=== PATIENT | male | born 1965 | race Caucasian/White ===

== ENCOUNTER → 2016-06-17 | Outpatient (CLI) | payer MEDICARE ==
--- NOTE | 2016-06-17 13:18 | MR ---
EXAMINATION TYPE: MR shoulder RT wo con DATE OF EXAM: 06/17/2016 1:02 PM COMPARISON: NONE HISTORY: Right Shoulder Pain TECHNIQUE: Multiplanar multispin echo imaging of the right shoulder was performed. 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 Small undersurface partial tear is noted just distal to the critical zone. No evide nce for full-thickness tear. The remaining rotator cuff tendons appear to be within normal limits. Bu rsa: No bursal effusion or thickening is seen. Musculature: There is no muscular tear, contusion, or atrophy. Acromioclavicular joint : Moderate AC joint arthropathy. Downsloping of the acromion with subacromial spurring resulting in impingement. Osseous structures : There are no fractures or regions of abnorma l bone marrow signal intensity. Long biceps tendon : The biceps tendon is normally situated within the bicipital groove. Tendinosis o f the intra-articular biceps tendon identified. Glenohumeral Joint fluid : There is no glenohumeral joint effusion. Cartilage and Bone : No focal hyaline cartilage defects are noted. No Hill-Sachs, reverse Hill-Sachs, or bony Bankart lesions are seen. Subchondral cystic change greater humeral tuberosity. Labrum : There is tear noted to involve the anterior-inferior glenoid labrum associated thickening. OTHER FINDINGS : none IMPRESSION: 1. Chronic tendinopathy supraspinatus tendon secondary to impingement with partial undersurface tear. 2. Intra-articular tendinosis of the biceps tendon. 3. Suspect anterior inferior glenoid labral tear.
== END | disposition home or self-care (01) ==
LOC: RADMRIMAIN 12:21
PROVIDERS: ATTEND Orthopaedic Surgery
DX: M75.111 Incomplete rotator cuff tear or rupture of right shoulder, not specified as traumatic (principal); M67.813 Other specified disorders of tendon, right shoulder; M75.81 Other shoulder lesions, right shoulder

== ENCOUNTER 2016-09-27 11:49 | Inpatient (IN) | payer MEDICARE ==
[2016-09-27] MEDS: SODIUM CHLORIDE 0.9% 1,000 ML IV SCH ×2 (14:29→23:16)
--- NOTE | 2016-09-27 14:29 | ED ---
General Adult HPI - General Chief complaint: Skin/Abscess/Foreign Body Stated complaint: abcess Time Seen by Provider: 09/27/16 12:13 Source: patient, family, RN notes reviewed Mode of arrival: ambulatory Limitations: no limitations - Related Data Home Medications Medication Instructions Recorded Confirmed HYDROcodone/APAP 10-325MG [[place] 1 tab PO QID PRN 01/13/15 09/27/16 10] Lisinopril 40 mg PO DAILY 01/13/15 09/27/16 Triamterene-Hctz 37.5-25Mg 1 cap PO DAILY 01/13/15 09/27/16 [Dyazide] amLODIPine [Norvasc] 2.5 mg PO DAILY 01/13/15 09/27/16 fentaNYL 50MCG/HR PATCH [Duragesic 50 mcg TRANSDERM Q72H 01/13/15 09/27/16 50Mcg/Hr Patch] Allergies Allergy/AdvReac Type Severity Reaction Status Date / Time No Known Allergies Allergy Verified 09/27/16 12:25 Review of Systems ROS Statement: Those systems with pertinent positive or pertinent negative responses have been documented in the HPI. ROS Other: All systems not noted in ROS Statement are negative. Past Medical History Past Medical History: Asthma, Hypertension, Musculoskeletal Disorder, Osteoarthritis (OA) Additional Past Medical History / Comment(s): chronic back pain History of Any Multi-Drug Resistant Organisms: None Reported Past Surgical History: Bariatric Surgery, Cholecystectomy, Hernia Repair, Orthopedic Surgery Additional Past Surgical History / Comment(s): UMBILICAL HERNIA, RT KNEE MENISCUS, GASTRIC SLEEVE 2012, rotator cuff Past Anesthesia/Blood Transfusion Reactions: No Reported Reaction Additional Past Anesthesia/Blood Transfusion Reaction / Comment(s): WOKE UP DURING KNEE SURGERY. Past Psychological History: No Psychological Hx Reported Smoking Status: Former smoker Past Alcohol Use History: None Reported Additional Past Alcohol Use History / Comment(s): STATES OCCASIONAL SMOKER APPROX 2 PACKS PER YEAR. Past Drug Use History: Marijuana Additional Drug Use History / Comment(s): SMOKES MARIJUANA FOR BACK PAIN DAILY - Past Family History Brother(s) Family Medical History: Cancer Additional Family Medical History / Comment(s): KIDNEY [place] General Exam Limitations: no limitations Course Vital Signs 09/27/16 09/27/16 09/27/16 11:52 12:35 15:36 Temperature 97.4 F L 99.3 F 98.4 F Pulse Rate 72 62 Respiratory 18 18 Rate Blood Pressure 159/77 178/84 O2 Sat by Pulse 99 Oximetry Medical Decision Making - Medical Decision Making Patient had lab work and IV started. He was seen by general surgeon Dr. Megan mei. Patient be admitted to her service. The ultrasound was done which showing a complex abscess measuring 4.8 cm with irregular shape. Approximate 1 cm deep to the surface. Possibly some peripheral vascularity appears to be part solid. This is the area where the patient had previous incision and drainage does have a fair amount of thickened skin. Dr. Callejas - Lab Data Result diagrams: 09/27/16 14:32 09/27/16 14:32 Lab Results 09/27/16 09/27/16 Range/Units 14:32 14:32 WBC 8.0 (3.8-10.6) k/uL RBC 4.81 (4.30-5.90) m/uL Hgb 13.8 (13.0-17.5) gm/dL Hct 40.4 (39.0-53.0) % MCV 84.0 (80.0-100.0) fL MCH 28.8 (25.0-35.0) pg MCHC 34.3 (31.0-37.0) g/dL RDW 12.7 (11.5-15.5) % Plt Count 227 (150-450) k/uL Neutrophils % 74 % Lymphocytes % 16 % Monocytes % 7 % Eosinophils % 1 % Basophils % 0 % Neutrophils # 5.9 (1.3-7.7) k/uL Lymphocytes # 1.3 (1.0-4.8) k/uL Monocytes # 0.6 (0-1.0) k/uL Eosinophils # 0.1 (0-0.7) k/uL Basophils # 0.0 (0-0.2) k/uL Sodium 140 (137-145) mmol/L Potassium 4.1 (3.5-5.1) mmol/L Chloride 103 (98-107) mmol/L Carbon Dioxide 33 H (22-30) mmol/L Anion Gap 4 mmol/L BUN 12 (9-20) mg/dL Creatinine 0.61 L (0.66-1.25) mg/dL Est GFR (MDRD) Af Amer >60 (>60 ml/min/1.73 sqM) Est GFR (MDRD) Non-Af >60 (>60 ml/min/1.73 sqM) Glucose 87 (74-99) mg/dL Calcium 8.9 (8.4-10.2) mg/dL Total Bilirubin 1.2 (0.2-1.3) mg/dL AST 25 (17-59) U/L ALT 26 (21-72) U/L Alkaline Phosphatase 66 (38-126) U/L Total Protein 6.6 (6.3-8.2) g/dL Albumin 3.6 (3.5-5.0) g/dL Disposition Clinical Impression: Perianal abscess Disposition: ADMITTED IP TO THIS HOSP Condition: Fair Referrals: Ethan Rea DO [Primary Care Provider] - 1-2 days
[2016-09-27 14:45] LABS: Basophils % (A) 0 %; CH 29.5; CHCM 35.3; Eosinophils # (A) 0.1 k/uL (0-0.7); Eosinophils % (A) 1 %; HCT 40.4 % (39.0-53.0); HDW 3.01; HGB 13.8 gm/dL (13.0-17.5); Luc # (Auto) 0.15; Luc % (Auto) 2; Lymphocytes # (A) 1.3 k/uL (1.0-4.8); Lymphocytes % (A) 16 %; MCH 28.8 pg (25.0-35.0); MCHC 34.3 g/dL (31.0-37.0); Mean Platelet Volume 6.4; Monocytes # (A) 0.6 k/uL (0-1.0); Monocytes % (A) 7 %; Neutrophils # (A) 5.9 k/uL (1.3-7.7); Neutrophils % (A) 74 %; RBC 4.81 m/uL (4.30-5.90); RDW 12.7 % (11.5-15.5); WBC (Perox) 7.72
[2016-09-27 14:54] LABS: ALT 26 U/L (21-72); AST 25 U/L (17-59); Alkaline Phosphatase 66 U/L (38-126); Anion Gap 4 mmol/L; Blood Urea Nitrogen 12 mg/dL (9-20); Calcium 8.9 mg/dL (8.4-10.2); Carbon Dioxide 33 mmol/L (22-30); Chloride 103 mmol/L (98-107); Glucose 87 mg/dL (74-99); Non-African American GFR(MDRD) >60 (>60 ml/min/1.73 sqM); Potassium 4.1 mmol/L (3.5-5.1); Sodium 140 mmol/L (137-145); Total Bilirubin 1.2 mg/dL (0.2-1.3); Total Protein 6.6 g/dL (6.3-8.2)
--- NOTE | 2016-09-27 15:24 | US ---
EXAMINATION TYPE: US pelvic limited DATE OF EXAM: 09/27/2016 COMPARISON: NONE CLINICAL HISTORY: painful perianal abscess Painful perianal area. Area does not appear red or swollen on the outside. Small dimpled area seen weems perficially. Irregular complex mass with peripheral vascularity measuring 4.8 x 2.8 cm. IMPRESSION: PROBABLE 4.8 CM PERINEAL ABSCESS.
--- NOTE | 2016-09-27 15:58 | P.GSHP ---
History of Present Illness H&P Date: 09/27/16 Chief Complaint: Perianal abscess Patient is a 50-year-old gentleman who presents to the emergency room with a complaint of pain in the periareolar area. Hemostasis the pain is present for approximately 3. The patient has had multiple perianal abscesses drained in the past. He denies any fever or chills. He did have a bowel movement this morning. Hemostasis was difficult secondary to pressure. Past surgical history: 1. Perianal abscess drainage 2. Rotator cuff 3. Gastric sleeve; patient has lost approximately 300 pounds 4. Umbilical hernia 5. Laparoscopic surgery 6. Cholecystectomy Past medical history: 1. Degenerative disease of his back 2. Shoulder pain Medications: Fentanyl Lisinopril Norvasc For Dyazide ALLERGIES: Negative Social history: Smokes marijuana Alcohol: Negative Cigarettes: Negative Systems: HEENT: Negative Lungs: Asthma in the past Heart: Negative GI: Constipation Multiple perianal abscesses in the past : Negative - Constitutional Constitutional: Reports as per HPI - Cardiovascular Cardiovascular: Reports as per HPI - Respiratory Respiratory: Reports as per HPI - Gastrointestinal Comment: Multiple perianal abscesses drained in the past Gastrointestinal: Reports as per HPI - Genitourinary (Female) Genitourinary: Reports as per HPI - Musculoskeletal Musculoskeletal: Reports as per HPI - Hematologic/Lymphatic Hematologic/Lymphatic: Reports as per HPI Past Medical History Past Medical History: Asthma, Hypertension, Musculoskeletal Disorder, Osteoarthritis (OA) Additional Past Medical History / Comment(s): chronic back pain History of Any Multi-Drug Resistant Organisms: None Reported Past Surgical History: Bariatric Surgery, Cholecystectomy, Hernia Repair, Orthopedic Surgery Additional Past Surgical History / Comment(s): UMBILICAL HERNIA, RT KNEE MENISCUS, GASTRIC SLEEVE 2012, rotator cuff Past Anesthesia/Blood Transfusion Reactions: No Reported Reaction Additional Past Anesthesia/Blood Transfusion Reaction / Comment(s): WOKE UP DURING KNEE SURGERY. Past Psychological History: No Psychological Hx Reported Smoking Status: Former smoker Past Alcohol Use History: None Reported Additional Past Alcohol Use History / Comment(s): STATES OCCASIONAL SMOKER APPROX 2 PACKS PER YEAR. Past Drug Use History: Marijuana Additional Drug Use History / Comment(s): SMOKES MARIJUANA FOR BACK PAIN DAILY - Past Family History Brother(s) Family Medical History: Cancer Additional Family Medical History / Comment(s): KIDNEY [place] Medications and Allergies Home Medications Medication Instructions Recorded Confirmed Type HYDROcodone/APAP 10-325MG [[place] 1 tab PO QID PRN 01/13/15 09/27/16 History 10] Lisinopril 40 mg PO DAILY 01/13/15 09/27/16 History Triamterene-Hctz 37.5-25Mg 1 cap PO DAILY 01/13/15 09/27/16 History [Dyazide] amLODIPine [Norvasc] 2.5 mg PO DAILY 01/13/15 09/27/16 History fentaNYL 50MCG/HR PATCH [Duragesic 50 mcg TRANSDERM Q72H 01/13/15 09/27/16 History 50Mcg/Hr Patch] Allergies Allergy/AdvReac Type Severity Reaction Status Date / Time No Known Allergies Allergy Verified 09/27/16 12:25 Surgical - Exam Vital Signs Temp Pulse Resp BP Pulse Ox 97.4 F L 72 18 159/77 99 09/27/16 11:52 09/27/16 11:52 09/27/16 11:52 09/27/16 11:52 09/27/16 11:52 - General well developed, no distress, obese - Eyes normal ocular movement - ENT normal pinna, normal nares, normal mucosa - Neck no masses, trachea midline, no lymphadectomy - Respiratory normal expansion, normal respiratory effort, clear to percussion, clear to auscultation - Cardiovascular Rhythm: regular Heart Sounds: normal: S1, S2 - Abdomen Abdomen: soft, tender - Rectum fullness and induration left perianal area Rectum: normal sphincter tone - Integumentary no rash, no growths - Psychiatric oriented to time, oriented to person, oriented to place, speech is normal Results - Labs 09/27/16 14:32 09/27/16 14:32 Abnormal Lab Results - Last 24 Hours (Table) 09/27/16 Range/Units 14:32 Carbon Dioxide 33 H (22-30) mmol/L Creatinine 0.61 L (0.66-1.25) mg/dL Diabetes panel 09/27/16 Range/Units 14:32 Sodium 140 (137-145) mmol/L Potassium 4.1 (3.5-5.1) mmol/L Chloride 103 (98-107) mmol/L Carbon Dioxide 33 H (22-30) mmol/L BUN 12 (9-20) mg/dL Creatinine 0.61 L (0.66-1.25) mg/dL Glucose 87 (74-99) mg/dL Calcium 8.9 (8.4-10.2) mg/dL AST 25 (17-59) U/L ALT 26 (21-72) U/L Alkaline Phosphatase 66 (38-126) U/L Total Protein 6.6 (6.3-8.2) g/dL Albumin 3.6 (3.5-5.0) g/dL Calcium panel 09/27/16 Range/Units 14:32 Calcium 8.9 (8.4-10.2) mg/dL Albumin 3.6 (3.5-5.0) g/dL Pituitary panel 09/27/16 Range/Units 14:32 Sodium 140 (137-145) mmol/L Potassium 4.1 (3.5-5.1) mmol/L Chloride 103 (98-107) mmol/L Carbon Dioxide 33 H (22-30) mmol/L BUN 12 (9-20) mg/dL Creatinine 0.61 L (0.66-1.25) mg/dL Glucose 87 (74-99) mg/dL Calcium 8.9 (8.4-10.2) mg/dL Adrenal panel 09/27/16 Range/Units 14:32 Sodium 140 (137-145) mmol/L Potassium 4.1 (3.5-5.1) mmol/L Chloride 103 (98-107) mmol/L Carbon Dioxide 33 H (22-30) mmol/L BUN 12 (9-20) mg/dL Creatinine 0.61 L (0.66-1.25) mg/dL Glucose 87 (74-99) mg/dL Calcium 8.9 (8.4-10.2) mg/dL Total Bilirubin 1.2 (0.2-1.3) mg/dL AST 25 (17-59) U/L ALT 26 (21-72) U/L Alkaline Phosphatase 66 (38-126) U/L Total Protein 6.6 (6.3-8.2) g/dL Albumin 3.6 (3.5-5.0) g/dL - Imaging Comments: Ultrasound of perianal area consistent with an abscess Assessment and Plan Plan: Impression/plan: 1. Multiple prior perianal abscesses for drainage of perianal abscess at this time 2. Asthma 3. History of constipation Plan: 1. I&D of abscess in operating room patient understands this and benefits and wishes to proceed
[2016-09-27] MEDS ORDERED: PIPERACILLIN-TAZOBACTAM 3.375 GM in DEXTROSE/WATER 1 50ML.BAG IVPB STA (16:01)
[2016-09-27 17:03] VITALS: BMI 35.9
[2016-09-27] MEDS ORDERED: HYDROcodone/APAP 10-325MG 1 EACH TAB PO PRN (20:27)
[2016-09-27] MEDS ORDERED: CYCLOBENZAPRINE 10 MG TAB PO PRN (21:42)
[2016-09-27] MEDS: LISINOPRIL 20 MG TAB PO SCH (22:39)
[2016-09-27] MEDS: amLODIPine 2.5 MG TAB PO SCH (22:39)
[2016-09-27] MEDS: busPIRone HCl 5 MG TAB PO PRN (22:40)
[2016-09-27] MEDS: ESCITALOPRAM 10 MG TAB PO SCH (22:40)
[2016-09-27] MEDS: clonazePAM 1 MG TAB PO SCH (22:40)
[2016-09-27] MEDS: TRIAMTERENE-HCTZ 37.5-25MG 1 EACH CAP PO SCH (22:42)
[2016-09-27] MEDS: PIPERACILLIN-TAZOBACTAM 3.375 GM in DEXTROSE/WATER 1 50ML.BAG IVPB SCH (23:12)
[2016-09-28] MEDS: ONDANSETRON 4 MG/2 ML VIAL IVP PRN ×2 (07:15→15:49)
[2016-09-28] MEDS: PIPERACILLIN-TAZOBACTAM 3.375 GM in DEXTROSE/WATER 1 50ML.BAG IVPB SCH ×2 (07:18→18:03)
[2016-09-28] MEDS ORDERED: hydrALAZINE HCL 20 MG/ML 1 ML VIAL IVP PRN (09:42)
[2016-09-28] MEDS ORDERED: ACETAMINOPHEN IV (For NPO) 1,000 MG in EMPTY BAG 1 BAG IVPB STA (10:07)
[2016-09-28] MEDS: amLODIPine 2.5 MG TAB PO SCH (10:48)
[2016-09-28] MEDS: LISINOPRIL 20 MG TAB PO SCH (10:48)
[2016-09-28] MEDS: clonazePAM 1 MG TAB PO SCH ×2 (10:48→20:39)
[2016-09-28] MEDS: ESCITALOPRAM 10 MG TAB PO SCH (10:48)
[2016-09-28] MEDS: TRIAMTERENE-HCTZ 37.5-25MG 1 EACH CAP PO SCH (10:48)
[2016-09-28] MEDS ORDERED: IV FLUID CONTINUATION 1,000 ML IV ONE (13:47)
[2016-09-28] MEDS ORDERED: HEPARIN SODIUM,PORCINE 5,000 UNIT/ML 1 ML VIAL SQ ONE ×2 (14:29→15:25)
[2016-09-28] MEDS ORDERED: MIDAZOLAM 2 MG/2 ML VIAL ONE (14:41)
[2016-09-28] MEDS ORDERED: HYDROmorphone (PF) 1 MG/ML ONE (14:41)
[2016-09-28] MEDS ORDERED: ROCURONIUM BROMIDE 10 MG/ML 10 ML VIAL IV ONE (14:41)
[2016-09-28] MEDS ORDERED: fentaNYL (PF) 50 MCG/ML 2 ML AMP ONE (14:41)
[2016-09-28] MEDS ORDERED: NEOSTIGMINE 1 MG/ML 10 ML VIAL ONE (14:41)
[2016-09-28] MEDS ORDERED: GLYCOPYRROLATE 0.2 MG/ML 2 ML VIAL ONE (14:41)
[2016-09-28] MEDS ORDERED: SUCCINYLCHOLINE CHLORIDE 100 MG/5 ML SYR IV ONE (14:41)
[2016-09-28] MEDS ORDERED: LIDOCAINE 1% INJ 10MG/ML (20 ML MDV) ONE (14:41)
[2016-09-28] MEDS ORDERED: KETAMINE 10 MG/ML 20 ML VIAL ONE (14:41)
[2016-09-28] MEDS ORDERED: PROPOFOL 10 MG/ML 20 ML VIAL IV ONE (14:41)
[2016-09-28] MEDS ORDERED: METOPROLOL TARTRATE 5 MG/5 ML VIAL IVP ONE (14:41)
[2016-09-28] MEDS ORDERED: LIDOCAINE 1% (PF) 10 MG/ML (30 ML SDV) SQ ONE (15:20)
--- NOTE | 2016-09-28 15:31 | P.OP ---
Date of Procedure: 09/28/16 Preoperative Diagnosis: Left buttock perianal abscess Postoperative Diagnosis: Same Procedure(s) Performed: Incision and drainage perianal abscess Implants: Anesthesia: FRANA Surgeon: Katerina Anton Estimated Blood Loss (ml): 10 IV fluids (ml): 700 Pathology: other (No tissue but cultures obtained aerobic and anerobic) Condition: stable Disposition: PACU Indications for Procedure: Left buttock perianal abscess Operative Findings: Perianal abscess Description of Procedure: Patient was taken to the operating room and placed in the right lateral decubitus position following induction of general anesthesia. The perianal area was prepped and draped in the sterile fashion. In the left buttock there was an area of induration and an 18-gauge needle was used to identify the location of the area of purulence; as it was somewhat deep. A cruciate incision was then made over this area and approximately 15 cc of purulent drainage was removed. Cultures were obtained. The area was well irrigated. Following this after hemostatis was attained the wound was packed with iodoform gauze. Patient tolerated procedure in stable condition. All instrument and sponge counts were correct at the end of the case. The size of the cavity was approximately 8 cm x 4cm
[2016-09-28] MEDS: hydrALAZINE HCL 20 MG/ML 1 ML VIAL IVP ONE ×2 (16:29→17:05)
[2016-09-28] MEDS ORDERED: LACTATED RINGERS 1,000 ML IV ONE (16:36)
--- NOTE | 2016-09-28 20:03 | CONS ---
DATE OF CONSULTATION: 09/28/2016. REASON FOR CONSULTATION: Medical management requested by Dr. Megan Anton. CONSULTATION: This is a pleasant 50-year-old patient of Dr. Rea. Chronic stable medical conditions include hypertension, osteoarthritis in multiple joints, including the back, knee, depression, anxiety. The patient has had recurrent rectal abscess since the age of 17. This time above came week ago, patient is having increasing pain in the rectal area, rectal abscess again identified. Rather painful. Denies any obvious fevers. Patient takes rather hefty pain medication because it causes constipation. The patient decided to stop Fentanyl patch 3 days ago. The patient is having some slight nausea. REVIEW OF SYSTEMS: CONSTITUTIONAL: Weak and tired. HEENT: None. RESPIRATORY: None. CARDIOVASCULAR: None. GASTROINTESTINAL: Constipation. GENITOURINARY: As above. MUSCULOSKELETAL: Arthritic pain in the lower back pain, knees. Dermatological: Pain, redness in the perirectal area. HEMATOLOGICAL: None. LYMPHATICS: None. PSYCHIATRY: None. NEUROLOGICAL: As above. MUSCULOSKELETAL: As above. Past history of remote history of asthma, hypertension, osteoarthritis, back and knees, depression and anxiety, perirectal abscess. PAST SURGICAL HISTORY: Bariatric surgery, cholecystectomy, hernia repair, umbilical hernia repair, right knee meniscus, gastric sleeve 2012, rotator cuff surgery. SOCIAL HISTORY: Patient smokes cigarettes rarely. Does marijuana for back pain. Patient is on disability. FAMILY HISTORY: Kidney cancer. HOME MEDICATIONS: 1. Fentanyl patch 75 mcg every 72 hours, stopped 3 days ago. 2. Buspirone 50 mg p.o. t.i.d. p.r.n. 3. Lexapro 10 mg a day. 4. Klonopin 1 mg p.o. b.i.d. 5. Dyazide 37.5/25, 1 tablet p.o. daily. 6. Norvasc 2.5 p.o. daily. 7. Lisinopril 40 mg a day. 8. [place] 10 1 tablets q.i.d. p.r.n. ALLERGIES: None. PHYSICAL EXAMINATION: Vital signs on presentation: Temperature 97.4, pulse 72, respirations 18, blood pressure 149/77, pulse ox 99% on room air. GENERAL APPEARANCE: Well-built lying in bed, tired -appearing. EYES: Pupils equal. Conjunctivae normal. HEENT: Oral cavity normal. NECK: JVD not raised. Mass not palpable. RESPIRATORY: Effort normal. Lungs are clear. CARDIOVASCULAR: First and second sounds normal. No edema. ABDOMEN: Soft, nontender. Liver and spleen not palpable. LYMPHATIC: No lymph nodes palpable in neck or axillae. PSYCHIATRY: Alert, oriented x3 Mood and affect normal. NEUROLOGICAL: Pupils are equal, cranial nerves grossly intact. Power and sensation grossly intact. MUSCULOSKELETAL: Evidence of osteoarthritis especially in the knees and hands. Rectal area noted to be very tender in the perirectal area with some fluctuation. INVESTIGATIONS: White count 8, hemoglobin 13.8, potassium 4.1, BUN 12.0, creatinine 0.61. ASSESSMENT: 1. Recurrent perirectal abscess. 2. Essential hypertension. 3. Primary osteoarthritis in the lumbar spine and the knees. 4. Depression/anxiety, not otherwise specified. PLAN: Patient is put on IV Zosyn. Home medications are resumed. Patient did not want to take his Fentanyl patch. I did explain to him that dropping 75 mcg of fentanyl with no pain medications at least he should take a part of that. At this point, we will give the patient 25 of fentanyl patch and other pain before surgery we will leave to primary team. Care was discussed with the patient. Thank you, Dr. Megan Anton.
[2016-09-28] MEDS ORDERED: ACETAMINOPHEN TAB 325 MG TAB PO PRN ×2 (20:27→20:33)
[2016-09-28] MEDS: busPIRone HCl 5 MG TAB PO PRN (21:46)
[2016-09-28] MEDS: SODIUM CHLORIDE 0.9% 1,000 ML IV SCH (22:27)
[2016-09-29] MEDS: PIPERACILLIN-TAZOBACTAM 3.375 GM in DEXTROSE/WATER 1 50ML.BAG IVPB SCH ×2 (06:27→08:31)
[2016-09-29] MEDS: SODIUM CHLORIDE 0.9% 1,000 ML IV SCH (07:15)
[2016-09-29 07:30] LABS: Basophils % (A) 0 %; CH 29.4; CHCM 34.7; Eosinophils # (A) 0.1 k/uL (0-0.7); Eosinophils % (A) 1 %; HCT 39.8 % (39.0-53.0); HDW 3.08; HGB 13.8 gm/dL (13.0-17.5); Luc # (Auto) 0.12; Luc % (Auto) 2; Lymphocytes % (A) 16 %; MCH 29.5 pg (25.0-35.0); MCHC 34.8 g/dL (31.0-37.0); MCV 84.9 fL (80.0-100.0); Mean Platelet Volume 6.7; Monocytes # (A) 0.4 k/uL (0-1.0); Monocytes % (A) 7 %; Neutrophils # (A) 4.4 k/uL (1.3-7.7); Neutrophils % (A) 74 %; RBC 4.69 m/uL (4.30-5.90); RDW 12.7 % (11.5-15.5); WBC (Perox) 6.09
[2016-09-29 07:42] LABS: Anion Gap 9 mmol/L; Blood Urea Nitrogen 9 mg/dL (9-20); Calcium 8.7 mg/dL (8.4-10.2); Carbon Dioxide 27 mmol/L (22-30); Chloride 106 mmol/L (98-107); Glucose 101 mg/dL (74-99); Non-African American GFR(MDRD) >60 (>60 ml/min/1.73 sqM); Potassium 3.5 mmol/L (3.5-5.1); Sodium 142 mmol/L (137-145)
[2016-09-29 08:02] VITALS: BP 150/81; PULSE 62; RESP 17; TEMP 97.3
[2016-09-29] MEDS ORDERED: POTASSIUM CHLORIDE ER 20 MEQ TAB.ER PO STA (08:03)
[2016-09-29] MEDS: LISINOPRIL 20 MG TAB PO SCH (08:55)
[2016-09-29] MEDS: clonazePAM 1 MG TAB PO SCH (08:56)
[2016-09-29] MEDS: amLODIPine 2.5 MG TAB PO SCH (08:56)
[2016-09-29] MEDS: ESCITALOPRAM 10 MG TAB PO SCH (08:56)
[2016-09-29] MEDS: TRIAMTERENE-HCTZ 37.5-25MG 1 EACH CAP PO SCH (08:56)
--- NOTE | 2016-09-29 11:36 | P.DS ---
Providers Date of admission: 09/27/16 15:45 Expected date of discharge: 09/29/16 Attending physician: Katerina Anton Consults: 09/27/16 20:25 Consult Physician Urgent Consulting Provider: Fawad Latham Consult Reason/Comments: medical Do you want consulting provider notified?: Yes 09/28/16 15:34 Consult Physician Routine Consulting Provider: Joaquín Mas Consult Reason/Comments: recurrent perianal abscess Do you want consulting provider notified?: Yes Primary care physician: [facility] Course: 50-year-old male who presented on the day of admission to the emergency room for chief complaint of developing pain in the perirectal area. Patient gives a history of having prior multiple perianal abscess drained in the past. Patient denied any fever chills. Patient does give a history of morbid obesity did undergo gastric sleeve and lost approximately 300 pounds patient did have an ultrasound of the perianal area which was consistent with an abscess. Patient agreed to undergo an elective incision and drainage of the perianal abscess which was done on September 28. Postop there were no new events. The wound care was packing with iodoform gauze. Infectious disease consultation was obtained Dr. Mas did see patient on consultation recommended the patient could be discharged on Cipro 500 mg every 12 hours for 1 week and Flagyl 500 mg 3 times a day for 1 week. And that the wound cultures could be followed up in the outpatient setting and that the 2 antibiotics should be adequate coverage. Patient has no history of MRSA. The time of discharge the wound cultures were pending at Dr. Mas did indicate these antibiotics would cover the anaerobic Gram stain cultures if they were positive for MRSA Patient lives with his spouse and was requesting home care be set up to participate in wound care Impression discharge diagnosis Present on admission Left buttock perianal pain likely due to a perianal abscess Incision and drainage of a perianal abscess done on the september with iodoform packing Essential Hypertension Primary Osteoarthritis lumbar spine and knees Anxiety depressive disorder nonspecified History a recurrent perirectal abscess History of morbid obesity loss 300 pounds with the surgical intervention gastric sleeve The above dictated assessment and findings were discussed with [dr Naina hyatt Impression and the plan of care have been dictated as directed. Gris Harden nurse practitioner acting as a scribe for Dr. Muhammad. Patient Condition at Discharge: Fair Plan - Discharge Summary New Discharge Prescriptions: New fentaNYL 25MCG/HR PATCH [Duragesic 25MCG/HR] 1 patch TRANSDERM Q72H #7 patch Ciprofloxacin HCl [Cipro] 500 mg PO Q12HR #14 tablet metroNIDAZOLE [Flagyl] 500 mg PO TID #21 tab Continue HYDROcodone/APAP 10-325MG [[place] 10-325] 1 tab PO QID PRN PRN Reason: Pain amLODIPine [Norvasc] 2.5 mg PO DAILY Triamterene-Hctz 37.5-25Mg [Dyazide 37.5-25 Capsule] 1 cap PO DAILY Lisinopril 40 mg PO DAILY clonazePAM [KlonoPIN] 1 mg PO BID busPIRone HCL 15 mg PO TID PRN PRN Reason: Anxiety Escitalopram [Lexapro] 10 mg PO DAILY Discontinued fentaNYL 75MCG/HR PATCH [Durages[place] 75MCG/HR] 75 mcg TRANSDERM Q72H Discharge Medication List HYDROcodone/APAP 10-325MG [[place] 10-325] 1 tab PO QID PRN 01/13/15 [History] Lisinopril 40 mg PO DAILY 01/13/15 [History] Triamterene-Hctz 37.5-25Mg [Dyazide 37.5-25 Capsule] 1 cap PO DAILY 01/13/15 [ History] amLODIPine [Norvasc] 2.5 mg PO DAILY 01/13/15 [History] Escitalopram [Lexapro] 10 mg PO DAILY 09/27/16 [History] busPIRone HCL 15 mg PO TID PRN 09/27/16 [History] clonazePAM [KlonoPIN] 1 mg PO BID 09/27/16 [History] Ciprofloxacin HCl [Cipro] 500 mg PO Q12HR #14 tablet 09/29/16 [Rx] fentaNYL 25MCG/HR PATCH [Durages[place] 25MCG/HR] 1 patch TRANSDERM Q72H #7 patch 12/08 [Rx] metroNIDAZOLE [Flagyl] 500 mg PO TID #21 tab 09/29/16 [Rx] Follow up Appointment(s)/Referral(s): Ethan Rea DO [Primary Care Provider] - 1-2 days Katerina Anton MD [STAFF PHYSICIAN] - 1 Week Activity/Diet/Wound Care/Special Instructions: wound care per surgeon Iodoform packing to the perirectal area twice a day Discharge Disposition: HOME WITH HOME HEALTH SERVICES
--- NOTE | 2016-09-29 14:09 | P.CONS ---
History of Present Illness - Reason for Consult Consult date: 09/29/16 perianal abscess - History of Present Illness This is a 50-year-old male who gives history of having a perianal abscess when he was 19 years old and had several recurrences during the past 20- 30 years. His most recent one was 10 years ago he ended up applying heat and standing in the shower with warm water and it eventually popped on its own and he did not seek medical treatment. Patient now states he has had an area for at least the last 4 days and he has been trying to use a heating pad and a warm shower to get it to express itself but this has not happened and he continued to have worsening pain and tenderness to the area. He came into [facility] emergency center and underwent ultrasound that showed a 4.8 cm abscess. Patient was admitted to the hospital and started on Zosyn. He went to the OR for a left perineal abscess I&D with Dr. Anton yesterday and currently wound is being packed. He has been afebrile with white count of 8. Albumin is 3.6. Patient is anticipating discharge home later today. Review of Systems All systems: negative Constitutional: Denies chills, Denies fever Eyes: denies blurred vision, denies pain Ears, nose, mouth and throat: Denies headache, Denies sore throat Cardiovascular: Denies chest pain, Denies shortness of breath Respiratory: Denies cough Gastrointestinal: Denies abdominal pain, Denies diarrhea, Denies nausea, Denies vomiting Musculoskeletal: Denies myalgias Integumentary: Denies pruritus, Denies rash Neurological: Denies numbness, Denies weakness Psychiatric: Denies anxiety, Denies depression Endocrine: Denies fatigue, Denies weight change Past Medical History Past Medical History: Asthma, Hypertension, Musculoskeletal Disorder, Osteoarthritis (OA) Additional Past Medical History / Comment(s): chronic back pain History of Any Multi-Drug Resistant Organisms: None Reported Past Surgical History: Bariatric Surgery, Cholecystectomy, Hernia Repair, Orthopedic Surgery Additional Past Surgical History / Comment(s): UMBILICAL HERNIA, RT KNEE MENISCUS, GASTRIC SLEEVE 2012, rotator cuff Past Anesthesia/Blood Transfusion Reactions: No Reported Reaction Additional Past Anesthesia/Blood Transfusion Reaction / Comm: WOKE UP DURING KNEE SURGERY. Past Psychological History: No Psychological Hx Reported Smoking Status: Former smoker Past Alcohol Use History: None Reported Additional Past Alcohol Use History / Comment(s): Patient is a smoker one to 2 packs per day of cigarettes. He does smoke marijuana for his back pain. He does not have a medical marijuana card but his does. He denies any street drug use and uses alcohol on a rare basis. He lives at home with his and his mother. There is a bird in the home. He denies any service. His hobbies are drumming and singing. Past Drug Use History: Marijuana Additional Drug Use History / Comment(s): SMOKES MARIJUANA FOR BACK PAIN DAILY - Past Family History Father Family Medical History: No Reported History Brother(s) Family Medical History: Cancer Additional Family Medical History / Comment(s): KIDNEY [place] Medications and Allergies Home Medications Medication Instructions Recorded Confirmed Type HYDROcodone/APAP 10-325MG [[place] 1 tab PO QID PRN 01/13/15 09/27/16 History 10-325] Lisinopril 40 mg PO DAILY 01/13/15 09/27/16 History Triamterene-Hctz 37.5-25Mg 1 cap PO DAILY 01/13/15 09/27/16 History [Dyazide 37.5-25 Capsule] amLODIPine [Norvasc] 2.5 mg PO DAILY 01/13/15 09/27/16 History Escitalopram [Lexapro] 10 mg PO DAILY 09/27/16 09/27/16 History busPIRone HCL 15 mg PO TID PRN 09/27/16 09/27/16 History clonazePAM [KlonoPIN] 1 mg PO BID 09/27/16 09/27/16 History Allergies Allergy/AdvReac Type Severity Reaction Status Date / Time No Known Allergies Allergy Verified 09/27/16 12:25 Physical Exam Vitals: Vital Signs Temp Pulse Pulse Resp BP Pulse Ox 09/29/16 07:00 97.3 F L 62 17 150/81 98 09/29/16 02:09 98.6 F 73 16 158/84 98 09/28/16 19:30 71 16 141/82 97 09/28/16 19:15 98.4 F 78 16 152/83 97 09/28/16 19:00 79 16 157/78 97 09/28/16 18:45 75 16 152/83 97 09/28/16 18:30 81 16 154/89 97 09/28/16 18:15 74 16 151/86 97 09/28/16 18:00 73 16 173/102 97 09/28/16 17:45 98.7 F 71 16 178/101 99 09/28/16 17:15 73 16 170/92 98 09/28/16 16:58 64 16 170/88 98 09/28/16 16:46 63 16 174/85 98 09/28/16 16:38 62 16 174/93 98 09/28/16 16:30 57 L 18 185/100 98 09/28/16 16:15 59 L 18 189/96 97 09/28/16 16:00 51 L 20 164/99 100 09/28/16 15:49 97.9 F 58 L 21 172/97 100 09/28/16 13:53 97.7 F 77 17 144/89 97 09/28/16 10:05 60 159/83 Intake and Output 09/28/16 09/29/16 09/29/16 22:59 06:59 14:59 Intake Total 520 900 Output Total 10 Balance 510 900 Intake: IV 400 900 Sodium Chloride 0.9% 1, 900 000 ml @ 75 mls/hr IV . [id number] BERNY Rx#:[id number] Oral 120 Output: Estimated Blood Loss 10 Other: # Voids 1 Gen: This is a morbidly obese 50-year-old male. He is laying in bed and appears to be in no acute distress. HEENT: Head is atraumatic, normocephalic. Pupils equal, round. Sclerae is anicteric. Conjunctiva pink. Mucous membranes of the mouth are moist. Dentition is in poor order. No thrush noted. NECK: Supple. No JVD. No lymphadenopathy. No thyromegaly. LUNGS: Clear to auscultation. No wheezes or rhonchi. No intercostal retractions. HEART: Regular rate and rhythm. No murmur. ABDOMEN: Soft. Bowel sounds are present. No masses. No tenderness. EXTREMITIES: No pedal edema. No calf tenderness. Dorsalis pedis +2 bilaterally. NEUROLOGICAL: Patient is awake, alert and oriented x3. Cranial nerves 2 through 12 are grossly intact. Results Results: Laboratory Results WBC 6.0 k/uL (3.8-10.6) 09/29/16 07:13 RBC 4.69 m/uL (4.30-5.90) 09/29/16 07:13 Hgb 13.8 gm/dL (13.0-17.5) 09/29/16 07:13 Hct 39.8 % (39.0-53.0) 09/29/16 07:13 MCV 84.9 fL (80.0-100.0) 09/29/16 07:13 MCH 29.5 pg (25.0-35.0) 09/29/16 07:13 MCHC 34.8 g/dL (31.0-37.0) 09/29/16 07:13 RDW 12.7 % (11.5-15.5) 09/29/16 07:13 Plt Count 248 k/uL (150-450) 09/29/16 07:13 Neutrophils % 74 % 09/29/16 07:13 Lymphocytes % 16 % 09/29/16 07:13 Monocytes % 7 % 09/29/16 07:13 Eosinophils % 1 % 09/29/16 07:13 Basophils % 0 % 09/29/16 07:13 Neutrophils # 4.4 k/uL (1.3-7.7) 09/29/16 07:13 Lymphocytes # 1.0 k/uL (1.0-4.8) 09/29/16 07:13 Monocytes # 0.4 k/uL (0-1.0) 09/29/16 07:13 Eosinophils # 0.1 k/uL (0-0.7) 09/29/16 07:13 Basophils # 0.0 k/uL (0-0.2) 09/29/16 07:13 Sodium 142 mmol/L (137-145) 09/29/16 07:13 Potassium 3.5 mmol/L (3.5-5.1) 09/29/16 07:13 Chloride 106 mmol/L (98-107) 09/29/16 07:13 Carbon Dioxide 27 mmol/L (22-30) 09/29/16 07:13 Anion Gap 9 mmol/L 09/29/16 07:13 BUN 9 mg/dL (9-20) 09/29/16 07:13 Creatinine 0.54 mg/dL (0.66-1.25) L 09/29/16 07:13 Est GFR (MDRD) Af Amer >60 (>60 ml/min/1.73 sqM) 09/29/16 07:13 Est GFR (MDRD) Non-Af >60 (>60 ml/min/1.73 sqM) 09/29/16 07:13 Glucose 101 mg/dL (74-99) H 09/29/16 07:13 Calcium 8.7 mg/dL (8.4-10.2) 09/29/16 07:13 Total Bilirubin 1.2 mg/dL (0.2-1.3) 09/27/16 14:32 AST 25 U/L (17-59) 09/27/16 14:32 ALT 26 U/L (21-72) 09/27/16 14:32 Alkaline Phosphatase 66 U/L (38-126) 09/27/16 14:32 Total Protein 6.6 g/dL (6.3-8.2) 09/27/16 14:32 Albumin 3.6 g/dL (3.5-5.0) 09/27/16 14:32 Laboratory Results WBC 6.0 k/uL (3.8-10.6) 09/29/16 07:13 RBC 4.69 m/uL (4.30-5.90) 09/29/16 07:13 Hgb 13.8 gm/dL (13.0-17.5) 09/29/16 07:13 Hct 39.8 % (39.0-53.0) 09/29/16 07:13 MCV 84.9 fL (80.0-100.0) 09/29/16 07:13 MCH 29.5 pg (25.0-35.0) 09/29/16 07:13 MCHC 34.8 g/dL (31.0-37.0) 09/29/16 07:13 RDW 12.7 % (11.5-15.5) 09/29/16 07:13 Plt Count 248 k/uL (150-450) 09/29/16 07:13 Neutrophils % 74 % 09/29/16 07:13 Lymphocytes % 16 % 09/29/16 07:13 Monocytes % 7 % 09/29/16 07:13 Eosinophils % 1 % 09/29/16 07:13 Basophils % 0 % 09/29/16 07:13 Neutrophils # 4.4 k/uL (1.3-7.7) 09/29/16 07:13 Lymphocytes # 1.0 k/uL (1.0-4.8) 09/29/16 07:13 Monocytes # 0.4 k/uL (0-1.0) 09/29/16 07:13 Eosinophils # 0.1 k/uL (0-0.7) 09/29/16 07:13 Basophils # 0.0 k/uL (0-0.2) 09/29/16 07:13 Sodium 142 mmol/L (137-145) 09/29/16 07:13 Potassium 3.5 mmol/L (3.5-5.1) 09/29/16 07:13 Chloride 106 mmol/L (98-107) 09/29/16 07:13 Carbon Dioxide 27 mmol/L (22-30) 09/29/16 07:13 Anion Gap 9 mmol/L 09/29/16 07:13 BUN 9 mg/dL (9-20) 09/29/16 07:13 Creatinine 0.54 mg/dL (0.66-1.25) L 09/29/16 07:13 Est GFR (MDRD) Af Amer >60 (>60 ml/min/1.73 sqM) 09/29/16 07:13 Est GFR (MDRD) Non-Af >60 (>60 ml/min/1.73 sqM) 09/29/16 07:13 Glucose 101 mg/dL (74-99) H 09/29/16 07:13 Calcium 8.7 mg/dL (8.4-10.2) 09/29/16 07:13 Total Bilirubin 1.2 mg/dL (0.2-1.3) 09/27/16 14:32 AST 25 U/L (17-59) 09/27/16 14:32 ALT 26 U/L (21-72) 09/27/16 14:32 Alkaline Phosphatase 66 U/L (38-126) 09/27/16 14:32 Total Protein 6.6 g/dL (6.3-8.2) 09/27/16 14:32 Albumin 3.6 g/dL (3.5-5.0) 09/27/16 14:32 CBC & Chem 7: 09/29/16 07:13 09/29/16 07:13 Labs: Abnormal Lab Results - Last 24 Hours (Table) 09/29/16 Range/Units 07:13 Creatinine 0.54 L (0.66-1.25) mg/dL Glucose 101 H (74-99) mg/dL Microbiology - Last 24 Hours (Table) 09/28/16 15:30 Gram Stain - Preliminary Anal Wound Culture - Preliminary 09/28/16 15:30 Anaerobic Culture - Preliminary Anal Assessment and Plan Plan: This is a 50-year-old male who presented to hospital with a left perianal abscess status post I&D. He has been on IV antibiotics the form of Zosyn and is being prepared for discharge home today. Wound culture showing many gram-negative bacilli. We will plan for Cipro and Flagyl and prescriptions have been entered and sent to his pharmacy. Continue supportive care. The above dictated assessment and findings were discussed with Dr. Mas. The impression and plan of care have been directed as dictated. Candace Fermin nurse practitioner acting as scribe for Dr. Mas.
--- NOTE | 2016-09-29 21:29 | P.CON ---
Consult Note - . Consult date: 09/29/16 Assessment/Plan:: This is a 50-year-old male who gives history of having a perianal abscess when he was 19 years old and had several recurrences during the past 20- 30 years. His most recent one was 10 years ago he ended up applying heat and standing in the shower with warm water and it eventually popped on its own and he did not seek medical treatment. Patient now states he has had an area for at least the last 4 days and he has been trying to use a heating pad and a warm shower to get it to express itself but this has not happened and he continued to have worsening pain and tenderness to the area. He came into [facility] emergency center and underwent ultrasound that showed a 4.8 cm abscess. Patient was admitted to the hospital and started on Zosyn. He went to the OR for a left perineal abscess I&D with Dr. Anton yesterday and currently wound is being packed. He has been afebrile with white count of 8. Albumin is 3.6. Patient is anticipating discharge home later today. Please see the consult note as dictated by nurse practitioner Mrs. Candace Fermin. The patient is evaluated. The packing is removed from the perianal abscess site. It is repacked with Aquacel Silver. Orders are given to home care for this process. Found to be quite soothing. Will do sitz baths and the dressing is changed. Antibiotic therapy is with ciprofloxacin and Flagyl while cultures are pending. As expected many gram-negative bacilli are being seen. He is doing well enough to be discharged home. Can follow-up in the office on an as-needed basis. I agree with evaluation, assessment and plan as dictated by nurse practitioner Mrs. Candace Fermin.
--- NOTE | 2016-09-30 21:48 | PN ---
DATE OF SERVICE: 09/29/2016 PRESENTING COMPLAINT: Rectal abscess surgery. INTERVAL HISTORY: This is a patient with multiple medical problems, status post rectal abscess surgery, doing better. Lying in bed. Pain is ( ) controlled. Review of systems done for constitutional, cardiovascular, GI, pulmonary; relevant findings as above. Current medications are reviewed. On examination, temperature 97.3, pulse 82, respiration 17 blood pressure 150/81, pulse ox 98% on room air. GENERAL APPEARANCE: Lying in bed, not in distress. EYES: Pupils equal. Conjunctivae normal. NECK: JVD not raised. Mass not palpable. RESPIRATORY: Effort normal. LUNGS: Fair air entry. CARDIOVASCULAR: First and second sounds normal. No edema. ABDOMEN: Soft, nontender. Liver and spleen not palpable. PSYCHIATRY: Awake. Answering questions. INVESTIGATIONS: White count 6.6, hemoglobin 13.8, potassium 3.5. ASSESSMENT: 1. Recurrent perirectal abscess, status post incision and drainage. 2. Essential hypertension. 3. Primary osteoarthritis in the lumbar spine and knees. 4. Depression, anxiety not otherwise specified. 5. Obesity; body mass index 35.9. PLAN: Continue current medication and treatment plan. Antibiotics are to continue. Patient's dose of Duragesic patch continues. Antibiotics as per Surgery and ID.
== END 2016-09-29 14:45 | disposition home health service (06) | DRG 395 ==
LOC: EC 11:49 → 3SUR 15:45
PROVIDERS: ADMIT Surgery; ATTEND Surgery
PROC: 0D9Q0ZX Drainage of Anus, Open Approach, Diagnostic (ICD-10-PCS; principal; 2016-09-28 10:55)
DX: K61.2 Anorectal abscess (principal); E66.01 Morbid (severe) obesity due to excess calories; I10 Essential (primary) hypertension; F32.9 Major depressive disorder, single episode, unspecified; M19.91 Primary osteoarthritis, unspecified site; M47.816 Spondylosis without myelopathy or radiculopathy, lumbar region; F41.9 Anxiety disorder, unspecified; J45.909 Unspecified asthma, uncomplicated; Z68.35 Body mass index [BMI] 35.0-35.9, adult; F12.90 Cannabis use, unspecified, uncomplicated; G89.29 Other chronic pain; Z98.84 Bariatric surgery status; Z90.49 Acquired absence of other specified parts of digestive tract; Z87.891 Personal history of nicotine dependence; Z79.899 Other long term (current) drug therapy
CPT/HCPCS: 36415; 76857; 80048; 80053; 85025; 87070; 87075; 87077; 87186; 87205; 96360; 96361; 99284

== ENCOUNTER 2017-05-31 11:35 | Emergency (ER) | payer MEDICARE ==
[2017-05-31] MEDS ORDERED: RX INFO: IV CONTRAST WAS GIVEN 1 EACH MISC MISCELLANE PRN (12:25)
[2017-05-31] MEDS ORDERED: KETOROLAC 30 MG/ML 1 ML VIAL IVP STA (12:25)
[2017-05-31 12:59] LABS: ALT 28 U/L (21-72); AST 29 U/L (17-59); Albumin 4.1 g/dL (3.5-5.0); Alkaline Phosphatase 70 U/L (38-126); Amylase 63 U/L (30-110); Anion Gap 9 mmol/L; Basophils % (A) 0 %; Blood Urea Nitrogen 19 mg/dL (9-20); Calcium 9.5 mg/dL (8.4-10.2); Carbon Dioxide 31 mmol/L (22-30); Chloride 103 mmol/L (98-107); Eosinophils # (A) 0.2 k/uL (0-0.7); Eosinophils % (A) 2 %; Glucose 86 mg/dL (74-99); HCT 44.9 % (39.0-53.0); HGB 15.2 gm/dL (13.0-17.5); Lipase 62 U/L (23-300); Lymphocytes # (A) 1.2 k/uL (1.0-4.8); Lymphocytes % (A) 19 %; MCH 29.2 pg (25.0-35.0); MCHC 33.9 g/dL (31.0-37.0); MCV 86.3 fL (80.0-100.0); Mean Platelet Volume 6.3; Monocytes # (A) 0.4 k/uL (0-1.0); Monocytes % (A) 6 %; Neutrophils # (A) 4.3 k/uL (1.3-7.7); Neutrophils % (A) 70 %; Platelet Count 253 k/uL (150-450); Potassium 4.4 mmol/L (3.5-5.1); RDW 13.3 % (11.5-15.5); Sodium 143 mmol/L (137-145); Total Protein 7.1 g/dL (6.3-8.2); WBC 6.1 k/uL (3.8-10.6)
[2017-05-31 13:03] LABS: Partial Thromboplastin Time 23.8 sec (22.0-30.0); Prothrombin Time 10.1 sec (9.0-12.0)
--- NOTE | 2017-05-31 13:03 | ED ---
General Adult HPI - General Chief complaint: Recheck/Abnormal Lab/Rx Stated complaint: Fall-rib pain Time Seen by Provider: 05/31/17 12:16 Source: patient Mode of arrival: ambulatory Limitations: no limitations - History of Present Illness Initial comments: This 51-year-old white male presents with a complaint of some pain to his left back and left abdomen. He states that he fell approximately 2 weeks ago and injured these areas. He's had pain since that time. He also complains of some pain to his inferior most left lower ribs. He states that he had an x-ray done through his primary care physician which did not show any abnormalities. He is currently been taking some fentanyl 75 g patches as well as [place] 10/325 mg pills for the pain but states that he is still having significant pain. States that he has chronic pain issues normally. He denies any fevers, chills, diarrhea, nausea, vomiting, or chest pain. He states that he is worried about internal injury to his back or to his abdomen. No other complaints or modifying factors. - Related Data Home Medications Medication Instructions Recorded Confirmed HYDROcodone/APAP 10-325MG [[place] 1 tab PO QID PRN 01/13/15 05/31/17 10-325] Lisinopril 40 mg PO DAILY 01/13/15 05/31/17 Triamterene-Hctz 37.5-25Mg 1 cap PO DAILY 01/13/15 05/31/17 [Dyazide 37.5-25 Capsule] amLODIPine [Norvasc] 2.5 mg PO DAILY 01/13/15 05/31/17 Escitalopram [Lexapro] 10 mg PO DAILY 09/27/16 05/31/17 busPIRone HCL 15 mg PO BID 09/27/16 05/31/17 clonazePAM [KlonoPIN] 1 mg PO BID PRN 09/27/16 05/31/17 fentaNYL 75MCG/HR PATCH [[place] 1 patch TRANSDERM Q72H 05/31/17 05/31/17 75MCG/HR] Allergies Allergy/AdvReac Type Severity Reaction Status Date / Time No Known Allergies Allergy Verified 05/31/17 11:58 Review of Systems ROS Statement: Those systems with pertinent positive or pertinent negative responses have been documented in the HPI. ROS Other: All systems not noted in ROS Statement are negative. Past Medical History Past Medical History: Asthma, Hypertension, Musculoskeletal Disorder, Osteoarthritis (OA) Additional Past Medical History / Comment(s): chronic back pain History of Any Multi-Drug Resistant Organisms: None Reported Past Surgical History: Bariatric Surgery, Cholecystectomy, Hernia Repair, Orthopedic Surgery Additional Past Surgical History / Comment(s): UMBILICAL HERNIA, RT KNEE MENISCUS, GASTRIC SLEEVE 2012, rotator cuff Past Anesthesia/Blood Transfusion Reactions: No Reported Reaction Additional Past Anesthesia/Blood Transfusion Reaction / Comment(s): WOKE UP DURING KNEE SURGERY. Past Psychological History: No Psychological Hx Reported Smoking Status: Former smoker Past Alcohol Use History: None Reported Past Drug Use History: Marijuana - Past Family History Father Family Medical History: No Reported History Brother(s) Family Medical History: Cancer Additional Family Medical History / Comment(s): KIDNEY [place] General Exam - General Exam Comments Initial Comments: GENERAL: The patient is well nourished and well hydrated. VITAL SIGNS: Heart rate, blood pressure, respiratory rate reviewed as recorded in nurse's notes. EYES: Pupils are round and reactive. Extraocular movements are intact. No conjunctival / lid redness or swelling. ENT: No external evidence of injury, swelling, or ecchymosis. Airway is patent. Throat is clear. NECK: Nontender. No swelling or evidence of injury. No subcutaneous emphysema. Trachea is midline. No thyroid mass. HEART: Regular rate and rhythm. Good peripheral pulses. LUNGS/CHEST: Breath sounds clear and equal bilaterally. No rales, rhonchi, or wheezes. There is some minimal tenderness present to the inferior left lower ribs. ABDOMEN: There is mild tenderness noted into the left abdomen primarily in the left upper quadrant more so than the left lower quadrant. There is some tenderness into the left flank. No palpable masses or organomegaly. No peritoneal signs. No abdominal wall swelling or ecchymosis. EXTREMITIES: No extremity tenderness. Normal muscle tone and function. There is some minimal tenderness into the perilumbar region superiorly. NEUROLOGIC: Sensation is grossly intact. Cranial nerve exam reveals face is symmetrical, tongue is midline, speech is clear. SKIN: No abrasions or ecchymosis is noted. No induration or masses noted. PSYCHIATRIC: Alert and oriented. Appropriate behavior and judgment. Limitations: no limitations Course Vital Signs 05/31/17 11:44 Temperature 98.0 F Pulse Rate 57 L Respiratory 20 Rate Blood Pressure 159/82 O2 Sat by Pulse 99 Oximetry Medical Decision Making - Medical Decision Making The patient is seen and examined. All diagnostics are reviewed. An IV is established and he does receive some Toradol intravenously. The laboratories reviewed and is unremarkable. The computed tomography scan of the abdomen and pelvis does show evidence of some splenomegaly, bilateral nonobstructing nephrolithiasis, and significant degenerative changes of the lumbar spine. There is no acute fracture or other traumatic pathology noted. Overall, it is felt as though he is stable for discharge. It does appear that he has chronic pain issues. He is to follow-up with his primary doctor for further evaluation in this regard. - Lab Data Result diagrams: 05/31/17 12:40 05/31/17 12:40 Lab Results 05/31/17 05/31/17 05/31/17 Range/Units 12:40 12:40 12:40 WBC 6.1 (3.8-10.6) k/uL RBC 5.20 (4.30-5.90) m/uL Hgb 15.2 (13.0-17.5) gm/dL Hct 44.9 (39.0-53.0) % MCV 86.3 (80.0-100.0) fL MCH 29.2 (25.0-35.0) pg MCHC 33.9 (31.0-37.0) g/dL RDW 13.3 (11.5-15.5) % Plt Count 253 (150-450) k/uL Neutrophils % 70 % Lymphocytes % 19 % Monocytes % 6 % Eosinophils % 2 % Basophils % 0 % Neutrophils # 4.3 (1.3-7.7) k/uL Lymphocytes # 1.2 (1.0-4.8) k/uL Monocytes # 0.4 (0-1.0) k/uL Eosinophils # 0.2 (0-0.7) k/uL Basophils # 0.0 (0-0.2) k/uL PT 10.1 (9.0-12.0) sec INR 1.0 (<1.2) APTT 23.8 (22.0-30.0) sec Sodium 143 (137-145) mmol/L Potassium 4.4 (3.5-5.1) mmol/L Chloride 103 (98-107) mmol/L Carbon Dioxide 31 H (22-30) mmol/L Anion Gap 9 mmol/L BUN 19 (9-20) mg/dL Creatinine 0.70 (0.66-1.25) mg/dL Est GFR (MDRD) Af Amer >60 (>60 ml/min/1.73 sqM) Est GFR (MDRD) Non-Af >60 (>60 ml/min/1.73 sqM) Glucose 86 (74-99) mg/dL Calcium 9.5 (8.4-10.2) mg/dL Total Bilirubin 1.0 (0.2-1.3) mg/dL AST 29 (17-59) U/L ALT 28 (21-72) U/L Alkaline Phosphatase 70 (38-126) U/L Total Protein 7.1 (6.3-8.2) g/dL Albumin 4.1 (3.5-5.0) g/dL Amylase 63 (30-110) U/L Lipase 62 (23-300) U/L Urine Color Urine Appearance (Clear) Urine pH (5.0-8.0) Ur Specific [place] (1.001-1.035) Urine Protein (Negative) Urine Glucose (UA) (Negative) Urine Ketones (Negative) Urine Blood (Negative) Urine Nitrite (Negative) Urine Bilirubin (Negative) Urine Urobilinogen (<2.0) mg/dL Ur Leukocyte Esterase (Negative) 05/31/17 Range/Units 13:15 WBC (3.8-10.6) k/uL RBC (4.30-5.90) m/uL Hgb (13.0-17.5) gm/dL Hct (39.0-53.0) % MCV (80.0-100.0) fL MCH (25.0-35.0) pg MCHC (31.0-37.0) g/dL RDW (11.5-15.5) % Plt Count (150-450) k/uL Neutrophils % % Lymphocytes % % Monocytes % % Eosinophils % % Basophils % % Neutrophils # (1.3-7.7) k/uL Lymphocytes # (1.0-4.8) k/uL Monocytes # (0-1.0) k/uL Eosinophils # (0-0.7) k/uL Basophils # (0-0.2) k/uL PT (9.0-12.0) sec INR (<1.2) APTT (22.0-30.0) sec Sodium (137-145) mmol/L Potassium (3.5-5.1) mmol/L Chloride (98-107) mmol/L Carbon Dioxide (22-30) mmol/L Anion Gap mmol/L BUN (9-20) mg/dL Creatinine (0.66-1.25) mg/dL Est GFR (MDRD) Af Amer (>60 ml/min/1.73 sqM) Est GFR (MDRD) Non-Af (>60 ml/min/1.73 sqM) Glucose (74-99) mg/dL Calcium (8.4-10.2) mg/dL Total Bilirubin (0.2-1.3) mg/dL AST (17-59) U/L ALT (21-72) U/L Alkaline Phosphatase (38-126) U/L Total Protein (6.3-8.2) g/dL Albumin (3.5-5.0) g/dL Amylase (30-110) U/L Lipase (23-300) U/L Urine Color Yellow Urine Appearance Clear (Clear) Urine pH 8.0 (5.0-8.0) Ur Specific [place] 1.015 (1.001-1.035) Urine Protein Negative (Negative) Urine Glucose (UA) Negative (Negative) Urine Ketones Negative (Negative) Urine Blood Negative (Negative) Urine Nitrite Negative (Negative) Urine Bilirubin Negative (Negative) Urine Urobilinogen <2.0 (<2.0) mg/dL Ur Leukocyte Esterase Negative (Negative) Disposition Clinical Impression: Blunt abdominal trauma, Chronic pain, Back pain due to injury, Hypertension, Arthritis, lumbar spine, Splenomegaly, Nephrolithiasis Disposition: HOME SELF-CARE Condition: Good Instructions: Blunt Abdominal Injury (ED), Low Back Strain (ED), Chronic Back Pain (ED), Hypertension (ED), Kidney Stones (ED), Arthritis (ED) Referrals: Ethan Rea DO [Primary Care Provider] - 1-2 days Time of Disposition: 14:07
--- NOTE | 2017-05-31 13:26 | CT ---
EXAMINATION TYPE: CT abdomen pelvis w con DATE OF EXAM: 05/31/2017 COMPARISON: NONE HISTORY: Lt flank pain, fall [address] DLP: 1720 mGycm, Automated Exposure Control for Dose Reduction was Utilized. CONTRAST: CT scan of the abdomen and pelvis is performed without oral but with IV Contrast, patient injected wi th 100 mL of Omnipaque 300. FINDINGS: Evaluation suboptimal secondary to patient's large body habitus, entire abdomen cannot be i ncluded in [id number] LUNG BASES: There is tiny left pleural thickening and/or curvilinear fluid collection or effusion. LIVER/GB: Cholecystectomy clips are present. PANCREAS: No significant abnormality is seen. SPLEEN: Spleen is enlarged in size measuring 14.7 cm long axis coronal image 73. ADRENALS: No significant abnormality is seen. KIDNEYS: There are bilateral renal calculi. There is single dominant 1.6 cm calculus in the calyx low er pole level right kidney axial image 41. There are 3 calculi scattered throughout left kidney measu ring up to 7 mm long axis axial image 42. There is symmetric cortical medullary uptake and excretion from both kidneys without hydronephrosis seen bilaterally. BOWEL: Sutures from gastric sleeve surgery are seen epigastric region. There is no suspicious small o r large bowel dilatation. PROSTATE/SEMINAL VESICLES: Some central zone calcifications are seen in normal size prostate gland. LYMPH NODES: No greater than 1cm abdominal or pelvic lymph nodes are appreciated. OSSEOUS STRUCTURES: There is moderate to severe multilevel spurring in the thoracolumbar spine up to L2 level. There is mild to moderate disc space narrowing with vacuum disc phenomenon L2-L3 level. Th ere is moderate to severe disc space narrowing with vacuum disc phenomenon as well as endplate sclero sis and moderate to severe spurring right L5-S1 level. There is multilevel spinous process hypertroph y. There is prominent left lateral spurring L3-L4 level coronal image 82. OTHER: No significant additional abnormality is seen. IMPRESSION: Suboptimal study, no significant acute finding is seen to account for patient's clinical symptoms. Splenomegaly and bilateral renal calculi noted.
[2017-05-31 13:28] LABS: Appearance,Urine Clear (Clear); Bilirubin,Urine Negative (Negative); Blood,Urine Negative (Negative); Color,Urine Yellow; Glucose,Urine (UA) Negative (Negative); Ketones,Urine Negative (Negative); Leukocyte Esterase,Urine Negative (Negative); Nitrite,Urine Negative (Negative); Protein,Urine Negative (Negative); Specific Gravity,Urine 1.015 (1.001-1.035); Urobilinogen,Urine <2.0 mg/dL (<2.0)
[2017-05-31 14:23] VITALS: BP 161/88; PULSE 48; RESP 18; TEMP 97.8
== END 2017-05-31 14:26 | disposition home or self-care (01) ==
LOC: EC 11:35
DX: S39.91XA Unspecified injury of abdomen, initial encounter (principal); S39.92XA Unspecified injury of lower back, initial encounter; M47.816 Spondylosis without myelopathy or radiculopathy, lumbar region; R16.1 Splenomegaly, not elsewhere classified; G89.29 Other chronic pain; N20.0 Calculus of kidney; I10 Essential (primary) hypertension; Z90.49 Acquired absence of other specified parts of digestive tract; Z98.890 Other specified postprocedural states; Z87.891 Personal history of nicotine dependence; Z79.899 Other long term (current) drug therapy; W19.XXXA Unspecified fall, initial encounter
CPT/HCPCS: 36415; 80053; 82150; 83690; 85025; 85610; 85730; 81003; 74177; 99284; 96374; J1885; Q9967

== ENCOUNTER 2017-07-18 08:05 | Day surgery (SDC) | payer MEDICARE ==
[2017-07-14 12:56] VITALS: BMI 37.8
[2017-07-18 07:39] VITALS: TEMP 98.3
[~2017-07-18 08:05] MED LIST: LACTATED RINGERS 1,000 ML IV SCH; LIDOCAINE 1% 20 ML VIAL (10MG/ML) FOR IV START INTRADERMA PRN
[2017-07-18] MEDS ORDERED: LIDOCAINE 1% INJ 10MG/ML (20 ML MDV) ONE (08:53)
[2017-07-18] MEDS ORDERED: PROPOFOL 10 MG/ML 20 ML VIAL IV ONE (08:53)
[2017-07-18] MEDS ORDERED: GLUCAGON 1 MG/ML VIAL ONE (08:53)
--- NOTE | 2017-07-18 09:21 | P.OP ---
Date of Procedure: 07/18/17 Preoperative Diagnosis: Abdominal pain Postoperative Diagnosis: Few scattered diverticuli, internal hemorrhoids Procedure(s) Performed: Colonoscopy Anesthesia: MAC Surgeon: Katerina Anton Estimated Blood Loss (ml): 0 IV fluids (ml): 400 Pathology: none sent Condition: stable Disposition: PACU Indications for Procedure: Abdominal pain Operative Findings: Scattered diverticuli, internal hemorrhoids Description of Procedure: Patient was taken to the endoscopy suite and following sedation rectal exam was performed. Patient was noted to have good sphincter tone no masses. The prostate was noted to be somewhat firm and would recommend follow-up with primary care doctor related to this. Colonoscope was passed through the anus into the rectum. It was passed through the sigmoid colon up to splenic flexure. Was passed through the transverse colon hepatic flexure right colon down to the area of the cecum. Circumferential observation of the mucosa did not reveal any lesions of concern in the cecum or right colon. No lesions of concern in the transverse colon. No lesions of concern in the left colon. Few scattered diverticuli in the sigmoid colon. Scope was brought down to the rectum where it was retroflexed internal hemorrhoids identified. Impression/plan: 1. Internal hemorrhoids 2. Beginning of diverticuli 3. Prostate somewhat firm Plan: 1. Conservative management 2. Repeat scope 7-10 years 3. Follow-up primary care related to prostate
--- NOTE | 2017-07-18 09:22 | P.DS ---
Providers Attending physician: Katerina Anton Primary care physician: Ethan Rea Plan - Discharge Summary New Discharge Prescriptions: No Action HYDROcodone/APAP 10-325MG [[place] 10-325] 1 tab PO TID amLODIPine [Norvasc] 2.5 mg PO DAILY Triamterene-Hctz 37.5-25Mg [Dyazide 37.5-25 Capsule] 1 cap PO DAILY Lisinopril 40 mg PO DAILY clonazePAM [KlonoPIN] 1 mg PO BID busPIRone HCL 7.5 mg PO HS Escitalopram [Lexapro] 10 mg PO DAILY fentaNYL 75MCG/HR PATCH [Duragesic 75MCG/HR] 1 patch TRANSDERM Q72H Vitamin C/Biotin [Hair, Skin and Nails] 1 tab PO DAILY Aspirin 325 mg PO DAILY PRN PRN Reason: Pain Mylanta Chewable 1 - 2 tab PO DIRECTED PRN PRN Reason: GAS Discharge Medication List HYDROcodone/APAP 10-325MG [[place] 10-325] 1 tab PO TID 01/13/15 [History] Lisinopril 40 mg PO DAILY 01/13/15 [History] Triamterene-Hctz 37.5-25Mg [Dyazide 37.5-25 Capsule] 1 cap PO DAILY 01/13/15 [ History] amLODIPine [Norvasc] 2.5 mg PO DAILY 01/13/15 [History] Escitalopram [Lexapro] 10 mg PO DAILY 09/27/16 [History] busPIRone HCL 7.5 mg PO HS 09/27/16 [History] clonazePAM [KlonoPIN] 1 mg PO BID 09/27/16 [History] fentaNYL 75MCG/HR PATCH [Duragesic 75MCG/HR] 1 patch TRANSDERM Q72H 05/31/17 [ History] Aspirin 325 mg PO DAILY PRN 07/14/17 [History] Mylanta Chewable 1 - 2 tab PO DIRECTED PRN 07/14/17 [History] Vitamin C/Biotin [Hair, Skin and Nails] 1 tab PO DAILY 07/14/17 [History] Activity/Diet/Wound Care/Special Instructions: Follow-up primary care doctor related to firm prostate Repeat scope 7-10 years unless symptomatic Diverticular diet Discharge Disposition: HOME SELF-CARE
[2017-07-18 09:55] VITALS: RESP 18
[2017-07-18 10:06] VITALS: BP 128/81; PULSE 51
== END 2017-07-18 09:55 | disposition home or self-care (01) ==
LOC: ORWHC2ENDO 08:05
PROVIDERS: ATTEND Surgery
DX: K57.30 Diverticulosis of large intestine without perforation or abscess without bleeding (principal); K64.8 Other hemorrhoids; I10 Essential (primary) hypertension; E78.5 Hyperlipidemia, unspecified; F41.9 Anxiety disorder, unspecified; M19.90 Unspecified osteoarthritis, unspecified site; E66.9 Obesity, unspecified; K21.9 Gastro-esophageal reflux disease without esophagitis; Z79.899 Other long term (current) drug therapy; Z68.37 Body mass index [BMI] 37.0-37.9, adult; Z87.891 Personal history of nicotine dependence; Z86.010 Personal history of colon polyps; Z79.891 Long term (current) use of opiate analgesic; Z90.3 Acquired absence of stomach [part of]
CPT/HCPCS: 45378; J1610; J2001; J2704

== ENCOUNTER → 2017-10-03 | Outpatient (CLI) | payer MEDICARE ==
--- NOTE | 2017-10-03 14:07 | XR ---
EXAMINATION TYPE: XR abdomen 1V DATE OF EXAM: 10/03/2017 COMPARISON: 05/31/2017 HISTORY: Follow-up stones TECHNIQUE: One view abdominal series FINDINGS: The osseous structures are intact. The bowel gas pattern is nonspecific. There are few prominent sma ll bowel loops. Hypertrophic and degenerative change of the spine. Arthropathy of the hips. Right kidney: There is a 1.6 cm stable right renal lower pole calcification. Left kidney: There are approximately 6 or 7 calcifications involving the left kidney the largest guillermo uring 7 mm. Surgical clips are seen in the right upper quadrant. No suspicious calcifications in the pelvis. IMPRESSION: 1. Bilateral nephrolithiasis as measured above. 2. Multiple prominent small bowel loops in the right abdomen correlate for ileus or enteritis.
== END | disposition home or self-care (01) ==
LOC: RADXRMAIN 13:44
PROVIDERS: ATTEND Urology
DX: N20.0 Calculus of kidney (principal)
CPT/HCPCS: 74018

== ENCOUNTER → 2017-10-06 | Outpatient (CLI) | payer MEDICARE ==
[2017-10-06 14:16] LABS: Basophils % (A) 0 %; Eosinophils # (A) 0.1 k/uL (0-0.7); Eosinophils % (A) 2 %; HCT 41.8 % (39.0-53.0); HGB 14.2 gm/dL (13.0-17.5); Lymphocytes # (A) 1.3 k/uL (1.0-4.8); Lymphocytes % (A) 23 %; MCH 29.2 pg (25.0-35.0); Mean Platelet Volume 6.5; Monocytes # (A) 0.5 k/uL (0-1.0); Monocytes % (A) 9 %; Neutrophils # (A) 3.5 k/uL (1.3-7.7); Neutrophils % (A) 64 %; Platelet Count 224 k/uL (150-450); RBC 4.86 m/uL (4.30-5.90); RDW 13.2 % (11.5-15.5); WBC 5.5 k/uL (3.8-10.6)
[2017-10-06 14:17] LABS: Appearance,Urine Clear (Clear); Bilirubin,Urine Negative (Negative); Blood,Urine Trace (Negative); Color,Urine Yellow; Glucose,Urine (UA) Negative (Negative); Ketones,Urine Negative (Negative); Leukocyte Esterase,Urine Small (Negative); Mucus,Urine Rare /hpf; Nitrite,Urine Negative (Negative); Protein,Urine Trace (Negative); RBC,Urine 9 /hpf (0-5); Specific Gravity,Urine 1.011 (1.001-1.035); Urobilinogen,Urine <2.0 mg/dL (<2.0); WBC,Urine 2 /hpf (0-5)
[2017-10-06 14:36] LABS: Anion Gap 7 mmol/L; Blood Urea Nitrogen 17 mg/dL (9-20); Carbon Dioxide 31 mmol/L (22-30); Chloride 105 mmol/L (98-107); Sodium 143 mmol/L (137-145)
== END | disposition home or self-care (01) ==
LOC: LABWHC1 13:48
PROVIDERS: ATTEND Urology
DX: N20.0 Calculus of kidney (principal)
CPT/HCPCS: 36415; 80051; 81001; 82565; 84520; 85025

== ENCOUNTER 2017-10-09 08:29 | Day surgery (SDC) | payer MEDICARE ==
[2017-10-06 12:47] VITALS: BMI 38.5
[~2017-10-09 08:29] MED LIST changes: -LACTATED RINGERS 1,000 ML IV SCH; -LIDOCAINE 1% 20 ML VIAL (10MG/ML) FOR IV START INTRADERMA PRN; +Pre Op ABX Message 1 EACH MISC MISCELLANE ONE
--- NOTE | 2017-10-09 08:52 | XR ---
EXAMINATION TYPE: XR KUB DATE OF EXAM: 10/09/2017 CLINICAL DATA: 51-year-old male left-sided renal stones, scheduled for lithotripsy today, [facility] COMPARISON: 10/03/2017 FINDINGS: Lung bases are clear. Cholecystectomy clips. No evidence for free intraperitoneal air. Nonobstructive bowel gas pattern. No significant stool burden. Approximately 4 calcifications at the left mid abdomen measuring up to 9 mm. A larger solitary 1.8 cm calcification on the right. Findings are relatively unchanged. IMPRESSION: Similar bilateral nephrolithiasis, largest on the right measuring 1.8 cm and approximately 4 smaller calculi measuring up to 9 mm on the left.
[2017-10-09 08:54] VITALS: RESP 16; TEMP 98.8
[2017-10-09] MEDS ORDERED: ONDANSETRON 4 MG/2 ML VIAL IVP ONE ×2 (09:01→12:35)
[2017-10-09] MEDS ORDERED: LACTATED RINGERS 1,000 ML IV ONE ×2 (09:01)
[2017-10-09] MEDS ORDERED: KETAMINE 10 MG/ML 20 ML VIAL ONE (10:34)
[2017-10-09] MEDS ORDERED: PROPOFOL 10 MG/ML 20 ML VIAL IV ONE (10:34)
[2017-10-09] MEDS ORDERED: fentaNYL (PF) 50 MCG/ML 2 ML AMP ONE (10:34)
[2017-10-09] MEDS ORDERED: MIDAZOLAM 2 MG/2 ML VIAL ONE (10:34)
[2017-10-09] MEDS ORDERED: diphenhydrAMINE 50 MG/ML 1 ML VIAL ONE (10:34)
--- NOTE | 2017-10-09 11:21 | P.OP ---
Date of Procedure: 10/09/17 Preoperative Diagnosis: Left renal calculi Postoperative Diagnosis: Left renal calculi Procedure(s) Performed: Extracorporal shockwave lithotripsy Anesthesia: MAC Surgeon: Asad Cronin Estimated Blood Loss (ml): 0 Pathology: none sent Condition: stable Disposition: PACU Indications for Procedure: The patient is a 51-year-old male who was discovered to have 3 nonobstructive left renal calculi measuring up to 8 mm in diameter. Treatment options were reviewed with Dr. Patel and the patient has elected to proceed with ESWL Description of Procedure: The patient was taken to the operating suite and placed supine on the fluoroscopy table. Intravenous sedation was given. The mid pole calculus measuring 4 x 8 mm was localized using biplanar floroscopy. Lithotripsy was performed using the Dornier compact delta unit. The patient received 2500 shocks at level 5 at a rate of 80 shocks per minute. A 2 minute upon occurred after 200 shocks. There appeared to be fragmentation of the calculus. Only the largest calculus was treated. The patient tolerated the procedure well and left the operating room in satisfactory condition.
[2017-10-09] MEDS ORDERED: fentaNYL (PF) 50 MCG/ML 2 ML AMP IVP ONE ×3 (11:40→12:35)
[2017-10-09] MEDS ORDERED: PROMETHAZINE INJ 25 MG/ML 1 ML VIAL IVPB ONE (12:00)
[2017-10-09] MEDS ORDERED: KETOROLAC 30 MG/ML 1 ML VIAL IVP ONE (12:25)
[2017-10-09] MEDS ORDERED: TAMSULOSIN 0.4 MG CAP.ER.24H PO STA (13:15)
[2017-10-09 14:01] VITALS: BP 136/82; PULSE 62
== END 2017-10-09 14:02 | disposition home or self-care (01) ==
LOC: ORWHC2ENDO 08:29
PROVIDERS: ATTEND Urology
DX: N20.0 Calculus of kidney (principal); I10 Essential (primary) hypertension; E78.5 Hyperlipidemia, unspecified; E66.9 Obesity, unspecified; M19.90 Unspecified osteoarthritis, unspecified site; M51.36 Other intervertebral disc degeneration, lumbar region; F41.9 Anxiety disorder, unspecified; F32.9 Major depressive disorder, single episode, unspecified; G47.33 Obstructive sleep apnea (adult) (pediatric); G47.00 Insomnia, unspecified; G89.4 Chronic pain syndrome; F39 Unspecified mood [affective] disorder; Z79.899 Other long term (current) drug therapy; Z79.891 Long term (current) use of opiate analgesic; Z87.891 Personal history of nicotine dependence; Z68.38 Body mass index [BMI] 38.0-38.9, adult
CPT/HCPCS: 74018; 50590; J2250; J1200; J2550; J2405; J3010; J1885; J2704

== ENCOUNTER 2017-10-09 15:12 | Observation (INO) | payer MEDICARE ==
[2017-10-09 15:24] LABS: Glucose,Whole Blood 170 mg/dL (75-99)
[2017-10-09] MEDS ORDERED: SODIUM CHLORIDE 0.9% 500 ML IV STA (15:40)
[2017-10-09 15:54] LABS: Basophils % (A) 0 %; Eosinophils % (A) 0 %; HCT 36.8 % (39.0-53.0); HGB 12.6 gm/dL (13.0-17.5); Lymphocytes % (A) 6 %; MCH 29.6 pg (25.0-35.0); MCHC 34.3 g/dL (31.0-37.0); MCV 86.3 fL (80.0-100.0); Mean Platelet Volume 6.5; Monocytes # (A) 0.7 k/uL (0-1.0); Monocytes % (A) 4 %; Neutrophils # (A) 15.1 k/uL (1.3-7.7); Neutrophils % (A) 89 %; Platelet Count 282 k/uL (150-450); RBC 4.26 m/uL (4.30-5.90); RDW 13.4 % (11.5-15.5); WBC 16.9 k/uL (3.8-10.6)
--- NOTE | 2017-10-09 16:01 | ED ---
General Adult HPI - General Source: patient, EMS, RN notes reviewed, old records reviewed Mode of arrival: EMS Limitations: no limitations <Bruce Jean - Last Filed: 10/09/17 16:49> <Manny Hernandez - Last Filed: 10/09/17 17:55> - General Chief complaint: Abdominal Pain Stated complaint: Syncope Time Seen by Provider: 10/09/17 15:40 - History of Present Illness Initial comments: 52-year-old male presents for evaluation of near syncopal episode. Patient had undergone lithotripsy today. During the procedure he did receive IV fentanyl. He states that when he went home he felt somewhat lightheaded. Called EMS. EMS found him he was diaphoretic. No complaints of chest pain or shortness of breath. Patient states he has not eaten since yesterday evening. He blames not eating and IV fentanyl on his near syncopal episode. Patient has no other complaints. No abdominal pain. No nausea or vomiting. No chest pain or dyspnea. (Bruce Jean) - Related Data Home Medications Medication Instructions Recorded Confirmed HYDROcodone/APAP 10-325MG [[place] 1 tab PO TID 01/13/15 10/09/17 10-325] Lisinopril 40 mg PO DAILY 01/13/15 10/09/17 Triamterene-Hctz 37.5-25Mg 1 cap PO DAILY 01/13/15 10/09/17 [Dyazide 37.5-25 Capsule] amLODIPine [Norvasc] 2.5 mg PO DAILY 01/13/15 10/09/17 Escitalopram [Lexapro] 10 mg PO DAILY 09/27/16 10/09/17 busPIRone HCL 7.5 mg PO HS 09/27/16 10/09/17 fentaNYL 75MCG/HR PATCH [Duragesic 1 patch TRANSDERM Q72H 05/31/17 10/09/17 75MCG/HR] Vitamin C/Biotin [Hair, Skin and 1 tab PO DAILY 07/14/17 10/09/17 Nails] Melatonin 20 mg PO HS PRN 10/09/17 10/09/17 Allergies Allergy/AdvReac Type Severity Reaction Status Date / Time No Known Allergies Allergy Verified 10/09/17 15:38 Review of Systems ROS Other: All systems not noted in ROS Statement are negative. <EwelinadanaBruce Hoda - Last Filed: 10/09/17 16:49> ROS Other: All systems not noted in ROS Statement are negative. <Manny Hernandez - Last Filed: 10/09/17 17:55> ROS Statement: Those systems with pertinent positive or pertinent negative responses have been documented in the HPI. Past Medical History Past Medical History: Asthma, Hypertension, Musculoskeletal Disorder, Osteoarthritis (OA), Sleep Apnea/CPAP/BIPAP Additional Past Medical History / Comment(s): Chronic LOWER back & KNEE Pain. NO TX FOR SLEEP APNEA NOW, hx. enlarged spleen after fall 2016-no problems now that he knows of, KIDNEY STONES History of Any Multi-Drug Resistant Organisms: None Reported Past Surgical History: Bariatric Surgery, Cholecystectomy, Hernia Repair, Orthopedic Surgery Additional Past Surgical History / Comment(s): UMBILICAL HERNIA, RT KNEE MENISCUS, GASTRIC SLEEVE 2011, LT Rotator cuff. ABSCESS CYST ON TAILBONE, LITHOTRIPSY Past Anesthesia/Blood Transfusion Reactions: Previous Problems w/ Anesthesia Additional Past Anesthesia/Blood Transfusion Reaction / Comment(s): WOKE UP DURING KNEE SURGERY. Past Psychological History: Anxiety, Depression Smoking Status: Former smoker Past Alcohol Use History: None Reported Past Drug Use History: Marijuana - Past Family History Father Family Medical History: Renal Disease Brother(s) Family Medical History: Cancer Additional Family Medical History / Comment(s): KIDNEY CA <EwelinadanaBruce Hoda - Last Filed: 10/09/17 16:49> General Exam Limitations: no limitations General appearance: alert, in no apparent distress Head exam: Present: atraumatic, normocephalic Eye exam: Present: normal appearance, PERRL, EOMI ENT exam: Present: mucous membranes dry Neck exam: Present: normal inspection. Absent: tenderness, meningismus Respiratory exam: Present: normal lung sounds bilaterally. Absent: respiratory distress, wheezes Cardiovascular Exam: Present: regular rate, normal rhythm GI/Abdominal exam: Present: soft. Absent: distended, tenderness, guarding Extremities exam: Present: normal inspection, full ROM Neurological exam: Present: alert, oriented X3, CN II-XII intact. Absent: motor sensory deficit Psychiatric exam: Present: normal affect, normal mood Skin exam: Present: warm, dry, intact. Absent: cyanosis, diaphoretic <Bruce Jean - Last Filed: 10/09/17 16:49> Vital Signs 10/09/17 10/09/17 15:13 15:52 Temperature 98.1 F Pulse Rate 59 L 67 Respiratory 16 18 Rate Blood Pressure 100/57 113/59 O2 Sat by Pulse 95 95 Oximetry EKG Findings - EKG Comments: EKG Findings:: EKG: Normal sinus rhythm, prolonged QT at 486, rate of 66, MO interval 146, QRS duration 94. No signs of acute ischemia <EmigdioBruce orosco - Last Filed: 10/09/17 16:49> Medical Decision Making - Lab Data Result diagrams: 10/09/17 15:23 10/09/17 15:23 <Bruce Jean - Last Filed: 10/09/17 16:49> - Lab Data Result diagrams: 10/09/17 15:23 10/09/17 15:23 <Manny Hernandez - Last Filed: 10/09/17 17:55> - Medical Decision Making 51-year-old male presenting with near syncopal episode likely secondary to dehydration from no oral intake and medication effect. EKG is obtained, this is normal sinus rhythm. Patient receives IV hydration, he is fed in the emergency department. Laboratory studies reveal leukocytosis may be reactive. No concern for infection at this time. Patient's electrolytes reveal potassium 3.3 which is replaced. Given dehydration secondary to no oral intake over the past 18 hours and likely medication effect, patient is observed, given IV hydration and turkey sandwich. (Bruce Jean) Patient was reevaluated after second liter of fluid and still complaining of feeling very lightheaded and not feeling right. He states he feels generally fatigued. Patient does not feel safe going home and states he feels like he is given a pass out and that he may end up back in the emergency department. Decision was made to place him in observation overnight for IV fluids reevaluation the morning. Dr. Lang accepted the admission. (Manny Hernandez) - Lab Data Lab Results 10/09/17 10/09/17 10/09/17 Range/Units 15:22 15:23 15:23 WBC 16.9 H (3.8-10.6) k/uL RBC 4.26 L (4.30-5.90) m/uL Hgb 12.6 L (13.0-17.5) gm/dL Hct 36.8 L (39.0-53.0) % MCV 86.3 (80.0-100.0) fL MCH 29.6 (25.0-35.0) pg MCHC 34.3 (31.0-37.0) g/dL RDW 13.4 (11.5-15.5) % Plt Count 282 (150-450) k/uL Neutrophils % 89 % Lymphocytes % 6 % Monocytes % 4 % Eosinophils % 0 % Basophils % 0 % Neutrophils # 15.1 H (1.3-7.7) k/uL Lymphocytes # 1.0 (1.0-4.8) k/uL Monocytes # 0.7 (0-1.0) k/uL Eosinophils # 0.0 (0-0.7) k/uL Basophils # 0.0 (0-0.2) k/uL Sodium 140 (137-145) mmol/L Potassium 3.3 L (3.5-5.1) mmol/L Chloride 105 (98-107) mmol/L Carbon Dioxide 22 (22-30) mmol/L Anion Gap 13 mmol/L BUN 15 (9-20) mg/dL Creatinine 0.90 (0.66-1.25) mg/dL Est GFR (CKD-EPI)AfAm >90 (>60 ml/min/1.73 sqM) Est GFR (CKD-EPI)NonAf >90 (>60 ml/min/1.73 sqM) Glucose 160 H (74-99) mg/dL POC Glucose (mg/dL) 170 H (75-99) mg/dL POC Glu Helper [employer]isher ID Aileen Kang Calcium 8.7 (8.4-10.2) mg/dL Total Bilirubin 1.4 H (0.2-1.3) mg/dL AST 23 (17-59) U/L ALT 29 (21-72) U/L Alkaline Phosphatase 46 (38-126) U/L Total Protein 5.8 L (6.3-8.2) g/dL Albumin 3.5 (3.5-5.0) g/dL Disposition Is patient prescribed a controlled substance at d/c from ED?: No <Bruce Jean - Last Filed: 10/09/17 16:49> <Manny Hernandez - Last Filed: 10/09/17 17:55> Clinical Impression: Near syncope, Dehydration Disposition: ADMITTED IP TO THIS HOSP Condition: Stable
[2017-10-09 16:05] LABS: ALT 29 U/L (21-72); AST 23 U/L (17-59); Albumin 3.5 g/dL (3.5-5.0); Alkaline Phosphatase 46 U/L (38-126); Anion Gap 13 mmol/L; Blood Urea Nitrogen 15 mg/dL (9-20); Calcium 8.7 mg/dL (8.4-10.2); Carbon Dioxide 22 mmol/L (22-30); Chloride 105 mmol/L (98-107); Glucose 160 mg/dL (74-99); Potassium 3.3 mmol/L (3.5-5.1); Sodium 140 mmol/L (137-145); Total Bilirubin 1.4 mg/dL (0.2-1.3); Total Protein 5.8 g/dL (6.3-8.2)
[2017-10-09] MEDS ORDERED: POTASSIUM CHLORIDE ER 20 MEQ TAB.ER PO STA (16:18)
[2017-10-09] MEDS ORDERED: SODIUM CHLORIDE 0.9% 500 ML IV ONE (16:52)
[2017-10-09] MEDS ORDERED: NALOXONE 0.4 MG/ML 1 ML VIAL IV PRN (17:51)
[2017-10-09] MEDS ORDERED: ONDANSETRON 4 MG/2 ML VIAL IVP PRN (17:51)
[2017-10-09] MEDS ORDERED: Magnesium Replacement Protocol 1 EACH MISC MISCELLANE PRN (18:30)
[2017-10-09] MEDS ORDERED: Potassium Replacement Protocol 1 EACH MISC MISCELLANE PRN (18:30)
[2017-10-09] MEDS ORDERED: HYDROcodone/APAP 10-325MG 1 EACH TAB PO PRN (19:41)
[2017-10-09] MEDS ORDERED: ONDANSETRON 4 MG TAB PO PRN (20:39)
[2017-10-10] MEDS: SODIUM CHLORIDE 0.9% 1,000 ML IV SCH ×3 (02:00→17:12)
[2017-10-10 07:08] LABS: Magnesium 1.9 mg/dL (1.6-2.3); Potassium 4.1 mmol/L (3.5-5.1)
[2017-10-10 07:52] VITALS: BP 139/62; RESP 16; TEMP 99
[2017-10-10 13:47] VITALS: PULSE 70
--- NOTE | 2017-10-10 14:03 | P.HPIM ---
History of Present Illness 51-year-old gentleman admitted for near syncopal episode. Patient had a sock shockwave lithotripsy yesterday because of his uncontrolled pain postprocedure when he was coming out of anesthesia patient received around 100 g of IV fentanyl. Patient was dizzy after that patient went home and felt quite a bit dizzy about to fall and came to ER. Patient EKG did not show any significant abnormality. Patient had a recent stress test that was negative. Patient now is having runny nose and diarrhea secondary to opiate withdrawal. Patient stopped his fentanyl patch fire was before the procedure never put it back after the IV fentanyl he received. Patient will put a fentanyl patch back on. His dizziness near syncopal" is a combination of opiate his deceived during the procedure and postprocedure along with excessive antihypertension therapy. Patient blood pressure is stable and within normal limits in spite of not using his amlodipine and diuretic therapy. Amlodipine will be discontinued upon discharge. Patient is wishing to taper down his opiate. He is using opiates for pain issues. Review of Systems REVIEW OF SYSTEMS: CONSTITUTIONAL: No fever, no malaise, no fatigue. HEENT: No recent visual problems or hearing problems. Denied any sore throat. CARDIOVASCULAR: No chest pain, orthopnea, PND, no palpitations, no syncope. PULMONARY: No shortness of breath, no cough, no hemoptysis. GASTROINTESTINAL: No diarrhea, no nausea, no vomiting, no abdominal pain. Normoactive bowel sounds. NEUROLOGICAL: No headaches, no weakness, no numbness. HEMATOLOGICAL: Denies any bleeding or petechiae. GENITOURINARY: Denies any burning micturition, frequency, or urgency. MUSCULOSKELETAL/RHEUMATOLOGICAL: Denies any joint pain, swelling, or any muscle pain. ENDOCRINE: Denies any polyuria or polydipsia. The rest of the 14-point review of systems is negative. Past Medical History Past Medical History: Asthma, Hypertension, Musculoskeletal Disorder, Osteoarthritis (OA), Sleep Apnea/CPAP/BIPAP Additional Past Medical History / Comment(s): Chronic LOWER back & KNEE Pain. NO TX FOR SLEEP APNEA NOW, hx. enlarged spleen after fall 2017-no problems now that he knows of, KIDNEY STONES , vericose veins History of Any Multi-Drug Resistant Organisms: None Reported Past Surgical History: Bariatric Surgery, Cholecystectomy, Hernia Repair, Orthopedic Surgery Additional Past Surgical History / Comment(s): UMBILICAL HERNIA, RT KNEE MENISCUS, GASTRIC SLEEVE 2011, LT Rotator cuff. ABSCESS CYST ON TAILBONE, LITHOTRIPSY 10/09/2017 Past Anesthesia/Blood Transfusion Reactions: Previous Problems w/ Anesthesia Additional Past Anesthesia/Blood Transfusion Reaction / Comment(s): WOKE UP DURING KNEE SURGERY. Past Psychological History: Anxiety, Depression Smoking Status: Former smoker Past Alcohol Use History: None Reported Past Drug Use History: Marijuana Additional Drug Use History / Comment(s): SMOKES MARIJUANA FOR BACK PAIN DAILY, TOTAL 1 JOINT DAILY. - Past Family History Father Family Medical History: Renal Disease Brother(s) Family Medical History: Cancer Additional Family Medical History / Comment(s): KIDNEY CA Medications and Allergies Home Medications Medication Instructions Recorded Confirmed Type HYDROcodone/APAP 10-325MG [[place] 1 tab PO TID 01/13/15 10/09/17 History 10-325] Lisinopril 40 mg PO DAILY 01/13/15 10/09/17 History Triamterene-Hctz 37.5-25Mg 1 cap PO DAILY 01/13/15 10/09/17 History [Dyazide 37.5-25 Capsule] Escitalopram [Lexapro] 10 mg PO DAILY 09/27/16 10/09/17 History busPIRone HCL 7.5 mg PO HS 09/27/16 10/09/17 History fentaNYL 75MCG/HR PATCH [Duragesic 1 patch TRANSDERM Q72H 05/31/17 10/09/17 History 75MCG/HR] Vitamin C/Biotin [Hair, Skin and 1 tab PO DAILY 07/14/17 10/09/17 History Nails] Melatonin 20 mg PO HS PRN 10/09/17 10/09/17 History Allergies Allergy/AdvReac Type Severity Reaction Status Date / Time No Known Allergies Allergy Verified 10/09/17 20:37 Physical Exam Vitals: Vital Signs Temp Pulse Pulse Pulse Pulse Pulse Resp 10/10/17 08:05 74 70 10/10/17 07:51 99 F 71 16 10/10/17 04:37 98.1 F 10/10/17 03:33 18 10/10/17 00:00 18 10/09/17 23:47 99.6 F 74 84 70 18 10/09/17 20:00 18 10/09/17 18:55 98.4 F 64 18 10/09/17 18:29 98 F 78 18 10/09/17 15:52 67 18 10/09/17 15:13 98.1 F 59 L 16 BP BP BP BP BP Pulse Ox 10/10/17 08:05 10/10/17 07:51 139/62 98 10/10/17 04:37 10/10/17 03:33 10/10/17 00:00 10/09/17 23:47 171/94 165/80 153/61 10/09/17 20:00 10/09/17 18:55 168/89 99 10/09/17 18:29 109/69 97 10/09/17 15:52 113/59 95 10/09/17 15:13 100/57 95 Intake and Output 10/09/17 10/10/17 10/10/17 22:59 06:59 14:59 Intake Total 118 Balance 118 Intake: Oral 118 Other: Voiding Method Toilet Toilet Toilet # Voids 1 2 # Bowel Movements 1 Weight 136.078 kg PHYSICAL EXAMINATION: GENERAL: The patient is alert and oriented x3, not in any acute distress. Obese HEENT: Pupils are round and equally reacting to light. EOMI. No scleral icterus. No conjunctival pallor. Normocephalic, atraumatic. No pharyngeal erythema. No thyromegaly. CARDIOVASCULAR: S1 and S2 present. No murmurs, rubs, or gallops. PULMONARY: Chest is clear to auscultation, no wheezing or crackles. ABDOMEN: Soft, nontender, nondistended, normoactive bowel sounds. No palpable organomegaly. MUSCULOSKELETAL: No joint swelling or deformity. EXTREMITIES: No cyanosis, clubbing, or pedal edema. NEUROLOGICAL: Gross neurological examination did not reveal any focal deficits. SKIN: No rashes. Results CBC & Chem 7: 10/09/17 15:23 10/10/17 06:38 Labs: Abnormal Lab Results - Last 24 Hours (Table) 10/09/17 10/09/17 10/09/17 Range/Units 15:22 15:23 15:23 WBC 16.9 H (3.8-10.6) k/uL RBC 4.26 L (4.30-5.90) m/uL Hgb 12.6 L (13.0-17.5) gm/dL Hct 36.8 L (39.0-53.0) % Neutrophils # 15.1 H (1.3-7.7) k/uL Potassium 3.3 L (3.5-5.1) mmol/L Glucose 160 H (74-99) mg/dL POC Glucose (mg/dL) 170 H (75-99) mg/dL Total Bilirubin 1.4 H (0.2-1.3) mg/dL Total Protein 5.8 L (6.3-8.2) g/dL Thrombosis Risk Factor Assmnt - Choose All That Apply Any of the Below Risk Factors Present?: Yes Each Factor Represents 1 point: Age 41-60 years, Obesity (BMI >25), Varicose veins Other Risk Factors: No Other congenital or acquired thrombophilia - If yes, enter type in comment: No Thrombosis Risk Factor Assessment Total Risk Factor Score: 3 Thrombosis Risk Factor Assessment Level: Moderate Risk Assessment and Plan Plan: -Dizziness, near syncopal episode: Secondary to opiates and antihypertensive medications. Amlodipine will be discontinued. As patient started having opiate withdrawals will put the fentanyl patch back on and patient will be discharged today. Patient had a recent stress test that was negative. -Asthma without any acute exacerbation and stent-hypertension continue with diuretic therapy dyspnea amlodipine -Chronic low back pain - obesity sleep apnea.
--- NOTE | 2017-10-10 14:04 | P.DS ---
Providers Date of admission: 10/09/17 17:51 Attending physician: Andrew Lang Primary care physician: [facility] Course: Please refer to my HPI Patient Condition at Discharge: Stable Plan - Discharge Summary Discharge Rx Participant: No New Discharge Prescriptions: Discontinued amLODIPine [Norvasc] 2.5 mg PO DAILY No Action HYDROcodone/APAP 10-325MG [[place] 10-325] 1 tab PO TID Triamterene-Hctz 37.5-25Mg [Dyazide 37.5-25 Capsule] 1 cap PO DAILY Lisinopril 40 mg PO DAILY busPIRone HCL 7.5 mg PO HS Escitalopram [Lexapro] 10 mg PO DAILY fentaNYL 75MCG/HR PATCH [Duragesic 75MCG/HR] 1 patch TRANSDERM Q72H Vitamin C/Biotin [Hair, Skin and Nails] 1 tab PO DAILY Melatonin 20 mg PO HS PRN PRN Reason: Insomnia Discharge Medication List HYDROcodone/APAP 10-325MG [[place] 10-325] 1 tab PO TID 01/13/15 [History] Lisinopril 40 mg PO DAILY 01/13/15 [History] Triamterene-Hctz 37.5-25Mg [Dyazide 37.5-25 Capsule] 1 cap PO DAILY 01/13/15 [ History] Escitalopram [Lexapro] 10 mg PO DAILY 09/27/16 [History] busPIRone HCL 7.5 mg PO HS 09/27/16 [History] fentaNYL 75MCG/HR PATCH [Duragesic 75MCG/HR] 1 patch TRANSDERM Q72H 05/31/17 [ History] Vitamin C/Biotin [Hair, Skin and Nails] 1 tab PO DAILY 07/14/17 [History] Melatonin 20 mg PO HS PRN 10/09/17 [History] Discharge Disposition: HOME SELF-CARE
== END 2017-10-10 15:22 | disposition home or self-care (01) ==
LOC: EC 15:12 → 3OBS 17:51
PROVIDERS: ADMIT Hospitalist; ATTEND Hospitalist
DX: R55 Syncope and collapse (principal); E86.0 Dehydration; F11.23 Opioid dependence with withdrawal; J45.909 Unspecified asthma, uncomplicated; I10 Essential (primary) hypertension; M19.90 Unspecified osteoarthritis, unspecified site; G47.30 Sleep apnea, unspecified; D72.829 Elevated white blood cell count, unspecified; G89.29 Other chronic pain; M54.5 Low back pain; M25.569 Pain in unspecified knee; I83.90 Asymptomatic varicose veins of unspecified lower extremity; F41.9 Anxiety disorder, unspecified; F32.9 Major depressive disorder, single episode, unspecified; Z98.84 Bariatric surgery status; Z90.49 Acquired absence of other specified parts of digestive tract; Z87.442 Personal history of urinary calculi; Z87.891 Personal history of nicotine dependence; Z80.51 Family history of malignant neoplasm of kidney; Z79.899 Other long term (current) drug therapy; Z79.891 Long term (current) use of opiate analgesic; E66.9 Obesity, unspecified; Z68.38 Body mass index [BMI] 38.0-38.9, adult
CPT/HCPCS: 99285; 96360 ×2; 96361 ×2; 36415; 93005; 80053; 83735 ×2; 84132; 85025; G0378 ×2

== ENCOUNTER → 2017-10-18 | Outpatient (CLI) | payer MEDICARE ==
--- NOTE | 2017-10-18 13:38 | XR ---
EXAMINATION TYPE: XR KUB DATE OF EXAM: 10/18/2017 1:31 PM CLINICAL HISTORY: Post lithotripsy October 09 TECHNIQUE: Two Upright KUB images of the abdomen are obtained. COMPARISON: CT abdomen and pelvis May 31, 2017. Abdominal x-ray October 09, 2017 FINDINGS: Evaluation is suboptimal due to portable technique and patient's large body habitus. A 1 cm persistent right renal calculus is redemonstrated stable or diminished in size. Smaller left-sided r enal calculi a CT are less well seen. There is overall nonobstructive bowel gas pattern. Moderate joint space loss both hips is redemonstra ulysses. Multilevel spurring in the spine is again seen. IMPRESSION: Persistent round shaped 1.0 cm right renal calculus.
== END | disposition home or self-care (01) ==
LOC: RADXRMAIN 13:20
PROVIDERS: ATTEND Urology
DX: N20.0 Calculus of kidney (principal)
CPT/HCPCS: 74018

== ENCOUNTER → 2018-06-13 | Outpatient (CLI) | payer MEDICARE ==
--- NOTE | 2018-06-13 16:55 | NM ---
EXAMINATION TYPE: NM bone/joint limited DATE OF EXAM: 06/13/2018 COMPARISON: NONE HISTORY: Pleural dyspnea, rib pain TECHNIQUE: After the intravenous administration of 26.4 mCi Tc 99m MDP. Images acquired 3 hours pos t injection. Multiple views of the thorax are submitted. There is no abnormal uptake within the visualized osseous structures to suggest acute process. No acu te posttraumatic changes identified. No suspicious metastatic lesions. IMPRESSION: 1. Normal radiotracer distribution through the thorax.
== END | disposition home or self-care (01) ==
LOC: RADNMMAIN 09:48
PROVIDERS: ATTEND Family Medicine
DX: R07.81 Pleurodynia (principal)
CPT/HCPCS: 78300; A9503

== ENCOUNTER 2018-09-15 14:47 | Inpatient (IN) | payer MEDICARE ==
[2018-09-15] MEDS ORDERED: SODIUM CHLORIDE 0.9% 1,000 ML IV STA ×2 (14:59→16:27)
[2018-09-15] MEDS ORDERED: ASPIRIN 81 MG PO STA (14:59)
[2018-09-15] MEDS ORDERED: DILTIAZEM DRIP BOLUS FROM BAG 1 MG SOLN IV ONE (15:11)
--- NOTE | 2018-09-15 15:11 | ED ---
Chest Pain HPI - General Chief Complaint: Chest Pain Stated Complaint: Chest pain Time Seen by Provider: 09/15/18 14:59 Source: patient Mode of arrival: ambulatory Limitations: no limitations - History of Present Illness Initial Comments: Carlos Mahan is a 52-year-old gentleman with past history of hypertension, morbid obesity and chronic pain. Patient presents to the emergency department today for evaluation of palpitations and acid reflux like symptoms. Patient reports that approximately 3 times in the past 6 months he has experienced episodes similar to this in which he feels that he is having severe acid reflux, he becomes very sweaty and short of breath and can feel himself having palpitations. He reports that these episodes usually last 15-45 minutes and resolve with taking antacid medications. Patient reports that around 1 PM today he began having the symptoms, symptoms persisted for over 2 hours which prompted him to come to the ER for evaluation. Patient denies any previous cardiac history or history of arrhythmias. He denies any chest pain or discomfort though he does report that he could feel his heart beating. - Related Data Home Medications Medication Instructions Recorded Confirmed HYDROcodone/APAP 10-325MG [[place] 1 tab PO Q8H PRN 01/13/15 09/15/18 10-325] Lisinopril 40 mg PO DAILY 01/13/15 09/15/18 Triamterene-Hctz 37.5-25Mg 1 cap PO DAILY 01/13/15 09/15/18 [Dyazide 37.5-25 Capsule] Melatonin 10 mg PO HS 09/15/18 09/15/18 Omeprazole 20 mg PO DAILY 09/15/18 09/15/18 Ranitidine HCl 150 mg PO HS 09/15/18 09/15/18 Sennosides [Senna] 34.4 mg PO HS 09/15/18 09/15/18 amLODIPine [Norvasc] 2.5 mg PO DAILY 09/15/18 09/15/18 clonazePAM [KlonoPIN] 1 mg PO BID 09/15/18 09/15/18 fentaNYL 50MCG/HR PATCH [Duragesic 1 patch TRANSDERM Q72H 09/15/18 09/15/18 50MCG/HR] Allergies Allergy/AdvReac Type Severity Reaction Status Date / Time No Known Allergies Allergy Verified 09/15/18 15:37 Review of Systems ROS Statement: Those systems with pertinent positive or pertinent negative responses have been documented in the HPI. ROS Other: All systems not noted in ROS Statement are negative. EKG Findings - EKG Comments: EKG Findings:: EKG was obtained due to tachycardia, EKG obtained at 1508, rate is 180 rhythm is A. fib with RVR there is normal axis, there are normal intervals, QRS 88, QT to 84, QTC 491, there are ST depressions in the inferior leads. No acute ST elevations Past Medical History Past Medical History: Asthma, Hypertension, Musculoskeletal Disorder, Osteoarthritis (OA), Sleep Apnea/CPAP/BIPAP Additional Past Medical History / Comment(s): Chronic LOWER back & KNEE Pain. NO TX FOR SLEEP APNEA NOW, hx. enlarged spleen after fall 2016-no problems now that he knows of, KIDNEY STONES , vericose veins History of Any Multi-Drug Resistant Organisms: None Reported Past Surgical History: Bariatric Surgery, Cholecystectomy, Hernia Repair, Orthopedic Surgery Additional Past Surgical History / Comment(s): UMBILICAL HERNIA, RT KNEE MENISCUS, GASTRIC SLEEVE 2011, LT Rotator cuff. ABSCESS CYST ON TAILBONE, LITHOTRIPSY 10/09/2017 Past Anesthesia/Blood Transfusion Reactions: Previous Problems w/ Anesthesia Additional Past Anesthesia/Blood Transfusion Reaction / Comment(s): WOKE UP DURING KNEE SURGERY. Past Psychological History: Anxiety, Depression Smoking Status: Former smoker Past Alcohol Use History: None Reported Past Drug Use History: Marijuana - Past Family History Father Family Medical History: Renal Disease Brother(s) Family Medical History: Cancer Additional Family Medical History / Comment(s): KIDNEY [place] General Exam - General Exam Comments Initial Comments: Physical Exam GENERAL: Patient is well-developed and well-nourished morbidly obese, diaphoretic HENT: Normocephalic, Atraumatic. EYES: PERRL, EOMI PULMONARY: Unlabored respirations. No audible rales rhonchi or wheezing was noted. CARDIOVASCULAR: Irregularly irregular tachycardic Warm and well-perfused extremities ABDOMEN: Soft and nontender with normal bowel sounds. SKIN: Diaphoretic : Deferred NEUROLOGIC: Patient is alert and oriented x3. Moving all extremities spontaneously Normal gait MUSCULOSKELETAL: Normal extremities with adequate strength and full range of motion. No lower extremity swelling or edema. No calf tenderness. PSYCHIATRIC: Appropriate situational anxiety Limitations: no limitations Course Vital Signs 09/15/18 09/15/18 09/15/18 14:48 15:01 15:13 Temperature 97.6 F 97.5 F L Pulse Rate 52 L 163 H Pulse Rate [ 163 H Bilateral Soap Grinder ] Respiratory 18 18 Rate Blood Pressure 145/105 100/79 O2 Sat by Pulse 97 97 Oximetry 09/15/18 09/15/18 09/15/18 15:14 15:30 15:47 Temperature Pulse Rate 151 H 140 H 147 H Pulse Rate [ Bilateral Soap Grinder ] Respiratory 18 18 18 Rate Blood Pressure 92/81 99/53 94/75 O2 Sat by Pulse 97 96 97 Oximetry 09/15/18 09/15/18 09/15/18 15:59 16:09 16:31 Temperature Pulse Rate 151 H 147 H 140 H Pulse Rate [ Bilateral Soap Grinder ] Respiratory 18 18 18 Rate Blood Pressure 87/51 112/95 118/92 O2 Sat by Pulse 97 98 98 Oximetry 09/15/18 09/15/18 17:14 17:45 Temperature Pulse Rate 135 H 126 H Pulse Rate [ Bilateral Soap Grinder ] Respiratory 18 18 Rate Blood Pressure 102/75 130/101 O2 Sat by Pulse 98 98 Oximetry Chest Pain MDM - MDM The patient was seen and evaluated immediately upon arrival to the emergency department, patient was noted to be diaphoretic tachycardic in A. fib with RVR with rates in the 170s to 180s, cardiac workup was ordered as well as Cardizem EKG confirms A. fib with RVR Chest x-ray no acute findings, heparin was ordered Patient received Cardizem bolus and begin Cardizem at 5 g/h, he did have some recent hypotension and IV fluid bolus was ordered. Hypotension improving however he remained tachycardic and Cardizem was titrated up to 10mg/hr Patient care was discussed with cardiology on-call Dr. Borrego who recommends initiating treatment with Eliquis, discontinue heparin 6 hours after initiating Eliquis Rate controlled with amiodarone, 300 mg bolus over 2 hours and then amiodarone drip per protocol recommends that if patient converts to sinus rhythm to discontinue the Cardizem and finished the amiodarone Patient resting comfortably in bed despite tachycardia, refused to use bedside commode or urinal and ambulated independently to the restroom without difficulty or shortness of breath Patient care was discussed with Dr. Rudd of the [facility] hospitalist group is currently covering for Dr. felix who admits Dr. Rea's patient. He accepts the admission for new onset A. fib RVR. Critical Care Time Critical Care Time: Yes Total Critical Care Time: 45 Critical Care Time: Critical Care Time Critical care time was exclusive of separately billable procedures and treating other patients and teaching time. Critical care was necessary to treat or prevent imminent or life-threatening deterioration. Given the critical condition in which the patient arrived, the patient was immediately assessed by myself and the nurse, and cardiac monitoring initiated due to the potential for rapid decompensation of the patient's clinical condition. During the course of the patients stay, I spent a considerable amount of time at the bedside performing serial re-evaluations of the patient's hemodynamic and clinical status because of the recognized potential threat to life or limb in this condition. I then had a chance to review not only all of the available current laboratory and radiographic studies obtained today, but I also reviewed old records available to me at the time. Additionally, any ancillary information available including hand funnel coater records were reviewed. Se quential vital signs were obtained. Disposition Clinical Impression: Atrial flutter with rapid ventricular response Disposition: ADMITTED IP TO THIS HOSP Condition: Stable Is patient prescribed a controlled substance at d/c from ED?: No
[2018-09-15] MEDS: DILTIAZEM 125 MG in SODIUM CHLORIDE 0.9% 100 ML IV SCH (15:23)
[2018-09-15 15:27] LABS: Basophils % (A) 0 %; Eosinophils # (A) 0.2 k/uL (0-0.7); Eosinophils % (A) 3 %; HCT 48.4 % (39.0-53.0); HGB 16.4 gm/dL (13.0-17.5); Lymphocytes # (A) 1.7 k/uL (1.0-4.8); Lymphocytes % (A) 23 %; MCH 28.4 pg (25.0-35.0); MCHC 33.9 g/dL (31.0-37.0); MCV 83.8 fL (80.0-100.0); Mean Platelet Volume 6.3; Monocytes # (A) 0.5 k/uL (0-1.0); Monocytes % (A) 7 %; Neutrophils # (A) 4.8 k/uL (1.3-7.7); Neutrophils % (A) 66 %; Platelet Count 233 k/uL (150-450); RBC 5.78 m/uL (4.30-5.90); RDW 13.5 % (11.5-15.5); WBC 7.3 k/uL (3.8-10.6)
[2018-09-15 15:35] LABS: ALT 17 U/L (21-72); AST 33 U/L (17-59); Albumin 4.5 g/dL (3.5-5.0); Alkaline Phosphatase 64 U/L (38-126); Anion Gap 10 mmol/L; Blood Urea Nitrogen 21 mg/dL (9-20); Calcium 9.7 mg/dL (8.4-10.2); Carbon Dioxide 24 mmol/L (22-30); Chloride 108 mmol/L (98-107); Glucose 113 mg/dL (74-99); Magnesium 1.9 mg/dL (1.6-2.3); Potassium 3.9 mmol/L (3.5-5.1); Sodium 142 mmol/L (137-145); Total Bilirubin 1.5 mg/dL (0.2-1.3); Total Protein 7.7 g/dL (6.3-8.2)
[2018-09-15 15:39] LABS: INR 0.9 (<1.2); Partial Thromboplastin Time 24.4 sec (22.0-30.0); Prothrombin Time 10.2 sec (9.0-12.0)
[2018-09-15] MEDS ORDERED: NALOXONE 0.4 MG/ML 1 ML VIAL IV PRN (15:48)
[2018-09-15] MEDS ORDERED: HEPARIN SODIUM,PORCINE 5,000 UNIT/ML 1 ML VIAL IV ONE (15:50)
[2018-09-15] MEDS ORDERED: HEPARIN SODIUM,PORCINE 5,000 UNIT/ML 1 ML VIAL IV PRN (15:50)
--- NOTE | 2018-09-15 15:56 | XR ---
EXAMINATION TYPE: XR chest 2V DATE OF EXAM: 09/15/2018 COMPARISON: NONE HISTORY: Chest pain TECHNIQUE: Frontal and lateral views of the chest are obtained. FINDINGS: There is no focal air space opacity, pleural effusion, or pneumothorax seen. The cardiac silhouette size is within normal limits. The osseous structures are intact. There are overlying car diac leads. Patient is rotated. Prominent lung lines and flattening the hemidiaphragms compatible wit h underlying COPD. Prominence of pulmonary artery could possibly represent pulmonary artery hypertens ion. IMPRESSION: No acute cardiopulmonary process. Additional findings above.
[2018-09-15] MEDS ORDERED: SODIUM CHLORIDE 0.9% 1,000 ML IV SCH (16:00)
[2018-09-15] MEDS ORDERED: HEPARIN SOD,PORK IN 0.45% NACL 25,000 UNIT in 0.45% NACL 1 250ML.BAG IV SCH (16:00)
[2018-09-15] MEDS ORDERED: HYDROcodone/APAP 10-325MG 1 EACH TAB PO PRN (16:02)
[2018-09-15] MEDS ORDERED: AMIODARONE 360 MG in DEXTROSE 5% IN WATER 200 ML IV ONE ×2 (17:22)
[2018-09-15] MEDS ORDERED: DEXTROSE 5% IN WATER 100 ML with AMIODARONE 300 MG IV ONE (17:22)
--- NOTE | 2018-09-15 17:35 | P.HPIM ---
History of Present Illness 52-year-old the male with no known significant cardiac history came in with complaints of palpitation patient was having this acid reflux symptoms has been taking Prilosec for acid reflux and thereafter shortly after acid reflux symp toms patient will have palpitations excessive sweating. Patient has multiple surgical episodes and Lasix months. And the his primary doctor's schedule him to get a no upper GI endoscopy. Because of the palpitations patient came to ER and patient is found to be in atrial fibrillation with rapid ventricular rate patient does smoke marijuana heavily. Denied any tobacco use. Denied any alcohol abuse either did any fever chills dysuria, cough. Review of Systems REVIEW OF SYSTEMS: CONSTITUTIONAL: No fever, no malaise, no fatigue. HEENT: No recent visual problems or hearing problems. Denied any sore throat. CARDIOVASCULAR: No chest pain, orthopnea, PND. PULMONARY: No shortness of breath, no cough, no hemoptysis. GASTROINTESTINAL: No diarrhea, no nausea, no vomiting, no abdominal pain. NEUROLOGICAL: No headaches, no weakness, no numbness. HEMATOLOGICAL: Denies any bleeding or petechiae. GENITOURINARY: Denies any burning micturition, frequency, or urgency. MUSCULOSKELETAL/RHEUMATOLOGICAL: Denies any joint pain, swelling, or any muscle pain. ENDOCRINE: Denies any polyuria or polydipsia. The rest of the 14-point review of systems is negative. Past Medical History Past Medical History: Asthma, Hypertension, Musculoskeletal Disorder, Osteoarthritis (OA), Sleep Apnea/CPAP/BIPAP Additional Past Medical History / Comment(s): Chronic LOWER back & KNEE Pain. NO TX FOR SLEEP APNEA NOW, hx. enlarged spleen after fall 2016-no problems now that he knows of, KIDNEY STONES , vericose veins History of Any Multi-Drug Resistant Organisms: None Reported Past Surgical History: Bariatric Surgery, Cholecystectomy, Hernia Repair, Orthopedic Surgery Additional Past Surgical History / Comment(s): UMBILICAL HERNIA, RT KNEE MENISCUS, GASTRIC SLEEVE 2011, LT Rotator cuff. ABSCESS CYST ON TAILBONE, LITHOTRIPSY 10/09/2017 Past Anesthesia/Blood Transfusion Reactions: Previous Problems w/ Anesthesia Additional Past Anesthesia/Blood Transfusion Reaction / Comment(s): WOKE UP DURING KNEE SURGERY. Past Psychological History: Anxiety, Depression Smoking Status: Former smoker Past Alcohol Use History: None Reported Past Drug Use History: Marijuana - Past Family History Father Family Medical History: Renal Disease Brother(s) Family Medical History: Cancer Additional Family Medical History / Comment(s): KIDNEY [place] Medications and Allergies Home Medications Medication Instructions Recorded Confirmed Type HYDROcodone/APAP 10-325MG [[place] 1 tab PO Q8H PRN 01/13/15 09/15/18 History 10-325] Lisinopril 40 mg PO DAILY 01/13/15 09/15/18 History Triamterene-Hctz 37.5-25Mg 1 cap PO DAILY 01/13/15 09/15/18 History [Dyazide 37.5-25 Capsule] Melatonin 10 mg PO HS 09/15/18 09/15/18 History Omeprazole 20 mg PO DAILY 09/15/18 09/15/18 History Ranitidine HCl 150 mg PO HS 09/15/18 09/15/18 History Sennosides [Senna] 34.4 mg PO HS 09/15/18 09/15/18 History amLODIPine [Norvasc] 2.5 mg PO DAILY 09/15/18 09/15/18 History clonazePAM [KlonoPIN] 1 mg PO BID 09/15/18 09/15/18 History fentaNYL 50MCG/HR PATCH [Duragesic 1 patch TRANSDERM Q72H 09/15/18 09/15/18 History 50MCG/HR] Allergies Allergy/AdvReac Type Severity Reaction Status Date / Time No Known Allergies Allergy Verified 09/15/18 15:37 Physical Exam Vitals: Vital Signs Temp Pulse Pulse Resp BP Pulse Ox 09/15/18 17:14 135 H 18 102/75 98 09/15/18 16:31 140 H 18 118/92 98 09/15/18 16:09 147 H 18 112/95 98 09/15/18 15:59 151 H 18 87/51 97 09/15/18 15:47 147 H 18 94/75 97 09/15/18 15:30 140 H 18 99/53 96 09/15/18 15:14 151 H 18 92/81 97 09/15/18 15:13 97.5 F L 163 H 18 100/79 97 09/15/18 15:01 163 H 09/15/18 14:48 97.6 F 52 L 18 145/105 97 Intake and Output 09/15/18 09/15/18 09/15/18 06:59 14:59 22:59 Intake Total 5.583 Balance 5.583 Intake: Intake, IV Titration 5.583 Amount Diltiazem 125 mg In 5.583 Sodium Chloride 0.9% 100 ml @ Per Protocol IV .Q0M [facility] Rx#:[id number] Other: Weight 140.614 kg PHYSICAL EXAMINATION: GENERAL: The patient is alert and oriented x3, not in any acute distress. Obese HEENT: Pupils are round and equally reacting to light. EOMI. No scleral icterus. No conjunctival pallor. Normocephalic, atraumatic. No pharyngeal erythema. No thyromegaly. CARDIOVASCULAR: S1 and S2 present. No murmurs, rubs, or gallops. Tachycardic irregularly irregular rhythm PULMONARY: Chest is clear to auscultation, no wheezing or crackles. ABDOMEN: Soft, nontender, nondistended, normoactive bowel sounds. No palpable organomegaly. MUSCULOSKELETAL: No joint swelling or deformity. EXTREMITIES: No cyanosis, clubbing, or pedal edema. NEUROLOGICAL: Gross neurological examination did not reveal any focal deficits. SKIN: No rashes. Results CBC & Chem 7: 09/15/18 15:00 09/15/18 15:00 Labs: Abnormal Lab Results - Last 24 Hours (Table) 09/15/18 Range/Units 15:00 Chloride 108 H (98-107) mmol/L BUN 21 H (9-20) mg/dL Glucose 113 H (74-99) mg/dL Total Bilirubin 1.5 H (0.2-1.3) mg/dL ALT 17 L (21-72) U/L Assessment and Plan Plan: -New onset atrial fibrillation with rapid ventricular rate. Patient was started on amiodarone as well as Cardizem echocardiogram will be obtained cardiology was consulted patient was started on anti-coagulation with heparin. Marijuana cessa tion counseling was provided. Echocardiac exam will be obtained 2 more sets of troponins will be obtained -Hypertension patient is actually hypotensive hold off on lisinopril and the amlodipine. -Obstructive sleep apnea, obesity continue his CPAP machine -Depression -Chronic low back pain for which patient uses marijuana on regular basis and smokes marijuana heavily -Gastroesophageal reflux disease continue his proton pump inhibitor
[2018-09-15] MEDS ORDERED: APIXABAN 5 MG TAB PO SCH (18:00)
[2018-09-15] MEDS ORDERED: APIXABAN 5 MG TAB PO STA (18:32)
[2018-09-15 19:09] VITALS: BMI 39.8
[2018-09-15] MEDS: clonazePAM 1 MG TAB PO PRN (22:05)
[2018-09-15] MEDS: SENNOSIDES 8.6 MG TAB PO SCH (22:05)
[2018-09-15] MEDS: MELATONIN 5 MG TABLET PO SCH (22:05)
[2018-09-15] MEDS ORDERED: AMIODARONE 300 MG in DEXTROSE 5% IN WATER 250 ML IV SCH ×2 (23:23)
[2018-09-16] MEDS: DILTIAZEM 125 MG in SODIUM CHLORIDE 0.9% 100 ML IV SCH (00:59)
[2018-09-16 06:12] LABS: Basophils % (A) 1 %; Eosinophils # (A) 0.2 k/uL (0-0.7); Eosinophils % (A) 4 %; HGB 14.8 gm/dL (13.0-17.5); Lymphocytes # (A) 1.7 k/uL (1.0-4.8); Lymphocytes % (A) 30 %; MCH 27.8 pg (25.0-35.0); MCHC 32.2 g/dL (31.0-37.0); MCV 86.3 fL (80.0-100.0); Monocytes # (A) 0.7 k/uL (0-1.0); Monocytes % (A) 12 %; Neutrophils # (A) 2.9 k/uL (1.3-7.7); Neutrophils % (A) 51 %; Platelet Count 205 k/uL (150-450); RBC 5.32 m/uL (4.30-5.90); RDW 14.1 % (11.5-15.5); WBC 5.6 k/uL (3.8-10.6)
[2018-09-16 06:22] LABS: Anion Gap 7 mmol/L; Blood Urea Nitrogen 16 mg/dL (9-20); Calcium 8.9 mg/dL (8.4-10.2); Carbon Dioxide 27 mmol/L (22-30); Chloride 107 mmol/L (98-107); Glucose 78 mg/dL (74-99); Magnesium 1.9 mg/dL (1.6-2.3); Potassium 3.7 mmol/L (3.5-5.1); Sodium 141 mmol/L (137-145)
[2018-09-16] MEDS: PANTOPRAZOLE 40 MG TABLET PO SCH (06:24)
[2018-09-16] MEDS: APIXABAN 5 MG TAB PO SCH ×2 (08:34→21:25)
[2018-09-16 08:57] LABS: Cholesterol 185 mg/dL (<200); HDL Cholesterol 51 mg/dL (40-60); LDL Cholesterol,Calculated 118 mg/dL (0-99); Triglycerides 82 mg/dL (<150)
[2018-09-16] MEDS ORDERED: TRIAMTERENE-HCTZ 37.5-25MG 1 EACH CAP PO SCH (09:00)
[2018-09-16] MEDS ORDERED: LISINOPRIL 20 MG TAB PO SCH (09:00)
--- NOTE | 2018-09-16 09:06 | P.CRDCN ---
History of Present Illness History of present illness: This is Dr. Borrego dictating a consult on this patient The patient was interviewed and examined by me IMPRESSION / ASSESSMENT: Symptomatic paroxysmal atrial fibrillation with RVR, third episode. This was his longest episode in the last several months Resting heart rates in the 40s and 50s Hypertension, systolic blood pressure despite medical treatment in the 140s Lipid panel pending Morbid obesity status post gastric bypass surgery, weight is down from 600 pounds to 300 pounds Normal TSH Normal renal function PLAN: Stop IV amiodarone Lipid panel Increase amlodipine to 5 mg in the evening Continue lisinopril 40 g by mouth daily in the morning Continue diuretics 2-D echo and Doppler study and if this is normal then I will start him on flecainide 50 g twice a day and observe on telemetry If he is not able to tolerate flecainide on account of bradycardia then he should have pulmonary vein isolation/A. fib ablation Discussed with the patient HPI 52 old male patient who has had 3 episodes of the following symptoms Suddenly he starts experiencing severe heartburn. The first episode occurred about 3 months back. Subsequently he had a second one week also felt that his heart was flip-flopping He gets very hot flushed and he also starts urinating every 5 minutes ROS: No fever chills or rigors, no cough, phlegm or expectoration, no nausea, vomiting or diarrhea, no hematuria, dysuria, no musculoskeletal complaints, no strokes or seizures, no skin lesions. Excessive urination/frequency of urination Sweating during these episodes Heartburn during these episodes EXAMINATION: Afebrile 98.2F, pulse rate during atrial fibrillation was greater than 150 beats a minute In sinus rhythm his pulse rate is in the 40s. He also on IV amiodarone which is being discontinued No JVD no thyromegaly Increased BMI of 40 Central obesity Normal heart sounds no murmurs or gallop or rub Breath sounds are clear no rhonchi no crackles Extremities warm no edema REVIEW OF LABS, ECG & MEDICAL DATA Lites are normal Renal function is normal Hemoglobin is 14.8 Patient's 2-D echo and Doppler study was reviewed. Left ventricular hypertrophy with preserved LV systolic function I will start him on flecainide 50 mg twice daily and watch 1 telemetry Past Medical History Past Medical History: Asthma, GERD/Reflux, Hypertension, Musculoskeletal Disorder, Osteoarthritis (OA), Sleep Apnea/CPAP/BIPAP Additional Past Medical History / Comment(s): Chronic LOWER back & KNEE Pain. NO TX FOR SLEEP APNEA NOW, hx. enlarged spleen after fall 2017-no problems now that he knows of, KIDNEY STONES , vericose veins History of Any Multi-Drug Resistant Organisms: None Reported Past Surgical History: Bariatric Surgery, Cholecystectomy, Hernia Repair, Orthopedic Surgery Additional Past Surgical History / Comment(s): UMBILICAL HERNIA, RT KNEE MENISCUS, GASTRIC SLEEVE 2011, LT Rotator cuff. ABSCESS CYST ON TAILBONE, LITHOTRIPSY 10/09/2017. VARICOSE VEINS REMOVED Past Anesthesia/Blood Transfusion Reactions: Previous Problems w/ Anesthesia Additional Past Anesthesia/Blood Transfusion Reaction / Comment(s): WOKE UP DURING KNEE SURGERY. Past Psychological History: Anxiety, Depression Smoking Status: Former smoker Past Alcohol Use History: None Reported Additional Past Alcohol Use History / Comment(s): SMOKED 1 PPD, QUIT 2007. Past Drug Use History: Marijuana Additional Drug Use History / Comment(s): SMOKES MARIJUANA FOR BACK PAIN DAILY, TOTAL 1 JOINT DAILY. - Past Family History Father Family Medical History: Renal Disease Brother(s) Family Medical History: Cancer Additional Family Medical History / Comment(s): KIDNEY CA Medications and Allergies Home Medications Medication Instructions Recorded Confirmed Type HYDROcodone/APAP 10-325MG [[place] 1 tab PO Q8H PRN 01/13/15 09/15/18 History 10-325] Lisinopril 40 mg PO DAILY 01/13/15 09/15/18 History Triamterene-Hctz 37.5-25Mg 1 cap PO DAILY 01/13/15 09/15/18 History [Dyazide 37.5-25 Capsule] Melatonin 10 mg PO HS 09/15/18 09/15/18 History Omeprazole 20 mg PO DAILY 09/15/18 09/15/18 History Ranitidine HCl 150 mg PO HS 09/15/18 09/15/18 History Sennosides [Senna] 34.4 mg PO HS 09/15/18 09/15/18 History amLODIPine [Norvasc] 2.5 mg PO DAILY 09/15/18 09/15/18 History clonazePAM [KlonoPIN] 1 mg PO BID 09/15/18 09/15/18 History fentaNYL 50MCG/HR PATCH [Duragesic 1 patch TRANSDERM Q72H 09/15/18 09/15/18 History 50MCG/HR] Allergies Allergy/AdvReac Type Severity Reaction Status Date / Time No Known Allergies Allergy Verified 09/15/18 15:37 Physical Exam Vitals: Vital Signs Temp Pulse Pulse Resp BP BP BP 09/16/18 08:00 98.2 F 46 L 16 139/73 09/16/18 06:00 40 L 124/77 09/16/18 04:55 97.8 F 86 15 143/78 09/16/18 00:27 98.0 F 92 15 121/74 09/15/18 22:03 96 125/83 09/15/18 20:00 97.8 F 100 15 09/15/18 19:45 110 H 134/87 09/15/18 19:15 109 H 111/77 09/15/18 19:00 120 H 128/67 09/15/18 18:45 98.2 F 136 H 16 108/70 09/15/18 18:39 98.2 F 131 H 18 132/89 09/15/18 17:45 126 H 18 130/101 09/15/18 17:14 135 H 18 102/75 09/15/18 16:31 140 H 18 118/92 09/15/18 16:09 147 H 18 112/95 09/15/18 15:59 151 H 18 87/51 09/15/18 15:47 147 H 18 94/75 09/15/18 15:30 140 H 18 99/53 09/15/18 15:14 151 H 18 92/81 09/15/18 15:13 97.5 F L 163 H 18 100/79 09/15/18 15:01 163 H 09/15/18 14:48 97.6 F 52 L 18 145/105 Pulse Ox 09/16/18 08:00 97 09/16/18 06:00 09/16/18 04:55 96 09/16/18 00:27 96 09/15/18 22:03 09/15/18 20:00 97 09/15/18 19:45 09/15/18 19:15 09/15/18 19:00 09/15/18 18:45 99 09/15/18 18:39 98 09/15/18 17:45 98 09/15/18 17:14 98 09/15/18 16:31 98 09/15/18 16:09 98 09/15/18 15:59 97 09/15/18 15:47 97 09/15/18 15:30 96 09/15/18 15:14 97 09/15/18 15:13 97 09/15/18 15:01 09/15/18 14:48 97 Intake and Output 09/15/18 09/16/18 09/16/18 22:59 06:59 14:59 Intake Total 1005.583 84.833 Balance 1005.583 84.833 Intake: IV 1000 Sodium Chloride 0.9% 1, 1000 000 ml @ 999 mls/hr IV . Q1H1M [facility] Rx#:[id number] Intake, IV Titration 5.583 84.833 Amount Diltiazem 125 mg In 5.583 84.833 Sodium Chloride 0.9% 100 ml @ Per Protocol IV .Q0M [facility] Rx#:[id number] Other: Voiding Method Toilet Toilet # Voids 3 Weight 142.6 kg Results 09/16/18 05:29 09/16/18 05:29 Cardiac Enzymes 09/15/18 09/15/18 Range/Units 15:00 15:00 AST 33 (17-59) U/L Troponin I <0.012 (0.000-0.034) ng/mL Coagulation 09/15/18 09/15/18 Range/Units 15:00 22:08 PT 10.2 (9.0-12.0) sec APTT 24.4 34.3 H (22.0-30.0) sec Lipids 09/16/18 Range/Units 05:29 Triglycerides 82 (<150) mg/dL Cholesterol 185 (<200) mg/dL HDL Cholesterol 51 (40-60) mg/dL CBC 09/15/18 09/16/18 Range/Units 15:00 05:29 WBC 7.3 5.6 (3.8-10.6) k/uL RBC 5.78 5.32 (4.30-5.90) m/uL Hgb 16.4 14.8 (13.0-17.5) gm/dL Hct 48.4 46.0 (39.0-53.0) % Plt Count 233 205 (150-450) k/uL Comprehensive Metabolic Panel 09/15/18 09/16/18 Range/Units 15:00 05:29 Sodium 142 141 (137-145) mmol/L Potassium 3.9 3.7 (3.5-5.1) mmol/L Chloride 108 H 107 (98-107) mmol/L Carbon Dioxide 24 27 (22-30) mmol/L BUN 21 H 16 (9-20) mg/dL Creatinine 0.68 0.58 L (0.66-1.25) mg/dL Glucose 113 H 78 (74-99) mg/dL Calcium 9.7 8.9 (8.4-10.2) mg/dL AST 33 (17-59) U/L ALT 17 L (21-72) U/L Alkaline Phosphatase 64 (38-126) U/L Total Protein 7.7 (6.3-8.2) g/dL Albumin 4.5 (3.5-5.0) g/dL Current Medications Generic Name Dose Route Start Last Admin Trade Name Freq PRN Reason Stop Dose Admin Hydrocodone Bitart/Acetaminophen 1 each 09/15/18 16:02 09/16/18 08:34 [place] 10 PO 1 each Q8H PRN Administration Pain Amlodipine Besylate 5 mg 09/16/18 21:00 Norvasc PO HS [facility] Apixaban 5 mg 09/16/18 09:00 09/16/18 08:34 Eliquis PO 5 mg BID [facility] Administration Clonazepam 1 mg 09/15/18 16:02 09/15/18 22:05 Klonopin PO 1 mg BID PRN Administration Anxiety Lisinopril 40 mg 09/16/18 09:00 09/16/18 08:34 Zestril PO 40 mg DAILY [facility] Administration Melatonin 10 mg 09/15/18 21:00 09/15/18 22:05 Melatonin PO 10 mg HS [facility] Administration Naloxone HCl 0.2 mg 09/15/18 15:48 Narcan IV Q2M PRN Opioid Reversal Pantoprazole Sodium 40 mg 09/16/18 07:30 09/16/18 06:24 Protonix PO 40 mg AC-BRKFST [facility] Administration Senna 34.4 mg 09/15/18 21:00 09/15/18 22:05 Senokot PO 34.4 mg HS [facility] Administration Triamterene/HCTZ 1 each 09/16/18 09:00 Dyazide PO DAILY [facility] Intake and Output 09/15/18 09/16/18 09/16/18 22:59 06:59 14:59 Intake Total 1005.583 84.833 Balance 1005.583 84.833 Intake: IV 1000 Sodium Chloride 0.9% 1, 1000 000 ml @ 999 mls/hr IV . Q1H1M [facility] Rx#:[id number] Intake, IV Titration 5.583 84.833 Amount Diltiazem 125 mg In 5.583 84.833 Sodium Chloride 0.9% 100 ml @ Per Protocol IV .Q0M [facility] Rx#:[id number] Other: Voiding Method Toilet Toilet # Voids 3 Weight 142.6 kg 09/16/18 05:29 09/16/18 05:29
[2018-09-16] MEDS: FLECAINIDE 50 MG TAB PO SCH ×2 (10:19→21:25)
--- NOTE | 2018-09-16 15:02 | ECHOF ---
Referral Reason:A. Fib MEASUREMENTS -------- HEIGHT: 182.9 cm WEIGHT: 142.4 kg BP: RVIDd: 4.2 cm (< 3.3) IVSd: 1.7 cm (0.6 - 1.1) LVIDd: 4.6 cm (3.9 - 5.3) LVPWd: 1.9 cm (0.6 - 1.1) IVSs: 2.3 cm LVIDs: 2.8 cm LVPWs: 2.1 cm LAESV Index (A-L): 31.65 ml/m LA Diam: 4.1 cm (2.7 - 3.8) MV EXCURSION: 14.837 mm (> 18.000) MV EF SLOPE: 77 mm/s (70 - 150) EPSS: 0.6 cm MV E Akshat: 0.76 m/s MV DecT: 231 ms MV A Akshat: 0.52 m/s MV E/A Ratio: 1.46 RAP: 5.00 mmHg RVSP: 18.11 mmHg FINDINGS -------- Resting bradycardia (HR<60bpm). This was a technically difficult study with suboptimal views. The left ventricular size is normal. There is severe concentric left ventricular hypertrophy. Ove rall left ventricular systolic function is low-normal with, an EF between 50 - 55 %. The right ventricle is severely enlarged. The left atrium is mildly dilated. The right atrial size is normal. 1.5mg of Definity was utilized for enhancement of images xx ml of Lumason was utilized for enhancem ent of images. Interatrial and interventricular septum intact. The aortic valve is trileaflet and appears structurally normal. There is trace mitral regurgitation. Trace tricuspid regurgitation present. The right ventricular systolic pressure, as measured by Dopp ler, is 18.11mmHg. There is no pulmonic regurgitation present. The aortic root size is normal. IVC Not well visulized. There is no pericardial effusion. CONCLUSIONS -------- 1. Resting bradycardia (HR<60bpm). 2. This was a technically difficult study with suboptimal views. 3. The left ventricular size is normal. 4. There is severe concentric left ventricular hypertrophy. 5. Overall left ventricular systolic function is low-normal with, an EF between 50 - 55 %. 6. The right ventricle is severely enlarged. 7. The left atrium is mildly dilated. 8. The right atrial size is normal. 9. 1.5mg of Definity was utilized for enhancement of images 10. Interatrial and interventricular septum intact. 11. The aortic valve is trileaflet and appears structurally normal. 12. There is trace mitral regurgitation. 13. Trace tricuspid regurgitation present. 14. The right ventricular systolic pressure, as measured by Doppler, is 18.11mmHg. 15. There is no pulmonic regurgitation present. 16. The aortic root size is normal. 17. IVC Not well visulized. 18. There is no pericardial effusion. REVIEW TRAINER: Taryn Parkinson RDCS
[2018-09-16] MEDS: clonazePAM 1 MG TAB PO PRN (15:52)
--- NOTE | 2018-09-16 16:33 | P.PN ---
Subjective 49-year-old male was admitted for atrial fibrillation with rapid ventricular rate converted to sinus rhythm today patient was started on sotalol by candy ardijung. Patient had normal ejection fraction. Patient was quite a bit hypotensive in spite of discontinuation of Cardizem yesterday patient is on multiple antibodies medications all of these were held because of hypotension. Patient was started back on these medications which will be held again because of concerns of hypotension again. Patient can be started back on these medications if needed depending on her blood pressure at a time. Patient's systolic went down to as low as 80s yesterday. Patient will monitored overnight. Constitutional: Denied any fatigue denied any fever. Cardio vascular: denied any chest pain, palpitations Gastrointestinal denied any nausea vomiting Pulmonary: Denied any shortness of breath cough Neurologic denied any new focal deficits All inpatient medications were reviewed and appropriate changes in these medications as dictated in the interval history and assessment and plan. Objective - Vital Signs Vital signs: Vital Signs Temp 98.2 F 09/16/18 15:50 Pulse 51 L 09/16/18 15:50 Resp 16 09/16/18 15:50 BP 138/87 09/16/18 15:50 Pulse Ox 100 09/16/18 15:50 Intake & Output 09/15/18 09/16/18 09/16/18 18:59 06:59 18:59 Intake Total 1005.583 84.833 230 Balance 1005.583 84.833 230 Weight 140.614 kg 142.6 kg Intake: IV 1000 Sodium Chloride 0.9% 1, 1000 000 ml @ 999 mls/hr IV . Q1H1M [facility] Rx#:[id number] Intake, IV Titration 5.583 84.833 Amount Diltiazem 125 mg In 5.583 84.833 Sodium Chloride 0.9% 100 ml @ Per Protocol IV .Q0M [facility] Rx#:[id number] Oral 230 Other: Voiding Method Toilet Toilet # Voids 3 - Exam PHYSICAL EXAMINATION: GENERAL: The patient is alert and oriented x3, not in any acute distress. obese HEENT: Pupils are round and equally reacting to light. EOMI. No scleral icterus. No conjunctival pallor. Normocephalic, atraumatic. No pharyngeal erythema. No thyromegaly. CARDIOVASCULAR: S1 and S2 present. No murmurs, rubs, or gallops. PULMONARY: Chest is clear to auscultation, no wheezing or crackles. ABDOMEN: Soft, nontender, nondistended, normoactive bowel sounds. No palpable organomegaly. MUSCULOSKELETAL: No joint swelling or deformity. EXTREMITIES: No cyanosis, clubbing, or pedal edema. NEUROLOGICAL: Gross neurological examination did not reveal any focal deficits. SKIN: No rashes. - Labs CBC & Chem 7: 09/16/18 05:09/16/18 05:29 Labs: Abnormal Lab Results - Last 24 Hours (Table) 09/15/18 09/16/18 09/16/18 Range/Units 22:08 05:29 05:29 APTT 34.3 H (22.0-30.0) sec Creatinine 0.58 L (0.66-1.25) mg/dL LDL Cholesterol, Calc 118 H (0-99) mg/dL Assessment and Plan Plan: -New onset atrial fibrillation with rapid ventricular rate. He shouldn't is presently on sotalol converted to sinus rhythm. Normal ejection fraction. Patient was started on Eliquis patient is on flecainide as well -Hypertension patient is actually hypotensive hold off on lisinopril and the amlodipine. Patient blood pressure improved now but concern is if he started on all his medications again his blood pressure can go down as low as 80 systolic in like yesterday patient will be started on low-dose of lisinopril today amlodipine will be discontinued and diuretic therapy will be discontinued -Obstructive sleep apnea, obesity continue his CPAP machine -Depression -Chronic low back pain for which patient uses marijuana on regular basis and smokes marijuana heavily -Gastroesophageal reflux disease continue his proton pump inhibitor
[2018-09-16] MEDS ORDERED: amLODIPine 5 MG TAB PO SCH (21:00)
[2018-09-16] MEDS: MELATONIN 5 MG TABLET PO SCH (21:28)
[2018-09-16] MEDS: SENNOSIDES 8.6 MG TAB PO SCH (21:28)
[2018-09-17] MEDS ORDERED: hydrALAZINE HCL 20 MG/ML 1 ML VIAL IVP STA (04:53)
[2018-09-17 05:57] VITALS: RESP 16
[2018-09-17] MEDS: PANTOPRAZOLE 40 MG TABLET PO SCH (07:10)
[2018-09-17 07:17] LABS: Basophils % (A) 0 %; Eosinophils # (A) 0.2 k/uL (0-0.7); Eosinophils % (A) 5 %; HCT 45.8 % (39.0-53.0); HGB 15.1 gm/dL (13.0-17.5); Lymphocytes # (A) 1.1 k/uL (1.0-4.8); Lymphocytes % (A) 22 %; MCH 28.1 pg (25.0-35.0); MCHC 32.9 g/dL (31.0-37.0); MCV 85.4 fL (80.0-100.0); Mean Platelet Volume 6.9; Monocytes # (A) 0.3 k/uL (0-1.0); Monocytes % (A) 7 %; Neutrophils # (A) 3.1 k/uL (1.3-7.7); Neutrophils % (A) 64 %; Platelet Count 196 k/uL (150-450); RBC 5.36 m/uL (4.30-5.90); WBC 4.8 k/uL (3.8-10.6)
[2018-09-17] MEDS: APIXABAN 5 MG TAB PO SCH (08:39)
[2018-09-17] MEDS: FLECAINIDE 50 MG TAB PO SCH (08:39)
[2018-09-17] MEDS ORDERED: LISINOPRIL 20 MG TAB PO SCH ×2 (09:00)
[2018-09-17 09:50] VITALS: PULSE 50
--- NOTE | 2018-09-17 12:54 | P.PN ---
Subjective Progress Note Date: 09/17/18 Principal diagnosis: Paroxysmal atrial fibrillation This is a pleasant 52-year-old gentleman who was admitted to the hospital was atrial fibrillation with RVR and subsequently converted to normal sinus mechanism. That was new onset atrial fibrillation. On follow-up with him today, 09/17/2018, he seems to be asymptomatic from a cardiovascular standpoint overview. Denies any chest pain or discomfort. Denies any shortness of breath. He has been maintaining normal sinus mechanism and the plan for the patient to be discharged home later on today. Objective - Vital Signs Vital signs: Vital Signs Temp 97.6 F 09/17/18 08:35 Pulse 50 L 09/17/18 08:35 Resp 16 09/17/18 08:35 BP 132/78 09/17/18 08:35 Pulse Ox 98 09/17/18 08:35 Intake & Output 09/16/18 09/17/18 09/17/18 18:59 06:59 18:59 Intake Total 460 740 370 Balance 460 740 370 Weight 140.8 kg Intake: IV 40 10 Invasive Line 1 20 5 Invasive Line 2 20 5 Intake, IV Titration 0 20 Amount Dextrose 5% in Water 100 0 ml @ 150 MG/HR 53 mls/hr IV .Q2H ONE with Amiodarone 300 mg Rx#: [id number] Sodium Chloride 0.9% 1, 20 000 ml @ 20 mls/hr IV . Q24H [facility] Rx#:[id number] Oral 460 680 360 Other: Voiding Method Toilet Toilet # Voids 2 1 - Constitutional General appearance: Present: no acute distress - Respiratory Respiratory: bilateral: CTA - Cardiovascular Rhythm: regular Heart sounds: normal: S1, S2 - Labs CBC & Chem 7: 09/17/18 05:30 09/16/18 05:29 Assessment and Plan Assessment: Assessment #1 paroxysmal atrial fibrillation #2 hypertension #3 overweight Plan #1 the patient has been maintaining normal sinus mechanism #2 from the cardiac standpoint he can be discharged home
[2018-09-17 12:55] VITALS: BP 181/88; TEMP 97.7
--- NOTE | 2018-09-17 12:57 | P.DS ---
Providers Date of admission: 09/15/18 15:49 Attending physician: Edinson Rudd Consults: 09/15/18 15:49 Consult Physician Urgent Consulting Provider: Lizandro Borrego Consult Reason/Comments: new onset afib rvr Do you want consulting provider notified?: Yes Primary care physician: [facility] Course: 49-year-old male was admitted for atrial fibrillation with rapid ventricular rate converted to sinus rhythm today patient was started on sotalol by cardiology. Patient had normal ejection fraction. Patient was quite a bit hypotensive in spite of discontinuation of Cardizem yesterday patient is on multiple antibodies medications all of these were held because of hypotension. Patient was started back on these medications which will be held again because of concerns of hypotension again. Patient can be started back on these medications if needed depending on her blood pressure at a time. Patient's systolic went down to as low as 80s yesterday. Patient will monitored overnight. 09/17/2018 Patient is clinically doing well blood pressure is better controlled then the better now patient is being resumed on his home regimen minimal changes are being made by cardiology please refer to documentation and the discharge cardiac medications are being provided by cardiology. Extensive counseling regarding blood pressure monitoring and importance of her blood pressure monitoring was provided to the patient and the patient will follow-up with the cardiology and PCP as an outpatient PHYSICAL EXAMINATION: GENERAL: The patient is alert and oriented x3, not in any acute distress. Well developed, well nourished. HEENT: Pupils are round and equally reacting to light. EOMI. No scleral icterus. No conjunctival pallor. Normocephalic, atraumatic. No pharyngeal erythema. No thyromegaly. CARDIOVASCULAR: S1 and S2 present. No murmurs, rubs, or gallops. PULMONARY: Chest is clear to auscultation, no wheezing or crackles. ABDOMEN: Soft, nontender, nondistended, normoactive bowel sounds. No palpable organomegaly. MUSCULOSKELETAL: No joint swelling or deformity. EXTREMITIES: No cyanosis, clubbing, or pedal edema. NEUROLOGICAL: Gross neurological examination did not reveal any focal deficits. SKIN: No rashes. Please refer to my dictation of progress note from as today for hospitalization course and other chronic medical problems that were addressed Patient Condition at Discharge: Stable Plan - Discharge Summary New Discharge Prescriptions: New Triamterene-Hctz 37.5-25Mg [Dyazide 37.5-25 Capsule] 1 cap PO DAILY #30 capsule Apixaban [Eliquis] 5 mg PO BID #60 tab amLODIPine [Norvasc] 5 mg PO HS #30 tab Flecainide [Tambocor] 50 mg PO Q12HR #60 tablet Lisinopril [Zestril] 20 mg PO BID #60 tab Discontinued Triamterene-Hctz 37.5-25Mg [Dyazide 37.5-25 Capsule] 1 cap PO DAILY Lisinopril 40 mg PO DAILY amLODIPine [Norvasc] 2.5 mg PO DAILY Melatonin 10 mg PO HS No Action HYDROcodone/APAP 10-325MG [Talent 10-325] 1 tab PO Q8H PRN PRN Reason: Pain clonazePAM [KlonoPIN] 1 mg PO BID fentaNYL 50MCG/HR PATCH [Duragesic 50MCG/HR] 1 patch TRANSDERM Q72H Ranitidine HCl 150 mg PO HS Omeprazole 20 mg PO DAILY Sennosides [Senna] 34.4 mg PO HS Discharge Medication List HYDROcodone/APAP 10-325MG [Talent 10-325] 1 tab PO Q8H PRN 01/13/15 [History] Omeprazole 20 mg PO DAILY 09/15/18 [History] Ranitidine HCl 150 mg PO HS 09/15/18 [History] Sennosides [Senna] 34.4 mg PO HS 09/15/18 [History] clonazePAM [KlonoPIN] 1 mg PO BID 09/15/18 [History] fentaNYL 50MCG/HR PATCH [Duragesic 50MCG/HR] 1 patch TRANSDERM Q72H 09/15/18 [History] Apixaban [Eliquis] 5 mg PO BID #60 tab 09/17/18 [Rx] Flecainide [Tambocor] 50 mg PO Q12HR #60 tablet 09/17/18 [Rx] Lisinopril [Zestril] 20 mg PO BID #60 tab 09/17/18 [Rx] Triamterene-Hctz 37.5-25Mg [Dyazide 37.5-25 Capsule] 1 cap PO DAILY #30 capsule 09/17/18 [Rx] amLODIPine [Norvasc] 5 mg PO HS #30 tab 09/17/18 [Rx] Follow up Appointment(s)/Referral(s): Lizandro Borrego MD [STAFF PHYSICIAN] - 1 Week (office will call you with an appointment) Ethan Rea DO [Primary Care Provider] - 3 Days (call office when open to make follow up appointment) Patient Instructions/Handouts: A-fib (Atrial Fibrillation) (DC)
== END 2018-09-17 13:30 | disposition home or self-care (01) | DRG 309 ==
LOC: EC 14:47 → 3SCARD 15:49
PROVIDERS: ADMIT Internal Medicine; ATTEND Internal Medicine
DX: I48.0 Paroxysmal atrial fibrillation (principal); Z68.41 Body mass index [BMI] 40.0-44.9, adult; E66.01 Morbid (severe) obesity due to excess calories; F32.9 Major depressive disorder, single episode, unspecified; F41.9 Anxiety disorder, unspecified; G47.33 Obstructive sleep apnea (adult) (pediatric); G89.29 Other chronic pain; M54.9 Dorsalgia, unspecified; I95.9 Hypotension, unspecified; I10 Essential (primary) hypertension; M19.90 Unspecified osteoarthritis, unspecified site; K21.9 Gastro-esophageal reflux disease without esophagitis; Z79.899 Other long term (current) drug therapy; Z80.51 Family history of malignant neoplasm of kidney; Z87.891 Personal history of nicotine dependence; Z98.84 Bariatric surgery status; Z99.89 Dependence on other enabling machines and devices; Z87.442 Personal history of urinary calculi; Z90.49 Acquired absence of other specified parts of digestive tract; Z98.890 Other specified postprocedural states; Z84.1 Family history of disorders of kidney and ureter
CPT/HCPCS: 36415; 71046; 80048; 80053; 80061; 83735; 83880; 84443; 84484; 85025; 85610; 85730; 93005; 93306; 96365; 96366; 96368; 96376; 99291

== ENCOUNTER 2018-09-17 23:45 | Emergency (ER) | payer MEDICARE ==
[2018-09-18 00:01] VITALS: RESP 20
--- NOTE | 2018-09-18 01:07 | ED ---
Male Urogenital HPI - General Chief complaint: Urogenital Stated complaint: Blood in urine Time Seen by Provider: 09/18/18 00:04 Source: patient, RN notes reviewed, old records reviewed Mode of arrival: ambulatory Limitations: no limitations - History of Present Illness Initial comments: This is a 52-year-old male the ER for evaluation of blood in the urine. A she recently diagnosed with atrial fibrillation started on eloquent, discharged from hospital today. Patient denies any pain, able to urinate without difficulty. Patient took Alquist after discharged with no prescription currently. We did not take Alquist tonight. And has abdominal pain. No lightheadedness dizziness or weakness. No prior history of blood in the urine MD Complaint: other (Hematuria) -: hour(s) Radiation: none Consistency: constant Improves with: none Worsens with: urination Reports: denies other symptoms - Related Data Home Medications Medication Instructions Recorded Confirmed HYDROcodone/APAP 10-325MG [[place] 1 tab PO Q8H PRN 01/13/15 09/15/18 10-325] Omeprazole 20 mg PO DAILY 09/15/18 09/15/18 Ranitidine HCl 150 mg PO HS 09/15/18 09/15/18 Sennosides [Senna] 34.4 mg PO HS 09/15/18 09/15/18 clonazePAM [KlonoPIN] 1 mg PO BID 09/15/18 09/15/18 fentaNYL 50MCG/HR PATCH [Duragesic 1 patch TRANSDERM Q72H 09/15/18 09/15/18 50MCG/HR] Previous Rx's Medication Instructions Recorded Apixaban [Eliquis] 5 mg PO BID #60 tab 09/17/18 Flecainide [Tambocor] 50 mg PO Q12HR #60 tablet 09/17/18 Lisinopril [Zestril] 20 mg PO BID #60 tab 09/17/18 Triamterene-Hctz 37.5-25Mg 1 cap PO DAILY #30 capsule 09/17/18 [Dyazide 37.5-25 Capsule] amLODIPine [Norvasc] 5 mg PO HS #30 tab 09/17/18 Allergies Allergy/AdvReac Type Severity Reaction Status Date / Time No Known Allergies Allergy Verified 09/18/18 00:01 Review of Systems ROS Statement: Those systems with pertinent positive or pertinent negative responses have been documented in the HPI. ROS Other: All systems not noted in ROS Statement are negative. Past Medical History Past Medical History: Asthma, GERD/Reflux, Hypertension, Musculoskeletal Disorder, Osteoarthritis (OA), Sleep Apnea/CPAP/BIPAP Additional Past Medical History / Comment(s): Chronic LOWER back & KNEE Pain. NO TX FOR SLEEP APNEA NOW, hx. enlarged spleen after fall 2017-no problems now that he knows of, KIDNEY STONES , vericose veins History of Any Multi-Drug Resistant Organisms: None Reported Past Surgical History: Bariatric Surgery, Cholecystectomy, Hernia Repair, Orthop edic Surgery Additional Past Surgical History / Comment(s): UMBILICAL HERNIA, RT KNEE MENISCUS, GASTRIC SLEEVE 2011, LT Rotator cuff. ABSCESS CYST ON TAILBONE, LITHOTRIPSY 10/09/2017. VARICOSE VEINS REMOVED Past Anesthesia/Blood Transfusion Reactions: Previous Problems w/ Anesthesia Additional Past Anesthesia/Blood Transfusion Reaction / Comment(s): WOKE UP DURING KNEE SURGERY. Past Psychological History: Anxiety, Depression Smoking Status: Former smoker Past Alcohol Use History: None Reported Past Drug Use History: Marijuana - Past Family History Father Family Medical History: Renal Disease Brother(s) Family Medical History: Cancer Additional Family Medical History / Comment(s): KIDNEY CA General Exam Limitations: no limitations General appearance: alert, in no apparent distress Head exam: Present: atraumatic, normocephalic, normal inspection Eye exam: Present: normal appearance, PERRL, EOMI. Absent: scleral icterus, conjunctival injection, periorbital swelling ENT exam: Present: normal exam, mucous membranes moist Neck exam: Present: normal inspection. Absent: tenderness, meningismus, lymphadenopathy Respiratory exam: Present: normal lung sounds bilaterally. Absent: respiratory distress, wheezes, rales, rhonchi, stridor Cardiovascular Exam: Present: regular rate, normal rhythm, normal heart sounds. Absent: systolic murmur, diastolic murmur, rubs, gallop, clicks GI/Abdominal exam: Present: soft, normal bowel sounds. Absent: distended, tenderness, guarding, rebound, rigid Extremities exam: Present: normal inspection, full ROM, normal capillary refill. Absent: tenderness, pedal edema, joint swelling, calf tenderness Back exam: Present: normal inspection Neurological exam: Present: alert, oriented X3, CN II-XII intact Psychiatric exam: Present: normal affect, normal mood Skin exam: Present: warm, dry, intact, normal color. Absent: rash Course Vital Signs 09/17/18 23:57 Temperature 97.9 F Pulse Rate 46 L Respiratory 20 Rate Blood Pressure 177/84 O2 Sat by Pulse 99 Oximetry Medical Decision Making - Medical Decision Making 49 female the ER for evaluation. Patient has blood in the urine. Urine is negative for infection, patient encouraged to continue Alquist encouraged in creased fluid intake. Patient can be discharged home Disposition Clinical Impression: Hematuria, Coagulopathy Disposition: HOME SELF-CARE Condition: Good Instructions (If sedation given, give patient instructions): Hematuria (ED) Is patient prescribed a controlled substance at d/c from ED?: No Referrals: Ethan Rea DO [Primary Care Provider] - 1-2 days
[2018-09-18 01:24] LABS: Mucus,Urine Many /hpf; RBC,Urine >182 /hpf (0-5); WBC,Urine 28 /hpf (0-5)
[2018-09-18 01:26] LABS: Appearance,Urine Bloody (Clear)
[2018-09-18 01:27] LABS: Color,Urine Dark Red
[2018-09-18 02:12] VITALS: BP 148/85; PULSE 53; TEMP 97.6
== END 2018-09-18 02:12 | disposition home or self-care (01) ==
LOC: EC 23:45
DX: R31.9 Hematuria, unspecified (principal); D68.9 Coagulation defect, unspecified; K21.9 Gastro-esophageal reflux disease without esophagitis; G47.30 Sleep apnea, unspecified; F41.9 Anxiety disorder, unspecified; G89.29 Other chronic pain; Z87.891 Personal history of nicotine dependence; Z79.899 Other long term (current) drug therapy; Z87.442 Personal history of urinary calculi; Z90.49 Acquired absence of other specified parts of digestive tract; Z98.84 Bariatric surgery status; Z98.890 Other specified postprocedural states
CPT/HCPCS: 81001; 87086; 99284

== ENCOUNTER 2018-10-01 14:17 | Emergency (ER) | payer MEDICARE ==
[2018-10-01 15:53] LABS: Basophils % (A) 0 %; Eosinophils # (A) 0.1 k/uL (0-0.7); Eosinophils % (A) 1 %; HCT 45.3 % (39.0-53.0); HGB 15.6 gm/dL (13.0-17.5); Lymphocytes # (A) 1.3 k/uL (1.0-4.8); Lymphocytes % (A) 18 %; MCH 29.3 pg (25.0-35.0); MCHC 34.4 g/dL (31.0-37.0); MCV 85.2 fL (80.0-100.0); Mean Platelet Volume 6.5; Monocytes # (A) 0.5 k/uL (0-1.0); Monocytes % (A) 7 %; Neutrophils # (A) 5.1 k/uL (1.3-7.7); Neutrophils % (A) 72 %; Platelet Count 271 k/uL (150-450); RBC 5.32 m/uL (4.30-5.90); RDW 12.9 % (11.5-15.5); WBC 7.1 k/uL (3.8-10.6)
[2018-10-01 16:00] LABS: Prothrombin Time 10.4 sec (9.0-12.0)
[2018-10-01 16:01] LABS: ALT 16 U/L (21-72); AST 24 U/L (17-59); African American GFR (CKD) >90 (>60 ml/min/1.73 sqM); Albumin 4.2 g/dL (3.5-5.0); Alkaline Phosphatase 51 U/L (38-126); Anion Gap 9 mmol/L; Blood Urea Nitrogen 20 mg/dL (9-20); Calcium 9.5 mg/dL (8.4-10.2); Carbon Dioxide 27 mmol/L (22-30); Chloride 106 mmol/L (98-107); Glucose 84 mg/dL (74-99); Sodium 142 mmol/L (137-145); Total Bilirubin 1.1 mg/dL (0.2-1.3); Total Protein 7.3 g/dL (6.3-8.2)
[2018-10-01 16:30] VITALS: BP 147/95; PULSE 51; RESP 16; TEMP 97.8
--- NOTE | 2018-10-01 16:30 | ED ---
Arrhythmia/Palpitations HPI - General Chief Complaint: Arrhythmia/Palpitations Stated Complaint: Recheck, head pain, heart concerns Time Seen by Provider: 10/01/18 16:05 Source: patient Mode of arrival: ambulatory Limitations: no limitations - History of Present Illness Initial Comments: This 52-year-old white male presents complaining of an irregular heartbeat. He states that he noticed it this morning while taking his pulse. It seems as though he will have a skipped beat every once in a while. He states that his heart rate has been between 50 and 60 which is normal for him. He states that his heart rate sometimes will even dropped down to the high 30s. He relates a history of having atrial fibrillation for the first time this past month and was hospitalized. He has been taking his medications since and has been doing quite well. He is asymptomatic from his current complaint. He denies any chest pain, shortness of breath, or palpitations. No other complaints or modifying factors. - Related Data Home Medications Medication Instructions Recorded Confirmed HYDROcodone/APAP 10-325MG [[place] 1 tab PO Q8H PRN 01/13/15 09/15/18 10-325] Omeprazole 20 mg PO DAILY 09/15/18 09/15/18 Ranitidine HCl 150 mg PO HS 09/15/18 09/15/18 Sennosides [Senna] 34.4 mg PO HS 09/15/18 09/15/18 clonazePAM [KlonoPIN] 1 mg PO BID 09/15/18 09/15/18 fentaNYL 50MCG/HR PATCH [Duragesic 1 patch TRANSDERM Q72H 09/15/18 09/15/18 50MCG/HR] Previous Rx's Medication Instructions Recorded Apixaban [Eliquis] 5 mg PO BID #60 tab 09/17/18 Flecainide [Tambocor] 50 mg PO Q12HR #60 tablet 09/17/18 Lisinopril [Zestril] 20 mg PO BID #60 tab 09/17/18 Triamterene-Hctz 37.5-25Mg 1 cap PO DAILY #30 capsule 09/17/18 [Dyazide 37.5-25 Capsule] amLODIPine [Norvasc] 5 mg PO HS #30 tab 09/17/18 Allergies Allergy/AdvReac Type Severity Reaction Status Date / Time No Known Allergies Allergy Verified 10/01/18 15:25 Review of Systems ROS Statement: Those systems with pertinent positive or pertinent negative responses have been documented in the HPI. ROS Other: All systems not noted in ROS Statement are negative. Past Medical History Past Medical History: GERD/Reflux, Hypertension, Musculoskeletal Disorder, Osteoarthritis (OA), Sleep Apnea/CPAP/BIPAP Additional Past Medical History / Comment(s): Chronic LOWER back & KNEE Pain. NO TX FOR SLEEP APNEA NOW, hx. enlarged spleen after fall 2017-no problems now that he knows of, KIDNEY STONES , vericose veins History of Any Multi-Drug Resistant Organisms: None Reported Past Surgical History: Bariatric Surgery, Cholecystectomy, Hernia Repair, Orthopedic Surgery Additional Past Surgical History / Comment(s): UMBILICAL HERNIA, RT KNEE MENISCUS, GASTRIC SLEEVE 2011, LT Rotator cuff. ABSCESS CYST ON TAILBONE, LITHOTRIPSY 10/09/2017. VARICOSE VEINS REMOVED Past Anesthesia/Blood Transfusion Reactions: Previous Problems w/ Anesthesia Additional Past Anesthesia/Blood Transfusion Reaction / Comment(s): WOKE UP DURING KNEE SURGERY. Past Psychological History: Anxiety, Depression Smoking Status: Former smoker Past Alcohol Use History: Rare Past Drug Use History: Marijuana - Past Family History Father Family Medical History: Renal Disease Brother(s) Family Medical History: Cancer Additional Family Medical History / Comment(s): KIDNEY CA General Exam - General Exam Comments Initial Comments: GENERAL: The patient is well nourished and well hydrated. VITAL SIGNS: Heart rate, blood pressure, respiratory rate reviewed as recorded in nurse's notes. EYES: Pupils are round and reactive. Extraocular movements are intact. No conjunctival / lid redness or swelling. ENT: No external evidence of injury, swelling, or ecchymosis. Airway is patent. Throat is clear. NECK: Nontender. No swelling or evidence of injury. No subcutaneous emphysema. Trachea is midline. No thyroid mass. HEART: Regular rate and rhythm. Good peripheral pulses. LUNGS/CHEST: Breath sounds clear and equal bilaterally. No rales, rhonchi, or wheezes. No ecchymosis, subcutaneous emphysema, or tenderness. ABDOMEN: Abdomen soft without tenderness. No palpable masses or organomegaly. No peritoneal signs. No abdominal wall swelling or ecchymosis. EXTREMITIES: No extremity tenderness. Normal muscle tone and function. No thoracolumbar tenderness. NEUROLOGIC: Sensation is grossly intact. Cranial nerve exam reveals face is symmetrical, tongue is midline, speech is clear. SKIN: No abrasions or ecchymosis is noted. No induration or masses noted. PSYCHIATRIC: Alert and oriented. Appropriate behavior and judgment. Limitations: no limitations Course Vital Signs 10/01/18 15:20 Temperature 98.4 F Pulse Rate 46 L Respiratory 18 Rate Blood Pressure 159/78 O2 Sat by Pulse 99 Oximetry Medical Decision Making - Medical Decision Making The patient was seen and examined. A EKG was completed and this shows a sinus bradycardia at a rate of 48 with occasional premature atrial complexes noted. The DE intervals 182, QRS duration is 104, and the QTC intervals 437. He also was placed on a gas adjuster and his heart heart rhythm is evaluated by myself for approximately 10 minutes. Occasional PACs are noted. His heart rate ranges between 50 and 60. The patient appears to have an occasional PAC and has not felt as though this is of any great significance at this time and that can be discharged and follow up with his primary care physician or automatic pinsetter adjuster. The laboratory is reviewed and is all essentially within normal limits. He understands and leaves in no identifiable distress. - Lab Data Result diagrams: 10/01/18 15:30 10/01/18 15:30 Lab Results 10/01/18 10/01/18 10/01/18 Range/Units 15:30 15:30 15:30 WBC 7.1 (3.8-10.6) k/uL RBC 5.32 (4.30-5.90) m/uL Hgb 15.6 (13.0-17.5) gm/dL Hct 45.3 (39.0-53.0) % MCV 85.2 (80.0-100.0) fL MCH 29.3 (25.0-35.0) pg MCHC 34.4 (31.0-37.0) g/dL RDW 12.9 (11.5-15.5) % Plt Count 271 (150-450) k/uL Neutrophils % 72 % Lymphocytes % 18 % Monocytes % 7 % Eosinophils % 1 % Basophils % 0 % Neutrophils # 5.1 (1.3-7.7) k/uL Lymphocytes # 1.3 (1.0-4.8) k/uL Monocytes # 0.5 (0-1.0) k/uL Eosinophils # 0.1 (0-0.7) k/uL Basophils # 0.0 (0-0.2) k/uL PT 10.4 (9.0-12.0) sec INR 1.0 (<1.2) APTT 28.0 (22.0-30.0) sec Sodium 142 (137-145) mmol/L Potassium 4.0 (3.5-5.1) mmol/L Chloride 106 (98-107) mmol/L Carbon Dioxide 27 (22-30) mmol/L Anion Gap 9 mmol/L BUN 20 (9-20) mg/dL Creatinine 0.78 (0.66-1.25) mg/dL Est GFR (CKD-EPI)AfAm >90 (>60 ml/min/1.73 sqM) Est GFR (CKD-EPI)NonAf >90 (>60 ml/min/1.73 sqM) Glucose 84 (74-99) mg/dL Calcium 9.5 (8.4-10.2) mg/dL Magnesium 2.0 (1.6-2.3) mg/dL Total Bilirubin 1.1 (0.2-1.3) mg/dL AST 24 (17-59) U/L ALT 16 L (21-72) U/L Alkaline Phosphatase 51 (38-126) U/L Troponin I (0.000-0.034) ng/mL Total Protein 7.3 (6.3-8.2) g/dL Albumin 4.2 (3.5-5.0) g/dL 10/01/18 Range/Units 15:30 WBC (3.8-10.6) k/uL RBC (4.30-5.90) m/uL Hgb (13.0-17.5) gm/dL Hct (39.0-53.0) % MCV (80.0-100.0) fL MCH (25.0-35.0) pg MCHC (31.0-37.0) g/dL RDW (11.5-15.5) % Plt Count (150-450) k/uL Neutrophils % % Lymphocytes % % Monocytes % % Eosinophils % % Basophils % % Neutrophils # (1.3-7.7) k/uL Lymphocytes # (1.0-4.8) k/uL Monocytes # (0-1.0) k/uL Eosinophils # (0-0.7) k/uL Basophils # (0-0.2) k/uL PT (9.0-12.0) sec INR (<1.2) APTT (22.0-30.0) sec Sodium (137-145) mmol/L Potassium (3.5-5.1) mmol/L Chloride (98-107) mmol/L Carbon Dioxide (22-30) mmol/L Anion Gap mmol/L BUN (9-20) mg/dL Creatinine (0.66-1.25) mg/dL Est GFR (CKD-EPI)AfAm (>60 ml/min/1.73 sqM) Est GFR (CKD-EPI)NonAf (>60 ml/min/1.73 sqM) Glucose (74-99) mg/dL Calcium (8.4-10.2) mg/dL Magnesium (1.6-2.3) mg/dL Total Bilirubin (0.2-1.3) mg/dL AST (17-59) U/L ALT (21-72) U/L Alkaline Phosphatase (38-126) U/L Troponin I <0.012 (0.000-0.034) ng/mL Total Protein (6.3-8.2) g/dL Albumin (3.5-5.0) g/dL Disposition Clinical Impression: Premature atrial complexes Disposition: HOME SELF-CARE Condition: Good Instructions (If sedation given, give patient instructions): Premature Atrial Contractions (ED) Is patient prescribed a controlled substance at d/c from ED?: No Referrals: Ethan Rea DO [Primary Care Provider] - 1-2 days Time of Disposition: 16:29
== END 2018-10-01 16:36 | disposition home or self-care (01) ==
LOC: EC 14:17
DX: I49.1 Atrial premature depolarization (principal); R51 Headache; F41.9 Anxiety disorder, unspecified; K21.9 Gastro-esophageal reflux disease without esophagitis; M19.90 Unspecified osteoarthritis, unspecified site; G47.30 Sleep apnea, unspecified; M54.5 Low back pain; G89.29 Other chronic pain; Z87.891 Personal history of nicotine dependence; Z90.49 Acquired absence of other specified parts of digestive tract; Z98.84 Bariatric surgery status; Z98.890 Other specified postprocedural states; Z99.89 Dependence on other enabling machines and devices; Z79.891 Long term (current) use of opiate analgesic; Z79.899 Other long term (current) drug therapy
CPT/HCPCS: 36415; 80053; 83735; 84484; 85025; 85610; 85730; 93005; 99285

== ENCOUNTER → 2018-11-13 | Outpatient (CLI) | payer MEDICARE ==
--- NOTE | 2018-11-14 13:29 | CT ---
EXAMINATION TYPE: CT urogram wo/w con DATE OF EXAM: 11/13/2018 COMPARISON: CT dated 05/31/2017 of the abdomen and pelvis HISTORY: Hematuria with Left sided discomfort CT DLP: 6149.7 mGycm, Automated Exposure Control for Dose Reduction was Utilized. CONTRAST: CT scan of the abdomen and pelvis is performed with oral and without and with IV Contrast, patient in jected with 100 mL of Isovue 370. Three-D reformatted images of the collecting systems and urinary bl adder were obtained at a separate workstation for review. FINDINGS: LUNG BASES: No significant abnormality is appreciated. LIVER/GB: No abnormal enhancement of the liver is seen. Gallbladder surgically absent. PANCREAS: No significant abnormality is seen. SPLEEN: No splenomegaly. ADRENALS: No nodularity or thickening. KIDNEYS, PROSTATE GLAND AND URINARY BLADDER: The unenhanced images demonstrate a 5 mm mid pole left r enal calculus and 2 punctate 1 to 2 mm midpole renal calculi. On the right there is a nonobstructing 1.8 cm midpole calculus and a punctate 2 mm lower pole renal calculus. There is no hydronephrosis of either kidney. The enhanced images demonstrate a left perinephric fluid collection measuring up to 2 cm in thickness . There is nonspecific left greater than right perinephric fat stranding. The kidneys enhance symmetr ically and excrete symmetrically and no alteration of renal physiology is seen on CT. Therefore this fluid collection does not radiographically resultant page kidney at this time although correlation wi th serum laboratory values is recommended. This fluid collection was not present on the prior exam. Millimeters bladder calculi are seen however there is slight impression on the urinary bladder by the enlarged prostate gland. Osteophyte is also heterogenous containing central zone calcifications. Tin y urachal remnant is seen of the urinary bladder. BOWEL: Partial resection of the stomach is seen with small hiatal hernia. The entirety of the bowel i s not included on the images given patient body habitus, particularly of the right hemicolon and smal l bowel of the lateral right abdomen. There are a few scattered colonic diverticula without pericolon ic fat stranding. No dilated large or small bowel. LYMPH NODES: No greater than 1cm abdominal or pelvic lymph nodes are appreciated. OSSEOUS STRUCTURES: Cam deformity of the right femoral head neck junction and moderate bilateral arth ropathy of the hips are seen. Multilevel degenerative changes of the spine are moderate. Bridging ant erior osteophytes suggesting diffuse idiopathic skeletal hyperostosis. OTHER: Moderate atherosclerosis is seen in the abdominal aorta and its branches. There is a presacral low density fluid collection measuring 3.6 x 2.7 cm. There is no destruction of the adjacent sacrum. On delayed imaging this is not appear to enhance. This was not present on the prior exam of 05/31/2017 . IMPRESSION: 1. New left perinephric fluid collection measuring up to 2 cm in greatest thickness in comparison to the prior of 05/31/2017. Considerations are for perinephric hematoma, less likely perinephric abscess g iven only mild perinephric fat stranding, lymphangiectasia, or less likely lymphoma. Currently with a ny prior trauma. Short-term surveillance and correlation with renal function tests are recommended. 2. New ill-defined presacral fluid collection in comparison to the prior. This appears low-density wi thout enhancement and is favored to be benign. No surrounding adenopathy. 3. Bilateral nonobstructing renal calculi.
== END | disposition home or self-care (01) ==
LOC: RADCTMAIN 06:16
PROVIDERS: ATTEND Urology
DX: N20.0 Calculus of kidney (principal)
CPT/HCPCS: 74178; 74400; Q9967

== ENCOUNTER → 2018-12-22 | Outpatient (CLI) | payer MEDICARE ==
--- NOTE | 2018-12-23 11:38 | MR ---
EXAMINATION TYPE: MR cervical spine wo con DATE OF EXAM: 12/22/2018 COMPARISON: None. HISTORY: Radiculopathy TECHNIQUE: Multiplanar, multisequence images of the cervical spine were acquired. FINDINGS: Alignment is anatomic. Small multilevel osteophytes. There is mild disc desiccation without significa nt height loss. There is congenital narrowing of the cervical spinal canal with canal to body ratio o f 0.6. No cervical spinal cord signal abnormality. C2-C3: No significant disc abnormality. Spinal canal and neural foramen are patent. C3-C4: Left paracentral disc osteophyte complex impresses upon the ventral thecal sac but does not co ntact the cervical spinal cord, no significant spinal canal stenosis. Uncovertebral arthropathy contr ibutes to moderate bilateral neural foraminal stenosis. C4-C5: Left paracentral disc osteophyte complex impresses upon the ventral thecal sac but does not co ntact the cervical spinal cord, contributing to mild spinal canal stenosis. Uncovertebral arthropathy contributes to mild-moderate right and mild left neural foraminal stenosis. C5-C6: Moderate central/paracentral disc protrusion effaces the ventral thecal sac, contacts and defo bee the ventral cervical spinal cord, contributing to mild-moderate spinal canal stenosis. Uncoverteb ral arthropathy contributes to moderate right and moderate-severe left neural foraminal stenosis. C6-C7: Central disc protrusion impresses upon the ventral thecal sac, but does not contact the cervic al spinal cord, no significant spinal canal stenosis. Uncovertebral arthropathy contributes to mild r ight and moderate left neural foraminal stenosis. C7-T1: Asymmetric right disc osteophyte complex extending through the foraminal zone contributes to m oderate right neural foraminal stenosis. There is mild mass effect on the right lateral ventricle the edward sac without cervical spinal cord abutment, no significant spinal canal stenosis. Patent left neur al foramen. IMPRESSION: 1. Multilevel disc degeneration superimposed upon a congenitally narrowed cervical spinal canal. This is greatest in degree at C5-C6 where disc herniation contacts and deforms the cervical spinal cord. 2. Multilevel uncovertebral spurring contributes to varying degrees of neural foraminal stenosis, det kelly above.
== END | disposition home or self-care (01) ==
LOC: RADMRIMAIN 11:46
PROVIDERS: ATTEND Family Medicine
DX: M48.02 Spinal stenosis, cervical region (principal); M50.822 Other cervical disc disorders at C5-C6 level; M50.30 Other cervical disc degeneration, unspecified cervical region
CPT/HCPCS: 72141

== ENCOUNTER → 2019-12-11 | Outpatient (CLI) | payer MEDICARE ==
--- NOTE | 2019-12-12 06:54 | US ---
EXAMINATION TYPE: US axilla LT DATE OF EXAM: 12/11/2019 COMPARISON: NONE CLINICAL HISTORY: Patient feels palpable area in Left axilla. Scanned Left axilla at area of patient lump. No discrete lipoma seen. IMPRESSION: No abnormality noted by ultrasound. If there is high clinical suspicion correlate with M RI.
== END | disposition home or self-care (01) ==
LOC: RADUSWWP 15:29
PROVIDERS: ATTEND Surgery Plastic and Reconstructive Surgery
DX: D17.1 Benign lipomatous neoplasm of skin and subcutaneous tissue of trunk (principal)

== ENCOUNTER → 2019-12-12 | Outpatient (CLI) | payer MEDICARE ==
[2019-12-12 08:54] LABS: HCT 44.1 % (39.0-53.0); HGB 14.3 gm/dL (13.0-17.5); MCH 28.7 pg (25.0-35.0); MCHC 32.5 g/dL (31.0-37.0); MCV 88.3 fL (80.0-100.0); Mean Platelet Volume 6.7; Platelet Count 203 k/uL (150-450); RBC 4.99 m/uL (4.30-5.90); WBC 6.6 k/uL (3.8-10.6)
[2019-12-12 16:30] LABS: % Iron Saturation 25.67 (15.00-50.00); African American GFR (CKD) 117.4 (60.0-200.0); Albumin/Globulin Ratio 1.67 (1.60-3.17); Anion Gap 7.6 mmol/L (4.00-12.00); BUN/Creat Ratio 23.75 Ratio (12.00-20.00); Calcium 9.2 mg/dL (8.7-10.3); Carbon Dioxide 30.4 mmol/L (21.6-31.8); Chol/HDL Ratio 3.4; Globulin 2.4 g/dL (1.6-3.3); LDL Cholesterol,Calculated 120.2 mg/dL (0.0-131.0); Magnesium 1.9 mg/dL (1.5-2.4); Non-African American GFR(CKD) 101.3 (60.0-200.0); Phosphorus 3.9 mg/dL (2.4-5.1); Potassium 3.9 mmol/L (3.5-5.5); Total Protein 6.4 g/dL (6.2-8.2); VLDL Calculation 11.8 mg/dL (5.00-40.00)
[2019-12-12 16:37] LABS: Ferritin 140.1 ng/mL (22.0-322.0)
[2019-12-12 16:53] LABS: Folate, Serum 11.1 ng/mL
[2019-12-12 17:53] LABS: INR 0.99 (0.90-1.11); Partial Thromboplastin Time 28.5 sec (24.7-29.9); Prothrombin Time 10.6 sec (9.9-11.9)
[2019-12-13 13:57] LABS: Zinc, Serum 64 ug/dL (60-130)
== END | disposition home or self-care (01) ==
LOC: LABWHC1 08:05
PROVIDERS: ATTEND Surgery Plastic and Reconstructive Surgery
DX: E66.01 Morbid (severe) obesity due to excess calories (principal); E21.1 Secondary hyperparathyroidism, not elsewhere classified; E89.1 Postprocedural hypoinsulinemia; D50.8 Other iron deficiency anemias; K90.89 Other intestinal malabsorption; E55.9 Vitamin D deficiency, unspecified; K74.1 Hepatic sclerosis; N19 Unspecified kidney failure; K50.90 Crohn's disease, unspecified, without complications
CPT/HCPCS: 36415; 80053; 80061; 82306; 82525; 82607; 82728; 82746; 83036; 83540; 83550; 83735; 83970; 84100; 84134; 84255; 84425; 84443; 84590; 84630; 85027; 85610; 85730

== ENCOUNTER → 2019-12-18 | Outpatient (CLI) | payer MEDICARE ==
[2019-12-18 15:45] VITALS: BP 122/66; PULSE 42; RESP 18; TEMP 98.3; BMI 43.2
--- NOTE | 2019-12-18 16:00 | P.HPBAR ---
Bariatric H&P - History & Physicial H&P Date: 12/18/19 History & Physicial: Visit/CC: f/u post labs Patient initial contact: Initial weight: Initial weight in pounds: Height: 6 ft 2 in Initial BMI: Last weight: Current weight: 152.588 kg Current weight in pounds: 336.40 Current BMI: 43.2 [place] body weight (based on NIH guidelines): 86.183 kg Excess body weight loss: The patient is a 53 year-old M who presents for Bariatric Assessment. DATE OF SERVICE: 12/18/2019 REASON FOR CONSULTATION: Panniculitis HISTORY OF PRESENT ILLNESS: Carlos Rebollar is a 54-year-old male who comes with lifelong morbid obesity. He has history of sleeve gastrectomy. His highest weight was 570 pounds. He comes in with severe panniculitis following weight loss over 200+ pounds. He comes in with panniculitis of the left axilla. He has been lost to follow-up. He has pre-existing heart disease and had a heart ablation. He comes in consultation for panniculitis of the abdomen and axilla. At height of 6 feet 2 inches, her ideal body weight is 188 pounds. His highest weight was 570 pounds, BMI 75.4. He comes in 336 pounds, BMI 44.4. He has lost 234 pounds, lifetime. Percent excess weight loss is 148 pounds. PAST MEDICAL HISTORY: 1. Chronic pain syndrome 2. Gastroesophageal reflux disease 3. Chronic constipation 4. Atrial fibrillation 5. Hypertensive heart disease 6. Panniculitis 7. Obstructive sleep apnea 8. Kidney stones 9. Osteoarthritis lower back pain PAST SURGICAL HISTORY: 1. Gastric sleeve gastrectomy 2. Cholecystectomy 3. Umbilical hernia repair 4. Left rotator cuff repair 5. Lithotripsy 6. Vericose vein stripping 7. Right knee meniscus repair HOME MEDICATIONS: Home Medications Medication Instructions Recorded Confirmed HYDROcodone/APAP 10-325MG [[place] 1 tab PO Q8H PRN 01/13/15 12/18/19 10-325] Omeprazole 20 mg PO DAILY 09/15/18 12/18/19 Sennosides [Senna] 34.4 mg PO HS 09/15/18 12/18/19 fentaNYL 25MCG/HR PATCH [Duragesic 1 patch TRANSDERM Q72H 12/18/19 12/18/19 25MCG/HR] Previous Rx's Medication Instructions Recorded Apixaban [Eliquis] 5 mg PO BID #60 tab 09/17/18 Triamterene-Hctz 37.5-25Mg 1 cap PO DAILY #30 capsule 09/17/18 [Dyazide 37.5-25 Capsule] amLODIPine [Norvasc] 5 mg PO HS #30 tab 09/17/18 lisinopriL [Zestril] 20 mg PO BID #60 tab 09/17/18 Nystatin 100,000 Unit/gm Powd 1 applic TOPICAL BID #60 powder 12/18/19 [Mycostatin Powder] ALLERGIES: Allergies Allergy/AdvReac Type Severity Reaction Status Date / Time cat dander AdvReac Itching Verified 12/18/19 15:36 house dust AdvReac Itching Verified 12/18/19 15:36 pollen extracts AdvReac Itching Verified 12/18/19 15:36 SOCIAL HISTORY: Past tobacco use. Uses marijuana FAMILY HISTORY: No family history of ulcerative colitis disease or Crohn's disease. Family history of morbid obesity. No lupus in the family. No reports of stomach or esophageal cancer. REVIEW OF ORGAN SYSTEMS: CONSTITUTIONAL: At height of 6 feet 2 inches, her ideal body weight is 188 pounds. His highest weight was 570 pounds, BMI 75.4. HEENT: Denies any active troubles with vision or hearing. ENDOCRINE: No diabetes. No hypothyroidism. CARDIOVASCULAR: Past reports of palpitations or heart attacks or chest pain. RESPIRATORY: Has daytime somnolence. No asthma. GASTROINTESTINAL: Denies any bright red blood per rectum. No diarrhea. No constipation. MUSCULOSKELETAL: Has lower back pain and joint pain. Has osteoarthritis of the knees. NEURO: No headaches. No seizure disorders. PSYCH: No depression. No suicidal ideation. RHEUMATOLOGIC: No lupus. No rheumatoid arthritis. HEMATOLOGIC: Denies any abnormal bleeding or bruising. No personal history of DVTs. SKIN: No rash. No skin cancer. PHYSICAL EXAM: VITAL SIGNS: Height 6 foot 2 inches, weight 336 pounds. BMI 43.2 Vital Signs Temp 98.3 F 12/18/19 15:39 Pulse 42 L 12/18/19 15:39 Resp 18 12/18/19 15:39 BP 122/66 12/18/19 15:39 Pulse Ox GENERAL: Well-developed in no acute distress. HEENT: No scleral icterus. Extraocular movements grossly intact. Hears conversational speech. No nasal drainage. NECK: Supple without lymphadenopathy. CHEST: Nonlabored respirations with equal bilateral excursions. CARDIOVASCULAR: Regular rate and regular rhythm. Distal 2+ pulses. ABDOMEN: Obese, soft, nontender, nondistended. MUSCULOSKELETAL: No clubbing, cyanosis. NEURO: No focal or lateralizing signs. Cranial nerves 2 through 12 grossly within normal limits. PSYCH: Appropriate affect. Alert and oriented to person, place and time. SKIN: Good skin turgor. Well perfused. LABS: Reviewed and within normal limits. REPORT: US report of the axilla demonstrates no tumors. ASSESSMENT: 1. Morbid obesity due to excess calories 2. Body mass index, initial 75.4 to 43.2 3. Chronic pain syndrome 4. Gastroesophageal reflux disease 5. Chronic constipation 6. Atrial fibrillation 7. Hypertensive heart disease 8. Panniculitis 9. Obstructive sleep apnea 10. Kidney stones 11. Osteoarthritis lower back pain PLAN: 1. Recommend Nystatin powder along axilla and pannus. 2. Needs tumor removal of the left axilla. 3. Overall, more weight loss is described. 4. Will need follow up ablation for his heart disease. Thank you for this consultation. Past Medical History Past Medical History: Atrial Fibrillation, GERD/Reflux, Hypertension, Musculoskeletal Disorder, Osteoarthritis (OA), Sleep Apnea/CPAP/BIPAP Additional Past Medical History / Comment(s): Chronic LOWER back & KNEE Pain. hx. enlarged spleen after fall 2017-no problems now that he knows of, KIDNEY STONES , vericose veins; herniated disc C6/c7 History of Any Multi-Drug Resistant Organisms: None Reported Past Surgical History: Bariatric Surgery, Cholecystectomy, Hernia Repair, Orthopedic Surgery Additional Past Surgical History / Comment(s): UMBILICAL HERNIA, RT KNEE MENISCUS, GASTRIC SLEEVE 2011, LT Rotator cuff. ABSCESS CYST ON TAILBONE, LITHOTRIPSY 10/09/2017. VARICOSE VEINS REMOVED Past Anesthesia/Blood Transfusion Reactions: Previous Problems w/ Anesthesia Additional Past Anesthesia/Blood Transfusion Reaction / Comm: WOKE UP DURING KNEE SURGERY - only happened once. Smoking Status: Former smoker - Past Family History Father Family Medical History: Renal Disease Brother(s) Family Medical History: Cancer Additional Family Medical History / Comment(s): KIDNEY CA Surgical - Exam Vital Signs Temp Pulse Resp BP 98.3 F 42 L 18 122/66 12/18/19 15:39 12/18/19 15:39 12/18/19 15:39 12/18/19 15:39 Bariatric Checklist Checklist: Plan: Checklist: EGD: 1. Hiatal hernia: 2. H. Pylori: HgbA1c: Vitamin D: Smoking: Former smoker Primary care physician referral: Dr. Rea Psychiatry clearance: Cardiology clearance: Sleep study: Diet journal: VTE risk score: VTE risk level: Rehab needs at discharge:
== END | disposition home or self-care (01) ==
LOC: BARWHC3 14:26
PROVIDERS: ATTEND Surgery Plastic and Reconstructive Surgery
DX: M79.3 Panniculitis, unspecified (principal); D49.89 Neoplasm of unspecified behavior of other specified sites; R63.4 Abnormal weight loss; Z87.891 Personal history of nicotine dependence; Z98.84 Bariatric surgery status; Z79.899 Other long term (current) drug therapy
CPT/HCPCS: 99211

== ENCOUNTER → 2020-10-19 | Outpatient (CLI) | payer MEDICARE ==
--- NOTE | 2020-10-19 13:34 | CT ---
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 TECHNIQUE: Contiguous high-resolution axial scanning of the temporal bones performed with IV Contras t, patient injected with 100 mL of Isovue 300. Coronal reformatted images obtained. FINDINGS: There is no abnormality of visualized intracranial structures allowing for thin section contrast-enha nced CT. The skull base appears normal. External auditory canals appear patent. The middle ear cavities the mastoid air cells are well pneumatized. Minimal fluid inferior left masto id air cells. The adjacent dural venous sinus remains well opacified. There is no abnormality of middle ear ossicles. The round and oval windows are normal. There is no abnormality of bony labyrinths. No dehiscence of the superior semicircular canal. The vestibular and cochlear aqueducts are well visualized. The facial nerve canal is normal bilaterally. The internal auditory canal shows some slight asymmetry with a caliber of approximately 5 mm on the l eft and 3 mm on the right. There is no evidence of fractures. Mucosal thickening bilateral maxillary sinuses. Reformatted images confirm above findings. IMPRESSION: 1. Slight asymmetry in the size of the left ICA at 5 mm versus 3 mm on the right. Consider MRI to ass ess for underlying acoustic schwannoma. 2. Mild chronic bilateral maxillary sinus disease. 3. Minimal fluid inferior left mastoid air cells of questionable clinical significance. Correlate for any mastoid pain to exclude mastoiditis. Otherwise, no other specific abnormality on temporal bone C T.
== END | disposition home or self-care (01) ==
LOC: RADCTMAIN 08:57
PROVIDERS: ATTEND Otolaryngology
DX: H93.3X9 Disorders of unspecified acoustic nerve (principal); J32.0 Chronic maxillary sinusitis
CPT/HCPCS: 70481; Q9967

== ENCOUNTER → 2022-11-29 | Outpatient (CLI) | payer MEDICARE, OTHER | END | disposition home or self-care (01) | LOC: LABPAT 10:05 | PROVIDERS: ATTEND Surgery Plastic and Reconstructive Surgery | DX: Z01.818 Encounter for other preprocedural examination (principal); I44.0 Atrioventricular block, first degree; R00.1 Bradycardia, unspecified; R94.31 Abnormal electrocardiogram [ECG] [EKG] | CPT/HCPCS: 93005 ==

== ENCOUNTER 2022-12-12 07:15 | Day surgery (SDC) | payer MEDICARE, OTHER ==
[2022-12-09 09:15] VITALS: BMI 45.1
[~2022-12-12 07:15] MED LIST changes: +DEXAMETHASONE SOD PHOSPHATE 4 MG/ML 1 ML VIAL IV ONE; +HYDROmorphone 0.5 MG/0.5 ML SYRINGE IVP PRN; +LACTATED RINGERS 1,000 ML IV SCH; +LIDOCAINE 1% (10MG/ML) FOR IV START INTRADERMA PRN; +MIDAZOLAM 2 MG/2 ML VIAL IV PRN; +ONDANSETRON 4 MG/2 ML VIAL IVP ONE; -Pre Op ABX Message 1 EACH MISC MISCELLANE ONE
--- NOTE | 2022-12-12 07:53 | P.GSHP ---
History of Present Illness H&P Date: 12/12/22 CHIEF COMPLAINT: GERD and colon screen HISTORY OF PRESENT ILLNESS: The patient is a 56-year-old male who presents with gastroesophageal reflux disease and need for colon screen. Upper and lower endoscopy were offered for further evaluation and management. PAST MEDICAL HISTORY: Please see list. PAST SURGICAL HISTORY: Please see list. MEDICATIONS: Please see list. ALLERGIES: Please see list. SOCIAL HISTORY: No illicit drug use FAMILY HISTORY: No reports of Crohn disease or ulcerative colitis. REVIEW OF ORGAN SYSTEMS: CONSTITUTIONAL: No reports of fevers or chills. GI: Denies any blood in stools or constipation. PHYSICAL EXAM: VITAL SIGNS: Stable GENERAL: Well-developed pleasant in no acute distress. HEENT: No scleral icterus. Extraocular movements grossly intact. Moist buccal mucosa. NECK: Supple without lymphadenopathy. CHEST: Unlabored respirations. Equal bilateral excursions. CARDIOVASCULAR: Regular rate and rhythm. Distal 2+ pulses. ABDOMEN: Soft, nondistended. MUSCULOSKELETAL: No clubbing, cyanosis, or edema. ASSESSMENT: 1. Gastroesophageal reflux disease 2. Colon screen. PLAN: 1. Recommend proceeding with an upper and lower endoscopy Past Medical History Past Medical History: Atrial Fibrillation, GERD/Reflux, Hypertension, Musculoskeletal Disorder, Osteoarthritis (OA), Sleep Apnea/CPAP/BIPAP Additional Past Medical History / Comment(s): Chronic LOWER back & KNEE Pain. h x. enlarged spleen after fall 2017-no problems now that he knows of, KIDNEY STONES , vericose veins; herniated disc C6/c7 History of Any Multi-Drug Resistant Organisms: None Reported Past Surgical History: Back Surgery, Bariatric Surgery, Cholecystectomy, Hernia Repair, Orthopedic Surgery Additional Past Surgical History / Comment(s): UMBILICAL HERNIA, RT KNEE MENISCUS, GASTRIC SLEEVE 2011, LT Rotator cuff. ABSCESS CYST ON TAILBONE, LITHOTRIPSY 10/09/2017. VARICOSE VEINS REMOVED, COLONOSCOPY/EGD Past Anesthesia/Blood Transfusion Reactions: Previous Problems w/ Anesthesia Additional Past Anesthesia/Blood Transfusion Reaction / Comment(s): WOKE UP DURING KNEE SURGERY - only happened once. Smoking Status: Former smoker - Past Family History Father Family Medical History: Renal Disease Brother(s) Family Medical History: Cancer Additional Family Medical History / Comment(s): KIDNEY CA Medications and Allergies Home Medications Medication Instructions Recorded Confirmed Type HYDROcodone/APAP 10-325MG [[place] 1 tab PO Q8H PRN 01/13/15 12/09/22 History 10-325] Biotin [Qavr-Pzsf-Zwodr] 10,000 mcg PO DAILY 12/09/22 12/09/22 History Loratadine [Claritin] 10 mg PO DAILY 12/09/22 12/09/22 History Naproxen [Naprosyn] 500 mg PO BID 12/09/22 12/09/22 History Omeprazole 40 mg PO BID 12/09/22 12/09/22 History Propafenone HCl [Propafenone HCl 225 mg PO Q12H 12/09/22 12/09/22 History ER] Spironolactone-Hctz 25-25Mg 1 each PO DAILY 12/09/22 12/09/22 History [Aldactazide 25-25Mg] atenoloL [Tenormin] 12.5 mg PO DAILY 12/09/22 12/09/22 History lisinopriL [Zestril] 20 mg PO DAILY 12/09/22 12/09/22 History traZODone HCL [Desyrel] 150 mg PO HS 12/09/22 12/09/22 History Allergies Allergy/AdvReac Type Severity Reaction Status Date / Time cat dander AdvReac Itching Verified 12/09/22 09:02 house dust AdvReac Itching Verified 12/09/22 09:02 pollen extracts AdvReac Itching Verified 12/09/22 09:02
[2022-12-12 07:58] VITALS: TEMP 97.5
[2022-12-12] MEDS ORDERED: LIDOCAINE 2% INJ 20 MG/ML (2 ML VIAL) ONE (07:59)
[2022-12-12] MEDS ORDERED: PROPOFOL 10 MG/ML 20 ML VIAL IV ONE (07:59)
--- NOTE | 2022-12-12 08:36 | P.PCN ---
Date of Procedure: 12/12/22 Description of Procedure: PREOPERATIVE DIAGNOSIS: Gastroesophageal reflux disease. Status post sleeve gastrectomy. POSTOPERATIVE DIAGNOSIS: Status post sleeve gastrectomy. Gastroesophageal reflux disease. Chronic superficial gastritis. OPERATION: Esophagogastroduodenoscopy with cold forceps biopsies along the antrum and duodenum SURGEON: Stephanie Macdonald MD ANESTHESIA: MAC. INDICATIONS: The patient is a 56-year-old male who presents with a history of sleeve gastrectomy and gastroesophageal reflux disease. Benefits and risks of the procedure were described. Informed consent was obtained. DESCRIPTION: The patient was brought into the endoscopy suite and laid in the left lateral decubitus position. An Olympus gastroscope was passed along the posterior oropharynx down to the distal esophagus where the squamocolumnar junction was at 45 centimeters from the incisors remarkable for chronic erosive esophagitis, LA grade A without ulceration. The sleeve reservoir was about torsion. Chronic gastritis albeit mild was found along the antrum with cold biopsies obtained. The first through third portion of the duodenum was examined. Biopsies obtained. Of the duodenum The scope again had easily retroflexed along the antrum. The stomach was desufflated. The patient tolerated the procedure well. FINDINGS: No acute ulceration found along sleeve. No corkscrewing sleeve gastrectomy. Squamocolumnar junction at 45 cm from the incisors. Diaphragmatic hiatus at 45 cm. Easy retroflexion of the gastroscope to view the lower esophageal valve. LA grade A erosive esophagitis. Biopsies obtained of duodenum Chronic gastritis. Biopsies obtained RECOMMENDATIONS: Upper endoscopy as needed.
[2022-12-12 08:42] VITALS: BP 109/66; PULSE 48; RESP 18
--- NOTE | 2022-12-12 09:04 | P.PCN ---
Date of Procedure: 12/12/22 Description of Procedure: PREOPERATIVE DIAGNOSIS: Colonoscopy screening POSTOPERATIVE DIAGNOSIS: Tubular adenoma sigmoid colon Ulcerative colitis descending colon Internal hemorrhoids, grade 2 OPERATION: Colonoscopy to the ileocecal valve and appendiceal orifice, cecum Colonoscopy with hot snare polypectomy Colonoscopy with cold forceps biopsy for ulcerative colitis SURGEON: Stephanie Macdonald MD. ANESTHESIA: MAC. INDICATIONS: The patient is an 56-year-old male who presents for colon screening. Benefits and risks were described and informed consent was obtained. DESCRIPTION OF PROCEDURE: The patient had undergone Sutab prep. The patient had been brought into the operating room and laid in the left lateral decubitus position. After adequate intravenous sedation, the rectum was examined with 2% lidocaine jelly. The prostate was unremarkable. Internal hemorrhoids were encountered. The rectal tone was within normal limits. No lesions were palpated in the rectal vault. An Olympus colonoscope was advanced until the cecum, ileocecal valve and appendiceal orifice were clearly viewed. The prep was good but poor at the cecum. No sigmoid diverticulosis was encountered. Colonic polyps were found and removed. Focal colitis was found with ulceration of the descending colon, biopsies obtained. Retroflexion of the scope demonstrated grade 2 internal hemorrhoids without active bleeding or inflammation. The colon was desufflated. The patient had tolerated the procedure well. Withdrawal time was over 6 minutes. FINDINGS: Aronchick preparation quality scale 2 (1-5) Internal hemorrhoids, grade 2 External hemorrhoids, grade 2. No arteriovenous malformations. No sigmoid diverticulosis Removal of 1 polyp: - Snare polypectomy sigmoid colon, 5 mm tubulovillous adenoma Descending ulcerative colitis with biopsies RECOMMENDATIONS: Repeat colonoscopy in 3 years, 2025 Plan - Discharge Summary Discharge Rx Participant: No New Discharge Prescriptions: Continue HYDROcodone/APAP 10-325MG [[place] 10-325] 1 tab PO Q8H PRN PRN Reason: Pain atenoloL [Tenormin] 12.5 mg PO DAILY Spironolactone-Hctz 25-25Mg [Aldactazide 25-25 MG] 1 each PO DAILY lisinopriL [Zestril] 20 mg PO DAILY traZODone HCL [Desyrel] 150 mg PO HS Propafenone HCl [Propafenone HCl ER] 225 mg PO Q12H Omeprazole 40 mg PO BID Loratadine [Claritin] 10 mg PO DAILY Naproxen [Naprosyn] 500 mg PO BID Biotin [Esrf-Lvzc-Wbzqo] 10,000 mcg PO DAILY Discharge Medication List HYDROcodone/APAP 10-325MG [[place] 10-325] 1 tab PO Q8H PRN 01/13/15 [History] Biotin [Nthe-Mcks-Sbgas] 10,000 mcg PO DAILY 12/09/22 [History] Loratadine [Claritin] 10 mg PO DAILY 12/09/22 [History] Naproxen [Naprosyn] 500 mg PO BID 12/09/22 [History] Omeprazole 40 mg PO BID 12/09/22 [History] Propafenone HCl [Propafenone HCl ER] 225 mg PO Q12H 12/09/22 [History] Spironolactone-Hctz 25-25Mg [Aldactazide 25-25 MG] 1 each PO DAILY 12/09/22 [History] atenoloL [Tenormin] 12.5 mg PO DAILY 12/09/22 [History] lisinopriL [Zestril] 20 mg PO DAILY 12/09/22 [History] traZODone HCL [Desyrel] 150 mg PO HS 12/09/22 [History] Follow up [facility]ment(s[facility] [place] [facility] - 12/21/22 Patient Instructions/Handouts: Ulcerative Colitis (DC), Colorectal Polyps (GEN) Activity/Diet/Wound Care/Special Instructions: Repeat colonoscopy 3 years, 2025 Discharge Disposition: HOME SELF-CARE
== END 2022-12-12 09:11 | disposition home or self-care (01) ==
LOC: ORWHC2ENDO 07:15
PROVIDERS: ATTEND Surgery Plastic and Reconstructive Surgery
DX: Z12.11 Encounter for screening for malignant neoplasm of colon (principal); K29.50 Unspecified chronic gastritis without bleeding; K21.00 Gastro-esophageal reflux disease with esophagitis, without bleeding; K63.5 Polyp of colon; K51.90 Ulcerative colitis, unspecified, without complications; I48.91 Unspecified atrial fibrillation; I10 Essential (primary) hypertension; M19.90 Unspecified osteoarthritis, unspecified site; G47.30 Sleep apnea, unspecified; Z90.49 Acquired absence of other specified parts of digestive tract; Z98.890 Other specified postprocedural states; Z87.891 Personal history of nicotine dependence; Z79.899 Other long term (current) drug therapy
CPT/HCPCS: 88305; 45380; 45385; 43239; J2704; J2001

== ENCOUNTER 2023-04-12 09:03 | Inpatient (IN) | payer MEDICARE, OTHER ==
[2023-04-12] MEDS ORDERED: DILTIAZEM DRIP BOLUS FROM BAG 1 MG SOLN IV ONE ×2 (09:23→12:26)
--- NOTE | 2023-04-12 09:25 | ED ---
General Adult HPI - General Chief complaint: Arrhythmia/Palpitations Stated complaint: Afib Time Seen by Provider: 04/12/23 09:09 Source: patient, RN notes reviewed Mode of arrival: ambulatory Limitations: no limitations - History of Present Illness Initial comments: Patient is a pleasant 57-year-old male presenting to the emergency department with concerns for palpitations. Onset of symptoms was around midnight. Patient took extra doses of his metoprolol without much improvement of symptoms. No chest pain. No dyspnea. Patient only has a mild fluttering sensation at times. No leg pain or leg swelling. Patient does have history of similar symptoms previously associated with atrial fibrillation. Patient is on Xarelto. - Related Data Home Medications Medication Instructions Recorded Confirmed HYDROcodone/APAP 10-325MG [[place] 1 tab PO Q8H PRN 01/13/15 12/12/22 10-325] Biotin [Huxo-Urnp-Uyrol] 10,000 mcg PO DAILY 12/09/22 12/12/22 Omeprazole 40 mg PO BID 12/09/22 12/12/22 traZODone HCL [Desyrel] 150 mg PO HS 12/09/22 12/12/22 Naproxen [Naprosyn] 500 mg PO BID PRN 12/15/22 12/15/22 Previous Rx's Medication Instructions Recorded Acetaminophen Tab [Tylenol] 650 mg PO Q4HR PRN tab 12/28/22 Albuterol Sulfate [Albuterol 1 puff PO Q4-6H #8.5 gm 12/28/22 Sulfate Hfa] Amoxic-Pot Clav 875-125Mg 1 tab PO Q12HR 5 Days #10 tab 12/28/22 [Augmentin 875-125] Aspirin 81 mg PO DAILY tab 12/28/22 Atorvastatin [Lipitor] 40 mg PO DAILY #30 tab 12/28/22 Furosemide [Lasix] 40 mg PO DAILY #30 tab 12/28/22 Metoprolol Tartrate [Lopressor] 25 mg PO BID #60 tab 12/28/22 Nystatin [Nystatin Oral Susp] 5 ml PO Q6H #140 ml 12/28/22 Potassium Chloride ER [K-Dur 20] 20 meq PO DAILY #30 tab 12/28/22 Spironolactone [Aldactone] 25 mg PO DAILY #30 tab 12/28/22 lisinopriL [Zestril] 5 mg PO BID #60 tab 12/28/22 Allergies Allergy/AdvReac Type Severity Reaction Status Date / Time cat dander AdvReac Itching Verified 04/12/23 09:07 house dust AdvReac Itching Verified 04/12/23 09:07 pollen extracts AdvReac Itching Verified 04/12/23 09:07 Review of Systems ROS Statement: Those systems with pertinent positive or pertinent negative responses have been documented in the HPI. ROS Other: All systems not noted in ROS Statement are negative. Constitutional: Denies: fever Eyes: Denies: eye pain ENT: Denies: ear pain Respiratory: Denies: cough, dyspnea Cardiovascular: Reports: palpitations Past Medical History Past Medical History: Atrial Fibrillation, GERD/Reflux, Hypertension, Musculoskeletal Disorder, Osteoarthritis (OA), Sleep Apnea/CPAP/BIPAP, Unable to Obtain Additional Past Medical History / Comment(s): Chronic LOWER back & KNEE Pain. hx. enlarged spleen after fall 2016-no problems now that he knows of, KIDNEY STONES , vericose veins; herniated disc C6/c7 History of Any Multi-Drug Resistant Organisms: None Reported, Unobtainable Past Surgical History: Back Surgery, Bariatric Surgery, Cholecystectomy, Hernia Repair, Orthopedic Surgery, Unable to Obtain Additional Past Surgical History / Comment(s): UMBILICAL HERNIA, RT KNEE MENISCUS, GASTRIC SLEEVE 2011, LT Rotator cuff. ABSCESS CYST ON TAILBONE, LITHOTRIPSY 10/09/2017. VARICOSE VEINS REMOVED Past Anesthesia/Blood Transfusion Reactions: Previous Problems w/ Anesthesia Additional Past Anesthesia/Blood Transfusion Reaction / Comment(s): WOKE UP DURING KNEE SURGERY - only happened once. Past Psychological History: Anxiety, Depression, Unable to Obtain Smoking Status: Former smoker, Unknown if ever smoked Past Alcohol Use History: Rare Past Drug Use History: Marijuana - Past Family History Father Family Medical History: Renal Disease Brother(s) Family Medical History: Cancer Additional Family Medical History / Comment(s): KIDNEY [place] General Exam Limitations: no limitations General appearance: alert, in no apparent distress Head exam: Present: normocephalic Eye exam: Present: normal appearance Neck exam: Present: normal inspection Respiratory exam: Present: normal lung sounds bilaterally Cardiovascular Exam: Present: tachycardia, irregular rhythm, normal heart sounds GI/Abdominal exam: Present: soft. Absent: tenderness Extremities exam: Present: normal inspection. Absent: pedal edema, calf tenderness Neurological exam: Present: alert Psychiatric exam: Present: normal affect, normal mood Skin exam: Present: normal color Course Vital Signs 04/12/23 04/12/23 04/12/23 09:04 09:20 09:30 Temperature 97.9 F Pulse Rate 58 L 120 H 116 H Respiratory 18 18 16 Rate Blood Pressure 119/81 104/65 102/60 O2 Sat by Pulse 97 98 98 Oximetry 04/12/23 04/12/23 04/12/23 09:40 09:45 09:50 Temperature Pulse Rate 118 H 121 H Respiratory 16 18 18 Rate Blood Pressure 104/62 101/76 101/76 O2 Sat by Pulse 98 95 Oximetry 04/12/23 04/12/23 04/12/23 10:00 10:10 10:20 Temperature Pulse Rate 131 H 137 H 112 H Respiratory 16 18 16 Rate Blood Pressure 101/76 83/59 97/63 O2 Sat by Pulse 95 96 97 Oximetry 04/12/23 04/12/23 04/12/23 10:30 10:40 10:50 Temperature Pulse Rate 135 H 123 H 133 H Respiratory 16 18 16 Rate Blood Pressure 97/63 88/69 92/67 O2 Sat by Pulse 94 L 97 Oximetry 04/12/23 04/12/23 04/12/23 11:00 11:10 11:20 Temperature Pulse Rate 138 H 111 H 115 H Respiratory 18 16 18 Rate Blood Pressure 97/59 111/84 106/94 O2 Sat by Pulse 96 97 96 Oximetry EKG Findings - EKG Results: EKG: interpreted by ERMD, normal axis, normal QRS, normal ST/T EKG shows: tachycardia, atrial fibrillation Medical Decision Making - Medical Decision Making Was pt. sent in by a medical professional or institution (, PA, SEED LABORATORY TECHNICIAN, urgent care, hospital, or long-term...) When possible be specific @ -No Did you speak to anyone other than the patient for history (EMS, parent, family, police, friend...)? What history was obtained from this source @ -No Did you review nursing and triage notes (agree or disagree)? Why? @ -I reviewed and agree with nursing and triage notes Were old charts reviewed (outside hosp., previous admission, EMS record, old EKG, old radiological studies, urgent care reports/EKG's, long-term records)? Report findings @ -No old charts were reviewed Differential Diagnosis (chest pain, altered mental status, abdominal pain women, abdominal pain men, vaginal bleeding, weakness, fever, dyspnea, syncope, headache, dizziness, GI bleed, back pain, seizure, CVA, palpatations, mental health, musculoskeletal)? @ -Differential Palpitations Ventricular arrhythmias, atrial arrhythmias, myocardial infarction, anemia, thyrotoxicosis, electrolyte imbalance, hypokalemia, pulmonary embolism, pulmonary disease, drugs, alcohol, anxiety, stress.... This is not meant to be an all-inclusive list. EKG interpreted by me (3pts min.). @ -As above X-rays interpreted by me (1pt min.). @ -Chest x-ray shows no acute process CT interpreted by me (1pt min.). @ -None done U/S interpreted by me (1pt. min.). @ -None done What testing was considered but not performed or refused? (CT, X-rays, U/S, labs)? Why? @ -None What meds were considered but not given or refused? Why? @ -None Did you discuss the management of the patient with other professionals (professionals i.e. DrAdelina, PA, SEED LABORATORY TECHNICIAN, lab, RT, psych nurse, web content & social media manager, cell technician, teacher, chief investment officer, rifle case repairer)? Give summary @ -Case was discussed with sheet will admit for Dr. Rea Was smoking cessation discussed for >3mins.? @ -No Was critical care preformed (if so, how long)? @ -31 minutes of critical care time Were there social determinants of health that impacted care today? How? (Homelessness, low income, unemployed, alcoholism, drug addiction, transportation, low edu. Level, literacy, decrease access to med. care, [facility], rehab)? @ -No Was there de-escalation of care discussed even if they declined (Discuss DNR or withdrawal of care, Hospice)? DNR status @ -No What co-morbidities impacted this encounter? (DM, HTN, Smoking, COPD, CAD, Cancer, CVA, ARF, Chemo, Hep., AIDS, mental health diagnosis, sleep apnea, morbid obesity)? @ -None Was patient admitted / discharged? Hospital course, mention meds given and route, prescriptions, significant lab abnormalities, going to OR and other pertinent info. @ -Patient reevaluated. Heart rate 120. Blood pressure is lower. Cardizem temporarily held. Patient has had 4 doses of his 50 mg metoprolol at home. Hypotension is likely related to this. Patient will be kept with cardiac consultation with hopes of restarting Cardizem in the near future. Heart rate is remaining under 1:30 and therefore does not need emergent lowering of heart rate. Admission orders written. Undiagnosed new problem with uncertain prognosis? @ -No Drug Therapy requiring intensive monitoring for toxicity (Heparin, Nitro, Insulin, Cardizem)? @ -Patient has been on Cardizem drip and hopes to restart this with the press ure soon. Were any procedures done? @ -No Diagnosis/symptom? @ -A. fib with RVR Acute, or Chronic, or Acute on Chronic? @ -Acute Uncomplicated (without systemic symptoms) or Complicated (systemic symptoms)? @ -Complicated with hypotension likely related to additional doses of metoprolol at home. Side effects of treatment? @ -No Exacerbation, Progression, or Severe Exacerbation? @ -No Poses a threat to life or bodily function? How? (Chest pain, [place], CA, pneumonia, PE, COPD, DKA, ARF, appy, cholecystitis, CVA, Diverticulitis, Homicidal, Suicidal, threat to staff... and all critical care pts) @ -No - Lab Data Result diagrams: 04/12/23 09:27 04/12/23 09:27 Lab Results 04/12/23 04/12/23 04/12/23 Range/Units 09:27 09:27 09:27 WBC 6.0 (3.8-10.6) k/uL RBC 5.21 (4.30-5.90) m/uL Hgb 15.2 (13.0-17.5) gm/dL Hct 45.9 (39.0-53.0) % MCV 88.1 (80.0-100.0) fL MCH 29.2 (25.0-35.0) pg MCHC 33.2 (31.0-37.0) g/dL RDW 13.7 (11.5-15.5) % Plt Count 224 (150-450) k/uL MPV 7.3 Neutrophils % 64 % Lymphocytes % 22 % Monocytes % 9 % Eosinophils % 3 % Basophils % 0 % Neutrophils # 3.8 (1.3-7.7) k/uL Lymphocytes # 1.3 (1.0-4.8) k/uL Monocytes # 0.6 (0-1.0) k/uL Eosinophils # 0.2 (0-0.7) k/uL Basophils # 0.0 (0-0.2) k/uL PT 10.3 (10.0-12.5) sec INR 0.9 (<1.2) APTT 25.0 (22.0-30.0) sec Sodium 140 (137-145) mmol/L Potassium 4.4 (3.5-5.1) mmol/L Chloride 105 (98-107) mmol/L Carbon Dioxide 26 (22-30) mmol/L Anion Gap 9 mmol/L BUN 20 (9-20) mg/dL Creatinine 0.89 (0.66-1.25) mg/dL Est GFR (CKD-EPI)AfAm >90 (>60 ml/min/1.73 sqM) Est GFR (CKD-EPI)NonAf >90 (>60 ml/min/1.73 sqM) Glucose 94 (74-99) mg/dL Calcium 9.1 (8.4-10.2) mg/dL Magnesium 2.0 (1.6-2.3) mg/dL Total Bilirubin 0.6 (0.2-1.3) mg/dL AST 39 (17-59) U/L ALT 30 (4-49) U/L Alkaline Phosphatase 71 (38-126) U/L Troponin I (0.000-0.034) ng/mL Total Protein 6.8 (6.3-8.2) g/dL Albumin 3.7 (3.5-5.0) g/dL TSH 3.060 (0.465-4.680) mIU/L 04/12/23 Range/Units 09:27 WBC (3.8-10.6) k/uL RBC (4.30-5.90) m/uL Hgb (13.0-17.5) gm/dL Hct (39.0-53.0) % MCV (80.0-100.0) fL MCH (25.0-35.0) pg MCHC (31.0-37.0) g/dL RDW (11.5-15.5) % Plt Count (150-450) k/uL MPV Neutrophils % % Lymphocytes % % Monocytes % % Eosinophils % % Basophils % % Neutrophils # (1.3-7.7) k/uL Lymphocytes # (1.0-4.8) k/uL Monocytes # (0-1.0) k/uL Eosinophils # (0-0.7) k/uL Basophils # (0-0.2) k/uL PT (10.0-12.5) sec INR (<1.2) APTT (22.0-30.0) sec Sodium (137-145) mmol/L Potassium (3.5-5.1) mmol/L Chloride (98-107) mmol/L Carbon Dioxide (22-30) mmol/L Anion Gap mmol/L BUN (9-20) mg/dL Creatinine (0.66-1.25) mg/dL Est GFR (CKD-EPI)AfAm (>60 ml/min/1.73 sqM) Est GFR (CKD-EPI)NonAf (>60 ml/min/1.73 sqM) Glucose (74-99) mg/dL Calcium (8.4-10.2) mg/dL Magnesium (1.6-2.3) mg/dL Total Bilirubin (0.2-1.3) mg/dL AST (17-59) U/L ALT (4-49) U/L Alkaline Phosphatase (38-126) U/L Troponin I 0.016 (0.000-0.034) ng/mL Total Protein (6.3-8.2) g/dL Albumin (3.5-5.0) g/dL TSH (0.465-4.680) mIU/L Critical Care Time Critical Care Time: Yes Total Critical Care Time: 31 Disposition Clinical Impression: Atrial flutter with rapid ventricular response Disposition: ADMITTED IP TO THIS HOSP Is patient prescribed a controlled substance at d/c from ED?: No Referrals: Ethan Rea DO [Primary Care Provider] - 1-2 days Time of Disposition: 11:32
[2023-04-12] MEDS: DILTIAZEM 125 MG in SODIUM CHLORIDE 0.9% 100 ML IV SCH (09:36)
[2023-04-12 09:44] LABS: Basophils % (A) 0 %; Eosinophils # (A) 0.2 k/uL (0-0.7); Eosinophils % (A) 3 %; HCT 45.9 % (39.0-53.0); HGB 15.2 gm/dL (13.0-17.5); Lymphocytes # (A) 1.3 k/uL (1.0-4.8); Lymphocytes % (A) 22 %; MCH 29.2 pg (25.0-35.0); MCHC 33.2 g/dL (31.0-37.0); MCV 88.1 fL (80.0-100.0); Mean Platelet Volume 7.3; Monocytes # (A) 0.6 k/uL (0-1.0); Monocytes % (A) 9 %; Neutrophils # (A) 3.8 k/uL (1.3-7.7); Neutrophils % (A) 64 %; Platelet Count 224 k/uL (150-450); RBC 5.21 m/uL (4.30-5.90); RDW 13.7 % (11.5-15.5)
--- NOTE | 2023-04-12 09:44 | XR ---
EXAMINATION TYPE: XR chest 2V DATE OF EXAM: 04/12/2023 COMPARISON: 12/25/2022 HISTORY: Shortness of breath TECHNIQUE: Frontal and lateral views of the chest are obtained. FINDINGS: Scattered senescent parenchymal changes noted. Hyperinflation compatible with COPD. Improving aeration at the lung bases from prior study. No active infiltrate appreciated. Heart size is stable. Mediastinal structures are stable and grossly unremarkable. No evidence for hilar prominence. Degenerative changes dorsal spine. IMPRESSION: 1. No evidence for acute pulmonary disease.
[2023-04-12 09:56] LABS: ALT 30 U/L (4-49); AST 39 U/L (17-59); African American GFR (CKD) >90 (>60 ml/min/1.73 sqM); Albumin 3.7 g/dL (3.5-5.0); Alkaline Phosphatase 71 U/L (38-126); Anion Gap 9 mmol/L; Blood Urea Nitrogen 20 mg/dL (9-20); Calcium 9.1 mg/dL (8.4-10.2); Carbon Dioxide 26 mmol/L (22-30); Chloride 105 mmol/L (98-107); Glucose 94 mg/dL (74-99); Non-African American GFR(CKD) >90 (>60 ml/min/1.73 sqM); Potassium 4.4 mmol/L (3.5-5.1); Sodium 140 mmol/L (137-145); Total Bilirubin 0.6 mg/dL (0.2-1.3); Total Protein 6.8 g/dL (6.3-8.2)
[2023-04-12 10:04] LABS: INR 0.9 (<1.2); Prothrombin Time 10.3 sec (10.0-12.5)
[2023-04-12] MEDS ORDERED: NALOXONE 0.4 MG/ML 1 ML VIAL IV PRN (11:32)
[2023-04-12] MEDS ORDERED: METOPROLOL SUCCINATE (ER) 50 MG TAB.ER.24H PO SCH ×2 (12:30→21:00)
[2023-04-12] MEDS ORDERED: DILTIAZEM 125 MG in SODIUM CHLORIDE 0.9% 100 ML IV SCH (12:30)
[2023-04-12] MEDS ORDERED: SODIUM CHLORIDE 0.9% 500 ML 200 ML IV ONE ×2 (12:39→12:58)
[2023-04-12] MEDS ORDERED: MELATONIN 5 MG TABLET PO PRN (19:46)
[2023-04-12] MEDS: HYDROcodone/APAP 10-325MG 1 EACH TAB PO PRN (19:56)
[2023-04-12] MEDS: APIXABAN 5 MG TAB PO SCH (19:57)
[2023-04-12] MEDS ORDERED: lisinopriL 5 MG TAB PO SCH (21:00)
--- NOTE | 2023-04-13 00:02 | CONS ---
CONSULTATION HISTORY OF PRESENT ILLNESS: This is a 57-year-old gentleman with a known history of paroxysmal atrial fibrillation, hypertension, morbid obesity; who presented to the hospital mainly with complaints of having palpitations and was found to be in atrial fibrillation. He took 4 tablets of metoprolol succinate and came into the hospital. His rate is about 90 to 100, slightly hypotensive. He had palpitations throughout the night and took 4 doses of his metoprolol succinate, the dose is 25 mg b.i.d. He is known to have atrial fibrillation, but paroxysmal in nature. In November of this year, he was hospitalized and he had what seems to be a cardiac arrest, which was a witnessed cardiac arrest and there was a 10-minute or less down time. He was shocked, was found to be in a ventricular fibrillation, shock to normal sinus rhythm and subsequent evaluation revealed noncritical CAD. The patient was at that time on a combination of propafenone and atenolol. He also had used marijuana at the time he had this cardiac arrest in November of 2022. However, prior to discharge around December 20 or so, his ejection fraction had normalized. He was placed on metoprolol. Cardiac cath revealed moderate disease in the left anterior descending coronary artery and also in mid RCA. Both of these were assessed and IFR was 0.98. At this time, the patient comes in with atrial fib and complains of feeling palpitations. At the time of my evaluation, he is comfortable. Blood pressure is in the 90s. Past medical history is remarkable for a cardiac arrest with propafenone on board and also after using marijuana. His medications were changed to metoprolol and he also saw his doctor at and this was continued. The patient was on a ventilator for a long time and there was a question of anoxic encephalopathy and aspiration pneumonia, but these things were resolved. At the time of my evaluation, he is actually quite comfortable and I explained to him the rationale for changing his medications. He denies using marijuana. PHYSICAL EXAMINATION: VITAL SIGNS: His blood pressure is about 96/60, pulse rate is about 108 irregular. HEENT: Unremarkable. Fundus was not examined. NECK: Supple. JVD not evident. HEART: S1, S2 heard normally. Irregular rhythm noted. Short systolic murmur noted. LUNGS: Decent air entry. ABDOMEN: Soft. EXTREMITIES: Lower extremities reveal diminished pulses. Central nervous system is grossly within normal limits. IMPRESSION: 1. Paroxysmal atrial fibrillation. The patient took 4 doses of metoprolol succinate 25 mg. 2. History of cardiac arrest in the setting of propafenone and marijuana use in November with no significant coronary artery disease and normal LV function prior to discharge. 3. Obesity. 4. Probable sleep apnea. 5. Paroxysmal symptomatic atrial fibrillation. RECOMMENDATIONS: I am recommending that we continue his current medications. I will increase his Cardizem drip. I will give him a fluid bolus of 200 mL over half an hour and then increase the Cardizem drip to 7.5 with a bolus of 7.5. Resume his beta isac and hold lisinopril and see how he does. Discussed my thoughts in detail with the patient. Thank you very much for the consult. MUSA / HALLE: [id number] /
[2023-04-13] MEDS: DILTIAZEM 125 MG in SODIUM CHLORIDE 0.9% 100 ML IV SCH (04:52)
[2023-04-13] MEDS ORDERED: AMIODARONE 360 MG in DEXTROSE 5% IN WATER 200 ML IV ONE ×2 (08:24)
[2023-04-13] MEDS ORDERED: DEXTROSE 5% IN WATER 100 ML with AMIODARONE 150 MG IV ONE (08:24)
[2023-04-13 08:45] LABS: Basophils % (A) 1 %; Eosinophils # (A) 0.2 k/uL (0-0.7); Eosinophils % (A) 2 %; HCT 46.8 % (39.0-53.0); HGB 15.5 gm/dL (13.0-17.5); Lymphocytes # (A) 1.6 k/uL (1.0-4.8); Lymphocytes % (A) 23 %; MCH 29.4 pg (25.0-35.0); MCHC 33.1 g/dL (31.0-37.0); MCV 88.8 fL (80.0-100.0); Mean Platelet Volume 6.9; Monocytes # (A) 0.6 k/uL (0-1.0); Monocytes % (A) 9 %; Neutrophils # (A) 4.4 k/uL (1.3-7.7); Neutrophils % (A) 63 %; Platelet Count 190 k/uL (150-450); RBC 5.27 m/uL (4.30-5.90); RDW 13.5 % (11.5-15.5); WBC 6.9 k/uL (3.8-10.6)
[2023-04-13 08:59] LABS: ALT 33 U/L (4-49); AST 41 U/L (17-59); African American GFR (CKD) >90 (>60 ml/min/1.73 sqM); Albumin 3.8 g/dL (3.5-5.0); Alkaline Phosphatase 64 U/L (38-126); Anion Gap 9 mmol/L; Blood Urea Nitrogen 18 mg/dL (9-20); Calcium 9.1 mg/dL (8.4-10.2); Carbon Dioxide 23 mmol/L (22-30); Chloride 106 mmol/L (98-107); Glucose 94 mg/dL (74-99); Non-African American GFR(CKD) >90 (>60 ml/min/1.73 sqM); Potassium 4.4 mmol/L (3.5-5.1); Sodium 138 mmol/L (137-145); Total Bilirubin 1.1 mg/dL (0.2-1.3)
[2023-04-13] MEDS ORDERED: FUROSEMIDE 40 MG TAB PO SCH (09:00)
[2023-04-13] MEDS ORDERED: FUROSEMIDE 20 MG TAB PO SCH (09:00)
[2023-04-13] MEDS ORDERED: SPIRONOLACTONE 25 MG TAB PO SCH (09:00)
[2023-04-13] MEDS ORDERED: METOPROLOL TARTRATE 50 MG TAB PO SCH (09:00)
[2023-04-13] MEDS: APIXABAN 5 MG TAB PO SCH (09:03)
[2023-04-13] MEDS: HYDROcodone/APAP 10-325MG 1 EACH TAB PO PRN (09:07)
[2023-04-13 10:29] VITALS: RESP 18; TEMP 98.2
--- NOTE | 2023-04-13 11:26 | P.HPIM ---
History of Present Illness This is a pleasant 57 feet old male with past medical history of atrial fibrillation and RVR. Presents because of fluttering in his chest without chest pain. He denies dyspnea coughing. No change in urine or bowel habits. No headache dizziness weakness or numbness. He denies smoking alcohol or illicit drugs. He follows up with circulation worker. Cardiology Dr. Juli salas On admission he was found to be tachycardic with heart rate was 122, he is been evaluated by circulation worker and his metoprolol dose was increased from 50 mg at be dtime up to twice a day. This morning his heart rate was a still elevated. He was started on Cardizem drip and his heart rate improved down to 50s. Rest of white towels, and labs are unremarkable including CBC, INR, BMP and liver enzymes. Review of Systems Review of systems CONSTITUTIONAL: No fever, no malaise, no fatigue. HEENT: No recent visual problems or hearing problems. Denied any sore throat. CARDIOVASCULAR: No orthopnea, PND, no palpitations, no syncope. PULMONARY: No shortness of breath, no cough, no hemoptysis. GASTROINTESTINAL: No diarrhea, no nausea, no vomiting, no abdominal pain. Normoactive bowel sounds. NEUROLOGICAL: No headaches, no weakness, no numbness. HEMATOLOGICAL: Denies any bleeding or petechiae. GENITOURINARY: Denies any burning micturition, frequency, or urgency. MUSCULOSKELETAL/RHEUMATOLOGICAL: Denies any joint pain, swelling, or any muscle pain. ENDOCRINE: Denies any polyuria or polydipsia. Past Medical History Past Medical History: Atrial Fibrillation, GERD/Reflux, Hypertension, Musculoskeletal Disorder, Osteoarthritis (OA), Sleep Apnea/CPAP/BIPAP Additional Past Medical History / Comment(s): Chronic LOWER back & KNEE Pain. hx. enlarged spleen after fall 2017-no problems now that he knows of, KIDNEY STONES , vericose veins; herniated disc C6/c7, growth removed from inner left leg 2022 History of Any Multi-Drug Resistant Organisms: None Reported Past Surgical History: Back Surgery, Bariatric Surgery, Cholecystectomy, Hernia Repair, Orthopedic Surgery Additional Past Surgical History / Comment(s): UMBILICAL HERNIA, RT KNEE MENISCUS, GASTRIC SLEEVE 2011, LT Rotator cuff. ABSCESS CYST ON TAILBONE, LITHOTRIPSY 10/09/2017. VARICOSE VEINS REMOVED, AICD 2022 Past Anesthesia/Blood Transfusion Reactions: Previous Problems w/ Anesthesia Additional Past Anesthesia/Blood Transfusion Reaction / Comment(s): WOKE UP DURING KNEE SURGERY - only happened once. Past Psychological History: Anxiety, Depression Smoking Status: Former smoker Past Alcohol Use History: Rare Additional Past Alcohol Use History / Comment(s): SMOKED 1 PPD, QUIT 2009. Past Drug Use History: Marijuana Additional Drug Use History / Comment(s): SMOKES MARIJUANA FOR BACK PAIN DAILY, TOTAL 3 joints DAILY. - Past Family History Father History Unknown: Yes Family Medical History: Renal Disease Brother(s) History Unknown: Yes Family Medical History: Cancer Additional Family Medical History / Comment(s): KIDNEY CA Medications and Allergies Home Medications Medication Instructions Recorded Confirmed Type HYDROcodone/APAP 10-325MG [[place] 1 - 1.5 tab PO Q8H PRN 01/13/15 04/12/23 History 10-325] Omeprazole 40 mg PO BID PRN 12/09/22 04/12/23 History traZODone HCL [Desyrel] 150 mg PO HS 12/09/22 04/12/23 History lisinopriL [Zestril] 5 mg PO BID #60 tab 12/28/22 04/12/23 Rx Albuterol Sulfate [Albuterol 2 puff INHALATION RT-Q4H PRN 04/12/23 04/12/23 H istory Sulfate Hfa] Apixaban [Eliquis] 5 mg PO BID 04/12/23 04/12/23 History Aspirin 81 mg PO Q48H 04/12/23 04/12/23 History Cetirizine HCl 10 mg PO HS 04/12/23 04/12/23 History Furosemide [Lasix] 40 mg PO Q48H 04/12/23 04/12/23 History Metoprolol Succinate (ER) [Toprol 50 mg PO DAILY 04/12/23 04/12/23 History Xl] Spironolactone [Aldactone] 25 mg PO Q48H 04/12/23 04/12/23 History Allergies Allergy/AdvReac Type Severity Reaction Status Date / Time cat dander AdvReac Itching Verified 04/12/23 11:45 house dust AdvReac Itching Verified 04/12/23 11:45 pollen extracts AdvReac Itching Verified 04/12/23 11:45 Physical Exam Vitals: Vital Signs Temp Pulse Pulse Resp BP BP Pulse Ox 04/13/23 10:18 46 L 18 104/80 93 L 04/13/23 09:45 47 L 18 123/83 95 04/13/23 09:30 46 L 18 114/75 94 L 04/13/23 09:15 103 H 17 113/88 97 04/13/23 09:00 98.2 F 99 18 120/85 96 04/13/23 04:00 12 L 16 104/67 97 04/13/23 00:00 97.7 F 113 H 18 110/63 98 04/12/23 20:04 97.8 F 113 H 18 108/67 97 04/12/23 18:38 97.9 F 97 16 131/91 04/12/23 16:01 121 H 20 106/60 98 Intake and Output 04/12/23 04/13/23 04/13/23 22:59 06:59 14:59 Intake Total 71.500 Output Total 300 Balance -228.500 Intake: Intake, IV Titration 71.500 Amount Diltiazem 125 mg In 71.500 Sodium Chloride 0.9% 100 ml @ 7.5 MG/HR 7.5 mls/hr IV .[id number] [facility] Rx#: [id number] Output: Urine 300 Other: Voiding Method Toilet Toilet Toilet # Voids 1 1 Weight 150 kg -GENERAL: The patient is alert and oriented x3, not in any acute distress. Obese. HEENT: Pupils are round and equally reacting to light. EOMI. No scleral icterus. No conjunctival pallor. Normocephalic, atraumatic. No pharyngeal erythema. No thyromegaly. CARDIOVASCULAR: S1 and S2 present. No murmurs, rubs, or gallops. PULMONARY: Chest is clear to auscultation, no wheezing , no crackles. ABDOMEN: Soft, nontender, nondistended, normoactive bowel sounds. No palpable organomegaly. MUSCULOSKELETAL: No joint swelling or deformity. EXTREMITIES: No cyanosis, clubbing, or pedal edema. NEUROLOGICAL: Gross neurological examination did not reveal any focal deficits. SKIN: No rashes. no petechiae. Results CBC & Chem 7: 04/13/23 08:25 04/13/23 08:25 Thrombosis Risk Factor Assmnt - Choose All That Apply Any of the Below Risk Factors Present?: Yes Each Factor Represents 1 point: Age 41-60 years, Obesity (BMI >25) Other Risk Factors: No Thrombosis Risk Factor Assessment Total Risk Factor Score: 2 Thrombosis Risk Factor Assessment Level: Low Risk Assessment and Plan Assessment: A. fib and RVR: Present on admission Obesity with BMI of 42.5. Plan: continue with metoprolol Continue with amiodarone drip per circulation worker Cardiology Team on the case. Labs and medication were reviewed.. Continue same treatment. Continue with symptomatic treatment. Resume home medication. Monitor labs and vitals. DVT and GI prophylaxis. Further recommendations as per clinical course of the patient DVT prophylaxis :eliquis GI Prophylaxis: Pepcid Prognosis is guarded
--- NOTE | 2023-04-13 12:53 | PN ---
PROGRESS NOTE SUBJECTIVE: This is a 57-year-old morbidly obese patient who came in with a cardiac arrest in November. He was at that time on propafenone and also he was using marijuana at that time. He continues to use marijuana. After he was evaluated here in the hospital prior to discharge, his ejection fraction normalized and his coronaries did not reveal any significant disease. There was a questionable moderate lesion, but IFR was negative in RCA and LAD and he was discharged. A week later, he had ICD placed at [facility]. He now comes in with atrial fib, rapid ventricular rate. His rate is better but he still remains in atrial fib. I will place him on intravenous amiodarone bolus and drip, increase the beta isac, discontinue Cardizem and aspirin. Continue Eliquis. If he has a decent rate control, he can be discharged and follow up with his time clock mechanic at [facility]. He is well anticoagulated. Discussed my thoughts in detail with the patient. OBJECTIVE: VITALS: Stable. NECK: JVD not evident. HEART: S1, S2 heard normally. Heart sounds are distantly. LUNGS: clear. ABDOMEN: Unchanged. EXTREMITIES: Lower extremities exam unchanged. I will await the results of echocardiogram and patient can be discharged if his rate control is achieved, so we will make the decision tomorrow. MMODL / IJN: [id number] /
--- NOTE | 2023-04-13 13:03 | CA ---
Transthoracic Echo Report Name: Carlos Rebollar Age: 57 Gender: M : 1965 Exam Date: 04/13/2023 11:51 Exam Location: [place] [facility] Ht (in): 74 Wt (lb): 330 Ordering Physician: Mónica Delgado MD ([id number]) Attending/Referring Phys: [employer] Equipment Mechanic Ashlie Schroeder [facility] Procedure CPT: Indications: a fib Cardiac Hx: Technical Quality: Technically difficult study Contrast 1: Definity Total Dose (mL): 6 Contrast 2: Total Dose (mL): MEASUREMENTS (Male / Female) Normal Values 2D ECHO LV Diastolic Diameter PLAX 5.3 cm 4.2 - 5.9 / 3.9 - 5.3 cm LV Systolic Diameter PLAX 3.7 cm IVS Diastolic Thickness 1.2 cm 0.6 - 1.0 / 0.6 - 0.9 cm LVPW Diastolic Thickness 1.2 cm 0.6 - 1.0 / 0.6 - 0.9 cm LV Relative Wall Thickness 0.5 LV Diastolic Volume MOD BP 107.7 cm??? 67 - 155 / 56 - 104 cm??? LV Systolic Volume MOD BP 48.2 cm??? 22 - 58 / 19 - 49 cm??? LV Ejection Fraction MOD BP 55.2 % >= 55 % LV Cardiac Index MOD BP 935.8 cm???/min???m??? LV Diastolic Volume MOD 4C 126.0 cm??? LV Systolic Volume MOD 4C 47.7 cm??? LV Ejection Fraction MOD 4C 62.1 % LV Cardiac Index MOD 4C 1231.4 cm???/min???m??? LV Diastolic Length 4C 8.7 cm LV Systolic Length 4C 7.0 cm LV Diastolic Volume MOD 2C 86.6 cm??? LV Systolic Volume MOD 2C 48.2 cm??? LV Ejection Fraction MOD 2C 44.4 % LV Cardiac Index MOD 2C 605.2 cm???/min???m??? LV Diastolic Length 2C 8.2 cm LV Systolic Length 2C 6.8 cm Ascending Aorta Diameter 4.3 cm DOPPLER AV Peak Velocity 78.4 cm/s AV Peak Gradient 2.5 mmHg AV Mean Velocity 54.5 cm/s AV Mean Gradient 1.4 mmHg AV Velocity Time Integral 14.7 cm LVOT Peak Velocity 69.0 cm/s LVOT Peak Gradient 1.9 mmHg LVOT Velocity Time Integral 14.7 cm Mitral E Point Velocity 89.2 cm/s Mitral A Point Velocity 24.0 cm/s Mitral E to A Ratio 3.7 MV Deceleration Time 114.9 ms LV E' Lateral Velocity 9.3 cm/s Mitral E to LV E' Lateral Ratio 9.6 LV E' Septal Velocity 10.0 cm/s Mitral E to LV E' Septal Ratio 8.9 TR Peak Velocity 231.1 cm/s TR Peak Gradient 21.4 mmHg Right Atrial Pressure 8.0 mmHg Pulmonary Artery Systolic Pressu 29.4 mmHg Right Ventricular Systolic Press 29.4 mmHg FINDINGS Left Ventricle Mildly increased left ventricular wall thickness. Left ventricular cavity size normal. Low normal left ventricular systolic function with no obvious regional wall motion abnormalities. Left ventricular ejection fraction is estimated at 50-55%. Right Ventricle Severely increased basal right ventricular diameter. Catheter/pacemaker wire in the right ventricular cavity. Right Atrium Severe right atrial dilatation. Left Atrium Left atrial size at the upper limits of normal. Mitral Valve Mitral valve not well visualized. Aortic Valve Aortic valve not well visualized. Tricuspid Valve Tricuspid valve not well visualized. Mild tricuspid regurgitation. Pulmonic Valve Pulmonic valve not well visualized. Pericardium No pericardial effusion. Aorta Mildly dilated proximal ascending aorta (tube). CONCLUSIONS Technically difficult study. Definity ECHO contrast used for improved visualization of the endocardial borders (inadequate visualization of two or more contiguous segments). Left ventricular systolic function borderline normal A catheter was noted in the right ventricle Very limited Doppler study Previewed by: Dr. Dee Gong MD (Electronically Signed) Final Date: 13 April 2023 13:02
[2023-04-13 13:52] VITALS: BP 126/82; PULSE 50
[2023-04-13] MEDS ORDERED: AMIODARONE 450 MG in DEXTROSE 5% IN WATER 250 ML IV SCH ×2 (14:30)
[2023-04-13] MEDS ORDERED: AMIODARONE 200 MG TAB PO SCH (16:00)
[2023-04-14] MEDS ORDERED: ASPIRIN 81 MG PO SCH (09:00)
== END 2023-04-13 16:03 | disposition home or self-care (01) | DRG 309 ==
LOC: EC 09:03 → 3SCARD 11:32 → OBSVTOIN 11:33 → 3SCARD 17:05
PROVIDERS: ADMIT Internal Medicine; ATTEND Internal Medicine
DX: I48.0 Paroxysmal atrial fibrillation (principal); Z68.41 Body mass index [BMI] 40.0-44.9, adult; K21.9 Gastro-esophageal reflux disease without esophagitis; I10 Essential (primary) hypertension; M19.90 Unspecified osteoarthritis, unspecified site; G47.30 Sleep apnea, unspecified; G89.29 Other chronic pain; M54.50 Low back pain, unspecified; M25.569 Pain in unspecified knee; E66.01 Morbid (severe) obesity due to excess calories; I25.10 Atherosclerotic heart disease of native coronary artery without angina pectoris; K42.9 Umbilical hernia without obstruction or gangrene; F41.9 Anxiety disorder, unspecified; F32.A Depression, unspecified; Z87.891 Personal history of nicotine dependence; Z95.810 Presence of automatic (implantable) cardiac defibrillator; Z98.84 Bariatric surgery status; Z79.899 Other long term (current) drug therapy; Z79.82 Long term (current) use of aspirin; Z79.01 Long term (current) use of anticoagulants; Z86.74 Personal history of sudden cardiac arrest
CPT/HCPCS: 36415; 71046; 80053; 83735; 84443; 84484; 85025; 85610; 85730; 93005; 93306; 96365; 96366; 99291

== ENCOUNTER 2023-09-05 13:41 | Emergency (ER) | payer MEDICARE, OTHER ==
--- NOTE | 2023-09-05 14:08 | ED ---
General Adult HPI - General Chief complaint: Back Pain/Injury Stated complaint: Back pain, blood in urine(On thinner) Time Seen by Provider: 09/05/23 13:58 Source: patient, RN notes reviewed Mode of arrival: ambulatory Limitations: no limitations - History of Present Illness Initial comments: This is a 57-year-old male with a history of A-fib on Eliquis who presents to the emergency department chief complaint of lower back and kidney pain and hematuria last 7 to 10 days. Patient states that he is concerned of blood in his urine and has stopped taking his Eliquis due to this. He has a history of kidney stones. He underwent a lithotripsy that resulted in injury to his left kidney. He states his pain is mild rated as a 3 out of 10 and has Gering at home as needed for pain relief due to chronic back pain. He denies dysuria, increased urinary frequency or urgency, fevers, nausea, vomiting, abdominal pain. Denies previous abdominal surgeries. - Related Data Home Medications Medication Instructions Recorded Confirmed HYDROcodone/APAP 10-325MG [Gering 1 - 1.5 tab PO Q8H PRN 01/13/15 04/12/23 10-325] Omeprazole 40 mg PO BID PRN 12/09/22 04/12/23 traZODone HCL [Desyrel] 150 mg PO HS 12/09/22 04/12/23 Albuterol Sulfate [Albuterol 2 puff INHALATION RT-Q4H PRN 04/12/23 04/12/23 Sulfate Hfa] Apixaban [Eliquis] 5 mg PO BID 04/12/23 04/12/23 Aspirin 81 mg PO Q48H 04/12/23 04/12/23 Cetirizine HCl 10 mg PO HS 04/12/23 04/12/23 Furosemide [Lasix] 40 mg PO Q48H 04/12/23 04/12/23 Spironolactone [Aldactone] 25 mg PO Q48H 04/12/23 04/12/23 Previous Rx's Medication Instructions Recorded lisinopriL [Zestril] 5 mg PO BID #60 tab 12/28/22 Amiodarone [Cordarone] 200 mg PO DIRECTED #40 tab 04/13/23 Metoprolol Tartrate [Lopressor] 50 mg PO BID #60 tab 04/13/23 Allergies Allergy/AdvReac Type Severity Reaction Status Date / Time cat dander AdvReac Itching Verified 04/12/23 11:45 house dust AdvReac Itching Verified 04/12/23 11:45 pollen extracts AdvReac Itching Verified 04/12/23 11:45 Review of Systems ROS Statement: Those systems with pertinent positive or pertinent negative responses have been documented in the HPI. ROS Other: All systems not noted in ROS Statement are negative. Past Medical History Past Medical History: Atrial Fibrillation, GERD/Reflux, Hypertension, Musculoskeletal Disorder, Osteoarthritis (OA), Sleep Apnea/CPAP/BIPAP Additional Past Medical History / Comment(s): Chronic LOWER back & KNEE Pain. hx. enlarged spleen after fall 2016-no problems now that he knows of, KIDNEY STONES , vericose veins; herniated disc C6/c7, growth removed from inner left leg 2022 History of Any Multi-Drug Resistant Organisms: None Reported Past Surgical History: Back Surgery, Bariatric Surgery, Cholecystectomy, Hernia Repair, Orthopedic Surgery Additional Past Surgical History / Comment(s): UMBILICAL HERNIA, RT KNEE MENISCUS, GASTRIC SLEEVE 2011, LT Rotator cuff. ABSCESS CYST ON TAILBONE, LITHOTRIPSY 10/09/2017. VARICOSE VEINS REMOVED, AICD 2022 Past Anesthesia/Blood Transfusion Reactions: Previous Problems w/ Anesthesia Additional Past Anesthesia/Blood Transfusion Reaction / Comment(s): WOKE UP DURING KNEE SURGERY - only happened once. Past Psychological History: Anxiety, Depression Smoking Status: Former smoker Past Alcohol Use History: Rare Past Drug Use History: Marijuana - Past Family History Father History Unknown: Yes Family Medical History: Renal Disease Brother(s) History Unknown: Yes Family Medical History: Cancer Additional Family Medical History / Comment(s): KIDNEY CA General Exam - General Exam Comments Initial Comments: Visual Physical Exam Vital signs reviewed General: Well-appearing, nontoxic, no acute distress. Head: Normocephalic, atraumatic Eyes: PERRLA, EOMI ENT: Airway patent Chest: Nonlabored breathing Skin: No visual rash, normal skin tone Neuro: Alert and oriented 3 Musculoskeletal: No gross abnormalities Limitations: no limitations General appearance: alert, in no apparent distress Head exam: Present: atraumatic, normocephalic, normal inspection Eye exam: Present: normal appearance, PERRL, EOMI. Absent: scleral icterus, conjunctival injection, periorbital swelling ENT exam: Present: normal exam, mucous membranes moist Neck exam: Present: normal inspection. Absent: tenderness, meningismus, l ymphadenopathy Respiratory exam: Present: normal lung sounds bilaterally. Absent: respiratory distress, wheezes, rales, rhonchi, stridor Cardiovascular Exam: Present: regular rate, normal rhythm, bradycardia, normal heart sounds. Absent: systolic murmur, diastolic murmur, rubs, gallop, clicks GI/Abdominal exam: Present: soft, normal bowel sounds. Absent: distended, tenderness, guarding, rebound Extremities exam: Present: normal inspection, full ROM, normal capillary refill. Absent: tenderness, pedal edema, joint swelling, calf tenderness Back exam: Present: normal inspection, CVA tenderness (L) Neurological exam: Present: alert, oriented X3, CN II-XII intact Psychiatric exam: Present: normal affect, normal mood Skin exam: Present: warm, dry, intact, normal color. Absent: rash Course Vital Signs 09/05/23 09/05/23 14:02 17:40 Temperature 97.6 F 98.1 F Pulse Rate 46 L 60 Respiratory 20 18 Rate Blood Pressure 125/79 112/68 O2 Sat by Pulse 97 98 Oximetry Medical Decision Making - Medical Decision Making I was pt. sent in by a medical professional or institution (, PA, ELECTRICAL INSTRUMENTATION TECHNICIAN, urgent care, hospital, or longterm...) When possible be specific @ -No Did you speak to anyone other than the patient for history (EMS, parent, family, police, friend...)? What history was obtained from this source @ -No Did you review nursing and triage notes (agree or disagree)? Why? @ -I reviewed and agree with nursing and triage notes Were old charts reviewed (outside hosp., previous admission, EMS record, old EKG, old radiological studies, urgent care reports/EKG's, longterm records)? Report findings @ -No old charts were reviewed Differential Diagnosis (chest pain, altered mental status, abdominal pain women, abdominal pain men, vaginal bleeding, weakness, fever, dyspnea, syncope, headache, dizziness, GI bleed, back pain, seizure, CVA, palpatations, mental hea lth, musculoskeletal)? @Differential Abdominal Pain Men: Appendicitis, cholecystitis, diverticulosis, ischemic bowel, pancreatitis, hepatitis, UTI, gastroenteritis, AAA, incarcerated hernia, bowel obstruction, constipation, inflammatory bowel, hepatitis, peptic ulcer disease, splenic infarction, perforated viscus, testicular torsion, this is not meant to be an all-inclusive list EKG interpreted by me (3pts min.). @ -None X-rays interpreted by me (1pt min.). @ -None done CT interpreted by me (1pt min.). @ -CT of the abdomen pelvis without contrast reveals a mild pelvic caliectasis o f the right kidney secondary to a staghorn like calculus of the right renal pelvis. Last measuring 2.7 x 1.6 cm. Left kidney demonstrates a 5.5 mm calculus midpole U/S interpreted by me (1pt. min.). @ -None done What testing was considered but not performed or refused? (CT, X-rays, U/S, labs)? Why? @ -None What meds were considered but not given or refused? Why? @ -None Did you discuss the management of the patient with other professionals (professionals i.e. , PA, ELECTRICAL INSTRUMENTATION TECHNICIAN, lab, RT, psych nurse, social problems specialist, stroke coordinator, teacher, trust officer, ed case manager)? Give summary @ -No Was smoking cessation discussed for >3mins.? @ -No Was critical care preformed (if so, how long)? @ -No Were there social determinants of health that impacted care today? How? (Homelessness, low income, unemployed, alcoholism, drug addiction, transportation, low edu. Level, literacy, decrease access to med. care, shelter, rehab)? @ -No Was there de-escalation of care discussed even if they declined (Discuss DNR or withdrawal of care, Hospice)? DNR status @ -No What co-morbidities impacted this encounter? (DM, HTN, Smoking, COPD, CAD, Cancer, CVA, ARF, Chemo, Hep., AIDS, mental health diagnosis, sleep apnea, morbid obesity)? @ -Atrial fibrillation, morbid obesity, hypertension Was patient admitted / discharged? Hospital course, mention meds given and route, prescriptions, significant lab abnormalities, going to OR and other pertinent info. @ -57-year-old male with hematuria and mild back pain. On examination patient states that his back pain is chronic due to degenerative disease of his back and his minimal complaints of back pain. Patient is concerned due to findings of hematuria. At this time patient will be evaluated for signs of kidney stone. Patient was offered pain medication but he declined at this time. Patient is in agreement with plan. CBC, CMP and coagulation profile within normal limits. Urinalysis reveals small blood no signs of infection. Patient with patient that he is stable for discharge at this time. He will be provided with a urology referral for outpatient follow-up due to finding of a 2.7 x 1.6 staghorn calculus of the right kidney. Instructed patient that he is able to continue with Eliquis for his atrial fibrillation. All questions answered at bedside. Patient stable for discharge. Case discussed with Dr. Beck Undiagnosed new problem with uncertain prognosis? @ -No Drug Therapy requiring intensive monitoring for toxicity (Heparin, Nitro, Insulin, Cardizem)? @ -No Were any procedures done? @ -No Diagnosis/symptom? @ -Hematuria, right renal calculi Acute, or Chronic, or Acute on Chronic? @ -Acute Uncomplicated (without systemic symptoms) or Complicated (systemic symptoms)? @ -Uncomplicated Side effects of treatment? @ -No Exacerbation, Progression, or Severe Exacerbation? @ -No Poses a threat to life or bodily function? How? (Chest pain, [place], [place], pneumonia, PE, COPD, DKA, ARF, appy, cholecystitis, CVA, Diverticulitis, Homicidal, Suicidal, threat to staff... and all critical care pts) @ -No - Lab Data Result diagrams: 09/05/23 14:15 09/05/23 14:15 Lab Results 09/05/23 09/05/23 09/05/23 Range/Units 14:15 14:15 14:15 WBC 6.2 (3.8-10.6) k/uL RBC 5.41 (4.30-5.90) m/uL Hgb 16.0 (13.0-17.5) gm/dL Hct 49.6 (39.0-53.0) % MCV 91.6 (80.0-100.0) fL MCH 29.6 (25.0-35.0) pg MCHC 32.3 (31.0-37.0) g/dL RDW 13.0 (11.5-15.5) % Plt Count 228 (150-450) k/uL MPV 7.6 Neutrophils % 65 % Lymphocytes % 22 % Monocytes % 9 % Eosinophils % 2 % Basophils % 1 % Neutrophils # 4.0 (1.3-7.7) k/uL Lymphocytes # 1.4 (1.0-4.8) k/uL Monocytes # 0.6 (0-1.0) k/uL Eosinophils # 0.1 (0-0.7) k/uL Basophils # 0.1 (0-0.2) k/uL PT 10.8 (10.0-12.5) sec INR 1.0 (<1.2) APTT 25.0 (22.0-30.0) sec Sodium (137-145) mmol/L Potassium (3.5-5.1) mmol/L Chloride (98-107) mmol/L Carbon Dioxide (22-30) mmol/L Anion Gap mmol/L BUN (9-20) mg/dL Creatinine (0.66-1.25) mg/dL Est GFR (CKD-EPI)AfAm (>60 ml/min/1.73 sqM) Est GFR (CKD-EPI)NonAf (>60 ml/min/1.73 sqM) Glucose (74-99) mg/dL Calcium (8.4-10.2) mg/dL Total Bilirubin (0.2-1.3) mg/dL AST (17-59) U/L ALT (4-49) U/L Alkaline Phosphatase (38-126) U/L Total Protein (6.3-8.2) g/dL Albumin (3.5-5.0) g/dL Urine Color Colorless Urine Appearance Clear (Clear) Urine pH 6.0 (5.0-8.0) Ur Specific Commerce 1.003 (1.001-1.035) Urine Protein Negative (Negative) Urine Glucose (UA) Negative (Negative) Urine Ketones Negative (Negative) Urine Blood Small H (Negative) Urine Nitrite Negative (Negative) Urine Bilirubin Negative (Negative) Urine Urobilinogen <2.0 (<2.0) mg/dL Ur Leukocyte Esterase Negative (Negative) Urine RBC <1 (0-5) /hpf Urine WBC 1 (0-5) /hpf Urine Mucus Rare H (None) /hpf 09/05/23 Range/Units 14:15 WBC (3.8-10.6) k/uL RBC (4.30-5.90) m/uL Hgb (13.0-17.5) gm/dL Hct (39.0-53.0) % MCV (80.0-100.0) fL MCH (25.0-35.0) pg MCHC (31.0-37.0) g/dL RDW (11.5-15.5) % Plt Count (150-450) k/uL MPV Neutrophils % % Lymphocytes % % Monocytes % % Eosinophils % % Basophils % % Neutrophils # (1.3-7.7) k/uL Lymphocytes # (1.0-4.8) k/uL Monocytes # (0-1.0) k/uL Eosinophils # (0-0.7) k/uL Basophils # (0-0.2) k/uL PT (10.0-12.5) sec INR (<1.2) APTT (22.0-30.0) sec Sodium 136 L (137-145) mmol/L Potassium 4.0 (3.5-5.1) mmol/L Chloride 104 (98-107) mmol/L Carbon Dioxide 28 (22-30) mmol/L Anion Gap 4 mmol/L BUN 15 (9-20) mg/dL Creatinine 1.03 (0.66-1.25) mg/dL Est GFR (CKD-EPI)AfAm >90 (>60 ml/min/1.73 sqM) Est GFR (CKD-EPI)NonAf 80 (>60 ml/min/1.73 sqM) Glucose 91 (74-99) mg/dL Calcium 8.8 (8.4-10.2) mg/dL Total Bilirubin 1.2 (0.2-1.3) mg/dL AST 22 (17-59) U/L ALT 12 (4-49) U/L Alkaline Phosphatase 51 (38-126) U/L Total Protein 7.0 (6.3-8.2) g/dL Albumin 4.0 (3.5-5.0) g/dL Urine Color Urine Appearance (Clear) Urine pH (5.0-8.0) Ur Specific Commerce (1.001-1.035) Urine Protein (Negative) Urine Glucose (UA) (Negative) Urine Ketones (Negative) Urine Blood (Negative) Urine Nitrite (Negative) Urine Bilirubin (Negative) Urine Urobilinogen (<2.0) mg/dL Ur Leukocyte Esterase (Negative) Urine RBC (0-5) /hpf Urine WBC (0-5) /hpf Urine Mucus (None) /hpf Disposition Clinical Impression: Back pain, Hematuria, Staghorn renal calculus Narrative: Please return to the Emergency Department if symptoms worsen or any other concerns. Follow-up with provided urology referral for finding of 2.7 x 1.6 cm staghorn right stone. Disposition: HOME SELF-CARE Condition: Good Instructions (If sedation given, give patient instructions): Kidney Stones (ED) Is patient prescribed a controlled substance at d/c from ED?: No Referrals: Ethan Rea DO [Primary Care Provider] - 1-2 days Hang Orozco MD [STAFF PHYSICIAN] - 1-2 days Time of Disposition: 16:10
[2023-09-05 15:10] LABS: Prothrombin Time 10.8 sec (10.0-12.5)
[2023-09-05 15:11] LABS: Appearance,Urine Clear (Clear); Bilirubin,Urine Negative (Negative); Blood,Urine Small (Negative); Color,Urine Colorless; Glucose,Urine (UA) Negative (Negative); Ketones,Urine Negative (Negative); Leukocyte Esterase,Urine Negative (Negative); Mucus,Urine Rare /hpf; Nitrite,Urine Negative (Negative); Protein,Urine Negative (Negative); RBC,Urine <1 /hpf (0-5); Specific Gravity,Urine 1.003 (1.001-1.035); Urobilinogen,Urine <2.0 mg/dL (<2.0); WBC,Urine 1 /hpf (0-5)
[2023-09-05 15:19] LABS: ALT 12 U/L (4-49); AST 22 U/L (17-59); African American GFR (CKD) >90 (>60 ml/min/1.73 sqM); Alkaline Phosphatase 51 U/L (38-126); Anion Gap 4 mmol/L; Blood Urea Nitrogen 15 mg/dL (9-20); Calcium 8.8 mg/dL (8.4-10.2); Carbon Dioxide 28 mmol/L (22-30); Chloride 104 mmol/L (98-107); Glucose 91 mg/dL (74-99); Non-African American GFR(CKD) 80 (>60 ml/min/1.73 sqM); Sodium 136 mmol/L (137-145); Total Bilirubin 1.2 mg/dL (0.2-1.3)
--- NOTE | 2023-09-05 15:29 | CT ---
EXAMINATION TYPE: CT abdomen pelvis wo con DATE OF EXAM: 09/05/2023 COMPARISON: 11/13/2018 HISTORY: flank pain, hematuria CT DLP: 2512 mGycm Examination of the solid and hollow viscera is limited given the lack of contrast. A portion of the r ight abdomen is cut off the [id number] limiting examination. FINDINGS: LUNG BASES: No evidence for nodule. No evidence for infiltrate. LIVER/GB: The gallbladder is surgically absent. No space-occupying hepatic lesion. PANCREAS: No pancreatic mass identified. No inflammatory process seen. SPLEEN: No evidence for splenomegaly. No intrasplenic lesions seen. ADRENALS: No adrenal nodules identified. No evidence for thickening. KIDNEYS: Staghorn like calculus right renal pelvis measuring 2.7 x 1.6 cm with mild pelvic caliectasi s seen. 3 mm nonobstructing lower pole calculus right kidney. Left kidney demonstrates a 5.5 mm calcu munira midpole. Urinary bladder is grossly unremarkable. BOWEL: Changes of gastric swelling noted. Right hemicolon cut off the [id number] No evidence of aditya wel obstruction. No inflammatory process. Lymph nodes: No evidence for adenopathy greater than 1 cm. Abdominal aorta: Atheromatous changes seen. No evidence for aneurysm. Genital organs: No significant abnormality. Other: No significant abnormality. IMPRESSION: 1. Mild pelvic caliectasis right kidney secondary to staghorn like calculus right renal pelvis. Addit ional calculi as discussed.
[2023-09-05 16:38] LABS: Basophils # (A) 0.1 k/uL (0-0.2); Basophils % (A) 1 %; Eosinophils # (A) 0.1 k/uL (0-0.7); Eosinophils % (A) 2 %; HCT 49.6 % (39.0-53.0); Lymphocytes # (A) 1.4 k/uL (1.0-4.8); Lymphocytes % (A) 22 %; MCH 29.6 pg (25.0-35.0); MCHC 32.3 g/dL (31.0-37.0); MCV 91.6 fL (80.0-100.0); Mean Platelet Volume 7.6; Monocytes # (A) 0.6 k/uL (0-1.0); Monocytes % (A) 9 %; Neutrophils % (A) 65 %; Platelet Count 228 k/uL (150-450); RBC 5.41 m/uL (4.30-5.90); WBC 6.2 k/uL (3.8-10.6)
[2023-09-05 18:14] VITALS: BP 112/68; PULSE 60; RESP 18; TEMP 98.1
== END 2023-09-05 17:53 | disposition home or self-care (01) ==
LOC: EC 13:41
DX: N20.0 Calculus of kidney (principal); I48.91 Unspecified atrial fibrillation; R00.1 Bradycardia, unspecified; E66.9 Obesity, unspecified; I10 Essential (primary) hypertension; Z87.891 Personal history of nicotine dependence; Z68.41 Body mass index [BMI] 40.0-44.9, adult; Z79.01 Long term (current) use of anticoagulants; Z88.8 Allergy status to other drugs, medicaments and biological substances
CPT/HCPCS: 36415; 74176; 80053; 81001; 85025; 85610; 85730; 99284

== ENCOUNTER 2024-01-11 09:40 | Emergency (ER) | payer MEDICARE, OTHER ==
[2024-01-11 10:44] LABS: Basophils % (A) 1 %; Eosinophils # (A) 0.1 k/uL (0-0.7); Eosinophils % (A) 2 %; HCT 47.2 % (39.0-53.0); HGB 15.5 gm/dL (13.0-17.5); Lymphocytes # (A) 1.2 k/uL (1.0-4.8); Lymphocytes % (A) 21 %; MCH 30.1 pg (25.0-35.0); MCHC 32.9 g/dL (31.0-37.0); MCV 91.5 fL (80.0-100.0); Mean Platelet Volume 6.7; Monocytes # (A) 0.5 k/uL (0-1.0); Monocytes % (A) 8 %; Neutrophils # (A) 3.9 k/uL (1.3-7.7); Neutrophils % (A) 68 %; Platelet Count 209 k/uL (150-450); RBC 5.15 m/uL (4.30-5.90); RDW 13.4 % (11.5-15.5); WBC 5.7 k/uL (3.8-10.6)
[2024-01-11 10:57] LABS: Partial Thromboplastin Time 25.9 sec (22.0-30.0); Prothrombin Time 10.8 sec (10.0-12.5)
[2024-01-11 11:03] LABS: ALT 22 U/L (4-49); AST 34 U/L (17-59); African American GFR (CKD) >90 (>60 ml/min/1.73 sqM); Albumin 3.6 g/dL (3.5-5.0); Alkaline Phosphatase 76 U/L (38-126); Anion Gap 5 mmol/L; Blood Urea Nitrogen 17 mg/dL (9-20); Carbon Dioxide 25 mmol/L (22-30); Chloride 107 mmol/L (98-107); Glucose 88 mg/dL (74-99); Non-African American GFR(CKD) >90 (>60 ml/min/1.73 sqM); Potassium 4.1 mmol/L (3.5-5.1); Sodium 137 mmol/L (137-145); Total Bilirubin 1.7 mg/dL (0.2-1.3); Total Protein 6.4 g/dL (6.3-8.2)
--- NOTE | 2024-01-11 11:05 | XR ---
EXAMINATION TYPE: XR chest 2V DATE OF EXAM: 01/11/2024 COMPARISON: 04/12/2023 INDICATION: Dysrhythmia TECHNIQUE: Frontal and lateral views of the chest are obtained. FINDINGS: The heart size is normal. Electronic device overlies the left chest The pulmonary vasculature is normal. The lungs are clear. IMPRESSION: 1. No acute pulmonary process. [facility], , 01/11/2024 11:03 AM
--- NOTE | 2024-01-11 11:29 | ED ---
Arrhythmia/Palpitations HPI - General Chief Complaint: Arrhythmia/Palpitations Stated Complaint: Afib Time Seen by Provider: 01/11/24 09:51 Source: patient, RN notes reviewed Mode of arrival: ambulatory Limitations: no limitations - History of Present Illness Initial Comments: 58-year-old male presents emergency department chief complaint of defibrillator firing. Patient states that he has a history of A-fib states he noticed he was in A-fib last night states he did take his metoprolol states it was not resolving so he went to take a shower to come to the hospital which she states was in the shower and felt his defibrillator go off. Patient states this was placed approximately a year ago when he had an GA. Patient states he has some discomfort over the his chest but has no other complaints she states she actually feels better than he did. - Related Data Home Medications Medication Instructions Recorded Confirmed HYDROcodone/APAP 10-325MG [[place] 1 - 1.5 tab PO Q8H PRN 01/13/15 01/11/24 10-325] Omeprazole 40 mg PO BID 12/09/22 01/11/24 traZODone HCL [Desyrel] 150 mg PO HS 12/09/22 01/11/24 Albuterol Sulfate [Albuterol 2 puff INHALATION RT-Q4H PRN 04/12/23 01/11/24 Sulfate Hfa] Apixaban [Eliquis] 5 mg PO BID 04/12/23 01/11/24 Aspirin 81 mg PO DAILY 04/12/23 01/11/24 Furosemide [Lasix] 40 mg PO DAILY 04/12/23 01/11/24 Spironolactone [Aldactone] 25 mg PO DAILY 04/12/23 01/11/24 Biotin [Zxrl-Eiey-Zyxfr] 10,000 mcg PO DAILY 01/11/24 01/11/24 Cyclobenzaprine [Flexeril] 5 mg PO TID PRN 01/11/24 01/11/24 Loratadine [Claritin] 10 mg PO DAILY 01/11/24 01/11/24 Metoprolol Tartrate [Lopressor] 25 mg PO BID 01/11/24 01/11/24 Naloxone HCl [Narcan] 1 spray NASAL DIRECTED PRN 01/11/24 01/11/24 Previous Rx's Medication Instructions Recorded lisinopriL [Zestril] 5 mg PO BID #60 tab 12/28/22 Allergies Allergy/AdvReac Type Severity Reaction Status Date / Time cat dander AdvReac Itching Verified 01/11/24 13:44 house dust AdvReac Itching Verified 01/11/24 13:44 pollen extracts AdvReac Itching Verified 01/11/24 13:44 Review of Systems ROS Statement: Those systems with pertinent positive or pertinent negative responses have been documented in the HPI. ROS Other: All systems not noted in ROS Statement are negative. Past Medical History Past Medical History: Atrial Fibrillation, GERD/Reflux, Hypertension, Musculoskeletal Disorder, Osteoarthritis (OA), Sleep Apnea/CPAP/BIPAP Additional Past Medical History / Comment(s): Chronic LOWER back & KNEE Pain. hx . enlarged spleen after fall 2016-no problems now that he knows of, KIDNEY STONES , vericose veins; herniated disc C6/c7, growth removed from inner left leg 2022 History of Any Multi-Drug Resistant Organisms: None Reported Past Surgical History: Back Surgery, Bariatric Surgery, Cholecystectomy, Hernia Repair, Orthopedic Surgery Additional Past Surgical History / Comment(s): UMBILICAL HERNIA, RT KNEE MENISCUS, GASTRIC SLEEVE 2011, LT Rotator cuff. ABSCESS CYST ON TAILBONE, LITHOTRIPSY 10/09/2017. VARICOSE VEINS REMOVED, AICD 2022 Past Anesthesia/Blood Transfusion Reactions: Previous Problems w/ Anesthesia Additional Past Anesthesia/Blood Transfusion Reaction / Comment(s): WOKE UP DURING KNEE SURGERY - only happened once. Past Psychological History: Anxiety, Depression Smoking Status: Former smoker Past Alcohol Use History: Rare Past Drug Use History: Marijuana - Past Family History Father History Unknown: Yes Family Medical History: Renal Disease Brother(s) History Unknown: Yes Family Medical History: Cancer Additional Family Medical History / Comment(s): KIDNEY CA General Exam Limitations: no limitations General appearance: alert, in no apparent distress Head exam: Present: atraumatic, normocephalic, normal inspection Eye exam: Present: normal appearance, PERRL, EOMI. Absent: scleral icterus, conjunctival injection, periorbital swelling ENT exam: Present: normal exam, normal oropharynx, mucous membranes moist Neck exam: Present: normal inspection, full ROM. Absent: tenderness, meningismus, lymphadenopathy Respiratory exam: Present: normal lung sounds bilaterally. Absent: respiratory distress, wheezes, rales, rhonchi, stridor Cardiovascular Exam: Present: regular rate, normal rhythm, normal heart sounds. Absent: systolic murmur, diastolic murmur, rubs, gallop, clicks Course Vital Signs 01/11/24 09:42 Temperature 97.5 F L Pulse Rate 75 Respiratory 20 Rate Blood Pressure 129/82 O2 Sat by Pulse 97 Oximetry EKG Findings - EKG Comments: EKG Findings:: EKG performed at 9: 47 sinus rhythm with first-degree block rate of 64 FL 221 QRS 105 QT/QTc 417/426 - EKG Results: EKG: interpreted by [facility] Medical Decision Making - Medical Decision Making Was pt. sent in by a medical professional or institution (, PA, SPECIAL EDUCATION DIRECTOR, urgent care, hospital, or penitentiary...) When possible be specific @ -No Did you speak to anyone other than the patient for history (EMS, parent, family, police, friend...)? What history was obtained from this source @ -No Did you review nursing and triage notes (agree or disagree)? Why? @ -I reviewed and agree with nursing and triage notes Were old charts reviewed (outside hosp., previous admission, EMS record, old EK G, old radiological studies, urgent care reports/EKG's, penitentiary records)? Report findings @ -No old charts were reviewed Differential Diagnosis (chest pain, altered mental status, abdominal pain women, abdominal pain men, vaginal bleeding, weakness, fever, dyspnea, syncope, headache, dizziness, GI bleed, back pain, seizure, CVA, palpatations, mental health, musculoskeletal)? @ -Differential Palpitations Ventricular arrhythmias, atrial arrhythmias, myocardial infarction, anemia, thyrotoxicosis, electrolyte imbalance, hypokalemia, pulmonary embolism, pulmonary disease, drugs, alcohol, anxiety, stress.... This is not meant to be an all-inclusive list. EKG interpreted by me (3pts min.). @ -As above X-rays interpreted by me (1pt min.). @ -Chest x-ray shows no acute cardiopulmonary process CT interpreted by me (1pt min.). @ -None done U/S interpreted by me (1pt. min.). @ -None done What testing was considered but not performed or refused? (CT, X-rays, U/S, labs)? Why? @ -None What meds were considered but not given or refused? Why? @ -None Did you discuss the management of the patient with other professionals (professionals i.e. , PA, SPECIAL EDUCATION DIRECTOR, lab, RT, psych nurse, social media marketer, machine assembler, teacher, community cultural development officer, rehabilitation caseworker)? Give summary @ -No Was smoking cessation discussed for >3mins.? @ -No Was critical care preformed (if so, how long)? @ -No Were there social determinants of health that impacted care today? How? (Homelessness, low income, unemployed, alcoholism, drug addiction, transportation, low edu. Level, literacy, decrease access to med. care, detention, rehab)? @ -No Was there de-escalation of care discussed even if they declined (Discuss DNR or withdrawal of care, Hospice)? DNR status @ -No What co-morbidities impacted this encounter? (DM, HTN, Smoking, COPD, CAD, Cancer, CVA, ARF, Chemo, Hep., AIDS, mental health diagnosis, sleep apnea, morbid obesity)? @ -CAD Was patient admitted / discharged? Hospital course, mention meds given and route, prescriptions, significant lab abnormalities, going to OR and other pertinent info. @ -Discharge patient laboratory studies unremarkable including EKG and chest x- ray, patient's defibrillator was interrogated showing episode of V-fib with a rate of 220 did receive shock at that time. Patient remains to be asymptomatic with unremarkable laboratory studies. I recommend the patient to be admitted and eval by cardiology patient states he already contacted his own insole lip turner any prefers to be discharged and follow-up. Undiagnosed new problem with uncertain prognosis? @ -No Drug Therapy requiring intensive monitoring for toxicity (Heparin, Nitro, Insulin, Cardizem)? @ -No Were any procedures done? @ -No Diagnosis/symptom? @ -Ventricular fibrillation Acute, or Chronic, or Acute on Chronic? @ -Acute Uncomplicated (without systemic symptoms) or Complicated (systemic symptoms)? @ -complicated Side effects of treatment? @ -No Exacerbation, Progression, or Severe Exacerbation? @ -No Poses a threat to life or bodily function? How? (Chest pain, USA, GA, pneumonia, PE, COPD, DKA, ARF, appy, cholecystitis, CVA, Diverticulitis, Homicidal, Suicidal, threat to staff... and all critical care pts) @ -yes Arrhythmia causing - Lab Data Result diagrams: 01/11/24 10:20 01/11/24 10:20 Lab Results 01/11/24 01/11/24 01/11/24 Range/Units 10:20 10:20 10:20 WBC 5.7 (3.8-10.6) k/uL RBC 5.15 (4.30-5.90) m/uL Hgb 15.5 (13.0-17.5) gm/dL Hct 47.2 (39.0-53.0) % MCV 91.5 (80.0-100.0) fL MCH 30.1 (25.0-35.0) pg MCHC 32.9 (31.0-37.0) g/dL RDW 13.4 (11.5-15.5) % Plt Count 209 (150-450) k/uL MPV 6.7 Neutrophils % 68 % Lymphocytes % 21 % Monocytes % 8 % Eosinophils % 2 % Basophils % 1 % Neutrophils # 3.9 (1.3-7.7) k/uL Lymphocytes # 1.2 (1.0-4.8) k/uL Monocytes # 0.5 (0-1.0) k/uL Eosinophils # 0.1 (0-0.7) k/uL Basophils # 0.0 (0-0.2) k/uL PT 10.8 (10.0-12.5) sec INR 1.0 (<1.2) APTT 25.9 (22.0-30.0) sec Sodium 137 (137-145) mmol/L Potassium 4.1 (3.5-5.1) mmol/L Chloride 107 (98-107) mmol/L Carbon Dioxide 25 (22-30) mmol/L Anion Gap 5 mmol/L BUN 17 (9-20) mg/dL Creatinine 0.89 (0.66-1.25) mg/dL Est GFR (CKD-EPI)AfAm >90 (>60 ml/min/1.73 sqM) Est GFR (CKD-EPI)NonAf >90 (>60 ml/min/1.73 sqM) Glucose 88 (74-99) mg/dL Calcium 9.0 (8.4-10.2) mg/dL Magnesium 2.0 (1.6-2.3) mg/dL Total Bilirubin 1.7 H (0.2-1.3) mg/dL AST 34 (17-59) U/L ALT 22 (4-49) U/L Alkaline Phosphatase 76 (38-126) U/L Troponin I (0.000-0.034) ng/mL Total Protein 6.4 (6.3-8.2) g/dL Albumin 3.6 (3.5-5.0) g/dL 01/11/24 Range/Units 10:20 WBC (3.8-10.6) k/uL RBC (4.30-5.90) m/uL Hgb (13.0-17.5) gm/dL Hct (39.0-53.0) % MCV (80.0-100.0) fL MCH (25.0-35.0) pg MCHC (31.0-37.0) g/dL RDW (11.5-15.5) % Plt Count (150-450) k/uL MPV Neutrophils % % Lymphocytes % % Monocytes % % Eosinophils % % Basophils % % Neutrophils # (1.3-7.7) k/uL Lymphocytes # (1.0-4.8) k/uL Monocytes # (0-1.0) k/uL Eosinophils # (0-0.7) k/uL Basophils # (0-0.2) k/uL PT (10.0-12.5) sec INR (<1.2) APTT (22.0-30.0) sec Sodium (137-145) mmol/L Potassium (3.5-5.1) mmol/L Chloride (98-107) mmol/L Carbon Dioxide (22-30) mmol/L Anion Gap mmol/L BUN (9-20) mg/dL Creatinine (0.66-1.25) mg/dL Est GFR (CKD-EPI)AfAm (>60 ml/min/1.73 sqM) Est GFR (CKD-EPI)NonAf (>60 ml/min/1.73 sqM) Glucose (74-99) mg/dL Calcium (8.4-10.2) mg/dL Magnesium (1.6-2.3) mg/dL Total Bilirubin (0.2-1.3) mg/dL AST (17-59) U/L ALT (4-49) U/L Alkaline Phosphatase (38-126) U/L Troponin I <0.012 (0.000-0.034) ng/mL Total Protein (6.3-8.2) g/dL Albumin (3.5-5.0) g/dL Disposition Clinical Impression: Ventricular fibrillation Disposition: HOME SELF-CARE Condition: Stable Instructions (If sedation given, give patient instructions): Heart Palpitations (ED) Additional Instructions: please return to the Emergency Department if symptoms worsen or any other concerns. Is patient prescribed a controlled substance at d/c from ED?: No Referrals: Ethan Rea DO [Primary Care Provider] - 1-2 days Time of Disposition: 14:37
[2024-01-11 16:46] VITALS: BP 135/85; PULSE 52; RESP 18; TEMP 97.8
== END 2024-01-11 14:42 | disposition home or self-care (01) ==
LOC: EC 09:40
CPT/HCPCS: 36415; 71046; 80053; 83735; 84484; 85025; 85610; 85730; 93005; 99285

== ENCOUNTER 2024-01-18 19:17 | Inpatient (IN) | payer MEDICARE, OTHER ==
--- NOTE | 2024-01-18 19:33 | ED ---
Arrhythmia/Palpitations HPI <EbonyMars - Last Filed: 01/18/24 23:21> - General Source: patient, RN notes reviewed, old records reviewed Mode of arrival: ambulatory Limitations: no limitations - History of Present Illness MD Complaint: rapid heart beat, "heart racing", atrial fibrillation Arrhythmia History: atrial fibrillation, SVT Associated Symptoms: chest pain Treatments Prior to Arrival: other (0) <Kevin Bruno - Last Filed: 01/25/24 21:58> - General Chief Complaint: Arrhythmia/Palpitations Stated Complaint: AFIB Time Seen by Provider: 01/18/24 19:25 - History of Present Illness Initial Comments: This is a 58-year-old male to the ER for evaluation of a rapid heart rate with history of A-fib and SVT coming in for severely elevated heart rate here in the emergency department. Patient is been taking all medications as prescribed and does follow with a wire annealer not at this facility (Kevin Bruno) - Related Data Home Medications Medication Instructions Recorded Confirmed HYDROcodone/APAP 10-325MG [[place] 1 - 1.5 tab PO Q8H PRN 01/13/15 01/18/24 10-325] Omeprazole 40 mg PO BID 12/09/22 01/18/24 traZODone HCL [Desyrel] 150 mg PO HS 12/09/22 01/18/24 Albuterol Sulfate [Albuterol 2 puff INHALATION RT-Q4H PRN 04/12/23 01/18/24 Sulfate Hfa] Apixaban [Eliquis] 5 mg PO BID 04/12/23 01/18/24 Aspirin 81 mg PO DAILY 04/12/23 01/18/24 Furosemide [Lasix] 40 mg PO DAILY 04/12/23 01/18/24 Spironolactone [Aldactone] 25 mg PO DAILY 04/12/23 01/18/24 Biotin [Zrdr-Vewz-Xocij] 10,000 mcg PO DAILY 01/11/24 01/18/24 Cyclobenzaprine [Flexeril] 5 mg PO TID PRN 01/11/24 01/18/24 Loratadine [Claritin] 10 mg PO DAILY 01/11/24 01/18/24 Naloxone HCl [Narcan] 1 spray NASAL DIRECTED PRN 01/11/24 01/18/24 Propafenone [Rythmol] 150 mg PO TID PRN 01/18/24 01/18/24 Previous Rx's Medication Instructions Recorded Amiodarone [Cordarone] 200 mg PO BID #60 tab 01/23/24 lisinopriL [Zestril] 5 mg PO DAILY #60 tab 01/23/24 Allergies Allergy/AdvReac Type Severity Reaction Status Date / Time cat dander AdvReac Itching Verified 01/18/24 19:22 house dust AdvReac Itching Verified 01/18/24 19:22 pollen extracts AdvReac Itching Verified 01/18/24 19:22 Review of Systems ROS Other: All systems not noted in ROS Statement are negative. <Mars Beck - Last Filed: 01/18/24 23:21> ROS Other: All systems not noted in ROS Statement are negative. <Kevin Bruno - Last Filed: 01/25/24 21:58> ROS Statement: Those systems with pertinent positive or pertinent negative responses have been documented in the HPI. Past Medical History Past Medical History: Atrial Fibrillation, GERD/Reflux, Hypertension, Musculoskeletal Disorder, Osteoarthritis (OA), Sleep Apnea/CPAP/BIPAP Additional Past Medical History / Comment(s): Chronic LOWER back & KNEE Pain. hx. enlarged spleen after fall 2016-no problems now that he knows of, KIDNEY STONES , vericose veins; herniated disc C6/c7, growth removed from inner left leg 2022 History of Any Multi-Drug Resistant Organisms: None Reported Past Surgical History: Back Surgery, Bariatric Surgery, Cholecystectomy, Hernia Repair, Orthopedic Surgery Additional Past Surgical History / Comment(s): UMBILICAL HERNIA, RT KNEE MENISCUS, GASTRIC SLEEVE 2011, LT Rotator cuff. ABSCESS CYST ON TAILBONE, LITHOTRIPSY 10/09/2017. VARICOSE VEINS REMOVED, AICD 2022 Past Anesthesia/Blood Transfusion Reactions: Previous Problems w/ Anesthesia Additional Past Anesthesia/Blood Transfusion Reaction / Comment(s): WOKE UP DURING KNEE SURGERY - only happened once. Past Psychological History: Anxiety, Depression Smoking Status: Former smoker Past Alcohol Use History: Rare Past Drug Use History: Marijuana - Past Family History Father History Unknown: Yes Family Medical History: Renal Disease Brother(s) History Unknown: Yes Family Medical History: Cancer Additional Family Medical History / Comment(s): KIDNEY CA <Kevin Bruno - Last Filed: 01/25/24 21:58> General Exam Limitations: no limitations General appearance: alert, anxious, in distress Head exam: Present: atraumatic, normocephalic, normal inspection Eye exam: Present: normal appearance, PERRL, EOMI. Absent: scleral icterus, conjunctival injection, periorbital swelling ENT exam: Present: normal exam, mucous membranes moist Neck exam: Present: normal inspection. Absent: tenderness, meningismus, lymphadenopathy Respiratory exam: Present: normal lung sounds bilaterally. Absent: respiratory distress, wheezes, rales, rhonchi, stridor Cardiovascular Exam: Present: tachycardia, irregular rhythm, normal heart sounds. Absent: systolic murmur, diastolic murmur, rubs, gallop, clicks GI/Abdominal exam: Present: soft, normal bowel sounds. Absent: distended, tenderness, guarding, rebound, rigid Extremities exam: Present: normal inspection, full ROM, normal capillary refill. Absent: tenderness, pedal edema, joint swelling, calf tenderness Back exam: Present: normal inspection Neurological exam: Present: alert, oriented X3, CN II-XII intact Psychiatric exam: Present: normal affect, normal mood Skin exam: Present: warm, dry, intact, normal color. Absent: rash <Kevin Bruno - Last Filed: 01/25/24 21:58> Course <Mars Beck - Last Filed: 01/18/24 23:21> <Kevin Bruno - Last Filed: 01/25/24 21:58> Vital Signs 01/18/24 01/18/24 01/18/24 19:20 21:22 22:30 Temperature 98.2 F Pulse Rate 62 156 H 116 H Pulse Rate [ Medical Engineer ] Respiratory 18 18 14 Rate Blood Pressure 178/91 111/71 118/74 Blood Pressure [Right Arm] O2 Sat by Pulse 98 99 95 Oximetry 01/18/24 01/19/24 01/19/24 23:00 00:00 00:35 Temperature Pulse Rate 140 H 101 H 116 H Pulse Rate [ Medical Engineer ] Respiratory 20 14 13 Rate Blood Pressure 128/86 100/65 Blood Pressure [Right Arm] O2 Sat by Pulse 99 98 98 Oximetry 01/19/24 01/19/24 01/19/24 04:00 09:37 13:48 Temperature 98.3 F 97.5 F L Pulse Rate 112 H 90 Pulse Rate [ 107 H Medical Engineer ] Respiratory 18 20 18 Rate Blood Pressure 107/94 127/84 Blood Pressure 122/63 [Right Arm] O2 Sat by Pulse 97 98 98 Oximetry 01/19/24 15:04 Temperature 97.2 F L Pulse Rate 92 Pulse Rate [ Medical Engineer ] Respiratory 20 Rate Blood Pressure 132/89 Blood Pressure [Right Arm] O2 Sat by Pulse 98 Oximetry - Reevaluation(s) Reevaluation #1: 01/18/24 21:23 medical record is reviewed (Kevin Bruno) Reevaluation #2: 01/18/24 21:38 Symptoms improved (Kevin Bruno) Reevaluation #3: 01/18/24 22:42 Patient is informed of results and questions answered (Kevin Bruno) Reevaluation #4: Was pt. sent in by a medical professional or institution (, PA, APN, urgent care, hospital, or jail...) When possible be specific @ -no Did you speak to anyone other than the patient for history (EMS, parent, family, police, friend...)? What history was obtained from this source @ -no Did you review nursing and triage notes (agree or disagree)? Why? @ -agree Are old charts reviewed (outside hosp., previous admission, EMS record, old EKG, old radiological studies, urgent care reports/EKG's, jail records)? Report findings @ -yes Differential Diagnosis (chest pain, altered mental status, abdominal pain women, abdominal pain men, vaginal bleeding, weakness, fever, dyspnea, syncope, headache, dizziness, GI bleed, back pain, seizure, CVA, palpatations, mental health, musculoskeletal)? @ -prior EKG interpreted by me (3pts min.). @ -yes X-rays interpreted by me (1pt min.). @ -yes negative for acute disease CT interpreted by me (1pt min.). @ -no U/S interpreted by me (1pt. min.). @ -no What testing was considered but not performed or refused? (CT, X-rays, U/S, labs)? Why? @ -none What meds were considered but not given or refused? Why? @ -none Did you discuss the management of the patient with other professionals (professionals i.e. , PA, APN, lab, RT, psych nurse, sexual assault social worker, yard caller, teacher, cavalry officer, spring encaser)? Give summary @ -no Was smoking cessation discussed for >3mins.? @ -no Was critical care preformed (if so, how long)? @ -yes31 Were there social determinants of health that impacted care today? How? (Homelessness, low income, unemployed, alcoholism, drug addiction, transportation, low edu. Level, literacy, decrease access to med. care, usp, rehab)? @ -none Was there de-escalation of care discussed even if they declined (Discuss DNR or withdrawal of care, Hospice)? DNR status @ -no What co-morbidities impacted this encounter? (DM, HTN, Smoking, COPD, CAD, Cancer, CVA, ARF, Chemo, Hep., AIDS, mental health diagnosis, sleep apnea, morbid obesity)? @ -none Was patient admitted / discharged? Hospital course, mention meds given and route, prescriptions, significant lab abnormalities, going to OR and other pertinent info. @ - 58 male to the ER for evaluation of A-fib with RVR. Patient admitted for persistent atrial fibrillation and RVR Admitted Undiagnosed new problem with uncertain prognosis? @ -no Drug Therapy requiring intensive monitoring for toxicity (Heparin, Nitro, Insulin, Cardizem)? @ -no Were any procedures done? @ -no Diagnosis/symptom? @ -Atrial fibrillation RVR Acute, or Chronic, or Acute on Chronic? @ -Acute Uncomplicated (without systemic symptoms) or Complicated (systemic symptoms)? @ -Complicated Side effects of treatment? @ -no Exacerbation, Progression, or Severe Exacerbation? @ -exacerbation Poses a threat to life or bodily function? How? (Chest pain, [place], [place], pneumonia, PE, COPD, DKA, ARF, appy, cholecystitis, CVA, Diverticulitis, Homicidal, Suicidal, threat to staff... and all critical care pts) @ -yes arrhythmia (Kevin Bruno) Reevaluation #5: Differential Palpitations Ventricular arrhythmias, atrial arrhythmias, myocardial infarction, anemia, thyrotoxicosis, electrolyte imbalance, hypokalemia, pulmonary embolism, pulmonary disease, drugs, alcohol, anxiety, stress.... This is not meant to be an all-inclusive list. (Kevin Bruno) - Consultations Consultation #1: Informed of results and questions answered (Kevin Bruno) Consultation #2: I was asked to enter the admission orders for this patient as Dr. Bruno Had logged out, no other patient interaction (Mars Beck) EKG Findings - EKG Comments: EKG Findings:: EKG is A-fib with RVR 135 QRS 101 QTc 392 - EKG Results: EKG: interpreted by ERMD <Kevin Bruno - Last Filed: 01/25/24 21:58> Medical Decision Making - Lab Data Result diagrams: 01/18/24 20:00 01/18/24 20:00 <Mars Beck - Last Filed: 01/18/24 23:21> - Lab Data Result diagrams: 01/18/24 20:00 01/22/24 06:21 - EKG Data -: EKG Interpreted by Me - Radiology Data Radiology results: report reviewed (Chest x-ray is negative for acute disease), image reviewed <Kevin Bruno - Last Filed: 01/25/24 21:58> - Medical Decision Making 58 male to the ER for evaluation of A-fib with RVR. Patient admitted for persistent atrial fibrillation and RVR 15 (Kevin Bruno) - Lab Data Lab Results 01/18/24 01/18/24 01/18/24 Range/Units 20:00 20:00 20:00 WBC 5.9 (3.8-10.6) k/uL RBC 4.74 (4.30-5.90) m/uL Hgb 14.3 (13.0-17.5) gm/dL Hct 43.3 (39.0-53.0) % MCV 91.4 (80.0-100.0) fL MCH 30.3 (25.0-35.0) pg MCHC 33.1 (31.0-37.0) g/dL RDW 13.2 (11.5-15.5) % Plt Count 198 (150-450) k/uL MPV 6.9 Neutrophils % 66 % Lymphocytes % 22 % Monocytes % 8 % Eosinophils % 2 % Basophils % 1 % Neutrophils # 3.9 (1.3-7.7) k/uL Lymphocytes # 1.3 (1.0-4.8) k/uL Monocytes # 0.5 (0-1.0) k/uL Eosinophils # 0.1 (0-0.7) k/uL Basophils # 0.0 (0-0.2) k/uL PT 11.0 (10.0-12.5) sec INR 1.0 (<1.2) APTT 26.6 (22.0-30.0) sec Sodium 139 (137-145) mmol/L Potassium 3.8 (3.5-5.1) mmol/L Chloride 107 (98-107) mmol/L Carbon Dioxide 24 (22-30) mmol/L Anion Gap 8 mmol/L BUN 15 (9-20) mg/dL Creatinine 0.90 (0.66-1.25) mg/dL Est GFR (CKD-EPI)AfAm >90 (>60 ml/min/1.73 sqM) Est GFR (CKD-EPI)NonAf >90 (>60 ml/min/1.73 sqM) Glucose 117 H (74-99) mg/dL Plasma Lactic Acid Shane (0.7-2.0) mmol/L Calcium 9.1 (8.4-10.2) mg/dL Phosphorus 4.1 (2.5-4.5) mg/dL Magnesium 1.8 (1.6-2.3) mg/dL Total Bilirubin 1.1 (0.2-1.3) mg/dL AST 44 (17-59) U/L ALT 31 (4-49) U/L Alkaline Phosphatase 78 (38-126) U/L Troponin I (0.000-0.034) ng/mL NT-Pro-B Natriuret Pep 1350 pg/mL Total Protein 6.3 (6.3-8.2) g/dL Albumin 3.6 (3.5-5.0) g/dL Triglycerides (0.00-149.00) mg/dL Cholesterol (0.00-200.00) mg/dL LDL Cholesterol, Calc (0.0-131.0) mg/dL VLDL Cholesterol, Calc (5.00-40.00) mg/dL HDL Cholesterol (40.00-60.00) mg/dL Cholesterol/HDL Ratio Ratio TSH 1.400 (0.465-4.680) mIU/L 01/18/24 01/18/24 01/18/24 Range/Units 20:00 20:00 20:00 WBC (3.8-10.6) k/uL RBC (4.30-5.90) m/uL Hgb (13.0-17.5) gm/dL Hct (39.0-53.0) % MCV (80.0-100.0) fL MCH (25.0-35.0) pg MCHC (31.0-37.0) g/dL RDW (11.5-15.5) % Plt Count (150-450) k/uL MPV Neutrophils % % Lymphocytes % % Monocytes % % Eosinophils % % Basophils % % Neutrophils # (1.3-7.7) k/uL Lymphocytes # (1.0-4.8) k/uL Monocytes # (0-1.0) k/uL Eosinophils # (0-0.7) k/uL Basophils # (0-0.2) k/uL PT (10.0-12.5) sec INR (<1.2) APTT (22.0-30.0) sec Sodium (137-145) mmol/L Potassium (3.5-5.1) mmol/L Chloride (98-107) mmol/L Carbon Dioxide (22-30) mmol/L Anion Gap mmol/L BUN (9-20) mg/dL Creatinine (0.66-1.25) mg/dL Est GFR (CKD-EPI)AfAm (>60 ml/min/1.73 sqM) Est GFR (CKD-EPI)NonAf (>60 ml/min/1.73 sqM) Glucose (74-99) mg/dL Plasma Lactic Acid Shane 1.1 (0.7-2.0) mmol/L Calcium (8.4-10.2) mg/dL Phosphorus (2.5-4.5) mg/dL Magnesium (1.6-2.3) mg/dL Total Bilirubin (0.2-1.3) mg/dL AST (17-59) U/L ALT (4-49) U/L Alkaline Phosphatase (38-126) U/L Troponin I <0.012 (0.000-0.034) ng/mL NT-Pro-B Natriuret Pep pg/mL Total Protein (6.3-8.2) g/dL Albumin (3.5-5.0) g/dL Triglycerides 108.00 (0.00-149.00) mg/dL Cholesterol 180.00 (0.00-200.00) mg/dL LDL Cholesterol, Calc 106.7 (0.0-131.0) mg/dL VLDL Cholesterol, Calc 21.60 (5.00-40.00) mg/dL HDL Cholesterol 51.70 (40.00-60.00) mg/dL Cholesterol/HDL Ratio 3.48 Ratio TSH (0.465-4.680) mIU/L Critical Care Time Critical Care Time: Yes Total Critical Care Time: 31 <Kevin Bruno - Last Filed: 01/25/24 21:58> Disposition <Mars Beck - Last Filed: 01/18/24 23:21> Is patient prescribed a controlled substance at d/c from ED?: No Time of Disposition: 22:40 <Kevin Bruno - Last Filed: 01/25/24 21:58> Clinical Impression: Atrial fibrillation, Tachycardia, Palpitations, Atrial flutter with rapid ventricular response Disposition: ADMITTED IP TO THIS HOSP Condition: Fair
[2024-01-18] MEDS: DILTIAZEM DRIP BOLUS FROM BAG 1 MG SOLN IV ONE ×2 (20:02→21:09)
[2024-01-18] MEDS: MORPHINE SULFATE 2 MG/ML SYRINGE IVP STA (20:03)
[2024-01-18] MEDS: DILTIAZEM 125 MG in SODIUM CHLORIDE 0.9% 100 ML IV SCH (20:04)
[2024-01-18] MEDS: SODIUM CHLORIDE 0.9% 1,000 ML IV STA (20:04)
[2024-01-18 20:12] LABS: Basophils % (A) 1 %; Eosinophils # (A) 0.1 k/uL (0-0.7); Eosinophils % (A) 2 %; HCT 43.3 % (39.0-53.0); HGB 14.3 gm/dL (13.0-17.5); Lymphocytes # (A) 1.3 k/uL (1.0-4.8); Lymphocytes % (A) 22 %; MCH 30.3 pg (25.0-35.0); MCHC 33.1 g/dL (31.0-37.0); MCV 91.4 fL (80.0-100.0); Mean Platelet Volume 6.9; Monocytes # (A) 0.5 k/uL (0-1.0); Monocytes % (A) 8 %; Neutrophils # (A) 3.9 k/uL (1.3-7.7); Neutrophils % (A) 66 %; Platelet Count 198 k/uL (150-450); RBC 4.74 m/uL (4.30-5.90); RDW 13.2 % (11.5-15.5); WBC 5.9 k/uL (3.8-10.6)
[2024-01-18 20:22] LABS: ALT 31 U/L (4-49); AST 44 U/L (17-59); African American GFR (CKD) >90 (>60 ml/min/1.73 sqM); Albumin 3.6 g/dL (3.5-5.0); Alkaline Phosphatase 78 U/L (38-126); Anion Gap 8 mmol/L; Blood Urea Nitrogen 15 mg/dL (9-20); Calcium 9.1 mg/dL (8.4-10.2); Carbon Dioxide 24 mmol/L (22-30); Chloride 107 mmol/L (98-107); Glucose 117 mg/dL (74-99); Magnesium 1.8 mg/dL (1.6-2.3); Non-African American GFR(CKD) >90 (>60 ml/min/1.73 sqM); Phosphorus 4.1 mg/dL (2.5-4.5); Potassium 3.8 mmol/L (3.5-5.1); Sodium 139 mmol/L (137-145); Total Bilirubin 1.1 mg/dL (0.2-1.3); Total Protein 6.3 g/dL (6.3-8.2)
[2024-01-18 20:25] LABS: Partial Thromboplastin Time 26.6 sec (22.0-30.0)
--- NOTE | 2024-01-18 20:27 | XR ---
EXAMINATION: XR chest 1V portable DATE AND TIME: 01/18/2024 8:15 PM CLINICAL INDICATION: PHH; sob TECHNIQUE: Departmental protocol COMPARISON: None FINDINGS / IMPRESSION: Single lead cardiac pacemaker and EKG leads noted. No acute pulmonary process. Global or the abdomen for urinary projects a lot of Pleural spaces are negative. Cardiopericardial silhouette is not enlarged. Skeletal structures and soft tissues are negative for acute findings. [facility], , 01/18/2024 8:25 PM
[2024-01-18 20:31] LABS: NT-Pro-B-Type Natriuretic Pept 1350 pg/mL
[2024-01-18] MEDS: MAGNESIUM SULFATE-D5W PMX 1 GM in DEXTROSE/WATER 1 100ML.BAG IVPB ONE (21:08)
[2024-01-18] MEDS: METOPROLOL TARTRATE 5 MG/5 ML VIAL IVP STA (21:09)
[2024-01-18] MEDS: MAGNESIUM OXIDE 400 MG TAB PO STA (22:18)
[2024-01-18] MEDS: DEXTROSE 5% IN WATER 100 ML with AMIODARONE 150 MG IV ONE (22:29)
[2024-01-18] MEDS ORDERED: WATER IV ONE (22:30)
[2024-01-18] MEDS ORDERED: AMIODARONE IV ONE (22:30)
[2024-01-18] MEDS ORDERED: DEXTROSE 5% IV ONE (22:30)
[2024-01-18] MEDS ORDERED: DEXTROSE 5% IN WATER 250 ML with AMIODARONE 300 MG IV ONE (22:30)
[2024-01-18] MEDS: AMIODARONE IV ONE (22:41)
[2024-01-18] MEDS: WATER IV ONE (22:41)
[2024-01-18] MEDS: DEXTROSE 5% IV ONE (22:41)
[2024-01-18] MEDS ORDERED: NITROGLYCERIN SL TABS 0.4 MG TAB SUBLINGUAL PRN (23:18)
[2024-01-18] MEDS: HYDROcodone/APAP 10-325MG 1 EACH TAB PO ONE (23:42)
[2024-01-19] MEDS: traZODone HCL 100 MG TAB PO SCH ×2 (00:11→20:51)
[2024-01-19] MEDS ORDERED: CYCLOBENZAPRINE 5 MG TAB PO PRN (06:57)
[2024-01-19] MEDS ORDERED: METOPROLOL TARTRATE 25 MG TAB PO SCH (09:00)
[2024-01-19] MEDS: APIXABAN 5 MG TAB PO SCH ×2 (09:33→17:35)
[2024-01-19] MEDS: ASPIRIN 325 MG TAB PO SCH (09:34)
[2024-01-19] MEDS: PANTOPRAZOLE 40 MG TABLET PO SCH (09:34)
[2024-01-19] MEDS: METOPROLOL TARTRATE 50 MG TAB PO SCH ×2 (09:35→17:36)
[2024-01-19] MEDS: SPIRONOLACTONE 25 MG TAB PO SCH (09:35)
[2024-01-19] MEDS: lisinopriL 5 MG TAB PO SCH ×2 (09:35→17:35)
[2024-01-19] MEDS: FUROSEMIDE 40 MG TAB PO SCH (09:35)
[2024-01-19] MEDS ORDERED: ALBUTEROL NEBULIZED 2.5 MG/3 ML INHALATION PRN (09:40)
[2024-01-19] MEDS ORDERED: PANTOPRAZOLE 40 MG TABLET PO SCH (09:45)
[2024-01-19] MEDS: ASPIRIN 81 MG PO SCH (09:49)
[2024-01-19] MEDS: LORATADINE 10 MG TAB PO SCH ×2 (09:52→17:36)
[2024-01-19] MEDS: HYDROcodone/APAP 10-325MG 1 EACH TAB PO PRN (09:53)
[2024-01-19 10:59] LABS: Chol/HDL Ratio 3.48 Ratio; LDL Cholesterol,Calculated 106.7 mg/dL (0.0-131.0)
[2024-01-19] MEDS ORDERED: ACETAMINOPHEN TAB 325 MG TAB PO PRN (11:13)
[2024-01-19] MEDS ORDERED: NALOXONE 0.4 MG/ML 1 ML VIAL IV PRN (11:13)
[2024-01-19] MEDS ORDERED: MELATONIN 3 MG TABLET PO PRN (11:13)
[2024-01-19] MEDS ORDERED: ONDANSETRON 4 MG/2 ML VIAL IVP PRN (11:13)
[2024-01-19] MEDS ORDERED: ALPRAZolam 0.25 MG TAB PO PRN (11:13)
[2024-01-19] MEDS ORDERED: LACTULOSE 20 GM/30 ML CUP PO PRN (11:13)
--- NOTE | 2024-01-19 15:52 | P.HPIM ---
History of Present Illness H&P Date: 01/19/24 Chief Complaint: Heart racing 58-year-old patient who follows with Dr. Rea. Patient is on disability. Lives with fiance. does about 3-4 marijuana day. Patient has AICD. Recently saw his bulldozer engineer . He was told his AICD fired because of uncontrolled A-fib. Yesterday evening around 7 PM patient felt a nervous sensation checked his pulse heart rate was over 200. Decided to come in. Just tired. Ordered IV Cardizem drip in the ER. Patient does take Rythmol on a as needed basis. Review of systems: GEN.: Tired EYES: [None] HEENT: [None] NECK: [None] RESPIRATORY: [None] CARDIOVASCULAR: [As above] GASTROINTESTINAL: [None] GENITOURINARY: [None] MUSCULOSKELETAL: [None] LYMPHATICS: [None] HEMATOLOGICAL: [None] PSYCHIATRY: [None] NEUROLOGICAL: [None] Social history: This is his fiance. He is on disability. 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 No smoki ng or alcohol. average about 3-4 marijuana joints a day Physical examination: VITAL SIGNS: 97.5, 112, 20, 107/94, 98% room air GENERAL: BMI 40.4, reclining bed awake not in distress EYES: Pupils equal. Conjunctiva normal. HEENT: External appearance of nose and ears normal, oral cavity grossly normal endotracheal tube. NECK: JVD unable to assess; masses not palpable. HEART: Heart sounds irregular; no edema. LUNGS:[ Respiratory rate normal, fair air entry ABDOMEN: Soft, nontender, liver spleen not palpable, no masses palpable. PSYCH: AOx3, mood affect normal MUSCULOSKELETAL:No Clubbing/cyanosis;muscles-grossly intact. LYMPHATICS: No lymph node palpable neck and axilla INVESTIGATIONS, reviewed in the clinical context: January 17: White count 5.9 hemoglobin 14.3 platelets 198 potassium 3.8 creatinine 0.9 Troponin I less than 0.012 x 2. proBNP 1350 LDL 106 EKG tracing personally reviewed by me-atrial fibrillation. Rate 135. ST/T wave changes. Chest x-ray film personally reviewed by me-some cardiomegaly Previous test: March 2023: EF 50-55%. Severe right ventricle and right atrial dilatation. Assessment and plan: -Has known atrial fibrillation. Now presents with rapid ventricular rate, symptomatic At home was taking Eliquis. Lopressor 25 twice daily and Rythmol as needed Currently on IV Cardizem drip, Lopressor increased to 50 mg twice daily. Telemetry. Cardiology following -Nonobstructive coronary artery disease with 60-70% mid LAD stenosis, and RCA lesion. Follows with his bulldozer engineer , out of the area Aspirin. Lipitor. Lopressor -Recreational marijuana use. -Morbid obesity BMI 40.4 Weight loss measures. -Prior history of cardiac arrest in systolic cardiac dysfunction. 2D echo from March 2023 shows preserved LV function -GERD PPI -Essential hypertension Lopressor Zestril -Chronic insomnia Trazodone 150 mg daily at bedtime -Full code Care was discussed with patient. Home medication resumed. Follow with cardiology. Past Medical History Past Medical History: Atrial Fibrillation, GERD/Reflux, Hypertension, Musculoskeletal Disorder, Osteoarthritis (OA), Sleep Apnea/CPAP/BIPAP Additional Past Medical History / Comment(s): Chronic LOWER back & KNEE Pain. hx. enlarged spleen after fall 2016-no problems now that he knows of, KIDNEY STONES , vericose veins; herniated disc C6/c7, growth removed from inner left leg 2022 History of Any Multi-Drug Resistant Organisms: None Reported Past Surgical History: Back Surgery, Bariatric Surgery, Cholecystectomy, Hernia Repair, Orthopedic Surgery Additional Past Surgical History / Comment(s): UMBILICAL HERNIA, RT KNEE MENISCUS, GASTRIC SLEEVE 2011, LT Rotator cuff. ABSCESS CYST ON TAILBONE, LITHOTRIPSY 10/09/2017. VARICOSE VEINS REMOVED, AICD 2022 Past Anesthesia/Blood Transfusion Reactions: Previous Problems w/ Anesthesia Additional Past Anesthesia/Blood Transfusion Reaction / Comment(s): WOKE UP DURING KNEE SURGERY - only happened once. Past Psychological History: Anxiety, Depression Smoking Status: Former smoker Past Alcohol Use History: Rare Additional Past Alcohol Use History / Comment(s): SMOKED 1 PPD, QUIT 2009. Past Drug Use History: Marijuana Additional Drug Use History / Comment(s): SMOKES MARIJUANA FOR BACK PAIN DAILY, TOTAL 3 joints DAILY. - Past Family History Father History Unknown: Yes Family Medical History: Renal Disease Brother(s) History Unknown: Yes Family Medical History: Cancer Additional Family Medical History / Comment(s): KIDNEY [place] Medications and Allergies Home Medications Medication Instructions Recorded Confirmed Type HYDROcodone/APAP 10-325MG [[place] 1 - 1.5 tab PO Q8H PRN 01/13/15 01/18/24 History 10-325] Omeprazole 40 mg PO BID 12/09/22 01/18/24 History traZODone HCL [Desyrel] 150 mg PO HS 12/09/22 01/18/24 History lisinopriL [Zestril] 5 mg PO BID #60 tab 12/28/22 01/18/24 Rx Albuterol Sulfate [Albuterol 2 puff INHALATION RT-Q4H PRN 04/12/23 01/18/24 History Sulfate Hfa] Apixaban [Eliquis] 5 mg PO BID 04/12/23 01/18/24 History Aspirin 81 mg PO DAILY 04/12/23 01/18/24 History Furosemide [Lasix] 40 mg PO DAILY 04/12/23 01/18/24 History Spironolactone [Aldactone] 25 mg PO DAILY 04/12/23 01/18/24 History Biotin [Hjuf-Xmtz-Grcvj] 10,000 mcg PO DAILY 01/11/24 01/18/24 History Cyclobenzaprine [Flexeril] 5 mg PO TID PRN 01/11/24 01/18/24 History Loratadine [Claritin] 10 mg PO DAILY 01/11/24 01/18/24 History Metoprolol Tartrate [Lopressor] 25 mg PO BID 01/11/24 01/18/24 History Naloxone HCl [Narcan] 1 spray NASAL DIRECTED PRN 01/11/24 01/18/24 History Propafenone [Rythmol] 150 mg PO TID PRN 01/18/24 01/18/24 History Allergies Allergy/AdvReac Type Severity Reaction Status Date / Time cat dander AdvReac Itching Verified 01/18/24 19:22 house dust AdvReac Itching Verified 01/18/24 19:22 pollen extracts AdvReac Itching Verified 01/18/24 19:22 Physical Exam Vitals: Vital Signs Temp Pulse Pulse Resp BP BP Pulse Ox 01/19/24 04:00 98.3 F 107 H 18 122/63 97 01/19/24 00:35 116 H 13 100/65 98 01/19/24 00:00 101 H 14 128/86 98 01/18/24 23:00 140 H 20 99 01/18/24 22:30 116 H 14 118/74 95 01/18/24 21:22 156 H 18 111/71 99 01/18/24 19:20 98.2 F 62 18 178/91 98 Intake and Output 01/18/24 01/19/24 01/19/24 22:59 06:59 14:59 Other: Voiding Method Toilet Weight 142.882 kg 142.882 kg Results CBC & Chem 7: 01/18/24 20:00 01/18/24 20:00 Labs: Abnormal Lab Results - Last 24 Hours (Table) 01/18/24 Range/Units 20:00 Glucose 117 H (74-99) mg/dL Thrombosis Risk Factor Assmnt - Choose All That Apply Any of the Below Risk Factors Present?: Yes Each Factor Represents 1 point: Age 41-60 years, Obesity (BMI >25) Thrombosis Risk Factor Assessment Total Risk Factor Score: 2 Thrombosis Risk Factor Assessment Level: Low Risk
--- NOTE | 2024-01-19 16:22 | P.CRDCN ---
History of Present Illness Consult date: 01/19/24 Reason for Consult (text): A-fib with RVR History of present illness: HISTORY OF PRESENT ILLNESS: This is a 58-year-old gentleman with history of hypertension and paroxysmal atrial fibrillation. Patient had seen Dr. Prado in 2019, but has not had any recent follow-up with our office. He states that he sees Dr. Escobedo from [facility] and Dr. Beltran. We have been asked to see this patient in consultation for A-fib with RVR. Patient was examined at the bedside in the emergency room. Patient states he came to the hospital because his heart rate was over 200, he felt his defibrillator go off and he was nervous. He states he had an WA 1 year ago. He also states he had an ablation 3 to 4 years ago. He denies any history of heart failure, wheezing, bleeding in the stool/urine, leg swelling.Patient came to the ER 1 week ago for complaint of defibrillator firing due to his A- fib, but was just observed and discharged home. Patient states he smokes marijuana everyday, drinks 1 cup of coffee, and denies alcohol use. DIAGNOSTICS: -EKG shows A-fib with RVR, rate of 135 -Chest x-ray shows no acute pulmonary process -Labs: CBC unremarkable. Glucose 117. Rest of CMP unremarkable. Troponins x 2 normal. NT proBNP 1350. -No recent echocardiogram. -Current cardiac medications include Eliquis 5 mg twice daily, aspirin 81 mg daily, Lasix 40 mg daily, lisinopril 5 mg twice daily, Lopressor 25 mg twice daily, propafenone 150 mg 3 times daily as needed, spironolactone 25 mg daily REVIEW OF SYSTEMS: As noted above in HPI. All other systems negative. PHYSICAL EXAM: VITAL SIGNS: Reviewed. GENERAL: Well-developed in no acute distress. HEENT: Head is normocephalic. Pupils are equal, round. Sclerae anicteric. Mucous membranes of the mouth are moist. Neck supple. No JVD or thyromegaly LUNGS: Respirations even and unlabored. Some crackles bilaterally. HEART: Irregular rate and rhythm. S1 and S2 heard. No murmurs, rubs, gallops. ABDOMEN: Soft. Nontender to palpation. EXTREMITIES: Normal range of motion. No clubbing or cyanosis. Peripheral pulse s intact. Minimal edema in R lower extremity NEUROLOGIC: Awake and alert. Oriented x 3. ASSESSMENT: A-fib with RVR Paroxysmal A-fib, increasing frequency of episodes Hx of Cardiac arrest Hypertension Nonobstructive coronary artery disease Recreational marijuana use GERD Insomnia PLAN: Obtain Echocardiogram Increased Metoprolol to 50mg BID for better rate control Continue Cardizem drip May consider ablation in future due to breakthrough episodes while on propafenone Monitor vital signs, volume status, electrolytes and renal function Further recommendations to follow based upon clinical course Thank you kindly for this consultation. Past Medical History Past Medical History: Atrial Fibrillation, GERD/Reflux, Hypertension, Musculoskeletal Disorder, Osteoarthritis (OA), Sleep Apnea/CPAP/BIPAP Additional Past Medical History / Comment(s): Chronic LOWER back & KNEE Pain. hx. enlarged spleen after fall 2016-no problems now that he knows of, KIDNEY STONES , vericose veins; herniated disc C6/c7, growth removed from inner left leg 2022 History of Any Multi-Drug Resistant Organisms: None Reported Past Surgical History: Back Surgery, Bariatric Surgery, Cholecystectomy, Hernia Repair, Orthopedic Surgery Additional Past Surgical History / Comment(s): UMBILICAL HERNIA, RT KNEE MENISCUS, GASTRIC SLEEVE 2011, LT Rotator cuff. ABSCESS CYST ON TAILBONE, LITHOTRIPSY 10/09/2017. VARICOSE VEINS REMOVED, AICD 2022 Past Anesthesia/Blood Transfusion Reactions: Previous Problems w/ Anesthesia Additional Past Anesthesia/Blood Transfusion Reaction / Comment(s): WOKE UP DURING KNEE SURGERY - only happened once. Past Psychological History: Anxiety, Depression Smoking Status: Former smoker Past Alcohol Use History: Rare Additional Past Alcohol Use History / Comment(s): SMOKED 1 PPD, QUIT 2009. Past Drug Use History: Marijuana Additional Drug Use History / Comment(s): SMOKES MARIJUANA FOR BACK PAIN DAILY, TOTAL 3 joints DAILY. - Past Family History Father History Unknown: Yes Family Medical History: Renal Disease Brother(s) History Unknown: Yes Family Medical History: Cancer Additional Family Medical History / Comment(s): KIDNEY [place] Medications and Allergies Home Medications Medication Instructions Recorded Confirmed Type HYDROcodone/APAP 10-325MG [Acton 1 - 1.5 tab PO Q8H PRN 01/13/15 01/18/24 History 10-325] Omeprazole 40 mg PO BID 12/09/22 01/18/24 History traZODone HCL [Desyrel] 150 mg PO HS 12/09/22 01/18/24 History lisinopriL [Zestril] 5 mg PO BID #60 tab 12/28/22 01/18/24 Rx Albuterol Sulfate [Albuterol 2 puff INHALATION RT-Q4H PRN 04/12/23 01/18/24 History Sulfate Hfa] Apixaban [Eliquis] 5 mg PO BID 04/12/23 01/18/24 History Aspirin 81 mg PO DAILY 04/12/23 01/18/24 History Furosemide [Lasix] 40 mg PO DAILY 04/12/23 01/18/24 History Spironolactone [Aldactone] 25 mg PO DAILY 04/12/23 01/18/24 History Biotin [Dghp-Nuad-Xhzas] 10,000 mcg PO DAILY 01/11/24 01/18/24 History Cyclobenzaprine [Flexeril] 5 mg PO TID PRN 01/11/24 01/18/24 History Loratadine [Claritin] 10 mg PO DAILY 01/11/24 01/18/24 History Metoprolol Tartrate [Lopressor] 25 mg PO BID 01/11/24 01/18/24 History Naloxone HCl [Narcan] 1 spray NASAL DIRECTED PRN 01/11/24 01/18/24 History Propafenone [Rythmol] 150 mg PO TID PRN 01/18/24 01/18/24 History Allergies Allergy/AdvReac Type Severity Reaction Status Date / Time cat dander AdvReac Itching Verified 01/18/24 19:22 house dust AdvReac Itching Verified 01/18/24 19:22 pollen extracts AdvReac Itching Verified 01/18/24 19:22 Physical Exam Vitals: Vital Signs Temp Pulse Pulse Resp BP BP Pulse Ox 01/19/24 15:04 97.2 F L 92 20 132/89 98 01/19/24 13:48 90 18 127/84 98 01/19/24 09:37 97.5 F L 112 H 20 107/94 98 01/19/24 04:00 98.3 F 107 H 18 122/63 97 01/19/24 00:35 116 H 13 100/65 98 01/19/24 00:00 101 H 14 128/86 98 01/18/24 23:00 140 H 20 99 01/18/24 22:30 116 H 14 118/74 95 01/18/24 21:22 156 H 18 111/71 99 01/18/24 19:20 98.2 F 62 18 178/91 98 Intake and Output 01/19/24 01/19/24 01/19/24 06:59 14:59 22:59 Intake Total 90.917 Balance 90.917 Intake: Intake, IV Titration 90.917 Amount Diltiazem 125 mg In 90.917 Sodium Chloride 0.9% 100 ml @ 5 MG/HR 5 mls/hr IV .Q24H [facility] Rx#:[id number] Other: Voiding Method Toilet Weight 142.882 kg Results 01/18/24 20:00 01/18/24 20:00 Cardiac Enzymes 01/18/24 01/18/24 01/19/24 Range/Units 20:00 20:00 01:32 AST 44 (17-59) U/L Troponin I <0.012 <0.012 (0.000-0.034) ng/mL Coagulation 01/18/24 Range/Units 20:00 PT 11.0 (10.0-12.5) sec APTT 26.6 (22.0-30.0) sec Lipids 01/18/24 Range/Units 20:00 Triglycerides 108.00 (0.00-149.00) mg/dL Cholesterol 180.00 (0.00-200.00) mg/dL HDL Cholesterol 51.70 (40.00-60.00) mg/dL Cholesterol/HDL Ratio 3.48 Ratio CBC 01/18/24 Range/Units 20:00 WBC 5.9 (3.8-10.6) k/uL RBC 4.74 (4.30-5.90) m/uL Hgb 14.3 (13.0-17.5) gm/dL Hct 43.3 (39.0-53.0) % Plt Count 198 (150-450) k/uL Comprehensive Metabolic Panel 01/18/24 Range/Units 20:00 Sodium 139 (137-145) mmol/L Potassium 3.8 (3.5-5.1) mmol/L Chloride 107 (98-107) mmol/L Carbon Dioxide 24 (22-30) mmol/L BUN 15 (9-20) mg/dL Creatinine 0.90 (0.66-1.25) mg/dL Glucose 117 H (74-99) mg/dL Calcium 9.1 (8.4-10.2) mg/dL AST 44 (17-59) U/L ALT 31 (4-49) U/L Alkaline Phosphatase 78 (38-126) U/L Total Protein 6.3 (6.3-8.2) g/dL Albumin 3.6 (3.5-5.0) g/dL Current Medications Generic Name Dose Route Start Last Admin Trade Name Freq PRN Reason Stop Dose Admin Acetaminophen 650 mg 01/19/24 11:13 Acetaminophen Tab 325 Mg Tab PO Q6HR PRN Mild Pain or Fever > 100.5 Hydrocodone Bitart/Acetaminophen 1 each 01/19/24 06:56 01/19/24 09:53 Hydrocodone/Apap 10-325mg 1 Each Tab PO 1 each Q8HR PRN Administration Pain Albuterol Sulfate 2.5 mg 01/19/24 09:40 Albuterol Nebulized 2.5 Mg/3 Ml INHALATION RT-Q4H PRN Shortness Of Breath Alprazolam 0.25 mg 01/19/24 11:13 Alprazolam 0.25 Mg Tab PO Q6HR PRN Anxiety Apixaban 5 mg 01/19/24 19:00 Apixaban 5 Mg Tab PO BID@0700,1900 [facility] Protocol Aspirin 81 mg 01/19/24 09:45 01/19/24 09:49 Aspirin 81 Mg PO Not Given DAILY [facility] Calcium Carbonate/Glycine 1,000 mg 01/19/24 11:13 Calcium Carbonate 500 Mg Chewable PO Q4HR PRN Dyspepsia Cyclobenzaprine HCl 5 mg 01/19/24 06:57 Cyclobenzaprine 5 Mg Tab PO TID PRN Muscle Spasm Furosemide 40 mg 01/19/24 09:00 01/19/24 09:35 Furosemide 40 Mg Tab PO 40 mg DAILY [facility] Administration Diltiazem HCl 125 mg/ Sodium 125 mls @ 5 mls/hr 01/18/24 20:00 01/19/24 14:15 Chloride IV 5 mg/hr .Q24H [facility] 5 mls/hr Administration 5 MG/HR Lactulose 20 gm 01/19/24 11:13 Lactulose 20 Gm/30 Ml Cup PO DAILY PRN Constipation Lisinopril 5 mg 01/19/24 09:00 01/19/24 09:35 Lisinopril 5 Mg Tab PO 5 mg BID BERNY Administration Loratadine 10 mg 01/19/24 21:00 Loratadine 10 Mg Tab PO HS BERNY Melatonin 3 mg 01/19/24 11:13 Melatonin 3 Mg Tablet PO HS PRN Insomnia Metoprolol Tartrate 50 mg 01/19/24 09:00 01/19/24 09:35 Metoprolol Tartrate 50 Mg Tab PO 50 mg BID BERNY Administration Naloxone HCl 0.2 mg 01/19/24 11:13 Naloxone 0.4 Mg/Ml 1 Ml Vial IV Q2M PRN Opioid Reversal Nitroglycerin 0.4 mg 01/18/24 23:18 Nitroglycerin Sl Tabs 0.4 Mg Tab SUBLINGUAL Q5M PRN Chest Pain Non-Formulary Medication 10,000 mcg 01/20/24 09:00 Biotin [Xtjd-Umwk-Crief] PO DAILY [facility] Ondansetron HCl 4 mg 01/19/24 11:13 Ondansetron 4 Mg/2 Ml Vial IVP Q8HR PRN Nausea And Vomiting Pantoprazole Sodium 40 mg 01/19/24 07:30 01/19/24 09:34 Pantoprazole 40 Mg Tablet PO Not Given AC-BID [facility] Spironolactone 25 mg 01/19/24 09:00 01/19/24 09:35 Spironolactone 25 Mg Tab PO 25 mg DAILY [facility] Administration Trazodone HCl 150 mg 01/18/24 23:22 01/19/24 00:11 Trazodone Hcl 100 Mg Tab PO 150 mg HS [facility] Administration Intake and Output 01/19/24 01/19/24 01/19/24 06:59 14:59 22:59 Intake Total 90.917 Balance 90.917 Intake: Intake, IV Titration 90.917 Amount Diltiazem 125 mg In 90.917 Sodium Chloride 0.9% 100 ml @ 5 MG/HR 5 mls/hr IV .Q24H [facility] Rx#:[id number] Other: Voiding Method Toilet Weight 142.882 kg 01/18/24 20:00 01/18/24 20:00
[2024-01-19] MEDS ORDERED: lisinopriL 5 MG TAB PO SCH (17:07)
[2024-01-19] MEDS ORDERED: traZODone HCL 100 MG TAB PO SCH (18:00)
[2024-01-19] MEDS ORDERED: LORATADINE 10 MG TAB PO SCH (21:00)
[2024-01-20] MEDS: CALCIUM CARBONATE 500 MG CHEWABLE PO PRN (03:55)
[2024-01-20] MEDS: NON FORMULARY DRUG (Biotin [Hair-Skin-Nails] 10,000 MCG Tab.Chew) PO SCH (09:22)
--- NOTE | 2024-01-20 11:50 | P.PN ---
Subjective HISTORY OF PRESENT ILLNESS: This is a 58-year-old male who follows with Dr. Beltran. Patient is admitted to the hospital secondary to A-fib with RVR. Patient examined this morning at the bedside. Patient currently denies chest pain or pressure. He denies shortness of breath. He does report yesterday when he was laying flat he felt like he was having a hard time breathing. He denies having palpitations at this time. He remains on IV Cardizem at 5 mg an hour. Telemetry reveals atrial fibrillation with heart rate ranging between [id number]. PHYSICAL EXAM: VITAL SIGNS: Reviewed. GENERAL: Well-developed in no acute distress. NECK: Supple. No JVD or thyromegaly LUNGS: Respirations even and unlabored. Lungs essentially clear to auscultation bilaterally. HEART: Tachycardic. Irregular rate and rhythm. S1 and S2 heard. EXTREMITIES: Normal range of motion. No clubbing or cyanosis. Peripheral pulses intact. Trace lower extremity edema ASSESSMENT: Paroxysmal atrial fibrillation Nonobstructive coronary artery disease History of cardiac arrest; ventricular fibrillation per patient History of AICD implantation History of A-fib ablation, approximately 4 years ago Hypertension Marijuana use PLAN: Per documentation, patient refused echo yesterday Continue anticoagulation with Eliquis Decrease lisinopril to once a day dosing to allow for increase in beta blockers Increase metoprolol to 75mg BID Begin IV amiodarone bolus and drip per protocol Continue IV Cardizem. Discontinue if HR remain under 100. Recommend eventual A-fib ablation Patient to follow-up postdischarge with his primary active directory systems administrator Nurse practitioner note has been reviewed by physician. Signing provider agrees with the documented findings, assessment, and plan of care documented by PERIODONTIST as a scribe. Objective - Vital Signs Vital signs: Vital Signs Temp 97.7 F 01/20/24 08:00 Pulse 91 01/20/24 08:00 Resp 16 01/20/24 08:00 BP 102/67 01/20/24 08:00 Pulse Ox 94 L 01/20/24 09:20 FiO2 Intake & Output 01/19/24 01/20/24 01/20/24 18:59 06:59 18:59 Intake Total 90.917 61.333 540 Balance 90.917 61.333 540 Weight 140 kg Intake: Intake, IV Titration 90.917 61.333 Amount Diltiazem 125 mg In 90.917 61.333 Sodium Chloride 0.9% 100 ml @ 5 MG/HR 5 mls/hr IV .Q24H [facility] Rx#:[id number] Oral 540 Other: Voiding Method Toilet # Voids 2 - Labs CBC & Chem 7: 01/18/24 20:00 01/18/24 20:00
[2024-01-20] MEDS: DEXTROSE 5% IN WATER 100 ML with AMIODARONE 150 MG IV ONE (13:19)
[2024-01-20] MEDS: METOPROLOL TARTRATE 25 MG TAB PO STA (13:19)
[2024-01-20] MEDS: AMIODARONE 360 MG in DEXTROSE 5% IN WATER 200 ML IV ONE (13:20)
--- NOTE | 2024-01-20 14:51 | P.PN ---
Progress Note - Text Progress Note Date: 01/20/24 Chief Complaint: Heart racing 58-year-old patient who follows with Dr. Rea. Patient is on disability. Lives with fiance. does about 3-4 marijuana day. Patient has AICD. Recently saw his embryology professor . He was told his AICD fired because of uncontrolled A-fib. Yesterday evening around 7 PM patient felt a nervous sensation checked his pulse heart rate was over 200. Decided to come in. Just tired. Ordered IV Cardizem drip in the ER. Patient does take Rythmol on a as needed basis. January 19: Laying in bed. Patient heart rate is still been up/A-fib. Patient started on IV amiodarone. IV Cardizem drip was discontinued by cardiology. Lopressor increased to 75 mg twice daily. Dose of Zestril cut back. Did asked the patient to increase activity after receiving new dose of oral medications. Does feel a bit nervous sensation. Active Medications Acetaminophen (Acetaminophen Tab 325 Mg Tab) 650 mg PO Q6HR PRN PRN Reason: Mild Pain or Fever > 100.5 Hydrocodone Bitart/Acetaminophen (Hydrocodone/Apap 10-325mg 1 Each Tab) 1 each PO Q8HR PRN PRN Reason: Pain Last Admin: 01/19/24 19:41 Dose: 1 each Alprazolam (Alprazolam 0.25 Mg Tab) 0.25 mg PO Q6HR PRN PRN Reason: Anxiety Apixaban (Apixaban 5 Mg Tab) 5 mg PO BID@0700,1900 [facility]; Protocol Last Admin: 01/20/24 06:32 Dose: 5 mg Aspirin (Aspirin 81 Mg) 81 mg PO DAILY [facility] Last Admin: 01/20/24 09:21 Dose: 81 mg Calcium Carbonate/Glycine (Calcium Carbonate 500 Mg Chewable) 1,000 mg PO Q4HR PRN PRN Reason: Dyspepsia Last Admin: 01/20/24 03:55 Dose: 1,000 mg Cyclobenzaprine HCl (Cyclobenzaprine 5 Mg Tab) 5 mg PO TID PRN PRN Reason: Muscle Spasm Furosemide (Furosemide 40 Mg Tab) 40 mg PO DAILY [facility] Last Admin: 01/20/24 09:21 Dose: 40 mg Diltiazem HCl 125 mg/ Sodium (Chloride) 125 mls @ 5 mls/hr IV .Q24H [facility] Last Admin: 01/20/24 02:31 Dose: 5 mg/hr, 5 mls/hr Amiodarone HCl 360 mg/ (Dextrose/Water) 200 mls @ 33.333 mls/hr IV .Q6H [facility]; Protocol Stop: 01/20/24 17:29 Last Admin: 01/20/24 13:20 Dose: 1 mg/min, 33.333 mls/hr Amiodarone HCl 450 mg/ (Dextrose/Water) 250 mls @ 16.667 mls/hr IV .Q15H [facility]; Protocol Stop: 01/21/24 11:29 Lactulose (Lactulose 20 Gm/30 Ml Cup) 20 gm PO DAILY PRN PRN Reason: Constipation Lisinopril (Lisinopril 5 Mg Tab) 5 mg PO DAILY [facility] Loratadine (Loratadine 10 Mg Tab) 10 mg PO 1800 [facility] Last Admin: 01/19/24 17:36 Dose: 10 mg Melatonin (Melatonin 3 Mg Tablet) 3 mg PO HS PRN PRN Reason: Insomnia Metoprolol Tartrate (Metoprolol Tartrate 25 Mg Tab) 75 mg PO BID@0900,1800 [facility] Naloxone HCl (Naloxone 0.4 Mg/Ml 1 Ml Vial) 0.2 mg IV Q2M PRN PRN Reason: Opioid Reversal Nitroglycerin (Nitroglycerin Sl Tabs 0.4 Mg Tab) 0.4 mg SUBLINGUAL Q5M PRN PRN Reason: Chest Pain Non-Formulary Medication (Biotin [Iiui-Nevj-Fjhzc]) 10,000 mcg PO DAILY [facility] Last Admin: 01/20/24 09:22 Dose: Not Given Ondansetron HCl (Ondansetron 4 Mg/2 Ml Vial) 4 mg IVP Q8HR PRN PRN Reason: Nausea And Vomiting Pantoprazole Sodium (Pantoprazole 40 Mg Tablet) 40 mg PO AC-BID [facility] Last Admin: 01/20/24 06:32 Dose: 40 mg Spironolactone (Spironolactone 25 Mg Tab) 25 mg PO DAILY [facility] Last Admin: 01/20/24 09:21 Dose: 25 mg Trazodone HCl (Trazodone Hcl 100 Mg Tab) 150 mg PO 2200 [facility] Last Admin: 01/19/24 20:51 Dose: 150 mg Social history: This is his fiance. He is on disability. 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 No smoking or alcohol. average about 3-4 marijuana joints a day Physical examination: VITAL SIGNS: 97.6, 72, 17, 122 x 81, 94% room air GENERAL: BMI 40.4, reclining bed awake comfortable EYES: Pupils equal. Conjunctiva normal. HEENT: External appearance of nose and ears normal, oral cavity grossly normal endotracheal tube. NECK: JVD unable to assess; masses not palpable. HEART: Heart sounds irregular; no edema. LUNGS:[ Respiratory rate normal, fair air entry ABDOMEN: Soft, nontender, liver spleen not palpable, no masses palpable. PSYCH: AOx3, mood affect normal INVESTIGATIONS, reviewed in the clinical context: January 17: White count 5.9 hemoglobin 14.3 platelets 198 potassium 3.8 creatinine 0.9 Troponin I less than 0.012 x 2. proBNP 1350 LDL 106 EKG tracing personally reviewed by me-atrial fibrillation. Rate 135. ST/T wave changes. Chest x-ray film personally reviewed by me-some cardiomegaly Previous test: March 2023: EF 50-55%. Severe right ventricle and right atrial dilatation. Assessment and plan: -Persistent atrial fibrillation. presents with rapid ventricular rate, symptomatic: Asymptomatic At home was taking Eliquis. Lopressor 25 twice daily and Rythmol as needed Discontinued IV Cardizem drip, Lopressor increased to 75 mg twice daily. Telemetry. Cardiology following -Nonobstructive coronary artery disease with 60-70% mid LAD stenosis, and RCA lesion. Follows with his embryology professor , out of the area Aspirin. Lipitor. Lopressor -Recreational marijuana use. -Morbid obesity BMI 40.4 Weight loss measures. -Prior history of cardiac arrest in systolic cardiac dysfunction. 2D echo from March 2023 shows preserved LV function -GERD PPI -Essential hypertension Lopressor Zestril -Chronic insomnia Trazodone 150 mg daily at bedtime -Full code Discussed with the patient. Medications changed for heart rate control by cardiology. Activity as tolerated. Past Medical History Past Medical History: Atrial Fibrillation, GERD/Reflux, Hypertension, Musculoske letal Disorder, Osteoarthritis (OA), Sleep Apnea/CPAP/BIPAP Additional Past Medical History / Comment(s): Chronic LOWER back & KNEE Pain. hx. enlarged spleen after fall 2017-no problems now that he knows of, KIDNEY STONES , vericose veins; herniated disc C6/c7, growth removed from inner left leg 2022 History of Any Multi-Drug Resistant Organisms: None Reported Past Surgical History: Back Surgery, Bariatric Surgery, Cholecystectomy, Hernia Repair, Orthopedic Surgery Additional Past Surgical History / Comment(s): UMBILICAL HERNIA, RT KNEE MENISCUS, GASTRIC SLEEVE 2011, LT Rotator cuff. ABSCESS CYST ON TAILBONE, LITHOTRIPSY 10/09/2017. VARICOSE VEINS REMOVED, AICD 2022 Past Anesthesia/Blood Transfusion Reactions: Previous Problems w/ Anesthesia Additional Past Anesthesia/Blood Transfusion Reaction / Comment(s): WOKE UP DURING KNEE SURGERY - only happened once. Past Psychological History: Anxiety, Depression Smoking Status: Former smoker Past Alcohol Use History: Rare Additional Past Alcohol Use History / Comment(s): SMOKED 1 PPD, QUIT 2009. Past Drug Use History: Marijuana Additional Drug Use History / Comment(s): SMOKES MARIJUANA FOR BACK PAIN DAILY, TOTAL 3 joints DAILY.
[2024-01-20] MEDS: AMIODARONE 450 MG in DEXTROSE 5% IN WATER 250 ML IV SCH (18:17)
[2024-01-20] MEDS: METOPROLOL TARTRATE 25 MG TAB PO SCH (18:18)
[2024-01-21] MEDS: lisinopriL 5 MG TAB PO SCH (09:43)
--- NOTE | 2024-01-21 11:58 | P.PN ---
Subjective HISTORY OF PRESENT ILLNESS: This is a 58-year-old male who follows with Dr. Beltran. Patient is admitted to the hospital secondary to A-fib with RVR. Patient examined this morning at the bedside. Patient currently denies chest pain or pressure. He denies shortness of breath. He does report yesterday when he was laying flat he felt like he was having a hard time breathing. He denies having palpitations at this time. He remains on IV Cardizem at 5 mg an hour. Telemetry reveals atrial fibrillation with heart rate ranging between [id number]. 01/21/2024 Patient examined this morning the bedside. Patient currently denies chest pain or pressure. He denies shortness of breath. He remains on IV amiodarone. He remains in atrial fibrillation with heart rates between 100-120. The patient does report he has only been taking his Eliquis once a day on an outpatient basis. PHYSICAL EXAM: VITAL SIGNS: Reviewed. GENERAL: Well-developed in no acute distress. NECK: Supple. No JVD or thyromegaly LUNGS: Respirations even and unlabored. Lungs essentially clear to auscultation bilaterally. HEART: Tachycardic. Irregular rate and rhythm. S1 and S2 heard. EXTREMITIES: Normal range of motion. No clubbing or cyanosis. Peripheral pulses intact. Trace lower extremity edema ASSESSMENT: Paroxysmal atrial fibrillation Nonobstructive coronary artery disease History of cardiac arrest; ventricular fibrillation per patient History of AICD implantation History of A-fib ablation, approximately 4 years ago Hypertension Marijuana use PLAN: Per documentation, patient refused echo Continue anticoagulation with Eliquis. Patient instructed to continue twice a day dosing when he is discharged. Lisinopril decreased yesterday to once a day dosing to allow for increase in beta blockers Continue metoprolol 75 mg twice a day Continue IV amiodarone at 0.5 mg/min N.p.o. at midnight Patient to undergo LENNY and cardioversion tomorrow with Dr. Gong Recommend eventual A-fib ablation Patient to follow-up postdischarge with his primary parts finisher Nurse practitioner note has been reviewed by physician. Signing provider agrees with the documented findings, assessment, and plan of care documented by PROFESSOR OF MANAGEMENT as a scribe. Objective - Vital Signs Vital signs: Vital Signs Temp 97.8 F 01/21/24 08:00 Pulse 71 01/21/24 08:00 Resp 16 01/21/24 08:00 BP 108/75 01/21/24 08:00 Pulse Ox 98 01/21/24 08:00 FiO2 Intake & Output 01/20/24 01/21/24 01/21/24 18:59 06:59 18:59 Intake Total 1620 540 472 Balance 1620 540 472 Intake: Intake, IV Titration 250 Amount Amiodarone 450 mg In 250 Dextrose 5% in Water 250 ml @ 0.5 MG/MIN 16.667 mls/hr IV .Q15H [facility] Rx#: [id number] Oral 1620 540 222 Other: Voiding Method Toilet # Voids 3 2 - Labs CBC & Chem 7: 01/18/24 20:00 01/18/24 20:00
[2024-01-21] MEDS ORDERED: AMIODARONE 450 MG in DEXTROSE 5% IN WATER 250 ML IV SCH (12:00)
--- NOTE | 2024-01-21 20:11 | P.PN ---
Progress Note - Text Progress Note Date: 01/21/24 Chief Complaint: Heart racing 58-year-old patient who follows with Dr. Rea. Patient is on disability. Lives with fiance. does about 3-4 marijuana day. Patient has AICD. Recently saw his household worker . He was told his AICD fired because of uncontrolled A-fib. Yesterday evening around 7 PM patient felt a nervous sensation checked his pulse heart rate was over 200. Decided to come in. Just tired. Ordered IV Cardizem drip in the ER. Patient does take Rythmol on a as needed basis. January 19: Laying in bed. Patient heart rate is still been up/A-fib. Patient started on IV amiodarone. IV Cardizem drip was discontinued by cardiology. Lopressor increased to 75 mg twice daily. Dose of Zestril cut back. Did asked the patient to increase activity after receiving new dose of oral medications. Does feel a bit nervous sensation. January 20: Heart rate remains above 100. Cardiology is planning for cardioversion tomorrow. On IV amiodarone. Lopressor 75 twice daily. Discussed with patient Active Medications Acetaminophen (Acetaminophen Tab 325 Mg Tab) 650 mg PO Q6HR PRN PRN Reason: Mild Pain or Fever > 100.5 Hydrocodone Bitart/Acetaminophen (Hydrocodone/Apap 10-325mg 1 Each Tab) 1 each PO Q8HR PRN PRN Reason: Pain Last Admin: 01/21/24 17:14 Dose: 1 each Alprazolam (Alprazolam 0.25 Mg Tab) 0.25 mg PO Q6HR PRN PRN Reason: Anxiety Apixaban (Apixaban 5 Mg Tab) 5 mg PO BID@0700,1900 [facility]; Protocol Last Admin: 01/21/24 18:15 Dose: 5 mg Aspirin (Aspirin 81 Mg) 81 mg PO DAILY [facility] Last Admin: 01/21/24 09:42 Dose: 81 mg Calcium Carbonate/Glycine (Calcium Carbonate 500 Mg Chewable) 1,000 mg PO Q4HR PRN PRN Reason: Dyspepsia Last Admin: 01/20/24 03:55 Dose: 1,000 mg Cyclobenzaprine HCl (Cyclobenzaprine 5 Mg Tab) 5 mg PO TID PRN PRN Reason: Muscle Spasm Furosemide (Furosemide 40 Mg Tab) 40 mg PO DAILY [facility] Last Admin: 01/21/24 09:44 Dose: 40 mg Amiodarone HCl 450 mg/ (Dextrose/Water) 250 mls @ 16.667 mls/hr IV .Q15H [facility]; Protocol Last Admin: 01/21/24 09:44 Dose: 0.5 mg/min, 16.667 mls/hr Lactulose (Lactulose 20 Gm/30 Ml Cup) 20 gm PO DAILY PRN PRN Reason: Constipation Lisinopril (Lisinopril 5 Mg Tab) 5 mg PO DAILY [facility] Last Admin: 01/21/24 09:43 Dose: 5 mg Loratadine (Loratadine 10 Mg Tab) 10 mg PO 1800 [facility] Last Admin: 01/21/24 17:15 Dose: 10 mg Melatonin (Melatonin 3 Mg Tablet) 3 mg PO HS PRN PRN Reason: Insomnia Metoprolol Tartrate (Metoprolol Tartrate 25 Mg Tab) 75 mg PO BID@0900,1800 [facility] Last Admin: 01/21/24 17:15 Dose: 75 mg Naloxone HCl (Naloxone 0.4 Mg/Ml 1 Ml Vial) 0.2 mg IV Q2M PRN PRN Reason: Opioid Reversal Nitroglycerin (Nitroglycerin Sl Tabs 0.4 Mg Tab) 0.4 mg SUBLINGUAL Q5M PRN PRN Reason: Chest Pain Non-Formulary Medication (Biotin [[id number]]) 10,000 mcg PO DAILY [facility] Last Admin: 01/21/24 09:44 Dose: Not Given Ondansetron HCl (Ondansetron 4 Mg/2 Ml Vial) 4 mg IVP Q8HR PRN PRN Reason: Nausea And Vomiting Pantoprazole Sodium (Pantoprazole 40 Mg Tablet) 40 mg PO AC-BID [facility] Last Admin: 01/21/24 17:15 Dose: 40 mg Spironolactone (Spironolactone 25 Mg Tab) 25 mg PO DAILY [facility] Last Admin: 01/21/24 09:44 Dose: 25 mg Trazodone HCl (Trazodone Hcl 100 Mg Tab) 150 mg PO 2200 [facility] Last Admin: 01/20/24 21:57 Dose: 150 mg Social history: This is his fiance. He is on disability. 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 No smoking or alcohol. average about 3-4 marijuana joints a day Physical examination: VITAL SIGNS: 98, 100, 16, 125 x 37, 97% room air GENERAL: Reclining in bed, EYES: Pupils equal. Conjunctiva normal. HEENT: External appearance of nose and ears normal, oral cavity grossly normal endotracheal tube. NECK: JVD unable to assess; masses not palpable. HEART: Heart sounds irregular; no edema. LUNGS:[ Respiratory rate normal, fair air entry ABDOMEN: Soft, nontender, liver spleen not palpable, no masses palpable. PSYCH: AOx3, mood affect normal INVESTIGATIONS, reviewed in the clinical context: January 17: White count 5.9 hemoglobin 14.3 platelets 198 potassium 3.8 creatinine 0.9 Troponin I less than 0.012 x 2. proBNP 1350 LDL 106 EKG tracing personally reviewed by me-atrial fibrillation. Rate 135. ST/T wave changes. Chest x-ray film personally reviewed by me-some cardiomegaly Previous test: March 2023: EF 50-55%. Severe right ventricle and right atrial dilatation. Assessment and plan: -Persistent atrial fibrillation. presents with rapid ventricular rate, symptomatic: Remains uncontrolled [At home was taking Eliquis. Lopressor 25 twice daily and Rythmol as needed] Discontinued IV Cardizem drip, Lopressor-75 mg twice daily. Telemetry. Cardiology following Plan for cardioversion tomorrow -Nonobstructive coronary artery disease with 60-70% mid LAD stenosis, and RCA lesion. Follows with his household worker , out of the area Aspirin. Lipitor. Lopressor -Recreational marijuana use. -Morbid obesity BMI 40.4 Weight loss measures. -Prior history of cardiac arrest in systolic cardiac dysfunction. 2D echo from March 2023 shows preserved LV function -GERD PPI -Essential hypertension Lopressor Zestril -Chronic insomnia Trazodone 150 mg daily at bedtime -Full code Discussed with patient. For cardioversion planned tomorrow. Check labs in the morning Past Medical History Past Medical History: Atrial Fibrillation, GERD/Reflux, Hypertension, Musculoskeletal Disorder, Osteoarthritis (OA), Sleep Apnea/CPAP/BIPAP Additional Past Medical History / Comment(s): Chronic LOWER back & KNEE Pain. hx. enlarged spleen after fall 2017-no problems now that he knows of, KIDNEY STONES , vericose veins; herniated disc C6/c7, growth removed from inner left leg 2022 History of Any Multi-Drug Resistant Organisms: None Reported Past Surgical History: Back Surgery, Bariatric Surgery, Cholecystectomy, Hernia Repair, Orthopedic Surgery Additional Past Surgical History / Comment(s): UMBILICAL HERNIA, RT KNEE MENISCUS, GASTRIC SLEEVE 2011, LT Rotator cuff. ABSCESS CYST ON TAILBONE, LITHOTRIPSY 10/09/2017. VARICOSE VEINS REMOVED, AICD 2022 Past Anesthesia/Blood Transfusion Reactions: Previous Problems w/ Anesthesia Additional Past Anesthesia/Blood Transfusion Reaction / Comment(s): WOKE UP DURING KNEE SURGERY - only happened once. Past Psychological History: Anxiety, Depression Smoking Status: Former smoker Past Alcohol Use History: Rare Additional Past Alcohol Use History / Comment(s): SMOKED 1 PPD, QUIT 2009. Past Drug Use History: Marijuana Additional Drug Use History / Comment(s): SMOKES MARIJUANA FOR BACK PAIN DAILY, TOTAL 3 joints DAILY.
[2024-01-22 08:29] LABS: African American GFR (CKD) 81 (>60 ml/min/1.73 sqM); Anion Gap 5 mmol/L; Blood Urea Nitrogen 17 mg/dL (9-20); Carbon Dioxide 32 mmol/L (22-30); Chloride 103 mmol/L (98-107); Glucose 79 mg/dL (74-99); Magnesium 1.9 mg/dL (1.6-2.3); Non-African American GFR(CKD) 70 (>60 ml/min/1.73 sqM); Potassium 4.7 mmol/L (3.5-5.1); Sodium 140 mmol/L (137-145)
[2024-01-22] MEDS: SENNOSIDES 8.6 MG TAB PO PRN (10:43)
--- NOTE | 2024-01-22 12:19 | P.PN ---
Subjective Progress Note Date: 01/22/24 HISTORY OF PRESENT ILLNESS: This is a 58-year-old male who follows with Dr. Beltran. Patient is admitted to the hospital secondary to A-fib with RVR. Patient examined this morning at the bedside. Patient currently denies chest pain or pressure. He denies shortness of breath. He does report yesterday when he was laying flat he felt like he was having a hard time breathing. He denies having palpitations at this time. He remains on IV Cardizem at 5 mg an hour. Telemetry reveals atrial fibrillation with heart rate ranging between [id number]. 01/21/2024 Patient examined this morning the bedside. Patient currently denies chest pain or pressure. He denies shortness of breath. He remains on IV amiodarone. He remains in atrial fibrillation with heart rates between 100-120. The patient does report he has only been taking his Eliquis once a day on an outpatient basis. 01/22/24 He reports having some shortness of breath. Denies any chest pain or pressure. He does have left arm phlebitis from IV infiltration. Telemetry reviewed A-fib with heart rates [id number]. LENNY and cardioversion were postponed today. PHYSICAL EXAM: VITAL SIGNS: Reviewed. GENERAL: Well-developed in no acute distress. NECK: Supple. No JVD or thyromegaly LUNGS: Respirations even and unlabored. Lungs essentially clear to auscultation bilaterally. HEART: Tachycardic. Irregular rate and rhythm. S1 and S2 heard. EXTREMITIES: Normal range of motion. No clubbing or cyanosis. Peripheral pulses intact. Trace lower extremity edema ASSESSMENT: Paroxysmal atrial fibrillation Nonobstructive coronary artery disease History of cardiac arrest; ventricular fibrillation per patient History of AICD implantation History of A-fib ablation, approximately 4 years ago Hypertension Marijuana use PLAN: Per documentation, patient refused echo. Continue current medications. N.p.o. at midnight Patient to undergo LENNY and cardioversion tomorrow 01/[address] Gong Recommend eventual A-fib ablation Patient to follow-up postdischarge with his primary county demonstrator Nurse practitioner note has been reviewed by physician. Signing provider agrees with the documented findings, assessment, and plan of care documented by USED CAR SALESPERSON as a scribe. Objective - Vital Signs Vital signs: Vital Signs Temp 98.1 F 01/22/24 08:00 Pulse 72 01/22/24 08:00 Resp 16 01/22/24 08:00 BP 133/91 01/22/24 08:00 Pulse Ox 94 L 01/22/24 08:00 FiO2 Intake & Output 01/21/24 01/22/24 01/22/24 18:59 06:59 18:59 Intake Total 1192 979.726 550 Balance 1192 979.726 550 Intake: Intake, IV Titration 250 199.726 Amount Amiodarone 450 mg In 250 199.726 Dextrose 5% in Water 250 ml @ 0.5 MG/MIN 16.667 mls/hr IV .Q15H [facility] Rx#: [id number] Oral 942 780 550 Other: Voiding Method Toilet # Voids 3 2 - Labs CBC & Chem 7: 01/18/24 20:00 01/22/24 06:21 Labs: Abnormal Lab Results - Last 24 Hours (Table) 01/22/24 Range/Units 06:21 Carbon Dioxide 32 H (22-30) mmol/L
--- NOTE | 2024-01-22 17:04 | P.PN ---
Progress Note - Text Progress Note Date: 01/22/24 Chief Complaint: Heart racing 58-year-old patient who follows with Dr. Rea. Patient is on disability. Lives with fiance. does about 3-4 marijuana day. Patient has AICD. 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 He was told his AICD fired because of uncontrolled A-fib. Yesterday evening around 7 PM patient felt a nervous sensation checked his pulse heart rate was over 200. Decided to come in. Just tired. Ordered IV Cardizem drip in the ER. Patient does take Rythmol on a as needed basis. January 19: Laying in bed. Patient heart rate is still been up/A-fib. Patient started on IV amiodarone. IV Cardizem drip was discontinued by cardiology. Lopressor increased to 75 mg twice daily. Dose of Zestril cut back. Did asked the patient to increase activity after receiving new dose of oral medications. Does feel a bit nervous sensation. January 20: Heart rate remains above 100. Cardiology is planning for cardioversion tomorrow. On IV amiodarone. Lopressor 75 twice daily. Discussed with patient January 21: Patient heart rate remains to be above 100. Patient to be rescheduled for cardioversion for tomorrow. Remains on IV amiodarone and other medications. Oral intake fair. Discussed. Patient had some IV infiltration. Amiodarone. Local treatment. Active Medications Acetaminophen (Acetaminophen Tab 325 Mg Tab) 650 mg PO Q6HR PRN PRN Reason: Mild Pain or Fever > 100.5 Hydrocodone Bitart/Acetaminophen (Hydrocodone/Apap 10-325mg 1 Each Tab) 1 each PO Q8HR PRN PRN Reason: Pain Last Admin: 01/22/24 10:43 Dose: 1 each Alprazolam (Alprazolam 0.25 Mg Tab) 0.25 mg PO Q6HR PRN PRN Reason: Anxiety Apixaban (Apixaban 5 Mg Tab) 5 mg PO BID@0700,1900 [facility]; Protocol Last Admin: 01/22/24 06:19 Dose: 5 mg Aspirin (Aspirin 81 Mg) 81 mg PO DAILY [facility] Last Admin: 01/22/24 08:30 Dose: 81 mg Calcium Carbonate/Glycine (Calcium Carbonate 500 Mg Chewable) 1,000 mg PO Q4HR PRN PRN Reason: Dyspepsia Last Admin: 01/20/24 03:55 Dose: 1,000 mg Cyclobenzaprine HCl (Cyclobenzaprine 5 Mg Tab) 5 mg PO TID PRN PRN Reason: Muscle Spasm Furosemide (Furosemide 40 Mg Tab) 40 mg PO DAILY [facility] Last Admin: 01/22/24 08:30 Dose: 40 mg Amiodarone HCl 450 mg/ (Dextrose/Water) 250 mls @ 16.667 mls/hr IV .Q15H [facility]; Protocol Last Admin: 01/22/24 15:29 Dose: Not Given Lactulose (Lactulose 20 Gm/30 Ml Cup) 20 gm PO DAILY PRN PRN Reason: Constipation Lisinopril (Lisinopril 5 Mg Tab) 5 mg PO DAILY [facility] Last Admin: 01/22/24 08:30 Dose: 5 mg Loratadine (Loratadine 10 Mg Tab) 10 mg PO 1800 [facility] Last Admin: 01/21/24 17:15 Dose: 10 mg Melatonin (Melatonin 3 Mg Tablet) 3 mg PO HS PRN PRN Reason: Insomnia Metoprolol Tartrate (Metoprolol Tartrate 25 Mg Tab) 75 mg PO BID@0900,1800 [facility] Last Admin: 01/22/24 08:30 Dose: 75 mg Naloxone HCl (Naloxone 0.4 Mg/Ml 1 Ml Vial) 0.2 mg IV Q2M PRN PRN Reason: Opioid Reversal Nitroglycerin (Nitroglycerin Sl Tabs 0.4 Mg Tab) 0.4 mg SUBLINGUAL Q5M PRN PRN Reason: Chest Pain Non-Formulary Medication (Biotin [[id number]]) 10,000 mcg PO DAILY [facility] Last Admin: 01/22/24 08:29 Dose: Not Given Ondansetron HCl (Ondansetron 4 Mg/2 Ml Vial) 4 mg IVP Q8HR PRN PRN Reason: Nausea And Vomiting Pantoprazole Sodium (Pantoprazole 40 Mg Tablet) 40 mg PO AC-BID [facility] Last Admin: 01/22/24 06:19 Dose: 40 mg Senna (Sennosides 8.6 Mg Tab) 8.6 mg PO DAILY PRN PRN Reason: Constipation Last Admin: 01/22/24 10:43 Dose: 8.6 mg Spironolactone (Spironolactone 25 Mg Tab) 25 mg PO DAILY [facility] Last Admin: 01/22/24 08:30 Dose: 25 mg Trazodone HCl (Trazodone Hcl 100 Mg Tab) 150 mg PO 2200 [facility] Last Admin: 01/21/24 21:43 Dose: 150 mg Social history: This is his fiance. He is on disability. 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 No smoking or alcohol. average about 3-4 marijuana joints a day Physical examination: VITAL SIGNS: 98.1, heart rate anywhere from 80-1 20. 16, 133/91, 94% room air GENERAL: Reclining in bed, comfortable EYES: Pupils equal. Conjunctiva normal. HEENT: External appearance of nose and ears normal, oral cavity grossly normal endotracheal tube. NECK: JVD unable to assess; masses not palpable. HEART: Heart sounds irregular; no edema. LUNGS:[ Respiratory rate normal, fair air entry ABDOMEN: Soft, nontender, liver spleen not palpable, no masses palpable. PSYCH: AOx3, mood affect normal INVESTIGATIONS, reviewed in the clinical context: January 21: Potassium 4.7 phosphorus 1.9 TSH 1.4 January 17: White count 5.9 hemoglobin 14.3 platelets 198 potassium 3.8 creatinine 0.9 Troponin I less than 0.012 x 2. proBNP 1350 LDL 106 EKG tracing personally reviewed by me-atrial fibrillation. Rate 135. ST/T wave changes. Chest x-ray film personally reviewed by me-some cardiomegaly Previous test: March 2023: EF 50-55%. Severe right ventricle and right atrial dilatation. Assessment and plan: -Persistent atrial fibrillation. presents with rapid ventricular rate, symptomatic: Remains uncontrolled [At home was taking Eliquis. Lopressor 25 twice daily and Rythmol as needed] Discontinued IV Cardizem drip, Lopressor-75 mg twice daily. Telemetry. IV amiodarone Cardiology following Cardioversion rescheduled for tomorrow -Nonobstructive coronary artery disease with 60-70% mid LAD stenosis, and RCA lesion. Follows with his school cafeteria cook , out of the area Aspirin. Lipitor. Lopressor -Recreational marijuana use. -Morbid obesity BMI 40.4 Weight loss measures. -Prior history of cardiac arrest in systolic cardiac dysfunction. 2D echo from March 2023 shows preserved LV function -GERD PPI -Essential hypertension Lopressor Zestril -Chronic insomnia Trazodone 150 mg daily at bedtime -Full code Past Medical History Past Medical History: Atrial Fibrillation, GERD/Reflux, Hypertension, Musculoskeletal Disorder, Osteoarthritis (OA), Sleep Apnea/CPAP/BIPAP Additional Past Medical History / Comment(s): Chronic LOWER back & KNEE Pain. hx. enlarged spleen after fall 2016-no problems now that he knows of, KIDNEY STONES , vericose veins; herniated disc C6/c7, growth removed from inner left leg 2022 History of Any Multi-Drug Resistant Organisms: None Reported Past Surgical History: Back Surgery, Bariatric Surgery, Cholecystectomy, Hernia Repair, Orthopedic Surgery Additional Past Surgical History / Comment(s): UMBILICAL HERNIA, RT KNEE MENISCUS, GASTRIC SLEEVE 2011, LT Rotator cuff. ABSCESS CYST ON TAILBONE, LITHOTRIPSY 10/09/2017. VARICOSE VEINS REMOVED, AICD 2022 Past Anesthesia/Blood Transfusion Reactions: Previous Problems w/ Anesthesia Additional Past Anesthesia/Blood Transfusion Reaction / Comment(s): WOKE UP DURING KNEE SURGERY - only happened once. Past Psychological History: Anxiety, Depression Smoking Status: Former smoker Past Alcohol Use History: Rare Additional Past Alcohol Use History / Comment(s): SMOKED 1 PPD, QUIT 2009. Past Drug Use History: Marijuana Additional Drug Use History / Comment(s): SMOKES MARIJUANA FOR BACK PAIN DAILY, TOTAL 3 joints DAILY.
[2024-01-23] MEDS ORDERED: PROPOFOL 10 MG/ML 20 ML VIAL IV ONE (07:15)
[2024-01-23] MEDS ORDERED: LIDOCAINE 1% INJ 10MG/ML (20 ML MDV) ONE (07:15)
[2024-01-23] MEDS: SODIUM CHLORIDE 0.9% 500 ML 500 ML IV ONE ×2 (07:15→07:31)
[2024-01-23] MEDS: BENZOCAINE SPRAY 1 EACH MM ONE (07:20)
--- NOTE | 2024-01-23 07:40 | P.PCN ---
Date of Procedure: 01/23/24 Description of Procedure: Indication: Atrial fibrillation Procedure Description: After explaining the procedure to the patient, it's risk and complications, blood pressure, heart rate and O2 saturation were monitored. The throat was sprayed with Cetacaine. Patient received sedation per anesthesia department. The probe was introduced into the esophagus without difficulty. Images were obtained. Following that, the probe was removed. There was no immediate complication. Findings: Left atrial size is dilated, left atrial appendage is normal. Spontaneous contrast was noted. Left ventricular size and systolic function are normal. A wire was noted in the right ventricle. The aortic valve is a tricuspid valve with mild calcification. Mitral valve appears to be normal. Descending thoracic aorta appears to be normal. No pericardial effusion was noted. Contrast bubble study revealed no shunting across the interatrial septum. Doppler: Pulse wave and color Doppler were obtained, and revealed mild mitral with moderate tricuspid regurgitation. There was no shunting by color Doppler study. Mild aortic regurgitation was noted. Conclusion: 1. Dilated left atrium with spontaneous contrast and normal appearance of the left atrial appendage 2. Normal ventricle size and systolic function 3. Mild mitral with moderate tricuspid regurgitation 4. Mild aortic regurgitation 5. A wire was noted in the right ventricle Cardioversion: After obtaining LENNY and sedated state per anesthesia department a synchronized biphasic cardioversion using 150 J was performed with orthodox of sinus mechanism, there was no immediate complications.
[2024-01-23] MEDS ORDERED: SODIUM CHLORIDE 0.9% 1,000 ML IV SCH (07:45)
[2024-01-23 08:29] VITALS: PULSE 47; TEMP 97.6
[2024-01-23] MEDS: AMIODARONE 200 MG TAB PO SCH (08:44)
[2024-01-23] MEDS: METOPROLOL TARTRATE 25 MG TAB PO SCH (08:44)
[2024-01-23 12:17] VITALS: BP 104/73; RESP 16
--- NOTE | 2024-01-23 12:48 | P.PN ---
Subjective HISTORY OF PRESENT ILLNESS: This is a 58-year-old male who follows with Dr. Beltran. Patient is admitted to the hospital secondary to A-fib with RVR. Patient examined this morning at the bedside. Patient currently denies chest pain or pressure. He denies shortness of breath. He does report yesterday when he was laying flat he felt like he was having a hard time breathing. He denies having palpitations at this time. He remains on IV Cardizem at 5 mg an hour. Telemetry reveals atrial fibrillation with heart rate ranging between [id number]. 01/21/2024 Patient examined this morning the bedside. Patient currently denies chest pain or pressure. He denies shortness of breath. He remains on IV amiodarone. He remains in atrial fibrillation with heart rates between 100-120. The patient does report he has only been taking his Eliquis once a day on an outpatient basis. 01/23/2024 Patient is status post LENNY and cardioversion this morning. He is maintaining sinus mechanism. He is bradycardic with a heart rate in the 50s. He denies c hest pain or pressure. Denies shortness of breath. PHYSICAL EXAM: VITAL SIGNS: Reviewed. GENERAL: Well-developed in no acute distress. NECK: Supple. No JVD or thyromegaly LUNGS: Respirations even and unlabored. Lungs essentially clear to auscultation bilaterally. HEART: Regular Rate and rhythm. S1 and S2 heard. EXTREMITIES: Normal range of motion. No clubbing or cyanosis. Peripheral pulses intact. Trace lower extremity edema ASSESSMENT: Paroxysmal atrial fibrillation Status post LENNY and cardioversion, maintaining sinus bradycardia Nonobstructive coronary artery disease History of cardiac arrest; ventricular fibrillation per patient History of AICD implantation History of A-fib ablation, approximately 4 years ago Hypertension Marijuana use PLAN: Discontinue metoprolol secondary to bradycardia Continue amiodarone 200 mg twice a day Continue additional cardiac medications Patient is stable for discharge home today from a cardiac standpoint Patient to follow-up postdischarge with his primary brush and broom clipper Nurse practitioner note has been reviewed by physician. Signing provider agrees with the documented findings, assessment, and plan of care documented by WICK TENDER as a scribe. Objective - Vital Signs Vital signs: Vital Signs Temp 97.6 F 01/23/24 08:28 Pulse 47 L 01/23/24 12:00 Resp 16 01/23/24 12:00 BP 104/73 01/23/24 12:00 Pulse Ox 98 01/23/24 12:00 FiO2 Intake & Output 01/22/24 01/23/24 01/23/24 18:59 06:59 18:59 Intake Total 850 240 200 Balance 850 240 200 Weight 145 kg Intake: IV 200 Oral 850 240 Other: Voiding Method Toilet Toilet # Voids 1 - Labs CBC & Chem 7: 01/18/24 20:00 01/22/24 06:21
--- NOTE | 2024-01-23 16:17 | P.PN ---
Progress Note - Text Progress Note Date: 01/23/24 Chief Complaint: Heart racing 58-year-old patient who follows with Dr. Rea. Patient is on disability. Lives with fiance. does about 3-4 marijuana day. Patient has AICD. Recently saw his coding quality coordinator . He was told his AICD fired because of uncontrolled A-fib. Yesterday evening around 7 PM patient felt a nervous sensation checked his pulse heart rate was over 200. Decided to come in. Just tired. Ordered IV Cardizem drip in the ER. Patient does take Rythmol on a as needed basis. January 19: Laying in bed. Patient heart rate is still been up/A-fib. Patient started on IV amiodarone. IV Cardizem drip was discontinued by cardiology. Lopressor increased to 75 mg twice daily. Dose of Zestril cut back. Did asked the patient to increase activity after receiving new dose of oral medications. Does feel a bit nervous sensation. January 20: Heart rate remains above 100. Cardiology is planning for cardioversion tomorrow. On IV amiodarone. Lopressor 75 twice daily. Discussed with patient January 21: Patient heart rate remains to be above 100. Patient to be rescheduled for cardioversion for tomorrow. Remains on IV amiodarone and other medications. Oral intake fair. Discussed. Patient had some IV infiltration. Amiodarone. Local treatment. January 22: Patient was cardioverted by Dr. Gong today. Discussed with Dr. Santos: Lopressor discontinued. Discharged on amiodarone. Patient will follow-up with his own coding quality coordinator. Cardiac symptoms stable. Social history: This is his fiance. He is on disability. 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 No smoking or alcohol. average about 3-4 marijuana joints a day Physical examination: VITAL SIGNS: 97.6, 47, 16, 104 x 73, 98% room air GENERAL: Reclining in bed, comfortable EYES: Pupils equal. Conjunctiva normal. HEENT: External appearance of nose and ears normal, oral cavity grossly normal endotracheal tube. NECK: JVD unable to assess; masses not palpable. HEART: First second sound normal; no edema. LUNGS:[ Respiratory rate normal, fair air entry ABDOMEN: Soft, nontender, liver spleen not palpable, no masses palpable. PSYCH: AOx3, mood affect normal INVESTIGATIONS, reviewed in the clinical context: January 21: Potassium 4.7 phosphorus 1.9 TSH 1.4 January 17: White count 5.9 hemoglobin 14.3 platelets 198 potassium 3.8 creatinine 0.9 Troponin I less than 0.012 x 2. proBNP 1350 LDL 106 EKG tracing personally reviewed by me-atrial fibrillation. Rate 135. ST/T wave changes. Chest x-ray film personally reviewed by me-some cardiomegaly Previous test: March 2023: EF 50-55%. Severe right ventricle and right atrial dilatation. Assessment and plan: -Persistent atrial fibrillation. presents with rapid ventricular rate, symptomatic: 9 sinus rhythm [At home was taking Eliquis. Lopressor 25 twice daily and Rythmol as needed] Discontinued IV Cardizem drip, Lopressor-75 mg twice daily. Telemetry. IV amiodarone Cardiology following Cardioversion done today on January 22: In sinus rhythm Discharged on p.o. amiodarone. Lopressor discontinued because of bradycardia -Nonobstructive coronary artery disease with 60-70% mid LAD stenosis, and RCA lesion. Follows with his coding quality coordinator , out of the area Aspirin. Lipitor. -Recreational marijuana use. -Morbid obesity BMI 40.4 Weight loss measures. -Prior history of cardiac arrest in systolic cardiac dysfunction. 2D echo from March 2023 shows preserved LV function -GERD PPI -Essential hypertension Zestril -Chronic insomnia Trazodone 150 mg daily at bedtime -Full code Disposition: Home Past Medical History Past Medical History: Atrial Fibrillation, GERD/Reflux, Hypertension, Musculoskeletal Disorder, Osteoarthritis (OA), Sleep Apnea/CPAP/BIPAP Additional Past Medical History / Comment(s): Chronic LOWER back & KNEE Pain. hx. enlarged spleen after fall 2016-no problems now that he knows of, KIDNEY STONES , vericose veins; herniated disc C6/c7, growth removed from inner left leg 2022 History of Any Multi-Drug Resistant Organisms: None Reported Past Surgical History: Back Surgery, Bariatric Surgery, Cholecystectomy, Hernia Repair, Orthopedic Surgery Additional Past Surgical History / Comment(s): UMBILICAL HERNIA, RT KNEE MENISCUS, GASTRIC SLEEVE 2011, LT Rotator cuff. ABSCESS CYST ON TAILBONE, LITHOTRIPSY 10/09/2017. VARICOSE VEINS REMOVED, AICD 2022 Past Anesthesia/Blood Transfusion Reactions: Previous Problems w/ Anesthesia Additional Past Anesthesia/Blood Transfusion Reaction / Comment(s): WOKE UP DURING KNEE SURGERY - only happened once. Past Psychological History: Anxiety, Depression Smoking Status: Former smoker Past Alcohol Use History: Rare Additional Past Alcohol Use History / Comment(s): SMOKED 1 PPD, QUIT 2009. Past Drug Use History: Marijuana Additional Drug Use History / Comment(s): SMOKES MARIJUANA FOR BACK PAIN DAILY, TOTAL 3 joints DAILY.
--- NOTE | 2024-02-06 23:17 | P.DS ---
Providers Date of admission: 01/18/24 23:21 Expected date of discharge: 01/23/24 Attending physician: Fawad Latham Consults: 01/18/24 23:18 Consult Physician Routine Consulting Provider: Jose Guadalupe Sow Consult Reason/Comments: ATrial fibrillation with rapid ventricular rate Do you want consulting provider notified?: Yes Primary care physician: [facility] Course: Chief Complaint: Heart racing 58-year-old patient who follows with Dr. Rea. Patient is on disability. Lives with fiance. does about 3-4 marijuana day. Patient has AICD. Recently saw his professor of geography . He was told his AICD fired because of uncontrolled A-fib. Yesterday evening around 7 PM patient felt a nervous sensation checked his pulse heart rate was over 200. Decided to come in. Just tired. Ordered IV Cardizem drip in the ER. Patient does take Rythmol on a as needed basis. January 19: Laying in bed. Patient heart rate is still been up/A-fib. Patient started on IV amiodarone. IV Cardizem drip was discontinued by cardiology. Lopressor increased to 75 mg twice daily. Dose of Zestril cut back. Did asked the patient to increase activity after receiving new dose of oral medications. Does feel a bit nervous sensation. January 20: Heart rate remains above 100. Cardiology is planning for cardioversion tomorrow. On IV amiodarone. Lopressor 75 twice daily. Discussed with patient January 21: Patient heart rate remains to be above 100. Patient to be rescheduled for cardioversion for tomorrow. Remains on IV amiodarone and other medications. Oral intake fair. Discussed. Patient had some IV infiltration. Amiodarone. Local treatment. January 22: Patient was cardioverted by Dr. Gong today. Discussed with Dr. Santos: Lopressor discontinued. Discharged on amiodarone. Patient will follow-up with his own professor of geography. Cardiac symptoms stable. Social history: This is his fiance. He is on disability. 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 No smoking or alcohol. average about 3-4 marijuana joints a day Physical examination: VITAL SIGNS: 97.6, 47, 16, 104 x 73, 98% room air GENERAL: Reclining in bed, comfortable EYES: Pupils equal. Conjunctiva normal. HEENT: External appearance of nose and ears normal, oral cavity grossly normal endotracheal tube. NECK: JVD unable to assess; masses not palpable. HEART: First second sound normal; no edema. LUNGS:[ Respiratory rate normal, fair air entry ABDOMEN: Soft, nontender, liver spleen not palpable, no masses palpable. PSYCH: AOx3, mood affect normal INVESTIGATIONS, reviewed in the clinical context: January 21: Potassium 4.7 phosphorus 1.9 TSH 1.4 January 17: White count 5.9 hemoglobin 14.3 platelets 198 potassium 3.8 creatinine 0.9 Troponin I less than 0.012 x 2. proBNP 1350 LDL 106 EKG tracing personally reviewed by me-atrial fibrillation. Rate 135. ST/T wave changes. Chest x-ray film personally reviewed by me-some cardiomegaly Previous test: March 2023: EF 50-55%. Severe right ventricle and right atrial dilatation. Assessment and plan: -Persistent atrial fibrillation. presents with rapid ventricular rate, symptomatic: 9 sinus rhythm [At home was taking Eliquis. Lopressor 25 twice daily and Rythmol as needed] Discontinued IV Cardizem drip, Lopressor-75 mg twice daily. Telemetry. IV amiodarone Cardiology following Cardioversion done today on January 22: In sinus rhythm Discharged on p.o. amiodarone. Lopressor discontinued because of bradycardia -Nonobstructive coronary artery disease with 60-70% mid LAD stenosis, and RCA lesion. Follows with his professor of geography , out of the area Aspirin. Lipitor. -Recreational marijuana use. -Morbid obesity BMI 40.4 Weight loss measures. -Prior history of cardiac arrest in systolic cardiac dysfunction. 2D echo from March 2023 shows preserved LV function -GERD PPI -Essential hypertension Zestril -Chronic insomnia Trazodone 150 mg daily at bedtime -Full code Disposition: Home Past Medical History Past Medical History: Atrial Fibrillation, GERD/Reflux, Hypertension, Musculoskeletal Disorder, Osteoarthritis (OA), Sleep Apnea/CPAP/BIPAP Additional Past Medical History / Comment(s): Chronic LOWER back & KNEE Pain. hx. enlarged spleen after fall 2017-no problems now that he knows of, KIDNEY STONES , vericose veins; herniated disc C6/c7, growth removed from inner left leg 2022 History of Any Multi-Drug Resistant Organisms: None Reported Past Surgical History: Back Surgery, Bariatric Surgery, Cholecystectomy, Hernia Repair, Orthopedic Surgery Additional Past Surgical History / Comment(s): UMBILICAL HERNIA, RT KNEE MENISCUS, GASTRIC SLEEVE 2011, LT Rotator cuff. ABSCESS CYST ON TAILBONE, LITHOTRIPSY 10/09/2017. VARICOSE VEINS REMOVED, AICD 2022 Past Anesthesia/Blood Transfusion Reactions: Previous Problems w/ Anesthesia Additional Past Anesthesia/Blood Transfusion Reaction / Comment(s): WOKE UP DURING KNEE SURGERY - only happened once. Past Psychological History: Anxiety, Depression Smoking Status: Former smoker Past Alcohol Use History: Rare Additional Past Alcohol Use History / Comment(s): SMOKED 1 PPD, QUIT 2009. Past Drug Use History: Marijuana Additional Drug Use History / Comment(s): SMOKES MARIJUANA FOR BACK PAIN DAILY, TOTAL 3 joints DAILY. Plan - Discharge Summary Discharge Rx Participant: Yes New Discharge Prescriptions: New Amiodarone [Cordarone] 200 mg PO BID #60 tab Continue HYDROcodone/APAP 10-325MG [[place] 10-325] 1 - 1.5 tab PO Q8H PRN PRN Reason: Severe Pain (Scale 7 To 10) Albuterol Sulfate [Albuterol Sulfate Hfa] 2 puff INHALATION RT-Q4H PRN PRN Reason: Shortness Of Breath Loratadine [Claritin] 10 mg PO DAILY Naloxone HCl [Narcan] 1 spray NASAL DIRECTED PRN PRN Reason: OVERDOSE traZODone HCL [Desyrel] 150 mg PO HS Omeprazole 40 mg PO BID Apixaban [Eliquis] 5 mg PO BID Spironolactone [Aldactone] 25 mg PO DAILY Furosemide [Lasix] 40 mg PO DAILY Aspirin 81 mg PO DAILY Cyclobenzaprine [Flexeril] 5 mg PO TID PRN PRN Reason: Muscle Spasm Biotin [Ukmb-Gqek-Pzgna] 10,000 mcg PO DAILY Propafenone [Rythmol] 150 mg PO TID PRN PRN Reason: afib Changed lisinopriL [Zestril] 5 mg PO DAILY #60 tab Discontinued Metoprolol Tartrate [Lopressor] 25 mg PO BID Discharge Medication List HYDROcodone/APAP 10-325MG [[place] 10-325] 1 - 1.5 tab PO Q8H PRN 01/13/15 [History] Omeprazole 40 mg PO BID 12/09/22 [History] traZODone HCL [Desyrel] 150 mg PO HS 12/09/22 [History] Albuterol Sulfate [Albuterol Sulfate Hfa] 2 puff INHALATION RT-Q4H PRN 04/12/23 [History] Apixaban [Eliquis] 5 mg PO BID 04/12/23 [History] Aspirin 81 mg PO DAILY 04/12/23 [History] Furosemide [Lasix] 40 mg PO DAILY 04/12/23 [History] Spironolactone [Aldactone] 25 mg PO DAILY 04/12/23 [History] Biotin [Wyvi-Ruow-Tbsdp] 10,000 mcg PO DAILY 01/11/24 [History] Cyclobenzaprine [Flexeril] 5 mg PO TID PRN 01/11/24 [History] Loratadine [Claritin] 10 mg PO DAILY 01/11/24 [History] Naloxone HCl [Narcan] 1 spray NASAL DIRECTED PRN 01/11/24 [History] Propafenone [Rythmol] 150 mg PO TID PRN 01/18/24 [History] Amiodarone [Cordarone] 200 mg PO BID #60 tab 01/23/24 [Rx] lisinopriL [Zestril] 5 mg PO DAILY #60 tab 01/23/24 [Rx] Follow up Appointment(s)/Referral(s): dr porter [Other] - 1 Week Ethan Rea DO [Primary Care Provider] - 1-2 days Discharge Disposition: HOME WITH HOME HEALTH SERVICES
== END 2024-01-23 13:54 | disposition home health service (06) | DRG 309 ==
LOC: EC 19:17 → 3SCARD 23:21
PROVIDERS: ADMIT Hospitalist; ATTEND Hospitalist
PROC: 5A2204Z Restoration of Cardiac Rhythm, Single (ICD-10-PCS; 2024-01-23)
PROC: B24BZZ4 Ultrasonography of Heart with Aorta, Transesophageal (ICD-10-PCS; principal; 2024-01-23 07:15)
DX: I48.19 Other persistent atrial fibrillation (principal); Z68.41 Body mass index [BMI] 40.0-44.9, adult; I80.8 Phlebitis and thrombophlebitis of other sites; Z86.74 Personal history of sudden cardiac arrest; E66.01 Morbid (severe) obesity due to excess calories; I08.1 Rheumatic disorders of both mitral and tricuspid valves; I10 Essential (primary) hypertension; I25.10 Atherosclerotic heart disease of native coronary artery without angina pectoris; K21.9 Gastro-esophageal reflux disease without esophagitis; F51.04 Psychophysiologic insomnia; I47.10 Supraventricular tachycardia, unspecified; R00.1 Bradycardia, unspecified; Z79.82 Long term (current) use of aspirin; Z79.01 Long term (current) use of anticoagulants; Z98.84 Bariatric surgery status; Z87.891 Personal history of nicotine dependence; Z79.899 Other long term (current) drug therapy; Z95.810 Presence of automatic (implantable) cardiac defibrillator
CPT/HCPCS: 36415; 71045; 80048; 80053; 80061; 83605; 83735; 83880; 84100; 84443; 84484; 85025; 85610; 85730; 92960; 93005; 93312; 93320; 93325; 94760; 96365; 96366; 96368; 96375; 99292

== ENCOUNTER → 2024-03-15 | Outpatient (CLI) | payer MEDICARE, OTHER ==
[2024-03-15 12:21] LABS: Partial Thromboplastin Time 25.6 sec (22.0-30.0); Prothrombin Time 10.9 sec (10.0-12.5)
[2024-03-15 15:38] LABS: HCT 45.2 % (39.6-50.0); HGB 15.1 g/dL (13.0-17.0); MCH 29.4 pg (27.0-32.0); MCHC 33.4 g/dL (32.0-37.0); MCV 88.1 FL (80.0-97.0); Mean Platelet Volume 9.1 FL (9.5-12.2); NRBC Per 100 WBC 0 X 10*3/uL (0.00-0.01); Platelet Count 200 X 10*3/uL (140-440); RBC 5.13 X 10*6/uL (4.40-5.60); RDW 12.8 % (11.5-14.5); WBC 5.18 X 10*3/uL (4.50-10.00)
[2024-03-15 16:02] LABS: Blood Urea Nitrogen 14.3 mg/dL (9.0-27.0); Calcium 9.2 mg/dL (8.7-10.3); Carbon Dioxide 26.6 mmol/L (21.6-31.8); Chloride 103 mmol/L (96-109); Glucose 90 mg/dL (70-110); Potassium 4.6 mmol/L (3.5-5.5); Sodium 141 mmol/L (135-145)
== END | disposition home or self-care (01) ==
LOC: LABWHC1 11:18
PROVIDERS: ATTEND Internal Medicine
DX: I48.91 Unspecified atrial fibrillation (principal)
CPT/HCPCS: 36415; 80048; 85027; 85610; 85730

== ENCOUNTER → 2024-04-15 | Outpatient (CLI) | payer MEDICARE, OTHER ==
[2024-04-15 15:16] LABS: HCT 43.9 % (39.6-50.0); HGB 13.9 g/dL (13.0-17.0); MCH 29.3 pg (27.0-32.0); MCHC 31.7 g/dL (32.0-37.0); MCV 92.4 FL (80.0-97.0); Mean Platelet Volume 9.2 FL (9.5-12.2); NRBC Per 100 WBC 0 X 10*3/uL (0.00-0.01); Platelet Count 197 X 10*3/uL (140-440); RBC 4.75 X 10*6/uL (4.40-5.60); RDW 13.1 % (11.5-14.5); WBC 4.48 X 10*3/uL (4.50-10.00)
[2024-04-15 16:18] LABS: ALT 24 U/L (10-49); AST 28 U/L (14-35); Albumin 3.9 g/dL (3.8-4.9); Albumin/Globulin Ratio 1.56 Ratio (1.60-3.17); Alkaline Phosphatase 74 U/L (41-126); BUN/Creat Ratio 12.18 Ratio (12.00-20.00); Blood Urea Nitrogen 13.4 mg/dL (9.0-27.0); Calcium 9.1 mg/dL (8.7-10.3); Carbon Dioxide 27.2 mmol/L (21.6-31.8); Chloride 103 mmol/L (96-109); Globulin 2.5 g/dL (1.6-3.3); Glucose 84 mg/dL (70-110); Magnesium 1.9 mg/dL (1.5-2.4); Potassium 4.8 mmol/L (3.5-5.5); Sodium 140 mmol/L (135-145); Total Bilirubin 0.7 mg/dL (0.3-1.2); Total Protein 6.4 g/dL (6.2-8.2)
== END | disposition home or self-care (01) ==
LOC: LABWHC1 09:27
PROVIDERS: ATTEND Nuclear Medicine Nuclear Cardiology
DX: I95.9 Hypotension, unspecified (principal)
CPT/HCPCS: 36415; 80053; 83735; 85027

== ENCOUNTER 2024-08-04 09:47 | Observation (INO) | payer MEDICARE, OTHER ==
--- NOTE | 2024-08-04 10:09 | ED ---
General Adult HPI - General Chief complaint: Arrhythmia/Palpitations Stated complaint: Abn heart rate-poss afib Time Seen by Provider: 08/04/24 09:54 Source: patient, RN notes reviewed, old records reviewed Mode of arrival: ambulatory Limitations: no limitations - History of Present Illness Initial comments: 58-year-old male with history of atrial fibrillation presents with palpitation, racing heart sensation. Patient states that he had received an ablation and had been in sinus rhythm for some time. He developed palpitations over the past several days which she attributes to marijuana use. He denies chest pain or dyspnea. He took several doses of metoprolol which she had from prior. No improvement. Patient is not on any prescribed daily medications currently. - Related Data Home Medications Medication Instructions Recorded Confirmed HYDROcodone/APAP 10-325MG [[place] 1 tab PO TID 01/13/15 08/04/24 10-325] traZODone HCL [Desyrel] 150 mg PO HS 12/09/22 08/04/24 Apixaban [Eliquis] 5 mg PO BID 04/12/23 08/04/24 Furosemide [Lasix] 40 mg PO Q48H 04/12/23 08/04/24 Spironolactone [Aldactone] 25 mg PO Q48H 04/12/23 08/04/24 Metoprolol Tartrate [Lopressor] 150 mg PO ONCE PRN 08/04/24 08/04/24 Naproxen [EC-Naprosyn] 500 mg PO BID PRN 08/04/24 08/04/24 Allergies Allergy/AdvReac Type Severity Reaction Status Date / Time cat dander AdvReac Itching Verified 08/04/24 10:23 house dust AdvReac Itching Verified 08/04/24 10:23 pollen extracts AdvReac Itching Verified 08/04/24 10:23 Review of Systems ROS Statement: Those systems with pertinent positive or pertinent negative responses have been documented in the HPI. ROS Other: All systems not noted in ROS Statement are negative. Past Medical History Past Medical History: Atrial Fibrillation, GERD/Reflux, Hypertension, Musculoskeletal Disorder, Osteoarthritis (OA), Sleep Apnea/CPAP/BIPAP Additional Past Medical History / Comment(s): Chronic LOWER back & KNEE Pain. hx. enlarged spleen after fall 2017-no problems now that he knows of, KIDNEY STONES , vericose veins; herniated disc C6/c7, growth removed from inner left leg 2022 History of Any Multi-Drug Resistant Organisms: None Reported Past Surgical History: Back Surgery, Bariatric Surgery, Cholecystectomy, Hernia Repair, Orthopedic Surgery Additional Past Surgical History / Comment(s): UMBILICAL HERNIA, RT KNEE MENISCUS, GASTRIC SLEEVE 2011, LT Rotator cuff. ABSCESS CYST ON TAILBONE, LITHOTRIPSY 10/09/2017. VARICOSE VEINS REMOVED, AICD 2022 Past Anesthesia/Blood Transfusion Reactions: Previous Problems w/ Anesthesia Additional Past Anesthesia/Blood Transfusion Reaction / Comment(s): WOKE UP DURING KNEE SURGERY - only happened once. Past Psychological History: Anxiety, Depression Smoking Status: Former smoker Past Alcohol Use History: Rare Past Drug Use History: Marijuana - Past Family History Father History Unknown: Yes Family Medical History: Renal Disease Brother(s) History Unknown: Yes Family Medical History: Cancer Additional Family Medical History / Comment(s): KIDNEY [place] General Exam Limitations: no limitations General appearance: alert, in no apparent distress Head exam: Present: atraumatic, normocephalic Eye exam: Present: normal appearance, PERRL ENT exam: Present: normal exam Neck exam: Present: normal inspection. Absent: tenderness, meningismus Respiratory exam: Present: normal lung sounds bilaterally. Absent: respiratory distress, wheezes Cardiovascular Exam: Present: tachycardia, irregular rhythm GI/Abdominal exam: Present: soft. Absent: distended, tenderness, guarding Neurological exam: Present: alert, altered, CN II-XII intact. Absent: motor sensory deficit Psychiatric exam: Present: normal affect, normal mood Skin exam: Present: warm, dry, intact. Absent: cyanosis, diaphoretic Course Vital Signs 08/04/24 09:49 Temperature 98.1 F Pulse Rate 61 Respiratory 17 Rate Blood Pressure 119/87 O2 Sat by Pulse 97 Oximetry Medical Decision Making - Medical Decision Making Was pt. sent in by a medical professional or institution (, PA, STAFFING ADMINISTRATOR, urgent care, hospital, or intermediate...) When possible be specific @ -No Did you speak to anyone other than the patient for history (EMS, parent, family, police, friend...)? What history was obtained from this source @ -No Did you review nursing and triage notes (agree or disagree)? Why? @ -I reviewed and agree with nursing and triage notes Were old charts reviewed (outside hosp., previous admission, EMS record, old EKG, old radiological studies, urgent care reports/EKG's, intermediate records)? Report findings @ -No old charts were reviewed Differential Palpitations Ventricular arrhythmias, atrial arrhythmias, myocardial infarction, anemia, thyrotoxicosis, electrolyte imbalance, hypokalemia, pulmonary embolism, pulmonary disease, drugs, alcohol, anxiety, stress.... This is not meant to be an all-inclusive list. EKG interpreted by me (3pts min.). @ -[EKG: Atrial fibrillation with RVR rate of 118, QRS duration 96, QTc [address] segment elevation. X-rays interpreted by me (1pt min.). @ -Chest x-ray is negative for consolidated pneumonia, no pneumothorax, small left pleural effusion. CT interpreted by me (1pt min.). @ -None done U/S interpreted by me (1pt. min.). @ -None done What testing was considered but not performed or refused? (CT, X-rays, U/S, labs)? Why? @ -None What meds were considered but not given or refused? Why? @ -None Did you discuss the management of the patient with other professionals (professionals i.e. DrAdelina, PA, STAFFING ADMINISTRATOR, lab, RT, psych nurse, social studies department chair, manager supply chain planning, teacher, tactical deception plans officer, trimming caser)? Give summary @ -Case discussed with Dr. Latham who will admit Was smoking cessation discussed for >3mins.? @ -No Was critical care preformed (if so, how long)? @ -[Yes, 35 minutes Were there social determinants of health that impacted care today? How? (Homelessness, low income, unemployed, alcoholism, drug addiction, transportation, low edu. Level, literacy, decrease access to med. care, shelter, rehab)? @ -No Was there de-escalation of care discussed even if they declined (Discuss DNR or withdrawal of care, Hospice)? DNR status @ -No What co-morbidities impacted this encounter? (DM, HTN, Smoking, COPD, CAD, Cancer, CVA, ARF, Chemo, Hep., AIDS, mental health diagnosis, sleep apnea, morbid obesity)? @ -Atrial fibrillation. Was patient admitted / discharged? Hospital course, mention meds given and route, prescriptions, significant lab abnormalities, going to OR and other pertinent info. @ -58-year-old male history of atrial fibrillation presenting with palpitation. Patient found to be in atrial fibrillation with RVR. Started on Cardizem. Normal CBC, normal CMP, negative troponin. Patient admitted to Dr. Latham with cardiology on consultation. Undiagnosed new problem with uncertain prognosis? @ -No Drug Therapy requiring intensive monitoring for toxicity (Heparin, Nitro, Insulin, Cardizem)? @ -No Were any procedures done? @ -No Diagnosis/symptom? @A-fib with RVR Acute, or Chronic, or Acute on Chronic? @Acute Uncomplicated (without systemic symptoms) or Complicated (systemic symptoms)? @ -Default Side effects of treatment? @ -No Exacerbation, Progression, or Severe Exacerbation? @ -No Poses a threat to life or bodily function? How? (Chest pain, [place], [place], pneumonia, PE, COPD, DKA, ARF, appy, cholecystitis, CVA, Diverticulitis, Homicidal, Suicidal, threat to staff... and all critical care pts) @ -Yes, arrhythmia - Lab Data Result diagrams: 08/04/24 10:13 08/04/24 10:13 Lab Results 08/04/24 08/04/24 08/04/24 Range/Units 10:13 10:13 10:13 WBC 6.73 (4.50-10.00) 10*3/uL RBC 5.75 H (4.40-5.60) 10*6/uL Hgb 17.1 H (13.0-17.0) g/dL Hct 50.8 H (39.6-50.0) % MCV 88.3 (80.0-97.0) fL MCH 29.7 (27.0-32.0) pg MCHC 33.7 (32.0-37.0) g/dL Plt Count 210 (140-440) 10*3/uL MPV 8.9 L (9.5-12.2) fL Immature Gran % (Auto) 0.1 % Neutrophils % 73.5 % Lymphocytes % 16.3 % Monocytes % 8.2 % Eosinophils % 1.3 % Basophils % 0.6 % Immature Gran # 0.01 (0.00-0.04) 10*3/uL Neutrophils # 4.94 (1.80-7.70) 10*3/uL Lymphocytes # 1.10 (0.90-5.00) 10*3/uL Monocytes # 0.55 (0.20-1.00) 10*3/uL Eosinophils # 0.09 (0.04-0.35) 10*3/uL Basophils # 0.04 (0.00-0.10) 10*3/uL PT 11.4 (10.0-12.5) sec INR 1.0 (<1.2) APTT 25.7 (22.0-30.0) sec Sodium 137 (137-145) mmol/L Potassium 4.8 (3.5-5.1) mmol/L Chloride 104 (98-107) mmol/L Carbon Dioxide 27 (22-30) mmol/L Anion Gap 6 mmol/L BUN 23 H (9-20) mg/dL Creatinine 0.90 (0.66-1.25) mg/dL Est GFR (CKD-EPI)AfAm >90 (>60 ml/min/1.73 sqM) Est GFR (CKD-EPI)NonAf >90 (>60 ml/min/1.73 sqM) Glucose 96 (74-99) mg/dL Calcium 9.4 (8.4-10.2) mg/dL Magnesium 1.9 (1.6-2.3) mg/dL Total Bilirubin 1.2 (0.2-1.3) mg/dL AST 64 H (17-59) U/L ALT 41 (4-49) U/L Alkaline Phosphatase 65 (38-126) U/L Troponin I (0.000-0.034) ng/mL Total Protein 7.5 (6.3-8.2) g/dL Albumin 4.2 (3.5-5.0) g/dL TSH 1.820 (0.465-4.680) mIU/L 08/04/24 Range/Units 10:13 WBC (4.50-10.00) 10*3/uL RBC (4.40-5.60) 10*6/uL Hgb (13.0-17.0) g/dL Hct (39.6-50.0) % MCV (80.0-97.0) fL MCH (27.0-32.0) pg MCHC (32.0-37.0) g/dL Plt Count (140-440) 10*3/uL MPV (9.5-12.2) fL Immature Gran % (Auto) % Neutrophils % % Lymphocytes % % Monocytes % % Eosinophils % % Basophils % % Immature Gran # (0.00-0.04) 10*3/uL Neutrophils # (1.80-7.70) 10*3/uL Lymphocytes # (0.90-5.00) 10*3/uL Monocytes # (0.20-1.00) 10*3/uL Eosinophils # (0.04-0.35) 10*3/uL Basophils # (0.00-0.10) 10*3/uL PT (10.0-12.5) sec INR (<1.2) APTT (22.0-30.0) sec Sodium (137-145) mmol/L Potassium (3.5-5.1) mmol/L Chloride (98-107) mmol/L Carbon Dioxide (22-30) mmol/L Anion Gap mmol/L BUN (9-20) mg/dL Creatinine (0.66-1.25) mg/dL Est GFR (CKD-EPI)AfAm (>60 ml/min/1.73 sqM) Est GFR (CKD-EPI)NonAf (>60 ml/min/1.73 sqM) Glucose (74-99) mg/dL Calcium (8.4-10.2) mg/dL Magnesium (1.6-2.3) mg/dL Total Bilirubin (0.2-1.3) mg/dL AST (17-59) U/L ALT (4-49) U/L Alkaline Phosphatase (38-126) U/L Troponin I <0.012 (0.000-0.034) ng/mL Total Protein (6.3-8.2) g/dL Albumin (3.5-5.0) g/dL TSH (0.465-4.680) mIU/L Critical Care Time Critical Care Time: Yes Total Critical Care Time: 35 Disposition Clinical Impression: Atrial flutter with rapid ventricular response Disposition: ADMITTED IP TO THIS [facility] Condition: Stable Is patient prescribed a controlled substance at d/c from ED?: No Time of Disposition: 10:57
[2024-08-04 10:24] LABS: Basophils # (A) 0.04 10*3/uL (0.00-0.10); Basophils % (A) 0.6 %; Eosinophils # (A) 0.09 10*3/uL (0.04-0.35); Eosinophils % (A) 1.3 %; HCT 50.8 % (39.6-50.0); HGB 17.1 g/dL (13.0-17.0); Lymphocytes % (A) 16.3 %; MCH 29.7 pg (27.0-32.0); MCHC 33.7 g/dL (32.0-37.0); MCV 88.3 fL (80.0-97.0); Mean Platelet Volume 8.9 fL (9.5-12.2); Monocytes # (A) 0.55 10*3/uL (0.20-1.00); Monocytes % (A) 8.2 %; Neutrophils # (A) 4.94 10*3/uL (1.80-7.70); Neutrophils % (A) 73.5 %; Platelet Count 210 10*3/uL (140-440); RBC 5.75 10*6/uL (4.40-5.60); RDW 13.5 % (11.5-14.5); WBC 6.73 10*3/uL (4.50-10.00)
[2024-08-04] MEDS: DILTIAZEM 125 MG in SODIUM CHLORIDE 0.9% 100 ML IV SCH (10:26)
[2024-08-04] MEDS: DILTIAZEM DRIP BOLUS FROM BAG 1 MG SOLN IV ONE (10:29)
[2024-08-04 10:33] LABS: Partial Thromboplastin Time 25.7 sec (22.0-30.0); Prothrombin Time 11.4 sec (10.0-12.5)
[2024-08-04 10:35] LABS: ALT 41 U/L (4-49); AST 64 U/L (17-59); African American GFR (CKD) >90 (>60 ml/min/1.73 sqM); Albumin 4.2 g/dL (3.5-5.0); Alkaline Phosphatase 65 U/L (38-126); Anion Gap 6 mmol/L; Blood Urea Nitrogen 23 mg/dL (9-20); Calcium 9.4 mg/dL (8.4-10.2); Carbon Dioxide 27 mmol/L (22-30); Chloride 104 mmol/L (98-107); Glucose 96 mg/dL (74-99); Magnesium 1.9 mg/dL (1.6-2.3); Non-African American GFR(CKD) >90 (>60 ml/min/1.73 sqM); Potassium 4.8 mmol/L (3.5-5.1); Sodium 137 mmol/L (137-145); Total Bilirubin 1.2 mg/dL (0.2-1.3); Total Protein 7.5 g/dL (6.3-8.2)
[2024-08-04] MEDS ORDERED: ACETAMINOPHEN TAB 325 MG TAB PO PRN (10:42)
[2024-08-04] MEDS ORDERED: NALOXONE 0.4 MG/ML 1 ML VIAL IV PRN (10:42)
--- NOTE | 2024-08-04 11:08 | XR ---
EXAMINATION TYPE: XR chest 2V DATE OF EXAM: 08/04/2024 10:27 AM COMPARISON: None. CLINICAL INDICATION: Male, 58 years old with history of dysrhythmia, TECHNIQUE: XR chest 2V view(s) obtained. FINDINGS: The heart size is enlarged. Pacemaker overlies left chest. The pulmonary vasculature is normal. Small left pleural effusion is present. IMPRESSION: 1. Small left pleural effusion. 2. Cardiomegaly [facility], , 08/04/2024 11:06 AM
[2024-08-04] MEDS: SODIUM CHLORIDE 0.9% 1,000 ML IV ONE (11:12)
--- NOTE | 2024-08-04 14:14 | P.CRDCN ---
History of Present Illness Consult date: 08/04/24 History of present illness: History of Present Illness: The patient is a 58-year-old male with known history of atrial fibrillation, nonhemodynamically significant CAD by cardiac catheterization in November 2022, history of ICD placement.He is followed on a regular basis by Dr. Escobedo and Dr. Beltran. He was in the hospital in December 2019 for with atrial fibrillation, rapid ventricular response and underwent LENNY guided cardioversion with mosque of sinus mechanism. His LENNY showed a preserved systolic function. In February he underwent ablation by Dr. Escobedo at [facility] with mosque of sinus mechanism. According to him he has been in sinus mechanism since the cardioversion in December until recently when he started to feel anxious which usually occurs when he is in atrial fibrillation. He has stopped all his medications including anticoagulation and beta-isac. He complains of some dyspnea on exertion but no chest pain. He has no syncope. He has no recent discharge from his defibrillator. He feels that his symptoms reoccurred after he started smoking marijuana again. On presentation he was in atrial fibrillation with rapid ventricular response. His rate is under better control at this time. Medications: None at the time of admission Review of Systems: Respiratory: Mild dyspnea on exertion, no cough or wheezing GI: No nausea or vomiting . No history of peptic ulcer disease. No recent GI bl eed. : No hematuria or dysuria. Nervous System: No stroke or seizure. Physical Examination: 58-year-old male, alert oriented no apparent distress, obese,Blood pressure 135/80, Heart rate 90 Head: Normocephalic. Eyes: Sclerae nonicteric. Neck: Good carotid upstroke, no bruit, no jugular venous distention. Lungs: Clear to auscultation. Heart: Irregular rate and rhythm, S1-S2, no S3, no rub. Systolic ejection murmur. Abdomen: Soft nontender, positive bowel sounds no organomegaly. Extremities: Trace to 1+ edema, intact distal pulses. Labs: Hemoglobin 17.1, potassium 4.8, BUN 23, creatinine 0.9, troponin less than 0.012. Chest x-ray with small left pleural effusion but no infiltrate EKG: Atrial fibrillation with rapid ventricle response and nonspecific ST-T wave changes Impression: 1. Recurrent atrial fibrillation status post ablation in February 2024 at [facility] by Dr. Escobedo 2. Obesity 3. Status post ICD implantation 4. History of marijuana use Plan: 1. Reinitiate anticoagulation in the form of Eliquis 5 mg twice a day 2. Start metoprolol 50 mg twice a day and if heart rate controlled stop IV Cardizem 3. Continue telemetry 4. Increase physical activity 5. If rate is controlled probable discharge home today and follow-up at [facility]. Thank you for this consult we will follow with you. Past Medical History Past Medical History: Atrial Fibrillation, GERD/Reflux, Hypertension, Myocardial Infarction ([place]), Musculoskeletal Disorder, Osteoarthritis (OA), Sleep Apnea/CPAP/BIPAP Additional Past Medical History / Comment(s): Chronic LOWER back & KNEE Pain. hx. enlarged spleen after fall 2016-no problems now that he knows of, KIDNEY STONES , vericose veins; herniated disc C6/c7, growth removed from inner left leg 2022, [place] 2021. Last Myocardial Infarction Date:: 2021 History of Any Multi-Drug Resistant Organisms: None Reported Past Surgical History: Back Surgery, Bariatric Surgery, Cholecystectomy, Hernia Repair, Orthopedic Surgery Additional Past Surgical History / Comment(s): UMBILICAL HERNIA, RT KNEE MENISCUS, GASTRIC SLEEVE 2011, LT Rotator cuff. ABSCESS CYST ON TAILBONE, LITHOTRIPSY 10/09/2017. VARICOSE VEINS REMOVED, AICD 2022 Past Anesthesia/Blood Transfusion Reactions: Previous Problems w/ Anesthesia Additional Past Anesthesia/Blood Transfusion Reaction / Comment(s): WOKE UP DURING KNEE SURGERY - only happened once. Past Psychological History: Anxiety, Depression Smoking Status: Former smoker Past Alcohol Use History: Rare Additional Past Alcohol Use History / Comment(s): SMOKED 1 PPD, QUIT 2009. Past Drug Use History: Marijuana Additional Drug Use History / Comment(s): SMOKES MARIJUANA FOR BACK PAIN DAILY, TOTAL 3 joints DAILY. - Past Family History Father History Unknown: Yes Family Medical History: Renal Disease Brother(s) History Unknown: Yes Family Medical History: Cancer Additional Family Medical History / Comment(s): KIDNEY [place] Medications and Allergies Home Medications Medication Instructions Recorded Confirmed Type HYDROcodone/APAP 10-325MG [[place] 1 tab PO TID 01/13/15 08/04/24 History 10-325] traZODone HCL [Desyrel] 150 mg PO HS 12/09/22 08/04/24 History Apixaban [Eliquis] 5 mg PO BID 04/12/23 08/04/24 History Furosemide [Lasix] 40 mg PO Q48H 04/12/23 08/04/24 History Spironolactone [Aldactone] 25 mg PO Q48H 04/12/23 08/04/24 History Metoprolol Tartrate [Lopressor] 150 mg PO ONCE PRN 08/04/24 08/04/24 History Naproxen [EC-Naprosyn] 500 mg PO BID PRN 08/04/24 08/04/24 History Allergies Allergy/AdvReac Type Severity Reaction Status Date / Time cat dander AdvReac Itching Verified 08/04/24 10:23 house dust AdvReac Itching Verified 08/04/24 10:23 pollen extracts AdvReac Itching Verified 08/04/24 10:23 Physical Exam Vitals: Vital Signs Temp Pulse Pulse Resp BP BP Pulse Ox 08/04/24 12:05 97.9 F 56 L 17 135/87 99 08/04/24 11:10 96 16 107/80 96 08/04/24 11:00 96 16 112/73 95 08/04/24 10:50 82 12 112/73 96 08/04/24 10:40 11 L 108/87 08/04/24 10:30 89 11 L 129/99 98 08/04/24 10:24 126 H 18 08/04/24 10:10 146 H 08/04/24 10:04 142 H 16 08/04/24 09:49 98.1 F 61 17 119/87 97 Intake and Output 08/03/24 08/04/24 08/04/24 22:59 06:59 14:59 Other: Weight 148.778 kg Results 08/04/24 10:13 08/04/24 10:13 Cardiac Enzymes 08/04/24 08/04/24 Range/Units 10:13 10:13 AST 64 H (17-59) U/L Troponin I <0.012 (0.000-0.034) ng/mL Coagulation 08/04/24 Range/Units 10:13 PT 11.4 (10.0-12.5) sec APTT 25.7 (22.0-30.0) sec CBC 08/04/24 Range/Units 10:13 WBC 6.73 (4.50-10.00) 10*3/uL RBC 5.75 H (4.40-5.60) 10*6/uL Hgb 17.1 H (13.0-17.0) g/dL Hct 50.8 H (39.6-50.0) % Plt Count 210 (140-440) 10*3/uL Comprehensive Metabolic Panel 08/04/24 Range/Units 10:13 Sodium 137 (137-145) mmol/L Potassium 4.8 (3.5-5.1) mmol/L Chloride 104 (98-107) mmol/L Carbon Dioxide 27 (22-30) mmol/L BUN 23 H (9-20) mg/dL Creatinine 0.90 (0.66-1.25) mg/dL Glucose 96 (74-99) mg/dL Calcium 9.4 (8.4-10.2) mg/dL AST 64 H (17-59) U/L ALT 41 (4-49) U/L Alkaline Phosphatase 65 (38-126) U/L Total Protein 7.5 (6.3-8.2) g/dL Albumin 4.2 (3.5-5.0) g/dL Current Medications Generic Name Dose Route Start Last Admin Trade Name Freq PRN Reason Stop Dose Admin Acetaminophen 650 mg 08/04/24 10:42 Acetaminophen Tab 325 Mg Tab PO Q6HR PRN Mild Pain or Fever > 100.5 Apixaban 5 mg 08/04/24 21:00 Apixaban 5 Mg Tab PO BID BERNY Protocol Diltiazem HCl 125 mg/ Sodium 125 mls @ 5 mls/hr 08/04/24 10:30 08/04/24 10:26 Chloride IV 5 mg/hr .Q24H BERNY 5 mls/hr Administration 5 MG/HR Metoprolol Tartrate 50 mg 08/04/24 21:00 Metoprolol Tartrate 50 Mg Tab PO BID BERNY Naloxone HCl 0.2 mg 08/04/24 10:42 Naloxone 0.4 Mg/Ml 1 Ml Vial IV Q2M PRN Opioid Reversal Intake and Output 08/03/24 08/04/24 08/04/24 22:59 06:59 14:59 Other: Weight 148.778 kg Patient Weight 08/05/24 06:59 Weight 148.778 kg 08/04/24 10:13 08/04/24 10:13
[2024-08-04] MEDS: HYDROcodone/APAP 10-325MG 1 EACH TAB PO SCH (14:49)
[2024-08-04] MEDS ORDERED: CALCIUM CARBONATE 500 MG CHEWABLE PO PRN (16:57)
--- NOTE | 2024-08-04 18:35 | P.HPIM ---
History of Present Illness H&P Date: 08/04/24 Chief Complaint: Heart racing 58-year-old patient who follows with Dr. Rea. 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 Patient is on disability. Lives with ning. History of atrial fibrillation. Cardioverted in December 2023. February 2024. Underwent ablation at [facility] by Santiago.. Patient has been doing well. In the past A-fib has been controlled intermittently by taking propafenone. Patient had been smoking marijuana. Not since February. Recently for 3 to 4 weeks he started doing marijuana again. Yesterday felt his heart racing. He took some extra metoprolol which he had from before with no improvement. Decided to come in. Started on Cardizem drip. Apparently patient not been taking his Eliquis at home. No chest pain no dizziness. Has been going to the gym regularly. Review of systems: GEN.: Tired EYES: None HEENT: None NECK: None RESPIRATORY: None CARDIOVASCULAR: As above GASTROINTESTINAL: None GENITOURINARY: None MUSCULOSKELETAL: None LYMPHATICS: None HEMATOLOGICAL: None PSYCHIATRY: None NEUROLOGICAL: None Social history: Lives with ning. on disability. 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 No smoking or alcohol. Resumed doing marijuana last 3 to 4 weeks Physical examination: VITAL SIGNS: 98.1, 126, 16, 129 x 99 98% room air GENERAL: BMI 42.1. Sitting at the edge of the bed. EYES: Pupils equal. Conjunctiva normal. HEENT: External appearance of nose and ears normal, oral cavity grossly normal endotracheal tube. NECK: JVD unable to assess; masses not palpable. HEART: Heart sounds irregular al; no edema. LUNGS:[ Respiratory rate normal, fair air entry ABDOMEN: Soft, nontender, liver spleen not palpable, no masses palpable. PSYCH: AOx3, mood affect normal MUSCULOSKELETAL:No Clubbing/cyanosis;muscles-grossly intact. LYMPHATICS: No lymph node palpable neck and axilla INVESTIGATIONS, reviewed in the clinical context: August 04, 2024: White count 6.7 hemoglobin 7.1 platelets 210 sodium 137 potassium 4.8 creatinine 0.9 Troponin I less than 0.012 TSH 1.8 Previous test: March 2023: EF 50-55%. Severe right ventricle and right atrial dilatation. Assessment and plan: -Persistent atrial fibrillation. presents with rapid ventricular rate, symptomatic: Prior history of cardioversion in December 2023. Ablation in March 13, 2014 used to [place]. In the past has taken propafenone, amiodarone. Only takes Lopressor Eliquis apparently as needed at home. Currently on IV Cardizem drip. Eliquis resumed. Seen by Dr. Mendoza from cardiology today. -Nonobstructive coronary artery disease with 60-70% mid LAD stenosis, and RCA lesion. Follows with his microsoft dynamics developer , out of the area Aspirin. Lipitor. -Recreational marijuana use. -Morbid obesity BMI 42.1 Weight loss measures. -Prior history of cardiac arrest in systolic cardiac dysfunction. 2D echo from March 2023 shows preserved LV function -GERD PPI -Essential hypertension Zestril -Chronic insomnia Trazodone 150 mg daily at bedtime -Full code Past Medical History Past Medical History: Atrial Fibrillation, GERD/Reflux, Hypertension, Myocardial Infarction ([place]), Musculoskeletal Disorder, Osteoarthritis (OA), Sleep Apnea/CPAP/BIPAP Additional Past Medical History / Comment(s): Chronic LOWER back & KNEE Pain. hx. enlarged spleen after fall 2016-no problems now that he knows of, KIDNEY STONES , vericose veins; herniated disc C6/c7, growth removed from inner left leg 2022, [place] 2021. Last Myocardial Infarction Date:: 2021 History of Any Multi-Drug Resistant Organisms: None Reported Past Surgical History: Back Surgery, Bariatric Surgery, Cholecystectomy, Hernia Repair, Orthopedic Surgery Additional Past Surgical History / Comment(s): UMBILICAL HERNIA, RT KNEE MENISCUS, GASTRIC SLEEVE 2011, LT Rotator cuff. ABSCESS CYST ON TAILBONE, LITHOTRIPSY 10/09/2017. VARICOSE VEINS REMOVED, AICD 2022 Past Anesthesia/Blood Transfusion Reactions: Previous Problems w/ Anesthesia Additional Past Anesthesia/Blood Transfusion Reaction / Comment(s): WOKE UP DURING KNEE SURGERY - only happened once. Past Psychological History: Anxiety, Depression Smoking Status: Former smoker Past Alcohol Use History: Rare Additional Past Alcohol Use History / Comment(s): SMOKED 1 PPD, QUIT 2009. Past Drug Use History: Marijuana Additional Drug Use History / Comment(s): SMOKES MARIJUANA FOR BACK PAIN DAILY, TOTAL 3 joints DAILY. - Past Family History Father History Unknown: Yes Family Medical History: Renal Disease Brother(s) History Unknown: Yes Family Medical History: Cancer Additional Family Medical History / Comment(s): KIDNEY CA Medications and Allergies Home Medications Medication Instructions Recorded Confirmed Type HYDROcodone/APAP 10-325MG [[place] 1 tab PO TID 01/13/15 08/04/24 History 10-325] traZODone HCL [Desyrel] 150 mg PO HS 12/09/22 08/04/24 History Apixaban [Eliquis] 5 mg PO BID 04/12/23 08/04/24 History Furosemide [Lasix] 40 mg PO Q48H 04/12/23 08/04/24 History Spironolactone [Aldactone] 25 mg PO Q48H 04/12/23 08/04/24 History Metoprolol Tartrate [Lopressor] 150 mg PO ONCE PRN 08/04/24 08/04/24 History Naproxen [EC-Naprosyn] 500 mg PO BID PRN 08/04/24 08/04/24 History Allergies Allergy/AdvReac Type Severity Reaction Status Date / Time cat dander AdvReac Itching Verified 08/04/24 10:23 house dust AdvReac Itching Verified 08/04/24 10:23 pollen extracts AdvReac Itching Verified 08/04/24 10:23 Physical Exam Vitals: Vital Signs Temp Pulse Pulse Resp BP BP Pulse Ox 08/04/24 14:50 97.5 F L 50 L 16 172/84 96 08/04/24 12:05 97.9 F 56 L 17 135/87 99 08/04/24 11:10 96 16 107/80 96 08/04/24 11:00 96 16 112/73 95 08/04/24 10:50 82 12 112/73 96 08/04/24 10:40 11 L 108/87 08/04/24 10:30 89 11 L 129/99 98 08/04/24 10:24 126 H 18 08/04/24 10:10 146 H 08/04/24 10:04 142 H 16 08/04/24 09:49 98.1 F 61 17 119/87 97 Intake and Output 08/03/24 08/04/24 08/04/24 22:59 06:59 14:59 Other: # Voids 2 Weight 148.778 kg Results CBC & Chem 7: 08/04/24 10:13 08/04/24 10:13 Labs: Abnormal Lab Results - Last 24 Hours (Table) 08/04/24 08/04/24 Range/Units 10:13 10:13 RBC 5.75 H (4.40-5.60) 10*6/uL Hgb 17.1 H (13.0-17.0) g/dL Hct 50.8 H (39.6-50.0) % MPV 8.9 L (9.5-12.2) fL BUN 23 H (9-20) mg/dL AST 64 H (17-59) U/L
[2024-08-04] MEDS: METOPROLOL TARTRATE 50 MG TAB PO SCH (19:57)
[2024-08-04] MEDS: APIXABAN 5 MG TAB PO SCH (19:57)
[2024-08-04] MEDS: traZODone HCL 50 MG TAB PO SCH (21:54)
[2024-08-05 08:49] VITALS: RESP 16
[2024-08-05 11:11] LABS: African American GFR (CKD) >90 (>60 ml/min/1.73 sqM); Anion Gap 6 mmol/L; Blood Urea Nitrogen 20 mg/dL (9-20); Calcium 9.2 mg/dL (8.4-10.2); Carbon Dioxide 23 mmol/L (22-30); Chloride 107 mmol/L (98-107); Glucose 130 mg/dL (74-99); Non-African American GFR(CKD) >90 (>60 ml/min/1.73 sqM); Potassium 4.1 mmol/L (3.5-5.1); Sodium 136 mmol/L (137-145)
--- NOTE | 2024-08-05 12:16 | P.PN ---
Subjective Progress Note Date: 08/05/24 History of Present Illness: The patient is a 58-year-old male with known history of atrial fibrillation, n onhemodynamically significant CAD by cardiac catheterization in November 2022, history of ICD placement.He is followed on a regular basis by Dr. Escobedo and Dr. Beltran. He was in the hospital in December 2019 for with atrial fibrillation, rapid ventricular response and underwent LENNY guided cardioversion with islam of sinus mechanism. His LENNY showed a preserved systolic function. In February he underwent ablation by Dr. Escobedo at [facility] with islam of sinus mechanism. According to him he has been in sinus mechanism since the cardioversion in December until recently when he started to feel anxious which usually occurs when he is in atrial fibrillation. He has stopped all his medications including anticoagulation and beta-isac. He complains of some dyspnea on exertion but no chest pain. He has no syncope. He has no recent discharge from his defibrillator. He feels that his symptoms reoccurred after he started smoking marijuana again. On presentation he was in atrial fibrillation with rapid ventricular response. His rate is under better control at this time. Medications: None at the time of admission Progress note 08/05/2024 Seen and examined at bedside this a.m. Denies any chest pain chest pressure shortness of breath. Denies any palpitations. In rate controlled atrial fibrillation this morning with heart rate in range of 90 to 110 bpm when the patient is resting. Physical Examination: 58-year-old male, alert oriented no apparent distress, obese,Blood pressure 135/80, Heart rate 90 Head: Normocephalic. Eyes: Sclerae nonicteric. Neck: Good carotid upstroke, no bruit, no jugular venous distention. Lungs: Clear to auscultation. Heart: Irregular rate and rhythm, S1-S2, no S3, no rub. Systolic ejection murmur. Abdomen: Soft nontender, positive bowel sounds no organomegaly. Extremities: Trace to 1+ edema, intact distal pulses. Labs: Hemoglobin 17.1, potassium 4.8, BUN 23, creatinine 0.9, troponin less than 0.012. Chest x-ray with small left pleural effusion but no infiltrate EKG: Atrial fibrillation with rapid ventricle response and nonspecific ST-T wave changes Impression: 1. Recurrent atrial fibrillation status post ablation in February 2024 at [facility] by Dr. Fanny 2. Obesity 3. Status post ICD implantation 4. History of marijuana use 5. Medication noncompliance 6. Suspect obstructive sleep apnea Plan: Continue Eliquis 5 mg twice daily Increase metoprolol to 75 mg twice daily. Patient is not willing to take Cardizem for rate control. He reports that he has had a prior myocardial infarction therefore he is not a candidate for class Ic antiarrhythmic like flecainide and propafenone. Abstain from marijuana use Goal is to obtain rate control, and if patient is hemodynamically stable, cons ider discharging him to home with recommended outpatient follow-up with his primary lump inspector at [facility]. Goal heart rate as per the "RACE" trial 90-110 bpm Recommend outpatient JOAQUÍN evaluation Ambulate the patient in the unit, if the heart rate is less than 120s and patient is not feeling dizzy lightheaded or short of breath, patient is cleared from cardiovascular standpoint to be discharged with recommended outpatient follow-up. Patient has expressed that he is very eager to go home and would not like to stay in the hospital. I recommended him to stay a bit longer for monitoring and optimization of medications, however he is adamant on leaving. Objective - Vital Signs Vital signs: Vital Signs Temp 98.6 F 08/05/24 07:39 Pulse 60 08/05/24 07:39 Resp 16 08/05/24 08:16 BP 107/69 08/05/24 07:39 Pulse Ox 98 08/05/24 07:39 FiO2 Intake & Output 08/04/24 08/05/24 08/05/24 18:59 06:59 18:59 Intake Total 74.583 Balance 74.583 Weight 148.778 kg Intake: Intake, IV Titration 74.583 Amount Diltiazem 125 mg In 74.583 Sodium Chloride 0.9% 100 ml @ 5 MG/HR 5 mls/hr IV .Q24H BERNY Rx#:[id number] Other: Voiding Method Toilet # Voids 2 2 - Labs CBC & Chem 7: 08/04/24 10:13 08/05/24 10:42 Labs: Abnormal Lab Results - Last 24 Hours (Table) 08/05/24 Range/Units 10:42 Sodium 136 L (137-145) mmol/L Glucose 130 H (74-99) mg/dL
[2024-08-05] MEDS: METOPROLOL TARTRATE 50 MG TAB PO STA (12:27)
[2024-08-05 16:45] VITALS: TEMP 98.3
[2024-08-05 17:53] VITALS: BP 135/89; PULSE 112
--- NOTE | 2024-08-05 19:03 | P.DS ---
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 Lives with fiance. History of atrial fibrillation. Cardioverted in December 2023. February 2024. Underwent ablation at [facility] by Santiago.. Patient has been doing well. In the past A-fib has been controlled intermittently by taking propafenone. Patient had been smoking marijuana. Not since February. Recently for 3 to 4 weeks he started doing marijuana again. Yesterday felt his heart racing. He took some extra metoprolol which he had from before with no improvement. Decided to come in. Started on Cardizem drip. Apparently patient not been taking his Eliquis at home. No chest pain no dizziness. Has been going to the gym regularly. August 05: Patient sitting up in the chair. Saw this morning. Patient not happy about the care he is getting in terms of the cardiac options he has been given. I did try to explain to him that his ablation had at high level of care at [facility]. In our physicians my colleagues cardiology is giving of the best they think they can do. I did speak with Dr. Gibson. Patient does understand that he may have to see his own knuckler. Patient's Lopressor dose was adjusted. Patient did ambulate without any further symptoms. To follow-up with his knuckler soon as possible. Discussed with the nurse earlier. I did tell him that oftentimes A-fib even above 100 is an acceptable heart rate given the clinical picture. Discussion and discharge planning more than 35 minutes Social history: Lives with fiance. on disability. 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 No smoking or alcohol. Resumed doing marijuana last 3 to 4 weeks Physical examination: VITAL SIGNS: 98.3, 112, 16, 1 3589, 100% room air GENERAL: BMI 42.1. In chair, comfortable EYES: Pupils equal. Conjunctiva normal. HEENT: External appearance of nose and ears normal, oral cavity grossly normal endotracheal tube. NECK: JVD unable to assess; masses not palpable. HEART: Heart sounds irregular, no edema. LUNGS:[ Respiratory rate normal, fair air entry ABDOMEN: Soft, nontender, liver spleen not palpable, no masses palpable. PSYCH: AOx3, mood affect normal INVESTIGATIONS, reviewed in the clinical context: August 05: Potassium 4.1 creatinine 0.76 August 04, 2024: White count 6.7 hemoglobin 7.1 platelets 210 sodium 137 potassium 4.8 creatinine 0.9 Troponin I less than 0.012 TSH 1.8 Previous test: March 2023: EF 50-55%. Severe right ventricle and right atrial dilatation. Assessment and plan: -Persistent atrial fibrillation. presents with rapid ventricular rate, symptomatic: Prior history of cardioversion in December 2023. Ablation in March 13, 2014 used to [place]. In the past has taken propafenone, amiodarone. Only takes Lopressor Eliquis apparently as needed at home. Received IV Cardizem drip. Eliquis resumed. Today: Dose of Lopressor increased. Patient to follow-up with his knuckler [facility] -Nonobstructive coronary artery disease with 60-70% mid LAD stenosis, and RCA lesion. 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 Lipitor. -Recreational marijuana use. -Morbid obesity BMI 42.1 Weight loss measures. -Prior history of cardiac arrest in systolic cardiac dysfunction. 2D echo from March 2023 shows preserved LV function -GERD PPI -Essential hypertension Zestril -Chronic insomnia Trazodone 150 mg daily at bedtime -Full code Disposition: Home Past Medical History Past Medical History: Atrial Fibrillation, GERD/Reflux, Hypertension, Myocardial Infarction ([place]), Musculoskeletal Disorder, Osteoarthritis (OA), Sleep Apnea/CPAP/BIPAP Additional Past Medical History / Comment(s): Chronic LOWER back & KNEE Pain. hx. enlarged spleen after fall 2016-no problems now that he knows of, KIDNEY STONES , vericose veins; herniated disc C6/c7, growth removed from inner left leg 2022, [place] 2021. Last Myocardial Infarction Date:: 2021 History of Any Multi-Drug Resistant Organisms: None Reported Past Surgical History: Back Surgery, Bariatric Surgery, Cholecystectomy, Hernia Repair, Orthopedic Surgery Additional Past Surgical History / Comment(s): UMBILICAL HERNIA, RT KNEE MENISCUS, GASTRIC SLEEVE 2011, LT Rotator cuff. ABSCESS CYST ON TAILBONE, LITHOTRIPSY 10/09/2017. VARICOSE VEINS REMOVED, AICD 2022 Past Anesthesia/Blood Transfusion Reactions: Previous Problems w/ Anesthesia Additional Past Anesthesia/Blood Transfusion Reaction / Comment(s): WOKE UP DURING KNEE SURGERY - only happened once. Past Psychological History: Anxiety, Depression Smoking Status: Former smoker Past Alcohol Use History: Rare Additional Past Alcohol Use History / Comment(s): SMOKED 1 PPD, QUIT 2009. Past Drug Use History: Marijuana Additional Drug Use History / Comment(s): SMOKES MARIJUANA FOR BACK PAIN DAILY, TOTAL 3 joints DAILY. Plan - Discharge Summary Discharge Rx Participant: No New Discharge Prescriptions: New Metoprolol Tartrate [Lopressor] 75 mg PO BID #60 tab Continue HYDROcodone/APAP 10-325MG [Burns 10-325] 1 tab PO TID traZODone HCL [Desyrel] 150 mg PO HS Apixaban [Eliquis] 5 mg PO BID Spironolactone [Aldactone] 25 mg PO Q48H Furosemide [Lasix] 40 mg PO Q48H Discontinued Metoprolol Tartrate [Lopressor] 150 mg PO ONCE PRN PRN Reason: afib Naproxen [EC-Naprosyn] 500 mg PO BID PRN PRN Reason: Pain Or Fever > 100.5 Discharge Medication List HYDROcodone/APAP 10-325MG [Burns 10-325] 1 tab PO TID 01/13/15 [History] traZODone HCL [Desyrel] 150 mg PO HS 12/09/22 [History] Apixaban [Eliquis] 5 mg PO BID 04/12/23 [History] Furosemide [Lasix] 40 mg PO Q48H 04/12/23 [History] Spironolactone [Aldactone] 25 mg PO Q48H 04/12/23 [History] Metoprolol Tartrate [Lopressor] 75 mg PO BID #60 tab 08/05/24 [Rx] Follow up Appointment(s)/Referral(s): dr kiya [Other] - 3 Days Ethan Rea DO [Primary Care Provider] - 1-2 days Patient Instructions/Handouts: A-fib (Atrial Fibrillation) (ED), A-fib (Atrial Fibrillation) (DC), A-fib (Atrial Fibrillation) (GEN) Activity/Diet/Wound Care/Special Instructions: FOLLOW UP DIRECTED, SOONER FOR WORSENING SYMPTOMS, PROBLEMS, OR CONCERNS. Discharge Disposition: HOME SELF-CARE
[2024-08-05] MEDS ORDERED: METOPROLOL TARTRATE 25 MG TAB PO SCH (21:00)
== END 2024-08-05 17:53 | disposition home or self-care (01) ==
LOC: EC 09:47 → 6NMEDSUR 10:42
PROVIDERS: ADMIT Hospitalist; ATTEND Hospitalist
DX: I48.19 Other persistent atrial fibrillation (principal); T45.516A Underdosing of anticoagulants, initial encounter; T44.7X6A Underdosing of beta-adrenoreceptor antagonists, initial encounter; Z91.128 Patient's intentional underdosing of medication regimen for other reason; I25.10 Atherosclerotic heart disease of native coronary artery without angina pectoris; I48.92 Unspecified atrial flutter; K21.9 Gastro-esophageal reflux disease without esophagitis; I10 Essential (primary) hypertension; F51.04 Psychophysiologic insomnia; E66.01 Morbid (severe) obesity due to excess calories; Z68.41 Body mass index [BMI] 40.0-44.9, adult; F12.90 Cannabis use, unspecified, uncomplicated; Z79.01 Long term (current) use of anticoagulants; Z79.891 Long term (current) use of opiate analgesic; Z79.899 Other long term (current) drug therapy; Z91.048 Other nonmedicinal substance allergy status; Z87.891 Personal history of nicotine dependence; Z95.810 Presence of automatic (implantable) cardiac defibrillator; Z86.74 Personal history of sudden cardiac arrest
CPT/HCPCS: 96366 ×2; 96376; 96365; 99291; 36415; 93005; 80053; 80048; 83735; 84443; 84484; 85025; 85610; 85730; 71046; G0378 ×2